=== PATIENT | male | born 1945 | race Caucasian/White ===

== ENCOUNTER 2019-09-01 09:26 | Observation (INO) | payer MEDICARE, OTHER, SELFPAY ==
[2019-08-29 09:18] VITALS: BMI 34.2
--- NOTE | 2019-08-29 09:23 | ECG_ITS ---
Measurements Intervals [place] Rate: 85 P: 24 UT: 151 QRS: -40 QRSD: 170 T: 2 QT: 425 QTc: 507 SINUS RHYTHM WITH OCCASIONAL VENTRICULAR PREMATURE COMPLEXES MARKED LEFT AXIS DEVIATION [QRS AXIS < -30] RIGHT BUNDLE BRANCH BLOCK [120+ ms QRS DURATION, UPRIGHT V1, 40+ ms S IN I/aVL/V4/V5/V6] Compared to ECG 08/03/2016 06:43:52 Ventricular premature complex(es) now present Sinus bradycardia no longer present Possible ischemia no longer present Electronically Signed On 08-29-2019 15:55:39 RUBY DEVELOPER by Josesito Blankenship M.D. [email or web address]
--- NOTE | 2019-08-29 10:07 | ANES.PREANES ---
Pre-Anesthetic Assessment Pre-Anesthetic Assessment: Height/Weight: Height 1.8 m Weight 111.13 kg Preop Diagnosis: Lumbar disc displacement with radiculopathy Proposed Procedure: Operation Date: 09/01/19 08:40 Proposed Procedures p Hemilaminotomy Foraminotomy Discectomy 2 L4-L5 L5-S1(Not Applicable) - Dano Mejias MD Familial anesthetic complications: None Social: Social History: No alcohol and No tobacco Exam: Pre-Anes Outpt Exam: alert, oriented x 3, clear to auscultation bilaterally and regular rate & rhythm Airway: Cervical ROM: WNL MP: 4 Dentition: Partials Additional comments: partial plate Pulmonary: Pulmonary: PND and Sleep apnea Comments: CPAP CV/HEM: CV/HEM: CAD Comments: EKG 08/29 - SR with VCs, Left axis deviation, and RBBB ischemic cardiomyopathy : : None reported GI: GI: None reported Comments: hx colon cancer Metabolic: Metabolic: DM and Hyperlipidemia Musc/skel: Musc/skel: None reported Neuropsych: Neuropsych: None reported Comments: arachnoid cyst - no symptoms Anesthetic Plan: ASA status: III Anesthesia: General Risk of > 500 ml blood loss (7ml/kg in children): Yes, adequate IV access and fluids planned PFSH Anesthesia PFSH: Medical History (Updated 08/15/19 @ 09:40 by Dano Mejias MD) Arachnoid cyst (Acute) ASHD (arteriosclerotic heart disease) (Acute) DDD (degenerative disc disease), lumbar (Acute) Diabetes mellitus (Acute) History of colon cancer (Acute) Hyperlipidemia (Acute) Hypertension (Acute) Intervertebral disc disorder with radiculopathy of lumbosacral region (Acute) Ischemic cardiomyopathy (Acute) Lumbar disc disease with radiculopathy (Acute) Lumbar spondylosis (Acute) Lumbosacral disc disease (Acute) Obesity (Acute) Tobacco abuse (Acute) Surgical History (Updated 08/15/19 @ 09:34 by Dano Mejias MD) H/O coronary angioplasty (Acute) History of cholecystectomy (Acute) History of hernia repair (Acute) History of resection of small bowel (Acute) Social History (Updated 08/14/19 @ 18:03 by Angela Wyatt LPN) Smoking and tobacco status: former smoker Alcohol intake: never Lives independently: Yes Household members: spouse Marital status: Current occupational status: retired Current occupation: retired Data Anesthesia Cardiac Studies: No Data to Display
[2019-08-29 10:29] LABS: Basophils % 0.2 %; Eosinophils # 0.1 10^3/uL (0.0-0.8); Eosinophils % 1.5 %; Hematocrit 38.2 % (42.0-52.0); Hemoglobin 12.4 g/dL (11.7-16.6); Lymphocytes # 0.8 10^3/uL (0.8-4.8); Lymphocytes % 18.9 %; Mean Corpuscular HGB Conc 32.5 g/dL (30.0-36.0); Mean Corpuscular Hemoglobin 28.4 pg (28.0-34.0); Mean Corpuscular Volume 87.6 fL (80-94); Mean Platelet Volume 11.6 fL (7.4-10.4); Monocytes # 0.3 10^3/uL (0.2-0.9); Monocytes % 8.4 %; Neutrophils # 2.9 10^3/uL (1.8-7.7); Neutrophils % 70.5 %; Nucleated Red Blood Cells % 0 %; Platelet Count 107 10^3/cmm (130-400); Red Blood Count 4.36 10^6/uL (4.1-5.3); Red Cell Distribution Width 12.7 % (12.1-15.1); White Blood Count 4.1 10^3/uL (4.0-10.0)
[2019-08-29 10:45] LABS: Anion Gap 14.6 (5-19); Blood Urea Nitrogen 16 mg/dL (8-23); Calcium 9.3 mg/dL (8.5-10.5); Carbon Dioxide 24 mmol/L (22-29); Chloride 104 mmol/L (98-107); Glucose 165 mg/dL (74-106); Osmolality Calculated 288 mOsm/kg (285-295); Potassium 3.6 mmol/L (3.5-5.1); Sodium 139 mmol/L (136-145)
[2019-09-01] VITALS (14 sets, daily range): BP systolic 117–143; BP diastolic 64–89; PULSE 66–86; RESP 15–21; TEMP 36.4–36.8; O2SAT 18–99
[2019-09-01 06:42] LABS: Glucose Point of Care 95 mg/dL (70-110)
[2019-09-01] MEDS: gabapentin 300 mg Capsule PO (06:45)
--- NOTE | 2019-09-01 06:57 | PM.HPUD ---
H&P update H&P Update: DATE OF SURGERY/PROCEDURE: 09/01/19 DATE H&P PERFORMED: 08/29/19 H&P UPDATE INFORMATION: H&P completed within last 30 days and H&P to be scanned into chart CHANGES TO PREVIOUS DOCUMENTATION: Off aspirin x 1 week PREOP DIAGNOSIS: Lumbar disc displacement with radiculopathy PRIMARY INDICATION FOR PROCEDURE: Low back and left lower extremity symptoms PLANNED PROCEDURE: Operation Date: 09/01/19 07:00 Proposed Procedures Hemilaminotomy/Foraminotomy/Discectomy, Left L4-L5 and L5-S1 - Dano Mejias MD Full H&P Medications/Allergies: Current Medications: Current Medications Generic Name Dose Route Start Last Admin Trade Name Freq PRN Reason Stop Dose Admin Gabapentin 300 mg 09/01/19 06:15 09/01/19 06:45 Neurontin PO 300 mg ONCE MARY Administration Perinent History: Medical/Surgical History: Medical History (Updated 08/15/19 @ 09:40 by Dano Mejias MD) Arachnoid cyst (Acute) ASHD (arteriosclerotic heart disease) (Acute) DDD (degenerative disc disease), lumbar (Acute) Diabetes mellitus (Acute) History of colon cancer (Acute) Hyperlipidemia (Acute) Hypertension (Acute) Intervertebral disc disorder with radiculopathy of lumbosacral region (Acute) Ischemic cardiomyopathy (Acute) Lumbar disc disease with radiculopathy (Acute) Lumbar spondylosis (Acute) Lumbosacral disc disease (Acute) Obesity (Acute) Tobacco abuse (Acute) Family History: Family History (Updated 08/14/19 @ 18:02 by Angela Wyatt LPN) Mother Cancer Father CAD (coronary artery disease) Sister Hypertension Social History: Social History Smoking and tobacco status: former smoker Alcohol intake: never Lives independently: Yes Household members: spouse Marital status: Current occupational status: retired Current occupation: retired
[2019-09-01] MEDS: sodium chloride 0.9% 1,000 ML 30 ML IV (07:08)
--- NOTE | 2019-09-01 07:08 | PM.OP2 ---
 Brief Operative Note: Date of procedure: 09/01/19 Pre-op diagnosis: Lumbar disc displacement with radiculopathy Post-op diagnosis: same Procedure Done: Left L4-L5, L5-S1 Hemilaminotomy/discectomy/foraminotomy Surgeon: Dano Mejias Estimated blood loss (mL): 50 Complications: None. 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
--- NOTE | 2019-09-01 07:14 | XR_ITS ---
WS: [id number] LUMBAR SPINE TECHNIQUE: 1 view of the lumbar spine CLINICAL INFORMATION: intra-op COMPARISON: None. FINDINGS: Localization marker dorsally at the L4-5 level XR/XR lumbar spine 1V port [id number] IMPRESSION: Images obtained for intraoperative purposes.
--- NOTE | 2019-09-01 07:49 | SUR.OPER ---
family updated of patients status
--- NOTE | 2019-09-01 07:58 | XR_ITS ---
WS: [id number] LUMBAR SPINE TECHNIQUE: 1 view of the lumbar spine CLINICAL INFORMATION: intra-op COMPARISON: None. FINDINGS: Localization marker dorsally at L5 XR/XR lumbar spine 1V port [id number] IMPRESSION: Images obtained for intraoperative purposes
--- NOTE | 2019-09-01 08:18 | SUR.OPER ---
surgifoam placed in back per Dr. Mejias lot: [id number] exp: 05/01/23
--- NOTE | 2019-09-01 09:34 | SUR.PHASEI ---
0933- RECEIVED PATIENT IN PACU FROM OR [facility]IA [facility]. RESP ARE EVEN AND NONLABORED. SIMPLE MASK APPLIED AT 6LPM, SAT 99%. HE IS AWAKE AND ALERT, DROWSY. DRESSING TO LOWER BACK IS DRY AND INTACT. NO S/S PAIN OR NAUSEA
--- NOTE | 2019-09-01 09:48 | SUR.PHASEI ---
0945- UPDATED FAMILY OF STABLE PT STATUS
--- NOTE | 2019-09-01 10:21 | SUR.PHASEI ---
0953- TRANSFERRED PATIENT FROM PACU TO . RESP ARE EVEN AND NONLABORED. SAT 95% WITH ROOM AIR. HE IS AWAKE AND ALERT. DRESSING IS DRY AND INTACT WITH SCANT DRY BLOOD TO TELFA. HE REPORTS PAIN 3-4/10 DESCRIBES NOT BAD DENIES NAUSEA. UPON ARRIVAL HE IS ASSISTED X2 STAFF WITH AMBULATION FROM GURNEY TO BED. HE TOLERATES THIS WELL REPORTING PAIN AT 4-5/10 FOLLOWING ACTIVITY. ALISSON ROBLES AT THE BEDSIDE FOR TRANSITION OF CARE. FAMILY IN SECOND FLOOR WAITING ROOM
[2019-09-01] MEDS: lactated ringers 1,000 ML 90 ML IV (10:33)
[2019-09-01] MEDS: ketorolac 30 mg/mL INJ 15 MG IVP ×2 (10:33→17:43)
[2019-09-01 11:04] LABS: Glucose Point of Care 130 mg/dL (70-110)
--- NOTE | 2019-09-01 15:00 | P.OP_ITS ---
Operative Report Date of procedure: September 01, 2019 Pre-op Diagnosis: Lumbar disc displacement with radiculopathy Pre-op Diagnosis: Lumbar spondylosis Post-op diagnosis: same Procedure Done: Left L4-5, L5-S1 hemilaminotomy/discectomy/foraminotomy. Specimens removed/disposition: L4-5 and L5-S1 disc fragments Surgeon: Dano Mejias Anesthesia: General Estimated blood loss (mL): 50 IV fluids (mL): 1,200 IV fluids: Crystalloid Urine output (mL): 125 Complications: None Condition: stable Disposition: PACU Brief History: The patient is a 73-year-old white male with symptomatic, radiographically confirmed lumbar disc/joint disease and associated neural impingement. Symptoms primarily involved the left lower extremity. Imaging studies demonstrated dominant left-sided encroachment by disc displacement and facet arthropathy at L4-L5 and L5-S1. Conservative management, including physical therapy and pain clinic interventions, did not provide adequate lasting symptom relief. After review of the diagnostic and treatment options with the risks/potential benefits/rationale for each, the patient requested to proceed with surgical intervention. Procedure: After routine preoperative evaluation and informed consent were obtained, the patient was taken to the Operating Room and placed under general endotracheal anesthesia. He was rotated onto the Operating Room table in the mo dified knee-chest position with the aid of the Sainz spine frame. The lumbosacral area was prepared with hair clippers. A proposed midline skin incision was marked with a sterile skin marker. Intraoperative radiography was utilized for localization purposes. The lumbosacral area was scrubbed with Betadine and prepped with DuraPrep. Sterile towels and drapes were applied, and an Ioban surgical barrier was placed. The proposed incision site was infiltrated with 1% Xylocaine with Epinephrine. A skin incision was made and carried down into the subcutaneous tissues. The lumbodorsal fascia was identified and divided in the midline. A left-sided subperiosteal dissection was carried out along the lamina of L4, L5 and the upper sacrum. Deep self-retaining retractors were placed. Intraoperative radiography verified the desired surgical levels. An L4- L5 laminotomy was fashioned utilizing Leksell and Kerrison rongeurs. Ligamentum flavum was resected at the base of the laminotomy site with Kerrison rongeurs. The ligament was undercut across the midline and into the lateral recess. A limited resection of the medial aspect of the facet joint was performed to further the lateral recess decompression. The neuroforamen was enlarged in its medial extent utilizing Kerrison rongeurs. The thecal sac and exiting nerve root were retracted from lateral to medial with the nerve root retractor. Upon r etraction of the thecal sac, an underlying disc/osteophyte complex was well- visualized. Displaced disc and associated osteophytes were removed with various curettes and the pituitary rongeurs. Once the decompression appeared adequate at L4-L5, the dura was covered with thrombin-soaked Gelfoam and a cottonoid. A laminotomy was then fashioned at L5-S1. Ligamentum flavum was resected, with undercutting across the midline and into the lateral recess. Utilizing Kerrison rongeurs, a limited resection of the medial aspect of the facet joint was performed, and the medial aspect of the neuroforamen was enlarged. Retraction of the thecal sac with the nerve root retractor demonstrated residual neural impingement related to displaced disc and bone spurs. Various curettes and Kerrison rongeurs were utilized to address the disc/osteophyte complex. Once the decompression appeared adequate at L5-S1, the Gelfoam and cottonoids were removed at L4-L5. The central canal, lateral recesses, and neuroforamina were probed with the Grampian dental instrument. No residual neural impingement was identified at the completion of the decompression. The sites were copiously irrigated with sterile saline and antibiotic irrigation. Immaculate hemostasis was ensured with the bipolar electrocautery and thrombin-soaked Gelfoam. A thin layer of Surgi-Luis hemostatic matrix was placed over the exposed dura at both laminotomy sites. Wound closure was performed in multiple layers with 2-0 Vicryl Plus, simple interrupted closure of the lumbodorsal fascia, superficial fascia and deep dermis as separate layers. Final skin closure was performed with 3-0 Vicryl Plus in a running subcuticular pattern. Steri-Strips were applied, and a sterile dressing was placed. The patient was then rotated onto the Recovery Room cart in the supine position. He was extubated without incident. The patient tolerated the procedure well. All sponge, needle, and instrument counts were correct at the completion of the procedure.
--- NOTE | 2019-09-01 15:23 | P.DS_ITS ---
Discharge Providers Date of Admission: 09/01/19 09:26 Date of Discharge: Date of Discharge: September 01, 2019 Attending Provider at Admission: Dano Mejias MD Attending Provider at Discharge: Dano Mejias MD Primary Care Provider: Nehemiah Kaur MD Reason for Visit Reason for Visit: Reason For Visit: Lumbar Disc Diease Brief History: The patient is a 73-year-old white male with symptomatic, radiographically confirmed lumbar disc/joint disease and associated neural impingement. Symptoms primarily involved the left lower extremity. Imaging studies demonstrated dominant left- sided encroachment by disc displacement and facet arthropathy at L4-L5 and L5- S1. Conservative management, including physical therapy and pain clinic interventions, did not provide adequate lasting symptom relief. After review of the diagnostic and treatment options with the risks/potential benefits/rationale for each, the patient requested to proceed with surgical intervention. Hospital Course Hospital Course: Patient underwent left L4-L5 and left L5-S1 hemilaminotomy/discectomy/foraminotomy on 09/01/2019. He tolerated the procedure well, and noted improvement in preoperative symptoms following surgery. He completed preoperative and postoperative intravenous antibiotic doses, and the physical therapy postoperative spine protocol. He was ambulatory, voiding, and tolerating diabetic diet prior to requested discharge home on the evening of the date of surgery Physical Exam Const: COMMON NORMALS: no apparent distress GENERAL APPEARANCE: cooperative NUTRITIONAL APPEARANCE: obese Resp: COMMON NORMALS: normal respiratory effort EFFORT & INSPECTION: Yes able to speak in complete sentences and No stridor Back/Pelvis: LUMBAR SPINE/LOWER BACK: Yes straight leg raise negative bilaterally Neuro: SPEECH: speech normal MOTOR EXAM: strength 5/5 throughout (No focal lower extremity motor weakness) Psych: COMMON NORMALS: thought process normal and speech normal ATTITUDE: Yes calm and Yes engaged ACTIVITY/MOTOR BEHAVIOR: Yes appropriate eye contact SPEECH: Yes normal speech MOOD & AFFECT: Yes euthymic mood THOUGHT PROCESS: normal thought process INSIGHT: insight good JUDGEMENT: judgment good Skin: WOUNDS: Yes surgical site (Surgical site dressing clean/dry/intact. Incision without erythema or active drainage.) Urinary Catheter Management^: Garcia: Cath Placed During This Visit: no Discharge Data Data Completed and Pending: Completed Studies During Hospitalization Category Date Time Status XR lumbar spine 1 view portable [XR lumbar spine 1V Exams 09/01/19 07:14 Completed port [id number]] Routi ne XR lumbar spine 1 view portable [XR lumbar spine 1V Exams 09/01/19 07:58 Completed port [id number]] Cayetano gale Pending at discharge Category Date Time Status Pathology: Surgic al [PTH] Routine Pth 09/01/19 09:36 Received Labs from last 24 hours 09/01/19 09/01/19 10:56 06:34 POC Glucose 130 95 Vitals: Last Vital Signs Temp 97.6 F 09/01/19 15:00 Pulse 78 09/01/19 15:00 Resp 18 09/01/19 15:00 BP 128/76 09/01/19 15:00 Pulse Ox 94 09/01/19 15:00 Discharge Plan Discharge Patient Disposition: Home, Self-Care Condition: Stable Prescriptions: New [place] 7.5-325 mg tablet 1 tab PO Q4H PRN (Reason: pain) Qty: 25 RF: 0 Continued clonazepam 0.5 mg tablet 0.25 mg PO BID RF: 0 amitriptyline 25 mg tablet 25 mg PO .hs RF: 0 fluticasone propionate [Children's Flonase Allergy Rlf] 50 mcg/actuation spray,suspension 1 spray INTRANASAL QDAY PRN (Reason: allergy symptoms) RF: 0 metformin 500 mg tablet 1,000 mg PO QDAY RF: 0 lisinopril 20 mg tablet 20 mg PO QDAY RF: 0 glipizide 5 mg tablet 2.5 mg PO QDAY RF: 0 rosuvastatin 20 mg tablet 20 mg PO DAILY RF: 0 Held tramadol 50 mg tablet 50 mg PO BID PRN (Reason: Pain) RF: 0 Hold Instructions: Hold while taking [place] (Hydrocodone). aspirin [Aspirin Low Dose] 81 mg tablet,delayed release (DR/EC) 81 mg PO QDAY RF: 0 Hold Instructions: Resume on 09/03/19. Discharge Orders: Discharge Order (Routine); Ordered 09/01/19 Ordered By: Dano Mejias Referrals: Dano Mejias MD [Physician] - 2 weeks (please call tomrrow morning to set up your follow up appointment) Discharge Diet: Diabetic Discharge Activity: Limit activity as instructed Patient Instructions: Hydrocodone/Acetaminophen (By mouth), Laminectomy for Herniated Disc (DC) Activity Restrictions/Additional Instructions: Activity - No driving until office followup visit - No lifting/pushing/pulling over 10 pounds - Avoid twisting or bending - Walking is encouraged - Home exercise per physical therapist - You may engage in sexual intercourse at any time as long as it is comfortable for you - Check with your doctor before returning to work. Notify your doctor if you develop: - temperature of 101.5 degrees F. or higher - redness or swelling of the incision - Foul drainage - increasing pain - increasing numbness or tingling in the arms or legs - New or increasing problems with vision, balance, memory, speaking, nausea or vomiting Hygiene: - Showering is okay - No tub baths or soaking Other: Remove outer bandage 3 days after surgery. If you have paper strips, leave in place until they fall off on their own. If you have stitches, keep your incision dry until the stitches are removed. Your doctor's office is available to answer any questions from 7 AM to 5:00 PM, Sunday through at [phone]. After hours, go to the emergency room at [facility] or call 911 for assistance. Discharge Date/Time: 09/01/19 19:21 Discharge Attestations Time Spent in Discharge Care*: other (Postoperative global) Quality Metrics Clinical Quality Measures During this hospital stay, did patient experience: None Coding Level of Care Code Acute Pathology Laboratory Aide for Aiyana Fwd Exam Problem Focused Comment Postoperative global
[2019-09-01 16:30] LABS: Glucose Point of Care 195 mg/dL (70-110)
[2019-09-01] MEDS: CLONazepam 0.5 mg Tablet 0.25 MG PO (17:42)
[2019-09-01] MEDS: docusate sodium 100 mg Capsule PO (17:42)
[2019-09-01] MEDS: HYDROcodone-acetaminophen 5-325 mg Tablet PO (19:18)
== END 2019-09-01 19:21 | disposition home or self-care (01) ==
LOC: MEDSURG 09:26
PROVIDERS: Anesthesiology; Admitting Provider Specialist; Family Provider Family Medicine; PCP Family Medicine; Visit Provider Specialist
PROC: (CPT 22899; principal; 2019-09-01 07:00)
DX: M51.16 Intervertebral disc disorders with radiculopathy, lumbar region (principal); E11.40 Type 2 diabetes mellitus with diabetic neuropathy, unspecified; I10 Essential (primary) hypertension; Z95.5 Presence of coronary angioplasty implant and graft; Z82.49 Family history of ischemic heart disease and other diseases of the circulatory system; G47.33 Obstructive sleep apnea (adult) (pediatric); Z87.891 Personal history of nicotine dependence; Z79.82 Long term (current) use of aspirin; Z79.84 Long term (current) use of oral hypoglycemic drugs; I25.10 Atherosclerotic heart disease of native coronary artery without angina pectoris; E78.5 Hyperlipidemia, unspecified; E66.9 Obesity, unspecified; Z68.34 Body mass index [BMI] 34.0-34.9, adult; Z85.038 Personal history of other malignant neoplasm of large intestine
CPT/HCPCS: 63030; 63035; 12345; 36415; 36416; 51702; 72020; 80048; 82962; 85025; 88304; 93005; 94664; 96361; 96372; 96375; 97110; 97161; G0378; J0690; J1100; J1815; J1885; J2001; J2270; J2405; J2704; J2710; J3010; J3490; J7030

== ENCOUNTER → 2019-10-27 14:37 | Outpatient (BNVA) | payer MEDICARE, OTHER, SELFPAY | PROVIDERS: Family Provider Family Medicine; PCP Family Medicine; Visit Provider Specialist | DX: G62.9 Polyneuropathy, unspecified (principal); G11.9 Hereditary ataxia, unspecified; Z87.891 Personal history of nicotine dependence | CPT/HCPCS: 99214 ==

== ENCOUNTER 2019-11-26 06:00 | Outpatient (RCR) | payer MEDICARE, OTHER, SELFPAY | END 2019-11-27 23:59 | disposition home or self-care (01) | LOC: SPT 06:00 | PROVIDERS: Family Provider Family Medicine; PCP Family Medicine; Referring Provider Specialist; Visit Provider Specialist | DX: R26.81 Unsteadiness on feet (principal) | CPT/HCPCS: 97162 ==

== ENCOUNTER 2019-11-28 06:00 | Outpatient (RCR) | payer MEDICARE, OTHER, SELFPAY | END 2019-12-28 23:59 | disposition home or self-care (01) | LOC: SPT 06:00 | PROVIDERS: PCP Family Medicine; Referring Provider Specialist; Visit Provider Specialist | DX: R26.0 Ataxic gait (principal) | CPT/HCPCS: 97110; 97112 ==

== ENCOUNTER 2019-12-29 06:00 | Outpatient (RCR) | payer MEDICARE, OTHER, SELFPAY | END 2020-01-22 13:31 | disposition home or self-care (01) | LOC: SPT 06:00 | PROVIDERS: PCP Family Medicine; Visit Provider Specialist | DX: M76.821 Posterior tibial tendinitis, right leg (principal) | CPT/HCPCS: 73600; 73630; 97110; 97112 ==

== ENCOUNTER 2019-12-29 11:05 | Outpatient (CLI) | payer MEDICARE, OTHER, SELFPAY | END 2019-12-29 11:06 | disposition home or self-care (01) | LOC: SPT 11:06 | PROVIDERS: PCP Family Medicine; Visit Provider Podiatrist Foot & Ankle Surgery | DX: Z46.89 Encounter for fitting and adjustment of other specified devices (principal); M76.821 Posterior tibial tendinitis, right leg | CPT/HCPCS: 97760; L1902 ==

== ENCOUNTER 2020-02-13 10:33 | Outpatient (CLI) | payer MEDICARE, OTHER, SELFPAY ==
--- NOTE | 2020-02-13 11:10 | MR_ITS ---
WS: [id number] MRI HEAD WITH CONTRAST TECHNIQUE: Sagittal T1, T2 axial, T2 axial FLAIR, axial susceptibility weighted imaging, axial diffus ion weighted images, and coronal T2 images were obtained. Pre and post-T1 axial and post T1 coronal i mages. ADC and FSPGR images. CLINICAL INFORMATION: ARACHNOID CYST COMPARISON: MRI . Additional MRI 2016 2017 FINDINGS: No evidence of restricted diffusion to suggest acute ischemia. Ventricular system and basal cisterns are patent. Mild small vessel changes with moderate parenchymal volume loss. Normal vascular flow voi ds at the skull base. No hemosiderin on the susceptibility weighted images. No abnormal gadolinium enhancement. Normal optic chiasm and pituitary infundibulum. Normal visualized dural venous sinuses. Mild symmetric atrophy involving the temporal lobes and hippocampal formations . Stable retrocerebellar arachnoid cyst or megacisterna magna unchanged since 2014. No hydrocephalus. Normal fourth ventricle. MR/MR head wo/w con [id number] IMPRESSION: 1. Unchanged retrocerebellar arachnoid cyst or megacisterna magna unchanged si nce 2014. 2. No hydrocephalus. Ventricular size is unchanged. 3. Mild small vessel changes with moderate parenchymal volume loss. 4. No abnormal intracranial enhancement.
== END 2020-02-13 10:34 | disposition home or self-care (01) ==
LOC: RADWPI 10:36
PROVIDERS: Family Provider Family Medicine; PCP Family Medicine; Visit Provider Specialist
DX: G93.0 Cerebral cysts (principal)
CPT/HCPCS: 70553; A9579

== ENCOUNTER 2020-04-26 12:41 | Outpatient (CLI) | payer MEDICARE, OTHER, SELFPAY ==
--- NOTE | 2020-04-26 13:00 | CT_ITS ---
WS: [id number] CT HEAD TECHNIQUE: Noncontrast CT of the head obtained from the skullbase to the vertex. CLINICAL INFORMATION: unsteady gait COMPARISON: MRI February 13, [address] December 13, 2016 DLP: 1058.[address] scans at [facility] use at least one of these dose optimization techniques: automat ed exposure control; mA and/or kV adjustment per patient size (includes targeted exams where dose is matched to clinical indication); or iterative reconstruction. FINDINGS: No evidence of intracranial hemorrhage or mass effect. Ventricular system and basal cisterns are bond nt. Mild small vessel changes with moderate parenchymal volume loss. Stable retrocerebellar arachnoid cyst or jr cisterna magna unchanged since 2014. No hydrocephalus or transependymal edema. Normal fourth ventricl e. Paranasal sinuses and mastoid air cells are well aerated. .Normal visualized soft tissues. IMPRESSION 1. No evidence of intracranial hemorrhage or mass effect. 2. Stable retrocerebellar arachnoid cyst or magna cisterna magna unchanged since 2014. 3. No hydrocephalus. Normal fourth ventricle. 4. Mild small vessel changes. Moderate parenchymal volume loss. 5. No acute intracranial findings.
== END 2020-04-26 12:42 | disposition home or self-care (01) ==
LOC: RADWPI 12:45
PROVIDERS: Family Provider Family Medicine; PCP Family Medicine; Visit Provider Specialist
DX: R26.81 Unsteadiness on feet (principal)
CPT/HCPCS: 70450

== ENCOUNTER → 2020-05-12 10:15 | Outpatient (BNVA) | payer MEDICARE, OTHER, SELFPAY | PROVIDERS: Family Provider Family Medicine; PCP Family Medicine; Referring Provider Physician Assistant; Visit Provider Specialist | DX: M17.12 Unilateral primary osteoarthritis, left knee (principal); M17.0 Bilateral primary osteoarthritis of knee | CPT/HCPCS: 73560; 73565 ==

== ENCOUNTER 2020-07-12 07:48 | Outpatient (CLI) | payer MEDICARE, OTHER, SELFPAY ==
--- NOTE | 2020-07-12 08:01 | MR_ITS ---
WS: [id number] MRI LUMBAR SPINE NONCONTRAST TECHNIQUE: Sagittal T1, T2 and STIR imaging. Axial T1 and T2 imaging. CLINICAL INFORMATION: BACK PAIN WITH RADICULOPATHY COMPARISON: None. FINDINGS: Since the prior examination , Left hemilaminectomy's left L4-5 and L5-S1 are new from previ ous. Expected postoperative change. No drainable fluid collections. L1-L2: Mild disc bulging with mild facet arthropathy. Spinal canal and foramen are patent. L2-L3: Stable small right subarticular disc protrusion. Impingement on the traversing right L3 nerve root. Recommend correlation for right L3 nerve root symptoms. Moderate right foraminal narrowing with contact of the exiting right L2 nerve root unchanged. Mild central canal stenosis. L3-L4: Bilobed shallow disc bulging impinges the right greater than left subarticular recess. Impinge ment traversing right L4 nerve root. Moderate central canal stenosis unchanged. Mild right and no sig nificant left foraminal narrowing. Mild facet arthropathy. L4-L5: Left hemilaminectomy is new from previous. Disc bulging with narrowing of the subarticular rec ess bilaterally has improved. Improved central canal stenosis. Mild bilateral foraminal narrowing. Mo derate facet arthropathy. L5-S1: Left hemilaminectomy is new from previous. Mild disc bulging with impingement on the left S1 n erve root has improved. Moderate left foraminal narrowing impinges the exiting left L5 nerve root. Ri ght foramen is patent. Moderate facet arthropathy MR/MR lumbar spine wo con* [id number] IMPRESSION: 1. Hemilaminectomies at L4-5 and L5-S1 are new from previous. 2. No acute compression fractures. No high-grade central canal stenosis. 3. Improved impingement left subarticular recess L5-S1 with laminectomy. Moder ate left foraminal narrowing. 4. Small right subarticular protrusion L3-4 impinges the traversing right L4 n erve root. 5. Moderate central canal stenosis L3-4. 6. Small right L2-3 subarticular disc protrusion impinges the traversing right L3 nerve root unchanged. 7. Improved central canal stenosis L4-5. Interval left hemilaminectomy. 8. Moderate right foraminal narrowing L2-3.
--- NOTE | 2020-07-12 08:24 | XR_ITS ---
WS: [id number] Left hip, 3 views standing, 07/12/2020 Clinical Data: LEFT HIP PAIN Comparison: Left hip, 01/03/2019. Findings: No fractures or dislocations are seen. The left hip joint is intact. The soft tissues are not remarka ble. The adjacent pelvis is normal. There is minimal narrowing of the hip joint unchanged. The patient is had abdominal wall repair. XR/XR hip LT 2-3V wo/w pel* [id number] Impression: Mild degenerative arthritic change of the left hip.
== END 2020-07-12 07:49 | disposition home or self-care (01) ==
LOC: RADWPI 07:55
PROVIDERS: PCP Family Medicine; Visit Provider Surgery
DX: M48.061 Spinal stenosis, lumbar region without neurogenic claudication (principal); M51.26 Other intervertebral disc displacement, lumbar region; M25.552 Pain in left hip; M54.16 Radiculopathy, lumbar region; M16.12 Unilateral primary osteoarthritis, left hip
CPT/HCPCS: 72148; 73502

== ENCOUNTER → 2020-10-04 14:37 | Outpatient (BNVA) | payer MEDICARE, SELFPAY | PROVIDERS: PCP Family Medicine; Visit Provider Specialist | DX: G11.9 Hereditary ataxia, unspecified (principal); G60.8 Other hereditary and idiopathic neuropathies; H55.09 Other forms of nystagmus; Z87.891 Personal history of nicotine dependence | CPT/HCPCS: 99214 ==

== ENCOUNTER 2021-01-08 08:24 | Emergency (ER) | payer MEDICARE, SELFPAY ==
[2021-01-08 08:37] VITALS: BP 175/98; PULSE 81; RESP 18; TEMP 36.7; O2SAT 96; BMI 32.3
--- NOTE | 2021-01-08 08:40 | XRR_ITS ---
PROCEDURE INFORMATION: Exam: XR Left Foot Exam date and time: 01/08/2021 8:40 AM Age: 75 years old Clinical indication: Injury or trauma; Fall; Blunt trauma; Foot; Left TECHNIQUE: Imaging protocol: XR Left foot. Views: 3 or more views. COMPARISON: No relevant prior studies available. FINDINGS: Bones/joints: There is osteopenia. There are ajve-qn-fbecivnd degenerative changes in the midfoot. More prominent degenerative changes at the calcaneal cuboid joint. No periosteal reaction or inflammatory erosions. No acute fracture. No dislocation. The Lisfranc joint alignment is intact. No bony destruction or osteomyelitis. Soft tissues: There is no foreign body. XR/XR foot LT min 3V* [id number] IMPRESSION: No acute bony abnormality is identified.
--- NOTE | 2021-01-08 08:41 | W.ED.LOWEXIN ---
HPI - Extremity Injury (Lower) General: Chief Complaint: Fall Stated Complaint: L Leg Pain s/p fall yesterday Time Seen by Provider: 01/08/21 08:30 Source: patient and family Mode of arrival: wheelchair Limitations: no limitations History of Present Illness: HPI Narrative: Patient is a nice 75-year-old male here along with his for evaluation following a fall. Patient tells me yesterday evening while at his house the phone rang. He states he got up and began walking towards the phone to answer it when his knees buckled causing him to fall. He states his knees will sometimes buckle secondary to arthritis. Patient also has a history of cerebellar ataxia so sometimes has gait disturbances secondary to that as well. Patient tells me he did not get dizzy or lightheaded. No syncopal episode. No chest pain or shortness of breath. He states he injured his left knee and left foot. Denies striking his head or LOC. No neck or back pain. MD complaint: knee injury and foot injury Onset (ago): day(s) (yesterday) Place: home Severity: moderate Relieving factors: immobilization Exacerbating factors: weight bearing, movement and palpation Context: fall Other symptoms: none Review of Systems Const: Denies: fever(s), chills, fatigue or malaise Eyes: Denies: change in vision or blurry vision Card: Denies: chest pain, palpitations, irregular heart rhythm, edema, lightheadedness, syncope or pre-syncope Resp: Denies: dyspnea GI: Denies: abdominal pain, nausea or vomiting Musc: Reports: extremity pain (L foot) and joint pain (L knee); Denies: neck pain, back pain, extremity swelling, joint swelling, joint redness, joint warmth or limited range of motion Neuro: Denies: headache(s), numbness in extremities, weakness in extremities, sensory changes or dizziness PFS ED PFSH: Medical History (Updated 01/08/21 @ 09:16 by SARAH Uribe) Arachnoid cyst ASHD (arteriosclerotic heart disease) DDD (degenerative disc disease), lumbar Diabetes mellitus Diabetic neuropathy Gait instability History of colon cancer Hyperlipidemia Hypertension Intervertebral disc disorder with radiculopathy of lumbosacral region Ischemic cardiomyopathy Lumbar disc disease with radiculopathy Lumbar spondylosis Lumbosacral disc disease Migraine Obesity Tobacco abuse Surgical History H/O coronary angioplasty History of back surgery Left L4-L5, L5-S1 hemilaminotomy/discectomy/foraminotomy, 09/01/2019, [facility] History of cholecystectomy History of hernia repair History of resection of small bowel History of sinus surgery Family History Mother Cancer Father CAD (coronary artery disease) Sister Hypertension Social History Smoking and tobacco status: former smoker Alcohol intake: never Lives independently: Yes Household members: spouse Marital status: Current occupational status: retired Current occupation: retired History of recent travel: No Physical Exam Const: COMMON NORMALS: no acute distress, patient oriented x3, no limitations and alert GENERAL APPEARANCE: cooperative NUTRITIONAL APPEARANCE: overweight ORIENTATION/CONSCIOUSNESS: Yes awake, Yes oriented to person, Yes oriented to place and Yes oriented to time HENMT: COMMON NORMALS: normocephalic and atraumatic HEAD & SCALP: normocephalic and atraumatic Neck/C-Spine: COMMON NORMALS: full ROM CERVICAL SPINE: Yes cervical ROM normal, No pain with cervical ROM and No Cervical spine tenderness Resp: COMMON NORMALS: normal respiratory effort and clear to auscultation bilaterally AUSCULTATION: clear to auscultation bilaterally Cardio: COMMON NORMALS: regular rate and regular rhythm RATE: regular rate RHYTHM: regular rhythm Back/Pelvis: COMMON NORMALS: thoracic and lumbar spine normal to inspection, no thoracic nor lumbar tenderness, thoraco-lumbar ROM normal and straight leg raise negative bilaterally Extremity: GENERAL: Yes normal exam except as noted OTHER: TTP inferiolateral L knee w/o obvious swelling; can fully flex and extend knee but with discomfort; he has a small area of ecchymosis to distal dorsal foot; he has tenderness to medial-mid distal foot; extremity NV intact with normal DP/PT pulses and cap refill Neuro: COMMON NORMALS: patient oriented x3, moves all extremities, no focal motor deficits and no sensory deficits noted SENSORIUM/ORIENTATION: Yes alert, Yes oriented to person, Yes oriented to place and Yes oriented to time Skin: NARRATIVE SKIN EXAM: see extremity assessment for pertinent skin findings Course Vital Signs: Vital signs: Vital Signs Temperature 98.0 F 01/08/21 08:37 Pulse Rate 78 01/08/21 08:45 Respiratory Rate 16 01/08/21 08:45 Blood Pressure 175/98 01/08/21 08:45 Pulse Oximetry 97 01/08/21 08:45 MDM - Extremity Injury (Lower) MDM Narrative: Medical decision making narrative: I do not visualize any fractures on patient's XRs. Will place WALESKA wrap to L knee. Recommend using walker at home at all times to help prevent falls. He states he normally takes Tramadol for pain however last prescription written was for the 100mg tabs instead of the 50mg and insurance wouldn't cover those so he didn't get them filled. Will write for a small amount of the 50mg tabs he can take for discomfort. Imaging Data^: XR L knee: My impression: NAD; patellofemoral arthritis Radiologist's impression: [address] [address] XRay Report Signed Patient: Arnold Ceron Unit #: [id number] : 1945 Age/Sex: 75 / M ADM Date: 01/08/21 Loc: ER Room/Bed: Attending Dr: Ordering Provider/Ordering MD: Clementine Villalba Date of Service: 01/08/21 Procedure(s): XR knee LT 3V* [id number] Accession Number(s): [id number] Report Number: [id number] PROCEDURE INFORMATION: Exam: XR Left Knee Exam date and time: 01/08/2021 8:40 AM Age: 75 years old Clinical indication: Injury or trauma; Fall; Blunt trauma; Knee; Left TECHNIQUE: Imaging protocol: XR Left knee. Views: 3 views. COMPARISON: No relevant prior studies available. FINDINGS: Bones/joints: There is no knee joint effusion. Mild degenerative changes with marginal osteophytes but no significant joint space narrowing. There is no intra-articular body. No acute fracture or dislocation. There is chondrocalcinosis. There is edema in the subcutaneous fat superficial to the patella and patellar tendon. Mild edema along the medial joint line. Soft tissues: There is no foreign body. XR/XR knee LT 3V* [id number] IMPRESSION: No acute bony abnormality. There is mild soft tissue edema. Dictated By: Luanne Carvajal Signed By: Luanne Carvajal Signed Date/Time: 01/08/21 1034 DD/ 1032 XR L foot: My impression: NAD Radiologist's impression: [facility] [address] [facility] [place] [address] XRay Report Signed Patient: Arnold Ceron Unit #: [id number] : 1945 Age/Sex: 75 / M ADM Date: 01/08/21 Loc: ER Room/Bed: Attending Dr: Ordering Provider/Ordering MD: Celmentine Villalba Date of Service: 01/08/21 Procedure(s): XR foot LT min 3V* [id number] Accession Number(s): [id number] Report Number: [id number] PROCEDURE INFORMATION: Exam: XR Left Foot Exam date and time: 01/08/2021 8:40 AM Age: 75 years old Clinical indication: Injury or trauma; Fall; Blunt trauma; Foot; Left TECHNIQUE: Imaging protocol: XR Left foot. Views: 3 or more views. COMPARISON: No relevant prior studies available. FINDINGS: Bones/joints: There is osteopenia. There are gocu-is-wafkbnym degenerative changes in the midfoot. More prominent degenerative changes at the calcaneal cuboid joint. No periosteal reaction or inflammatory erosions. No acute fracture. No dislocation. The Lisfranc joint alignment is intact. No bony destruction or osteomyelitis. Soft tissues: There is no foreign body. XR/XR foot LT min 3V* [id number] IMPRESSION: No acute bony abnormality is identified. Dictated By: Luanne Carvajal Signed By: Luanne Carvajal Signed Date/Time: 01/08/21 1033 DD/ 1031 Discharge Plan Discharge Patient Disposition: Home Clinical Impression: Fall Qualifiers: Encounter type: initial encounter Qualified Code(s): W19.XXXA - Unspecified fall, initial encounter Left knee injury Qualifiers: Encounter type: initial encounter Qualified Code(s): S89.92XA - Unspecified injury of left lower leg, initial encounter Injury of left foot Qualifiers: Encounter type: initial encounter Qualified Code(s): S99.922A - Unspecified injury of left foot, initial encounter Condition: Stable Prescriptions: New tramadol 50 mg tablet 50 mg PO Q6H PRN (Reason: pain) Qty: 14 RF: 0 No Action tramadol 50 mg tablet 50 mg PO BID PRN (Reason: Pain) RF: 0 Hold Instructions: Hold while taking Mesilla (Hydrocodone). metformin 500 mg tablet 1,000 mg PO QDAY RF: 0 lisinopril 20 mg tablet 20 mg PO QDAY RF: 0 aspirin [Aspirin Low Dose] 81 mg tablet,delayed release (DR/EC) 81 mg PO QDAY RF: 0 Hold Instructions: Resume on 09/03/19. glipizide 5 mg tablet 5 mg PO BID RF: 0 vitamin K96-czzcq acid 500-400 mcg tablet 1 tab PO DAILY RF: 0 (DME) supinator See Rx Instructions .ROUTE .MEDSUPPLY Qty: 1 RF: 0 clonazepam 0.5 mg tablet 0.5 mg PO TID Qty: 90 RF: 5 amitriptyline 25 mg tablet 25 mg PO .hs Qty: 90 RF: 1 rosuvastatin 20 mg tablet 20 mg PO DAILY RF: 0 Discharge Orders: Discharge ED (Routine); Ordered 01/08/21 Ordered By: Clementine Villalba Referrals: Nehemiah Kaur MD [Primary Care Provider] - Activity Restrictions/Additional Instructions: As we discussed please follow-up with your primary care provider next week if pain persists. You need to be using your walker at all times to prevent further falls. Please ice and elevate extremity to help with discomfort. Coding Level of Care Code ED Toilet Attendant for Aiyana Fwd Exam Comprehensive
[2021-01-08 08:45] VITALS: BP 175/98; PULSE 78; RESP 16; O2SAT 97
== END 2021-01-08 09:23 | disposition home or self-care (01) ==
PROVIDERS: Emergency Provider Physician Assistant; PCP Family Medicine
DX: S89.92XA Unspecified injury of left lower leg, initial encounter (principal); S99.922A Unspecified injury of left foot, initial encounter; W19.XXXA Unspecified fall, initial encounter
CPT/HCPCS: 73562; 73630; 99283

== ENCOUNTER 2021-01-20 11:24 | Outpatient (CLI) | payer MEDICARE, SELFPAY ==
--- NOTE | 2021-01-20 11:32 | MR_ITS ---
WS: [id number] MRI LEFT KNEE HISTORY: MAHI TEST POSITIVE, LEFT COMPARISON: Radiographs 01/08/2021 Anterior cruciate ligament: Mild soft tissue edema along the ACL. Fibers become very thin proximally suggesting a partial tear. Posterior cruciate ligament: Mild buckling posteriorly. No tear. Medial collateral ligament: Intact. Posterior lateral corner structures: Small amount of edema surrounding the popliteus tendon. There is also a moderate amount of edema along the lateral knee. Medial menisci: Horizontal tear in the posterior horn extends to the inferior articular surface. Ante rior horn is normal. Lateral meniscus: Intact. Normal signal, size and shape. Extensor mechanism: Distal quadriceps tendon and patellar tendons are intact. Fluid and soft tissue: Large suprapatellar joint effusion. There is a moderate amount of soft tissue edema surrounding the knee. Small lobulated Saab's cyst extends over length of 5 cm. Osseous and articular structures: Patellofemoral compartment: Moderate chondromalacia of the patella. Loss of cartilage over the patell ar eminence with subchondral edema and cystic changes. Very slight lateral subluxation of the patella . Medial compartment: Mild narrowing of the medial compartment. Cartilage is thinned but intact. There is marrow edema involving large portion of the tibial plateau. Marrow edema extends medial to lateral and no fracture is identified. Lateral compartment: Mild narrowing of the lateral compartment. Very mild fissuring and thinning of t he cartilage. Again noted is marrow edema extending along the lateral tibial plateau. Small amount of edema also within the fibular head. MR/MR knee LT wo con* [id number] IMPRESSION: 1. Large amount of soft tissue edema surrounding the knee and a large suprapat ellar joint effusion. 2. Tibial plateau marrow edema and proximal fibular head edema. No definite fr acture is identified. 3. Partial tear proximal ACL. 4. Horizontal tear posterior horn medial meniscus. 5. Mild sprain popliteus tendon. 6. Moderate chondromalacia of the patella with subchondral cystic changes at t he patellar eminence. 7. Saab's cyst.
== END 2021-01-20 11:25 | disposition home or self-care (01) ==
LOC: RADSHAW 11:29
PROVIDERS: PCP Family Medicine; Visit Provider Family Medicine
DX: S83.207A Unspecified tear of unspecified meniscus, current injury, left knee, initial encounter (principal); X58.XXXA Exposure to other specified factors, initial encounter; M71.22 Synovial cyst of popliteal space [Baker], left knee; M22.42 Chondromalacia patellae, left knee; R60.0 Localized edema; M25.462 Effusion, left knee
CPT/HCPCS: 73721

== ENCOUNTER → 2021-10-04 09:07 | Outpatient (BNVA) | payer MEDICARE, SELFPAY | PROVIDERS: PCP Family Medicine; Visit Provider Specialist | DX: E11.40 Type 2 diabetes mellitus with diabetic neuropathy, unspecified (principal); Z79.84 Long term (current) use of oral hypoglycemic drugs; G11.8 Other hereditary ataxias; G93.0 Cerebral cysts; Z91.81 History of falling; Z87.891 Personal history of nicotine dependence | CPT/HCPCS: 99213; 99214 ==

== ENCOUNTER → 2021-10-05 15:48 | Outpatient (BNVA) | payer MEDICARE, SELFPAY | PROVIDERS: PCP Family Medicine; Visit Provider Internal Medicine | DX: I25.10 Atherosclerotic heart disease of native coronary artery without angina pectoris (principal); I10 Essential (primary) hypertension; E78.5 Hyperlipidemia, unspecified | CPT/HCPCS: 99213; 99214 ==

== ENCOUNTER → 2021-11-24 09:02 | Outpatient (BNVA) | payer MEDICARE, SELFPAY | PROVIDERS: PCP Family Medicine; Visit Provider Specialist | DX: M17.12 Unilateral primary osteoarthritis, left knee (principal); Z71.89 Other specified counseling; Z87.891 Personal history of nicotine dependence | CPT/HCPCS: 20610; J1100; J2795; J3301 ==

== ENCOUNTER → 2022-03-13 13:36 | Outpatient (BNVA) | payer MEDICARE, SELFPAY | PROVIDERS: PCP Family Medicine; Visit Provider Specialist | DX: M17.12 Unilateral primary osteoarthritis, left knee (principal) | CPT/HCPCS: 20610; 73560; 73565; 99213; J7318 ==

== ENCOUNTER → 2022-04-06 13:57 | Outpatient (BNVA) | payer MEDICARE, OTHER, SELFPAY | PROVIDERS: PCP Family Medicine; Visit Provider Internal Medicine | DX: I49.9 Cardiac arrhythmia, unspecified (principal); I47.2 Ventricular tachycardia; I49.3 Ventricular premature depolarization; I49.1 Atrial premature depolarization | CPT/HCPCS: 93225 ==

== ENCOUNTER 2022-05-03 15:34 | Observation (INO) | payer MEDICARE, SELFPAY ==
[2022-05-03] VITALS (8 sets, daily range): BP systolic 134–147; BP diastolic 71–87; PULSE 67–94; RESP 18–22; TEMP 36.4–36.8; O2SAT 93–97; BMI 33.0
--- NOTE | 2022-05-03 15:52 | ECG_ITS ---
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 Measurements Intervals [place] Rate: 77 P: 36 LA: 183 QRS: -41 QRSD: 178 T: 5 QT: 442 QTc: 500 Interpretive Statements SINUS RHYTHM WITH OCCASIONAL VENTRICULAR PREMATURE COMPLEXES LEFT AXIS DEVIATION [QRS AXIS < -30] RIGHT BUNDLE BRANCH BLOCK [120+ ms QRS DURATION, UPRIGHT V1, 40+ ms S IN I/aVL/V4/V5/V6] Compared to ECG 08/29/2019 09:57:21 No significant changes Electronically Signed On 05-03-2022 20:56:08 CDT by Jimi Cohen M.D. [id number]
--- NOTE | 2022-05-03 15:52 | XRR_ITS ---
PROCEDURE INFORMATION: Exam: XR Chest Exam date and time: 05/03/2022 4:05 PM Age: 76 years old Clinical indication: Pain; Angina pectoris; Prior surgery; Surgery type: Cardiac stents; Additional info: Chest pain TECHNIQUE: Imaging protocol: Radiologic exam of the chest. Views: 1 view. COMPARISON: CR XR ribs LT mn 3V w CXR1V 12100 03/23/2022 1:26 PM FINDINGS: Lungs: Unremarkable. No consolidation. Pleural spaces: Unremarkable. No pleural effusion. No pneumothorax. Heart/Mediastinum: Cardiomegaly Bones/joints: Unremarkable. XR/XR chest 1V portable [id number] IMPRESSION: 1. Lungs are clear. 2. Cardiomegaly
--- NOTE | 2022-05-03 16:13 | CTR_ITS ---
PROCEDURE INFORMATION: Exam: CTA Chest With Contrast Exam date and time: 05/03/2022 5:48 PM Age: 76 years old Clinical indication: Angina; Prior surgery; Surgery date: 6+ months; Surgery type: Breast CA; Additional info: Chest pain TECHNIQUE: Imaging protocol: Computed tomographic angiography of the chest with contrast. 3D rendering (Not supervised by radiologist): MIP and/or 3D reconstructed images were created by the technologist. Radiation optimization: All CT scans at this facility use at least one of these dose optimization techniques: automated exposure control; mA and/or kV adjustment per patient size (includes targeted exams where dose is matched to clinical indication); or iterative reconstruction. Contrast material: OMNIPAQUE 350; Contrast volume: 80 ml; Contrast route: INTRAVENOUS (IV); COMPARISON: CT chest abd pel w con* 06/28/2016 1:04 PM RADIATION DOSE METRICS: Total DLP (mGy-cm): 372.3 FINDINGS: Pulmonary arteries: Normal. No pulmonary emboli. Aorta: Unremarkable. No aortic aneurysm. No aortic dissection. Lungs: Bibasilar atelectasis versus infiltrate. Pleural spaces: Unremarkable. No pneumothorax. No pleural effusion. Heart: Cardiomegaly. Coronary artery atherosclerotic calcifications. Lymph nodes: Several prominent mediastinal lymph nodes measuring up to 17 mm, nonspecific. Gallbladder and bile ducts: Cholecystectomy. Bones/joints: Unremarkable. No acute fracture. Soft tissues: Diverticulosis without diverticulitis. CT/CT angio chest PE protcl [id number] IMPRESSION: 1. Negative for pulmonary embolus. 2. Cardiomegaly 3. Coronary artery atherosclerotic calcifications. 4. Several prominent mediastinal lymph nodes measuring up to 17 mm, nonspecific. 5. Cholecystectomy. 6. Bibasilar atelectasis versus infiltrate. 7. Diverticulosis without diverticulitis.
--- NOTE | 2022-05-03 16:14 | ED_ITS ---
HPI - General Adult General: Chief complaint: Chest Pain Stated complaint: heart pain Time Seen by Provider: 05/03/22 15:50 History of Present Illness: This is a [76] yo patient hx of CAD w/ stents x 2, HTN, DM presenting to the ED complaining of acute remittent achy chest pain with exertional dyspnea. Patient tells me that the chest pain started yesterday afternoon when he was sitting down at home. Patient states that the pain radiates to date to his abdomen. Patient reports intermittent aching dull pressure-like sensation throughout the day. Patient reports diaphoresis yes terday night. Pain is not tearing in nature and does not radiate to the back. Pain not associated with vomiting or PO intake. Denies any recent sympathomimetic drug use. Patient denies any cough. Denies palpitations, dysphagia, radiation of pain to bilateral arms, jaw. Denies F/N/V/D. Patient denies any recent immobility, surgery, unilateral leg swelling, or prior PE. Patient denies any orthopnea. Onset: 1 days ago Duration: ongoing for the last day Location: home Severity: moderate Associated symptoms: Reports chest pain, dyspnea and malaise; Deny nausea, rash, palpitations or vomiting Review of Systems Const: Reports: malaise and other (+diaphoresis); Denies: fever(s) Eyes: Denies: change in vision ENMT: Denies: mouth pain Card: Reports: chest pain and dyspnea on exertion; Denies: palpitations Resp: Reports: dyspnea; Denies: non-productive cough GI: Reports: abdominal pain (+chest pain radiating to the abdomen); Denies: nausea, vomiting or diarrhea : Denies: dysuria Musc: Denies: extremity pain Skin/Breast: Denies: rash or new lesions Neuro: Denies: weakness in extremities Psych: Reports: other (Normal mood) Bal/Lymph: Denies: easy bruising PFS ED PFSH: Medical History (Updated 05/03/22 @ 16:49 by Jessa Herrera MD) Arachnoid cyst ASHD (arteriosclerotic heart disease) DDD (degenerative disc disease), lumbar Diabetes mellitus Diabetic neuropathy Gait instability History of colon cancer Hyperlipidemia Hypertension Intervertebral disc disorder with radiculopathy of lumbosacral region Ischemic cardiomyopathy Lumbar disc disease with radiculopathy Lumbar spondylosis Lumbosacral disc disease Migraine Obesity Tobacco abuse Surgical History H/O coronary angioplasty History of back surgery Left L4-L5, L5-S1 hemilaminotomy/discectomy/foraminotomy, 09/01/2019, [facility] History of cholecystectomy History of hernia repair History of resection of small bowel History of sinus surgery Family History Mother Cancer Father CAD (coronary artery disease) Sister Hypertension Social History Smoking and tobacco status: former smoker Alcohol intake: never Lives independently: Yes Household members: spouse Marital status: Current occupational status: retired Current occupation: retired History of recent travel: No Physical Exam Const: COMMON NORMALS: alert HENMT: COMMON NORMALS: atraumatic HEAD & SCALP: atraumatic MOUTH: moist mucous membranes not abnormal Eye: COMMON NORMALS: EOMs intact bilaterally and conjunctivae normal CONJUNCTIVA: Yes conjunctivae normal Neck/C-Spine: COMMON NORMALS: full ROM and supple Resp: COMMON NORMALS: normal respiratory effort and clear to auscultation bilaterally AUSCULTATION: clear to auscultation bilaterally Cardio: COMMON NORMALS: regular rate RATE: regular rate OTHER: 2+ radial pulses b/l GI: COMMON NORMALS: Soft to palpation and non-tender PALPATION: Yes Soft to palpation OTHER: No focal TTP. NO guarding rebound, guarding, rigidity. No CVA tenderness to percussion. Neg Kasper/Neg McBurney's point tenderness, no suprabupic tenderness to palpation. Extremity: COMMON NORMALS: full ROM OTHER: No royce sign Neuro: SENSORIUM/ORIENTATION: Yes alert MOTOR EXAM: No Abnormal motor strength present and Other motor observations present (no focal motor deficits) Psych: COMMON NORMALS: speech normal SPEECH: Yes normal speech MOOD & AFFECT: Yes euthymic mood Course Vital Signs: Vital signs: Vital Signs Temperature 98.2 F 05/03/22 15:43 Pulse Rate 78 05/03/22 15:43 Respiratory Rate 20 H 05/03/22 15:43 Blood Pressure 147/87 05/03/22 15:43 Pulse Oximetry 97 05/03/22 15:43 MDM - General Adult Medical Decision Making [76]yo patient w/ hx of DM, HTN, CAD w/ stents x 2 presenting to the ED with evaluation of new onset of chest pain with radiation to the abdomen and associated diaphoresis. HDS, pulse 2+ radially bilaterally, no signs of fluid o verload, AAOx3, neuro exam intact. Workup: ECG, CXR, CBC, BMP, Troponin x 2, XR chest Interventions: ASA Findings: ECG: No overt evidence of STEMI, hyperacute T waves, localizable STD or T wave inversions. No evidence of Brugada?s sign, delta wave, epsilon wave, significantly prolonged QTc, or malignant arrhythmia. No Q waves. Other Labs unremarkable for emergent problems. CXR: Without PTX, PNA [5:20pm] On reassessment, the patient is HDS. Troponin of 17. She has a score greater than 4. Will be admitted to hospital for further work-up of chest pain. Disposition: admission Lab Data : 05/03/22 16:15 05/03/22 16:15 Radiology Impressions Chest X-Ray 05/03/22 15:52 IMPRESSION: 1. Lungs are clear. 2. Cardiomegaly Laboratory Results WBC 5.2 10^3/uL (4.0-10.0) 05/03/22 16:15 RBC 4.73 10^6/uL (4.1-5.3) 05/03/22 16:15 Hgb 14.0 g/dL (11.7-16.6) 05/03/22 16:15 Hct 43.0 % (42.0-52.0) 05/03/22 16:15 MCV 90.9 fl (80-94) 05/03/22 16:15 MCH 29.6 pg (28.0-34.0) 05/03/22 16:15 MCHC 32.6 g/dL (30.0-36.0) 05/03/22 16:15 RDW 12.8 % (12.1-15.1) 05/03/22 16:15 Plt Count 116 10^3/cmm (130-400) L 05/03/22 16:15 MPV 11.3 fL (7.4-10.4) H 05/03/22 16:15 Neut % (Auto) 71.3 % 05/03/22 16:15 Lymph % (Auto) 18.1 % 05/03/22 16:15 [place] % (Auto) 9.0 % 05/03/22 16:15 Eos % (Auto) 0.8 % 05/03/22 16:15 Baso % (Auto) 0.4 % 05/03/22 16:15 Neut # (Auto) 3.71 10^3/uL (1.8-7.7) 05/03/22 16:15 Lymph # (Auto) 0.9 10^3/uL (0.8-4.8) 05/03/22 16:15 [place] # (Auto) 0.5 10^3/uL (0.2-0.9) 05/03/22 16:15 Eos # (Auto) 0.0 10^3/uL (0.0-0.8) 05/03/22 16:15 Baso # (Auto) 0.0 10^3/uL (0.0-0.1) 05/03/22 16:15 Nucleated RBC % (auto) 0 % 05/03/22 16:15 Nucleated RBCs # 0.0 /100WBC 05/03/22 16:15 Sodium 139 mmol/L (136-145) 05/03/22 16:15 Potassium 4.5 mmol/L (3.5-5.1) 05/03/22 16:15 Chloride 102 mmol/L (98-107) 05/03/22 16:15 Carbon Dioxide 27 mmol/L (22-29) 05/03/22 16:15 Anion Gap 14.5 (5-19) 05/03/22 16:15 BUN 13 mg/dL (8-23) 05/03/22 16:15 Creatinine 0.8 mg/dL (0.7-1.2) 05/03/22 16:15 GFR Calculation Not Reportable 05/03/22 16:15 Glucose 111 mg/dL (65-115) 05/03/22 16:15 Calculated Osmolality 289 mOsm/kg (285-295) 05/03/22 16:15 Calcium 9.2 mg/dL (8.5-10.5) 05/03/22 16:15 Troponin T Baseline 17 ng/L (0-15) H 05/03/22 16:15 Discharge Plan Discharge Patient Disposition: Admitted As Inpatient Clinical Impression: Chest pain Condition: Stable Coding Level of Care Code ED Operations Section Manager for Chg Fwd Exam Comprehensive
[2022-05-03 16:38] LABS: Basophils % 0.4 %; Eosinophils % 0.8 %; Lymphocytes # 0.9 10^3/uL (0.8-4.8); Lymphocytes % 18.1 %; Mean Corpuscular HGB Conc 32.6 g/dL (30.0-36.0); Mean Corpuscular Hemoglobin 29.6 pg (28.0-34.0); Mean Corpuscular Volume 90.9 fl (80-94); Mean Platelet Volume 11.3 fL (7.4-10.4); Monocytes # 0.5 10^3/uL (0.2-0.9); Neutrophils # 3.71 10^3/uL (1.8-7.7); Neutrophils % 71.3 %; Nucleated Red Blood Cells % 0 %; Platelet Count 116 10^3/cmm (130-400); Red Blood Count 4.73 10^6/uL (4.1-5.3); Red Cell Distribution Width 12.8 % (12.1-15.1); White Blood Count 5.2 10^3/uL (4.0-10.0)
[2022-05-03] MEDS: aspirin 325 mg Tablet PO (16:47)
[2022-05-03 17:08] LABS: Troponin(5th) Baseline 17 ng/L (0-15)
[2022-05-03 17:09] LABS: Blood Urea Nitrogen 13 mg/dL (8-23); Calcium 9.2 mg/dL (8.5-10.5); Carbon Dioxide 27 mmol/L (22-29); Chloride 102 mmol/L (98-107); Glucose 111 mg/dL (65-115); Osmolality Calculated 289 mOsm/kg (285-295); Sodium 139 mmol/L (136-145)
[2022-05-03] MEDS: iohexol 350 mg/mL 100 mL Btl IV (17:16)
[2022-05-03 17:24] LABS: Anion Gap 14.5 (5-19); Potassium 4.5 mmol/L (3.5-5.1)
--- NOTE | 2022-05-03 17:38 | USCV_ITS ---
Arnold Ceron Age: 76 Gender: M : 1945 Exam Date: 05/03/2022 18:30 Ordering Phys: Gume Castañeda MD Technologist: CHRIS Exam Location: [facility] [place] Indication: Chest pain. History of cardiac stenting. Prior echo 2018 BP: 147 / 87 HR: 75 Rhythm: Sinus with some strings of atrial fibrillation Technical Quality: Adequate MEASUREMENTS (Male / Female) Normal Values 2D ECHO LV Diastolic Diameter PLAX 7.1 cm 4.2 - 5.9 / 3.9 - 5.3 cm LV Systolic Diameter PLAX 6.1 cm IVS Diastolic Thickness 0.9 cm 0.6 - 1.0 / 0.6 - 0.9 cm IVS Systolic Thickness 0.9 cm LVPW Diastolic Thickness 1.4 cm 0.6 - 1.0 / 0.6 - 0.9 cm LVPW Systolic Thickness 1.5 cm LVOT Diameter 2.1 cm LV Ejection Fraction 2D Teich 29.4 % LV Ejection Fraction MOD 2C 29.8 % LV Ejection Fraction 2C AL 30.4 % LA Diameter 4.5 cm LA Width 4.3 cm LA Height 6.0 cm RA Width 3.0 cm RA Height 5.5 cm Aorta at Sinotubular Diameter 3.8 cm IVC Diameter 2.0 cm M-MODE Aortic Annulus Diameter 4.0 cm LA Ao Ratio MM 1.1 DOPPLER AV Peak Velocity 189.0 cm/s LVOT Peak Velocity 56.0 cm/s AV Area Cont Eq vti 1.1 cm squared AV Area Cont Eq pk 1.0 cm squared MV Area PHT 2.0 cm squared Mitral E to A Ratio 0.5 MV E' Velocity 29.0 cm/s Mitral E to MV E' Ratio 7.5 Mitral E to LV E' Lateral Ratio 6.4 Mitral E to LV E' Septal Ratio 9.1 TR Peak Velocity 258.7 cm/s TR Peak Gradient 26.8 mmHg TV Peak E Velocity 34.0 cm/s Right Atrial Pressure 10.0 mmHg Pulmonary Artery Systolic Pressu 36.8 mmHg PV Peak Velocity 119.0 cm/s RV Acceleration Time 0.1 s RV Ejection Time 0.3 s RV AcT/ET 0.4 FINDINGS Left Ventricle Dilated left ventricular cavity size. Moderately decreased left ventricular systolic function. Left ventricular ejection fraction is estimated at 35-40 %. Moderate global hypokinesis. Grade I diastolic dysfunction (abnormal relaxation filling pattern), normal to mildly elevated filling pressures. Abnormal septal motion consistent with conduction abnormality. Right Ventricle Normal right ventricular size and systolic function. Right ventricular systolic pressure 31 mmHg. Right Atrium Normal right atrial size. Left Atrium Mildly increased left atrial size. Mitral Valve Structurally normal mitral valve. No mitral valve stenosis. Mild mitral valve regurgitation. Aortic Valve Mildly thickened probably trileaflet aortic valve. No aortic valve stenosis. Mild aortic valve regurgitation. Tricuspid Valve Structurally normal tricuspid valve. Trace tricuspid valve regurgitation. Pulmonic Valve Structurally normal pulmonic valve. No pulmonary valve stenosis. Trace pulmonary valve regurgitation. Pericardium No pericardial effusion. Aorta Normal size aortic root and proximal ascending aorta. IVC Normal IVC dimension with >50% respiratory change of the inferior vena cava. CONCLUSIONS 1. Dilated left ventricular cavity size. Moderately decreased left ventricular systolic function. Left ventricular ejection fraction is estimated at 35-40%. Moderate global hypokinesis. Grade I diastolic dysfunction (abnormal relaxation filling pattern), normal to mildly elevated filling pressures. 2. Normal right ventricular size and systolic function. 3. Mild mitral valve regurgitation. 4. Mild aortic valve regurgitation. 5. When compared to study dated 02/20/2019, left ventricular systolic function seems to have decreased from 55% then. Pita Cruz MD (Electronically Signed) Final Date: 04 May 2022 12:42 S
--- NOTE | 2022-05-03 17:52 | ECG_ITS ---
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 Measurements Intervals [place] Rate: 70 P: 45 MD: 173 QRS: -22 QRSD: 176 T: 34 QT: 451 QTc: 490 Interpretive Statements SINUS RHYTHM WITH OCCASIONAL VENTRICULAR PREMATURE COMPLEXES BORDERLINE LEFT AXIS DEVIATION [QRS AXIS < -20] RIGHT BUNDLE BRANCH BLOCK [120+ ms QRS DURATION, UPRIGHT V1, 40+ ms S IN I/aVL/V4/V5/V6] Compared to ECG 05/03/2022 17:54:50 No significant changes Electronically Signed On 05-03-2022 20:59:48 CDT by Jimi Cohen M.D. [id number]
--- NOTE | 2022-05-03 18:23 | P.HP_ITS ---
Providers/Chief Complaint Primary Care Provider: Nehemiah Kaur MD Chief Complaint: heart pain History of Present Illness Arnold Ceron is a 76 year old male with a past medical history of CAD status post stenting, hypertension, hyperlipidemia, noninsulin-dependent type 2 diabetes mellitus, who presents to [facility] for chest pain. Patient tells me that for the last day or so, he has been developing substernal aching-like chest pain, radiating down his left arm, no lightheadedness, no diaphoresis, no nausea, no vomiting, it is an aching-like pain. In the emergency room he continues to have low-grade chest pain,, like an aching-like pain, but it is quite minimal he tells me. No lightheadedness, dizziness, no d iaphoresis Review of Systems Const: Denies: fever(s) Card: Reports: chest pain Resp: Denies: dyspnea Neuro: Denies: headache(s) Medications/Allergies Home Medications Medication Instructions Recorded Confirmed Last Taken Type lisinopril 20 mg tablet 20 mg PO QDAY 08/14/19 05/03/22 09/01/19 01:00 History metformin 500 mg tablet 1,000 mg PO DAILY 08/14/19 05/03/22 05/03/22 History rosuvastatin 20 mg tablet 20 mg PO BEDTIME 08/29/19 05/03/22 05/02/22 History glipizide 5 mg tablet 5 mg PO BID 08/17/20 05/03/22 05/03/22 History tramadol 50 mg tablet 50 mg PO Q6H PRN pain #14 tabs 01/08/21 05/03/22 05/03/22 Rx clonazepam 0.5 mg tablet 0.5 mg PO TID #300 tabs 10/04/21 05/03/22 Unknown Rx magnesium oxide 500 mg capsule 500 mg PO DAILY 10/05/21 05/03/22 05/03/22 History multivitamin 1 tab PO DAILY 10/05/21 05/03/22 05/03/22 History vitamin B complex 1 tab PO DAILY 10/05/21 05/03/22 05/03/22 History amitriptyline 25 mg tablet 25 mg PO BEDTIME 05/03/22 05/03/22 05/02/22 History calcium carbonate 500 mg calcium 500 mg PO DAILY 05/03/22 05/03/22 05/02/22 History (1,250 mg) tablet lisinopril 5 mg tablet 5 mg PO DAILY 05/03/22 05/03/22 05/03/22 History metoprolol tartrate 25 mg tablet 12.5 mg PO BID 05/03/22 05/03/22 05/03/22 History sulfamethoxazole 800 1 tab PO BID 05/03/22 05/03/22 05/03/22 History mg-trimethoprim 160 mg tablet Allergies Allergy/AdvReac Type Severity Reaction Status Date / Time No Known Allergies Allergy Verified 05/03/22 16:49 PFSH Acute PFSH: Medical History Arachnoid cyst ASHD (arteriosclerotic heart disease) DDD (degenerative disc disease), lumbar Diabetes mellitus Diabetic neuropathy Gait instability History of colon cancer Hyperlipidemia Hypertension Intervertebral disc disorder with radiculopathy of lumbosacral region Ischemic cardiomyopathy Lumbar disc disease with radiculopathy Lumbar spondylosis Lumbosacral disc disease Migraine Obesity Tobacco abuse Surgical History H/O coronary angioplasty History of back surgery Left L4-L5, L5-S1 hemilaminotomy/discectomy/foraminotomy, 09/01/2019, [facility] History of cholecystectomy History of hernia repair History of resection of small bowel History of sinus surgery Family History Mother Cancer Father CAD (coronary artery disease) Sister Hypertension Social History Smoking and tobacco status: former smoker Alcohol intake: never Lives independently: Yes Household members: spouse Marital status: Current occupational status: retired Current occupation: retired History of recent travel: No Vitals/I&O/Wt Last Vital Signs Temp 98.2 F 05/03/22 15:43 Pulse 78 05/03/22 15:43 Resp 20 H 05/03/22 15:43 BP 147/87 05/03/22 15:43 Pulse Ox 97 05/03/22 15:43 Weight last 48 hrs Weight 104.326 kg Physical Exam Const: COMMON NORMALS: no acute distress and patient oriented x3 HENMT: COMMON NORMALS: normocephalic HEAD & SCALP: normocephalic Eye: COMMON NORMALS: Equal, round and reactive pupils present and EOMs intact bilaterally Neck/C-Spine: COMMON NORMALS: no JVD Resp: COMMON NORMALS: normal respiratory effort, No retractions, No use of accessory muscles and clear to auscultation bilaterally AUSCULTATION: clear to auscultation bilaterally Cardio: COMMON NORMALS: no JVD, regular rate, regular rhythm, S1 normal heart sound present and S2 normal heart sound present RATE: regular rate RHYTHM: regular rhythm HEART SOUNDS: S1 normal heart sound present and S2 normal heart sound present GI: COMMON NORMALS: Normal to inspection, nondistended, normoactive bowel sounds present, Soft to palpation and non-tender PALPATION: Yes Soft to palpation and Yes No hepatosplenomegaly present Extremity: COMMON NORMALS: no calf tenderness and no pedal edema Neuro: COMMON NORMALS: patient oriented x3, CN's II-XII intact bilaterally, moves all extremities and no focal motor deficits Psych: COMMON NORMALS: mental status grossly normal Data : 05/03/22 16:15 05/03/22 16:15 A&P Assessment and plan (1) Chest pain: (2) Diabetes mellitus: (3) Hyperlipidemia: Plan Chest pain -Serial EKGs, troponins, telemetry monitoring -Does have anterior T wave inversions in anterior leads, troponin 17 Plan -Aspirin, statin, nitro as needed for chest pain, beta-jonathan -Cardiac echo -Monitor for chest pain -Cardiac stress test tomorrow morning -Low-dose sliding scale A1c TSH, lipid panel -Full code -Lovenox for DVT prophylaxis -History of UTI, will place on Rocephin repeat UA Attestations Medical Necessity Statement*: Patient requires hospitalization, palpation with observation, upper chest pain Coding Level of Care Code Acute Tread Cutter for [facility] Fwd Diagnoses Chest pain R07.9 Diabetes mellitus E11.9 Hyperlipidemia E78.5
[2022-05-03 18:29] LABS: NT Pro B Type Natriuretic Pept 2312 pg/mL (0-450)
[2022-05-03 19:06] LABS: Troponin 5 2HR 16.88 ng/L (0-15)
[2022-05-03 19:09] LABS: Troponin 5 2HR Delta -0.12 ABS# (0-10)
[2022-05-03] MEDS: enoxaparin 40 mg/0.4 mL Syringe SUBCUT (20:19)
[2022-05-03] MEDS: amitriptyline 25 mg Tablet PO (20:19)
[2022-05-03] MEDS: pantoprazole 40 mg SDV IVP (20:19)
[2022-05-03] MEDS: tamsulosin 0.4 mg Capsule PO (20:19)
[2022-05-03] MEDS: atorvastatin 40 mg Tablet 80 MG PO (20:19)
[2022-05-03] MEDS: lisinopril 20 mg Tablet PO (20:19)
[2022-05-03 20:20] LABS: Glucose Point of Care 95 mg/dL (70-110)
[2022-05-03] MEDS: cefTRIAXone 1,000 MG in sodium chloride 0.9% (plus) 50 ML 100 MG IV (20:21)
[2022-05-03] MEDS: metoprolol tartrate 25 mg Tablet 12.5 MG PO (20:21)
[2022-05-03 20:49] LABS: Chol HDL Ratio 2.75 mg/dL (1.0-5.00); Cholesterol 121 mg/dL (0-200); HDL Cholesterol 44 mg/dL (60-100); LDL Cholesterol Calculated 59 mg/dL (50-129); LDL HDL Ratio 1.34 RATIO (0.00-3.22); Thyroid Stimulating Hormone 1.31 uIU/mL (0.27-4.20); Triglycerides 89 mg/dL (0-150)
[2022-05-03 21:53] LABS: Estmated Average Glucose 126
[2022-05-04] VITALS (27 sets, daily range): BP systolic 91–140; BP diastolic 51–98; PULSE 71–96; RESP 2–34; TEMP 36.3–36.8; O2SAT 92–98
[2022-05-04 04:41] LABS: Basophils % 0.4 %; Eosinophils # 0.1 10^3/uL (0.0-0.8); Eosinophils % 1.3 %; Hemoglobin 12.2 g/dL (11.7-16.6); Lymphocytes # 0.8 10^3/uL (0.8-4.8); Lymphocytes % 17.5 %; Mean Corpuscular HGB Conc 32.1 g/dL (30.0-36.0); Mean Corpuscular Hemoglobin 29.3 pg (28.0-34.0); Mean Corpuscular Volume 91.3 fl (80-94); Mean Platelet Volume 11.4 fL (7.4-10.4); Monocytes # 0.4 10^3/uL (0.2-0.9); Monocytes % 8.3 %; Neutrophils # 3.47 10^3/uL (1.8-7.7); Neutrophils % 72.3 %; Nucleated Red Blood Cells % 0 %; Platelet Count 94 10^3/cmm (130-400); Red Blood Count 4.16 10^6/uL (4.1-5.3); Red Cell Distribution Width 12.7 % (12.1-15.1); White Blood Count 4.8 10^3/uL (4.0-10.0)
[2022-05-04 05:03] LABS: Blood Urea Nitrogen 12 mg/dL (8-23); Calcium 9.2 mg/dL (8.5-10.5); Carbon Dioxide 25 mmol/L (22-29); Chloride 103 mmol/L (98-107); Glucose 128 mg/dL (65-115); Magnesium 1.9 mg/dL (1.7-2.3); Osmolality Calculated 289 mOsm/kg (285-295); Sodium 139 mmol/L (136-145)
[2022-05-04 05:05] LABS: Anion Gap 15.3 (5-19); Potassium 4.3 mmol/L (3.5-5.1)
[2022-05-04 06:10] LABS: Glucose Point of Care 120 mg/dL (70-110)
--- NOTE | 2022-05-04 07:06 | ECG_ITS ---
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 Interpretive Statements NAME OF STUDY: LEXISCAN SESTAMIBI STRESS TEST INDICATION: [Chest Pain, ] Procedure: At the baseline, the blood pressure was 119/83 mmHg with a heart rate of 82 bpm. The electrocardiogram showed normal sinus rhythm, with frequent PVCs. The Lexiscan was infused over a period of 20 seconds. A total of 0.4 mg of Lexiscan was infused. The stress phase was continued for a total of 5 minutes. Heart rate was at the end of stress phase was 101 bpm and a blood pressure of 131/69 mmHg. The EKG at the peak infusion revealed normal sinus rhythm with no significant ST-T wave changes. Frequent PVCs persisted Sestamibi was injected 20 seconds after the Lexiscan infusion. Blood pressure at the end of recovery phase was 118/62 mmHg with a heart rate of 97 bpm. Conclusion: 1. Normal EKG response to Lexiscan infusion 2. No Lexiscan induced chest pain or cardiac arrhythmia. 3. Normal blood pressure and heart rate response. 4. Sestamibi/sestamibi perfusion scan pending; see separate report. Electronically Signed On 05-06-2022 21:21:10 CDT by Tristian Clarke M.D. [id number]
[2022-05-04] MEDS: regadenoson 0.4 Mg/5 ml Syringe IVP (07:30)
[2022-05-04] MEDS: aspirin 81 mg EC Tablet PO (09:51)
[2022-05-04] MEDS: lisinopril 20 mg Tablet PO (09:51)
[2022-05-04] MEDS: multivitamin therapeutic Tablet 1 TAB PO (09:51)
[2022-05-04] MEDS: metoprolol tartrate 25 mg Tablet 12.5 MG PO ×2 (09:56→19:44)
[2022-05-04 10:16] LABS: Erythrocyte Sedimentation Rate 8 mm/hr (0-10)
[2022-05-04 10:48] LABS: Glucose Point of Care 232 mg/dL (70-110)
[2022-05-04 10:50] LABS: LAB Peripheral Smear Sent for Review
--- NOTE | 2022-05-04 11:15 | PC.CHAP ---
Pastoral Care Encounter/Spiritual Assessment Type of Contact [] Declined sr. payroll manager visit [] Patient/Family/Request visit [] Outpatient visit [] Follow-up visit [] Physician referral [] Code/Alert [x] Routine visit [] Staff referral [] Actively dying [] Patient sleeping [] Family support [] [] Out of room [] Palliative care [] [x] Receiving care in room [] Pre-surgical visit [] Trauma [x] Long length of stay [] ICU visit [] Other: Relational/Emotional Strength [x] Patient feels connected with others/family/visitors/staff [] Distress [] Loneliness/isolation [] Abandonment Spirituality of Patient [x] Person of Josefina [x] Attends Gnosticist of their Josefina [x] Believes in Prayer [] Reads Bible or Taoism materials [] There are Spiritual issues to be addressed Barrel Turner Interventions [x] Prayer [x] Active listening [x] Non-anxious presence [x] Spiritual/emotional support [] Crisis/trauma care [x] Spiritual counseling [] Bereavement support [] Provided bereavement packet [] Provided Bible/devotional materials [] Provided toy/stuffed animal, coloring book to patient or family member [] Provided Communion [] Anointing/Bouse [] Salvation [x] Completed spiritual assessment [] Other: Impact on Illness or Injury [] Angry [] Fearful [] Anxious [] Often cries [] Exhaustion [] Unable to work [] Unable to attend sabianist [] Unable to walk/stand [] Unable to read [] Unable to drive [] Unable to eat/drink [] Unable to sleep [] Unable to be with family [] Patient intubated [] Other: Summary + 2 with family care will go to rehab at some point Time spent with patient 10 mins
--- NOTE | 2022-05-04 11:39 | PM.PN ---
Subjective Subjective: Patient was seen this morning, he sitting up to side of bed, enjoying breakfast after his stress test, no episodes of chest pain overnight Vitals/I&O/Wt Last Vital Signs Temp 97.5 F L 05/04/22 08:00 Pulse 93 05/04/22 08:00 Resp 15 05/04/22 08:00 BP 123/98 05/04/22 08:00 Pulse Ox 97 05/04/22 08:00 O2 Del Method 05/04/22 08:00 05/03/22 05/04/22 05/04/22 22:59 06:59 14:59 Intake Total 50 / 50 480 / 530 360 / 360 Output Total 200 / 200 1825 / 5 Balance -150 / -150 -1345 / -1495 360 / 360 Weight last 48 hrs Weight 105.506 kg Weight 104.326 kg Physical Exam Const: COMMON NORMALS: no acute distress and patient oriented x3 Resp: COMMON NORMALS: normal respiratory effort, No retractions, No use of accessory muscles and clear to auscultation bilaterally AUSCULTATION: clear to auscultation bilaterally Cardio: COMMON NORMALS: regular rate, regular rhythm, S1 normal heart sound present and S2 normal heart sound present RATE: regular rate RHYTHM: regular rhythm HEART SOUNDS: S1 normal heart sound present and S2 normal heart sound present GI: COMMON NORMALS: Normal to inspection, nondistended, normoactive bowel sounds present and non-tender Extremity: COMMON NORMALS: no pedal edema Neuro: COMMON NORMALS: patient oriented x3 Psych: COMMON NORMALS: mental status grossly normal Data : 05/04/22 04:22 05/04/22 04:22 A&P Assessment and plan (1) Chest pain: (2) Diabetes mellitus: (3) Hyperlipidemia: Plan Chest pain -Serial EKGs, troponins, telemetry monitoring -Does have anterior T wave inversions in anterior leads, troponin 17, delta is -0.12 Plan -Aspirin, statin, nitro as needed for chest pain, beta-jonathan -Cardiac echo pending -Monitor for chest pain -Cardiac stress test pending -Low-dose sliding scal 6.0 -Full code -Lovenox for DVT prophylaxis -History of UTI, will place on Rocephin repeat UA -CT of the chest does show some minimal mediastinal lymphadenopathy, will order a lymphoma leukemia panel, have patient follow-up with Dr. 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
--- NOTE | 2022-05-04 12:45 | ECG_ITS ---
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 Measurements Intervals [place] Rate: 73 P: 38 ID: [id number] QRS: -39 QRSD: 176 T: 24 QT: 436 QTc: 483 Interpretive Statements SINUS RHYTHM WITH OCCASIONAL VENTRICULAR PREMATURE COMPLEXES LEFT AXIS DEVIATION [QRS AXIS < -30] RIGHT BUNDLE BRANCH BLOCK [120+ ms QRS DURATION, UPRIGHT V1, 40+ ms S IN I/aVL/V4/V5/V6] Compared to ECG 05/03/2022 20:26:48 No significant changes Electronically Signed On 05-04-2022 12:49:53 CDT by Pita Cruz M.D. [id number]
[2022-05-04 12:46] LABS: Glucose Point of Care 171 mg/dL (70-110)
[2022-05-04] MEDS: nitroglycerin 0.4 mg sublingual Tablet SUBLINGUAL (12:48)
[2022-05-04] MEDS: nitroglycerin drip 50 MG/250 ML PREMIX IV (13:01)
[2022-05-04] MEDS: enoxaparin 100 mg/mL Syringe SUBCUT ×2 (13:11→23:59)
[2022-05-04 13:49] LABS: Troponin(5th) Baseline 14 ng/L (0-15)
--- NOTE | 2022-05-04 14:57 | P.CONIM_ITS ---
Providers/Reason For Consult Consulting Physician/Specialty*: Tristian Clarke MD/Cardiology Reason for Consult*: Chest pain Requesting Physician: Dr Castañeda Attending Physician: Gume Castañeda MD Primary Care Provider: Nehemiah Kaur MD History of Present Illness History of Present Illness Arnold Ceron is a 76 year old male with past medical history of coronary artery disease with prior stenting, diabetes, hyperlipidemia and hypertension who presented to the hospital with 1 to 2 days of significant chest pain symptoms. He says that on and off he has been having substernal chest pain radiating to the left arm. Troponins did not trend up significantly. EKG does not show ischemic changes. He underwent stress test that showed partially reversible perfusion defect in the apical, inferior and inferolateral molina. Diagram was performed that shows significant decrease in cardiac function compared to before and EF is 35 to 40% now Review of Systems Const: Denies: fever(s) Card: Reports: chest pain Resp: Denies: dyspnea Neuro: Denies: headache(s) Medications/Allergies Home Medications Medication Instructions Recorded Confirmed Last Taken Type lisinopril 20 mg tablet 20 mg PO QDAY 08/14/19 05/03/22 09/01/19 01:00 History metformin 500 mg tablet 1,000 mg PO DAILY 08/14/19 05/03/22 05/03/22 History rosuvastatin 20 mg tablet 20 mg PO BEDTIME 08/29/19 05/03/22 05/02/22 History glipizide 5 mg tablet 5 mg PO BID 08/17/20 05/03/22 05/03/22 History tramadol 50 mg tablet 50 mg PO Q6H PRN pain #14 tabs 01/08/21 05/03/22 05/03/22 Rx magnesium oxide 500 mg capsule 500 mg PO DAILY 10/05/21 05/03/22 05/03/22 History multivitamin 1 tab PO DAILY 10/05/21 05/03/22 05/03/22 History vitamin B complex 1 tab PO DAILY 10/05/21 05/03/22 05/03/22 History amitriptyline 25 mg tablet 25 mg PO BEDTIME 05/03/22 05/03/22 05/02/22 History calcium carbonate 500 mg calcium 500 mg PO DAILY 10/05/22 10/05/22 10/04/22 History (1,250 mg) tablet lisinopril 5 mg tablet 5 mg PO DAILY 05/03/22 05/03/22 05/03/22 History metoprolol tartrate 25 mg tablet 12.5 mg PO BID 05/03/22 05/03/22 05/03/22 History sulfamethoxazole 800 1 tab PO BID 05/03/22 05/03/22 05/03/22 History mg-trimethoprim 160 mg tablet Allergies Allergy/AdvReac Type Severity Reaction Status Date / Time No Known Allergies Allergy Verified 05/03/22 16:49 Current Medications Generic Name Dose Route Start Last Admin Trade Name Freq PRN Reason Stop Dose Admin Amitriptyline HCl 25 mg 05/03/22 21:00 05/03/22 20:19 Amitriptyline 25 Mg Tablet PO 25 mg BEDTIME [facility] Administration Aspirin 81 mg 05/04/22 09:00 05/04/22 09:51 Aspirin 81 Mg Ec Tablet PO 81 mg DAILY MARY Administration Atorvastatin Calcium 80 mg 05/03/22 21:00 05/03/22 20:19 Atorvastatin 40 Mg Tablet PO 80 mg BEDTIME MARY Administration Enoxaparin Sodium 100 mg 05/04/22 13:00 05/04/22 13:11 Enoxaparin 100 Mg/Ml Syringe SUBCUT 100 mg Q12H [facility] Administration Ceftriaxone Sodium 1,000 mg/ 50 mls @ 100 mls/hr 05/03/22 21:00 05/03/22 21:22 Sodium Chloride IV Infused Q24H [facility] Infusion Protocol Nitroglycerin/Dextrose 50 mg in 250 mls @ 0 mls/hr 05/04/22 13:00 05/04/22 13:01 Nitroglycerin Drip IV 10 mcg/min .Q0M [facility] 3 mls/hr Administration Protocol Per Protocol Insulin Human Lispro 0 unit 05/03/22 19:35 05/04/22 13:10 Insulin Lispro 100 Unit/1 Ml SUBCUT Not Given TIDWM [facility] Protocol Lisinopril 20 mg 05/03/22 19:35 05/04/22 09:51 Lisinopril 20 Mg Tablet PO 20 mg DAILY MARY Administration Metoprolol Tartrate 12.5 mg 05/03/22 21:00 05/04/22 09:56 Metoprolol Tartrate 25 Mg Tablet PO 12.5 mg BID@0900,2100 MARY Administration Multivitamins Therapeutic 1 tab 05/04/22 09:00 05/04/22 09:51 Multivitamin Therapeutic Tablet PO 1 tab DAILY MARY Administration Nitroglycerin 0.4 mg 05/03/22 19:35 05/04/22 12:48 Nitroglycerin 0.4 Mg Sublingual Tablet SUBLINGUAL 1 tab Q5M PRN Administration CHEST PAIN Non-Formulary Medication 500 mg 05/04/22 09:00 05/04/22 09:50 Calcium Carbonate PO Not Given DAILY MARY Non-Formulary Medication 500 mg 05/04/22 09:00 05/04/22 09:50 Magnesium Oxide PO Not Given DAILY MARY Non-Formulary Medication 1 tab 05/04/22 09:00 05/04/22 09:50 Vitamin B Complex PO Not Given DAILY MARY Pantoprazole Sodium 40 mg 05/03/22 19:35 05/03/22 20:19 Pantoprazole 40 Mg Sdv IVP 40 mg Q24H MARY Administration Tamsulosin HCl 0.4 mg 05/03/22 21:00 05/03/22 20:19 Tamsulosin 0.4 Mg Capsule PO 0.4 mg BEDTIME MARY Administration PFSH Acute PFSH: Medical History (Updated 05/05/22 @ 15:00 by Tristian Clarke M.D) Arachnoid cyst ASHD (arteriosclerotic heart disease) DDD (degenerative disc disease), lumbar Diabetes mellitus Diabetic neuropathy Gait instability History of colon cancer Hyperlipidemia Hypertension Intervertebral disc disorder with radiculopathy of lumbosacral region Ischemic cardiomyopathy Lumbar disc disease with radiculopathy Lumbar spondylosis Lumbosacral disc disease Migraine Obesity Tobacco abuse Surgical History H/O coronary angioplasty History of back surgery Left L4-L5, L5-S1 hemilaminotomy/discectomy/foraminotomy, 09/01/2019, [facility] History of cholecystectomy History of hernia repair History of resection of small bowel History of sinus surgery Family History Mother Cancer Father CAD (coronary artery disease) Sister Hypertension Social History Smoking and tobacco status: former smoker Alcohol intake: never Lives independently: Yes Household members: spouse Marital status: Current occupational status: retired Current occupation: retired History of recent travel: No Vitals/I&O/Wt Last Vital Signs Temp 97.5 F L 05/04/22 08:00 Pulse 84 05/04/22 11:47 Resp 18 05/04/22 11:47 BP 116/71 05/04/22 11:47 Pulse Ox 97 05/04/22 11:47 O2 Del Method 05/04/22 11:47 05/03/22 05/04/22 05/04/22 22:59 06:59 14:59 Intake Total 50 / 50 480 / 530 360 / 360 Output Total 200 / 200 1825 / 5 500 / 500 Balance -150 / -150 -1345 / -1495 -140 / -140 Weight last 48 hrs Weight 232 lb 9.6 oz Weight 230 lb Physical Exam Narrative: GENERAL: Patient is alert, awake and oriented x3. [] NECK: No jugular vein distension. [] HEENT: No cyanosis. No icterus. No pallor. [] HEART: Regular S1 and S2. No murmur, rub or gallop. [] LUNGS: Clear to auscultate bilaterally. [] ABDOMEN: Soft, nontender and nondistended. Positive bowel sounds. No guarding, rebound or tenderness. [] CENTRAL NERVOUS SYSTEM: Grossly nonfocal. [] EXTREMITIES: Lower extremities with no edema bilaterally. Pulses palpable in the lower extremities, both dorsalis pedis and posterior tibial. [] Data : 05/05/22 03:17 05/05/22 03:17 A&P Assessment and plan (1) Chest pain: (2) Hyperlipidemia: (3) Hypertension: (4) Abnormal stress test: Plan Patient has presented with typical chest pain symptoms. Stress test shows partially reversible perfusion defect in apical, inferior and inferior lateral molina. We will proceed with coronary angiogram with possible percutaneous coronary intervention. Risks and benefits of the procedure have been discussed with the patient. He understands the risks and benefits and wants to proceed with the procedure. N.p.o. past midnight. Continue aspirin. LV systolic function has significantly decreased compared to before and EF is now 35-40%. Thank you for involving us with care of this patient. We will continue to follow. Please call with questions. 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
[2022-05-04 15:06] LABS: Troponin 5 2HR 13.94 ng/L (0-15)
[2022-05-04 15:11] LABS: Troponin 5 2HR Delta -0.06 ABS# (0-10)
[2022-05-04 16:49] LABS: Glucose Point of Care 131 mg/dL (70-110)
--- NOTE | 2022-05-04 18:49 | ECG_ITS ---
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 Measurements Intervals Wayne Rate: 72 P: 31 IA: 173 QRS: -39 QRSD: 169 T: 6 QT: 459 QTc: 504 Interpretive Statements SINUS RHYTHM WITH OCCASIONAL SUPRAVENTRICULAR PREMATURE COMPLEXES LEFT AXIS DEVIATION [QRS AXIS < -30] RIGHT BUNDLE BRANCH BLOCK [120+ ms QRS DURATION, UPRIGHT V1, 40+ ms S IN I/aVL/V4/V5/V6] Compared to ECG 05/04/2022 12:45:18 Ventricular premature complex(es) no longer present Electronically Signed On 05-04-2022 17:10:25 CDT by Pita Cruz M.D. [id number]
--- NOTE | 2022-05-04 19:09 | PC.NURSE ---
[id number] this nurse called to bedside reporting patient doesn't feel well and is sweating upon arrival to bedside patient laying supine in bed with hand on chest patient unable to rate pain on scale of 1-10 face chart used patient reporting 8/10 pain EKG obtained no changes Notified provider provider at bedside with instructions to give nitro 1 sublingual nitro given and pain resolved at 5 min instructions received at bedside to start nitor Gtt per protocol for chest pain 1 Mg IVP morphine q4h prn for pain troponin series
[2022-05-04] MEDS: morphine 4 mg/mL SDV 1 mL 1 MG IVP ×2 (19:26→23:59)
[2022-05-04 19:33] LABS: Troponin 5 6HR 15.04 ng/L (0-15); Troponin 5 6HR Delta 1.04 ng/L (0-12)
--- NOTE | 2022-05-04 19:35 | NMCV_ITS ---
NM chas perf SPECT r/s* [id number] Arnold Ceron Age: 76 Gender: M : 1945 Exam Date: 05/04/2022 06:53 Ordering Phys: Gume Castañeda MD Technologist: TOÑO Duval Exam Location: [facility] Indications: CHEST PAIN STRESS TEST [facility] IMAGE PROTOCOL Rest/Stress 1 Lexiscan Day Radiopharmaceutical Dose (mCi) Administration Site Administered by Rest: Tc-99m 10.9 IV TOÑO Webster Sestamibi Stress:Tc-99m 32.9 IV TOÑO Webster Sestamibi Rest: 04-May-2022 60 Discovery 630 Stress: 04-May-2022 30 Discovery 630 0.4mg Lexiscan. Supine position only as patient was unable to lay prone. SPECT RESULTS Technical Quality: Excellent Raw Data Analysis: Normal Image Corrections: No attenuation or motion correction applied Summed Stress Score: 19 Summed Rest Score: 19 Summed Difference Score: 1 PERFUSION FINDINGS There is a large in size, partially reversible perfusion defect noted in apical, inferior and inferolateral molina. This is consistent with prior infarct with miles-infarct ischemia noted in RCA and left circumflex artery territory. FUNCTIONAL RESULTS (calculated via Gated SPECT) Stress Image LV EF (%): 36 Stress EDV (mL):213 TID: 0.88 Stress ESV (mL):137 FUNCTIONAL FINDINGS: LV systolic function is moderately reduced. Moderate global hypokinesis is seen IMPRESSIONS 1. Abnormal myocardial perfusion imaging with large sized prior infarct noted in the RCA and left circumflex artery territroy with periinfarct ischemia mostly in RCA territory. 2. LV systolic function is moderately reduced Tristian Clarke MD (Electronically Signed) Final Date: 04 May 2022 10:15 S
[2022-05-04] MEDS: atorvastatin 40 mg Tablet 80 MG PO (19:44)
[2022-05-04] MEDS: tamsulosin 0.4 mg Capsule PO (19:44)
[2022-05-04] MEDS: amitriptyline 25 mg Tablet PO (19:44)
[2022-05-04] MEDS: cefTRIAXone 1,000 MG in sodium chloride 0.9% (plus) 50 ML 100 MG IV (19:45)
[2022-05-04] MEDS: pantoprazole 40 mg SDV IVP (19:45)
[2022-05-04 20:24] LABS: Glucose Point of Care 213 mg/dL (70-110)
[2022-05-05] VITALS (28 sets, daily range): BP systolic 92–147; BP diastolic 44–92; PULSE 72–98; RESP 12–118; TEMP 36.6–36.9; O2SAT 91–98
[2022-05-05 03:34] LABS: Basophils % 0.4 %; Eosinophils # 0.1 10^3/uL (0.0-0.8); Hematocrit 37.2 % (42.0-52.0); Hemoglobin 12.1 g/dL (11.7-16.6); Lymphocytes # 1.1 10^3/uL (0.8-4.8); Lymphocytes % 21.3 %; Mean Corpuscular HGB Conc 32.5 g/dL (30.0-36.0); Mean Corpuscular Hemoglobin 29.4 pg (28.0-34.0); Mean Corpuscular Volume 90.3 fl (80-94); Mean Platelet Volume 11.6 fL (7.4-10.4); Monocytes # 0.5 10^3/uL (0.2-0.9); Monocytes % 9.1 %; Neutrophils # 3.41 10^3/uL (1.8-7.7); Nucleated Red Blood Cells % 0 %; Platelet Count 105 10^3/cmm (130-400); Red Blood Count 4.12 10^6/uL (4.1-5.3); Red Cell Distribution Width 12.8 % (12.1-15.1); White Blood Count 5.1 10^3/uL (4.0-10.0)
[2022-05-05 04:03] LABS: Anion Gap 13.9 (5-19); Blood Urea Nitrogen 12 mg/dL (8-23); Calcium 8.9 mg/dL (8.5-10.5); Carbon Dioxide 26 mmol/L (22-29); Chloride 105 mmol/L (98-107); Glucose 120 mg/dL (65-115); Osmolality Calculated 293 mOsm/kg (285-295); Potassium 3.9 mmol/L (3.5-5.1); Sodium 141 mmol/L (136-145)
[2022-05-05] MEDS: acetaminophen 325 mg Tablet 650 MG PO (04:39)
[2022-05-05 06:20] LABS: Glucose Point of Care 121 mg/dL (70-110)
--- NOTE | 2022-05-05 06:33 | XACV_ITS ---
Exam Room: [facility] Ht: 178 cm Wt: 102 kg BSA: 2.27 m2 Gender: Male : 1945 Any Known Allergies: No known allergies Exam Priority: Routine Indication(s): - Abnormal adenosine stress study - Angina Procedure(s): Procedure Description: Diagnostic procedure Procedure Description: PCI procedure Procedure Description: Left Heart Catheterization Procedure Description: Drug Eluting Coronary Stent Procedure Description: Miscellaneous Procedure Description: ACT Procedure Description: Coronary Angiography Procedure Description: Pressure Wire Diagnostic Cath Status: Urgent Diagnostic Findings * Left Main has minimal luminal irregularities. * Circumflex has mild to moderate luminal irregularities. * Right Coronary Artery has patent prior stents. Mild to moderate luminal irregularities. * INDICATION: Worsening angina/ abnormal stress test/LV dysfunction. * Proximal Left Anterior Descending: obstructive 70% stenosis, TARA: 3 flow. * Coronary angiography shows right dominance. PCI Status: Urgent PCI Indication: New Onset Angina <= 2 months Interventional Findings * Procedure details: We engaged left main artery with XB 3.5 guide catheter. IV heparin was administered to maintain ACT above 250 s. After normalization, IFR wire was advanced into distal LAD. IFR value of 0.84 was obtained. We performed IFR pullback and again same value of 0.84 was obtained with step up noted in the proximal LAD stenotic area. As these values were ischemic, we decided to proceed with PCI of proximal LAD. 0.014 run-through guidewire was used to cross into distal LAD. We predilated stenosis with 2.5 x 12 mm semicompliant balloon. This was followed by placement of 3.0 x 15 mm resolute [place] drug-eluting stent. We then postdilated the proximal portion of the stent with 3.25 x 6 mm NC balloon. At this time final angiogram was performed that showed excellent stent expansion, no residual stenosis and TARA-3 flow. Guidewire and guide catheters were removed. Patient left the Forensic Chemist in a stable condition. * Proximal Left Anterior Descendin% stenosis treated with a AB TREK 2.50X12 RX BALLOON, MDT R GIOVANY 3.0X15 HANNAH, and MDT NC EUPHORA RX [id number] BALLOON. 0% residual stenosis, TARA: 3 flow. Conclusions 1. Severe proximal LAD stenosis 2. confirmed with IFR value of 0.84. 3. Status post successful revascularization with HANNAH x1.. 4. Proximal Left Anterior Descending was treated with a Balloon, Drug Eluting Stent, and Balloon. Recommendations * Dual antiplatelet therapy with aspirin and Plavix for atleast 1 year. * High intensity statin therapy. * Outpatient cardiology follow up in 4 weeks. Interventional RX Recommendation: PCI w/o planned CABG Diagnostic RX Recommendation: PCI w/o planned CABG Anticoagulation: Heparin Pressures Phase:Rest AO : 115 / 76 ( 84 ) @ 8:45:00 AM 138 / 58 ( 82 ) @ 8:50:00 AM 136 / 58 ( 83 ) @ 8:50:00 AM LV : 146 / -8 / 16 @ 8:50:00 AM Valves Phase:DefaultPhase AV : 6.0 @ 8:34:07 AM AV Mean Gradient: 39.0 @ 8:34:07 AM Clinical Evaluation EBL: 5mL-10mL Procedural Details Procedure Consent Obtained. Admit Source: In Patient. Pre-Procedure Time Out. Identified patient by full name and date of as verbalized by the patient/guarantor. Does the consent match the physician's order: Yes. Accurate & Complete Informed Consent: Yes. Inpatient/Outpatient History & Physical on Chart: Yes. If H&P is completed, is and addenduem needed: No; If yes, is the addendum complete: N/A. Visualize and Verify Site with Patient/Guarantor: N/A. Relevant Radiology Images available: N/A. The risks, benefits, and alternatives of sedation and/or procedure were discussed by physician. The patient agrees to continue. Procedure started. [facility] Clinical Fraility Score: 3: Managing Well. Forensic Chemist Indications: New Onset Angina. Chest Pain Symptom Assessment: Typical Angina Symptoms. Cardiovascular Instability: No, stable. Correct patient, site and procedure confirmed by cath team. Current diagnosis: Abnormal stress test, New onset angina. PERRLA. Strong, equal hand manager clinical applications bilaterally. Lungs clear x 5 lobes. IV Site on Arrival: 18 gauge in the right anticubital. IV Fluids: 0.9% NaCl at KVO. 0 mL infused prior to medical laboratory technicians. Pre Procedural Pulses: bilateral radial was 3+. Pre Procedural Pulses: bilateral posterior tibial was Doppled. Pre Procedural Pulses: bilateral dorsalis pedis was Doppled. Oxygen started at 3liters/min via nasal canula. right groin was prepped with chloroprep then draped in the usual sterile fashion. right radial was prepped with chloroprep then draped in the usual sterile fashion. Physician notified. Baseline sample Acquired. HR: 82 BPM. Family updated prior to the start of the procedure. Family updated prior to the start of the procedure. Equipment: 5F - Femoral. Equipment: 6F - Femoral. Equipment: 5F - Radial. Equipment: 6F - Radial. Physician arrived. Physician scrubbed in. Immediate Pre-Procedure Time Out. Correct Patient: Yes; Correct Procedure: Yes; Correct Site: Yes; Correct Patient Position: Yes; Correct Supplies: Yes; Dried Flammable Prep: Yes; Blood Products Available: N/A;. Lidocaine 1% infiltrated to the right radial. Current Diagnosis : Chest Pain. Arterial access obtained. A 5 [place] Jamarcus catheter in over exchange wire. Multiple views taken of left coronary artery. Catheter redirected to the RCA. Multiple views taken of right coronary artery. Catheter dropped into LV over the wire. Physician review of films. Inventory: ENDOFLATOR, RUNTHROUGH WIRE, XB3.5 GUIDE, OMNIWIRE PRESSURE WIRE. EDP Sample taken: LV 146/-9,16; HR: 51 BPM; SpO2: 98%. Pullback taken: LV Off; AO 138/58(82); Mean: 39mmHg, Peak to Peak: 6mmHg, SEP: 29sec/min; HR: 35 BPM; SpO2: 98%. Catheter removed over the wire. Patient's family updated. 6 [place] XB 3.5 guide catheter was inserted over the wire. IFR guidewire was advanced through the guide catheter to lesion in the prox LAD. IFR normalized proximal to lesion. Guidewire advanced across lesion. IFR SPOT 0.84 IFR Pullback 0.84. Runthrough guidewire was advanced through the guide catheter to lesion in the prox LAD. IFR wire used as a oneil wire. Runthrough advanced across the lesion in the proximal LAD. IFR wire out. Inflation number : 1 A TREK 2.50X12 RX BALLOON was prepped and advanced across the Prox LAD , then inflated to 12 MIKAL for 0:22 seconds. Balloon out over the wire. Inflation Number : 2 A JAYME Pitts GIOVANY 3.0X15 HANNAH -Lot Number# [id number] was prepped and advanced across the Prox LAD. The stent was deployed at 14 MIKAL for 0:23 seconds. EXP 11/30/24. Checking results. Stent balloon out over the wire. Inflation number : 3 A JAYME CRAFT EUPHORA RX [id number] BALLOON was prepped and advanced across the Prox LAD , then inflated to 12 MIKAL for 0:16 seconds. Checking results. Balloon out over the wire. Wire out. Checking results. ACT drawn. Results 307 seconds. Therapeutic limits - pre-heparin administration 90-150 seconds and monitoring heparin during a vascular procedure >250 seconds. Physician review of films. Guide removed over the wire. Physician scrubbed out. A TR Band was successful obtaining hemostatsis at the Right Radial artery insertion site. TR band placed. Hemostasis obtained. Post Procedure: Pulses reassessed and unchanged. PERRLA. Strong, equal hand manager clinical applications bilaterally. No VTE prophylaxis required. Medication waste Nitro- 49.8 mg, Heparin 1000 units, Fentanyl 50 mcg. Total IV fluids: 66 mL. Fluoro: 10:07. Contrast type used: Omnipaque 300 mgI/mL, 500 mL bottle. [id number]. Post-op diagnosis: Severe proximal LAD stenosis. Complications: None. Estimated blood loss: 5mL-10mL. Responsiveness - Normal response to verbal stimuli; alert and oriented, PERRLA. Airway - Unaffected, no intervention required; spontaneous ventilation. Circulation: W/N/L, pulses unchanged. Nausea/Vomiting: No. Procedure completed. Vital chart was stopped. Patient transferred by wheelchair to [facility]. Access Site Site: Right Radial artery Sheath Size: 6 Fr Hemostasis Method: TR Band Hemostasis Success: Successful Procedure Medications Start: 7:34 AM Stop: 7:34 AM Medication: Versed 1 mg and Fentanyl 25 mcg Amount: 1 Route: I.V. Start: 7:42 AM Stop: 7:42 AM Medication: Nitrogylcerin Amount: 200 mcg Route: I.A. Start: 7:44 AM Stop: 7:44 AM Medication: Heparin Amount: 5000 units Route: I.V. Start: 7:46 AM Stop: 7:46 AM Medication: Versed Amount: 1 mg Route: I.V. Start: 7:52 AM Stop: 7:52 AM Medication: Versed 1 mg and Fentanyl 25 mcg Amount: 1 Route: I.V. Start: 7:55 AM Stop: 7:55 AM Medication: Heparin Amount: 2000 units Route: I.V. Start: 8:04 AM Stop: 8:04 AM Medication: Heparin Amount: 3000 units Route: I.V. Start: 8:05 AM Stop: 8:05 AM Medication: Versed Amount: 1 mg Route: I.V. Start: 8:26 AM Stop: 8:26 AM Medication: Plavix Amount: 600 mg Route: P.O. Start: 7:35 AM Stop: 7:35 AM Medication: Benadryl Amount: 25 mg Route: I.V. I, the attending physician, have reviewed and verified all procedure medications. Yes, all medications given per verbal order History/Risk Factors Hypertension: Yes Dyslipidemia: Yes Peripheral Arterial Disease (PAD): No Myocardial Infarction (NE): No Obesity: No Renal Disease: No Prior Interventions PCI: Yes CABG: No Valve Surgery: No Date of PCI: 09/22/2013 Report Signatures Finalized by Tristian Clarke MD on 05/06/2022 11:18 PM
--- NOTE | 2022-05-05 07:17 | PC.NURSE ---
Pt off floor to salvage laborer at 0720.
--- NOTE | 2022-05-05 07:33 | W.PM.OPSUD ---
Surgery/Procedure H&P Update DATE OF PROCEDURE: May 05, 2022 DATE H&P PERFORMED: 05/04/22 H&P UPDATE INFORMATION: I have reviewed H&P completed within last 30 days, I have examined patient prior to procedure and No changes to prior documentation PREOP DIAGNOSIS: LV dysfunction/worsening chest pain/abnormal stress test PRIMARY INDICATION FOR PROCEDURE: LV dysfunction/worsening chest pain/abnormal stress test PLANNED PROCEDURE: Left heart cath with possible percutaneous coronary intervention PATIENT REASSESSED PRIOR TO SEDATION, WITH NO CHANGE NOTED: Yes PHYSICAL EXAM: alert, oriented x 3, clear to auscultation bilaterally and regular rate & rhythm AIRWAY EVAL/ANESTHESIA PLAN: ASA III, Local Anesthesia, Risks, benefits & alternatives of sedation and/or procedure discussed and Patient agrees to continue as planned ADDITIONAL INFORMATION: Moderate sedation
[2022-05-05] MEDS: sodium chloride 0.9% 1,000 ML 100 ML IV (08:48)
[2022-05-05] MEDS: metoprolol tartrate 25 mg Tablet 12.5 MG PO ×2 (09:23→20:55)
[2022-05-05] MEDS: aspirin 81 mg EC Tablet PO (09:24)
[2022-05-05] MEDS: multivitamin therapeutic Tablet 1 TAB PO (09:24)
[2022-05-05] MEDS: clopidogrel 75 mg Tablet PO (09:25)
[2022-05-05] MEDS: lisinopril 20 mg Tablet PO (09:25)
[2022-05-05 10:59] LABS: Glucose Point of Care 201 mg/dL (70-110)
--- NOTE | 2022-05-05 11:15 | P.PN_ITS ---
Subjective Subjective: patient was seen this morning,s/p LAd stent placement, denies chest pain, denies shortness of breath Vitals/I&O/Wt Last Vital Signs Temp 98.0 F 05/05/22 04:58 Pulse 95 05/05/22 10:50 Resp 22 H 05/05/22 10:50 BP 118/52 05/05/22 10:50 Pulse Ox 98 05/05/22 10:50 O2 Del Method 05/05/22 10:50 05/04/22 05/05/22 05/05/22 22:59 06:59 14:59 Intake Total 309.55 / 669.55 27.8 / 697.35 172.1 / 172.1 Output Total 1075 / 1575 600 / 2175 Balance -765.45 / -905.45 -572.2 / -1477.65 172.1 / 172.1 Weight last 48 hrs Weight 101.831 kg Weight 105.506 kg Weight 104.326 kg Physical Exam Const: COMMON NORMALS: no acute distress and patient oriented x3 Resp: COMMON NORMALS: normal respiratory effort, No retractions, No use of accessory muscles and clear to auscultation bilaterally AUSCULTATION: clear to auscultation bilaterally Cardio: COMMON NORMALS: regular rate, regular rhythm, S1 normal heart sound present and S2 normal heart sound present RATE: regular rate RHYTHM: regular rhythm HEART SOUNDS: S1 normal heart sound present and S2 normal heart sound present GI: COMMON NORMALS: Normal to inspection, nondistended, normoactive bowel s ounds present and non-tender Extremity: COMMON NORMALS: no pedal edema NARRATIVE EXTREMITY EXAM: tr band in place Neuro: COMMON NORMALS: patient oriented x3 Psych: COMMON NORMALS: mental status grossly normal Data : 05/05/22 03:17 05/05/22 03:17 A&P Assessment and plan (1) Chest pain: (2) Diabetes mellitus: (3) Hyperlipidemia: Plan Chest pain -s/p LAD stent -Aspirin, statin, plavix, nitro as needed for chest pain, beta-jonathan -Monitor for chest pain -Low-dose sliding scal 6.0 -Full code -Lovenox for DVT prophylaxis -History of UTI, will place on Rocephin repeat UA -CT of the chest does show some minimal mediastinal lymphadenopathy, will order a lymphoma leukemia panel, have patient follow-up with Dr. 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
[2022-05-05] MEDS: insulin lispro 100 unit/1 mL SUBCUT (11:35)
[2022-05-05 13:18] LABS: Leukemia Profile (BBPL) See Report; Lymphoma Profile (BBPL) See Report
--- NOTE | 2022-05-05 14:20 | PC.NURSE ---
TR band removed at 1406. No hematoma noted. Dressing applied
--- NOTE | 2022-05-05 15:05 | PM.PN ---
Subjective Subjective: Patient underwent coronary angiogram that showed moderate to severe proximal LAD stenosis. iFR was found to be ischemic and he underwent successful revascularization with HANNAH x1. Vitals/I&O/Wt Last Vital Signs Temp 97.9 F 05/05/22 12:00 Pulse 83 05/05/22 14:19 Resp 20 H 05/05/22 14:19 BP 124/75 05/05/22 14:19 Pulse Ox 98 05/05/22 14:19 O2 Del Method 05/05/22 14:19 05/05/22 05/05/22 05/05/22 06:59 14:59 22:59 Intake Total 27.8 / 697.35 652.1 / 652.1 0 / 652.1 Output Total 600 / 2175 Balance -572.2 / -1477.65 652.1 / 652.1 0 / 652.1 Weight last 48 hrs Weight 224 lb 8 oz Weight 232 lb 9.6 oz Weight 230 lb Physical Exam Narrative: GENERAL: Patient is alert, awake and oriented x3. [] NECK: No jugular vein distension. [] HEENT: No cyanosis. No icterus. No pallor. [] HEART: Regular S1 and S2. No murmur, rub or gallop. [] LUNGS: Clear to auscultate bilaterally. [] ABDOMEN: Soft, nontender and nondistended. Positive bowel sounds. No guarding, rebound or tenderness. [] CENTRAL NERVOUS SYSTEM: Grossly nonfocal. [] EXTREMITIES: Lower extremities with no edema bilaterally. Pulses palpable in the lower extremities, both dorsalis pedis and posterior tibial. [] Data : 05/05/22 03:17 05/05/22 03:17 A&P Assessment and plan (1) Chest pain: (2) Hyperlipidemia: (3) Hypertension: (4) Abnormal stress test: Plan Patient's coronary angiogram demonstrated severe proximal LAD stenosis confirmed with IFR value of 0.84. Patient is s/p successful revascularization with HANNAH x1. Continue aspirin. Plavix has been loaded. Continue Plavix 75 mg daily. High intensity statin therapy Thank you for involving us with care of this patient. We will continue to follow. Please call with questions. 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
[2022-05-05] MEDS: magnesium hydroxide 30 mL UDC PO (16:15)
[2022-05-05 17:23] LABS: Glucose Point of Care 135 mg/dL (70-110)
[2022-05-05] MEDS: atorvastatin 40 mg Tablet 80 MG PO (20:57)
[2022-05-05] MEDS: amitriptyline 25 mg Tablet PO (20:57)
[2022-05-05] MEDS: tamsulosin 0.4 mg Capsule PO (20:57)
[2022-05-05] MEDS: temazepam 15 mg Capsule PO (20:58)
[2022-05-05] MEDS: cefTRIAXone 1,000 MG in sodium chloride 0.9% (plus) 50 ML 100 MG IV (21:00)
--- NOTE | 2022-05-05 21:41 | PC.NURSE ---
This RN agrees with all documentation and medication administration as demonstrated by student RN at this time. Will continue to monitor student activities.
[2022-05-05 22:16] LABS: Glucose Point of Care 135 mg/dL (70-110)
[2022-05-06 00:37] VITALS: BP 127/77; PULSE 77; RESP 20; TEMP 36.6; O2SAT 94
[2022-05-06 04:22] LABS: Basophils % 0.4 %; Eosinophils # 0.1 10^3/uL (0.0-0.8); Eosinophils % 1.7 %; Hematocrit 39.8 % (42.0-52.0); Hemoglobin 12.7 g/dL (11.7-16.6); Mean Corpuscular HGB Conc 31.9 g/dL (30.0-36.0); Mean Corpuscular Hemoglobin 29.4 pg (28.0-34.0); Mean Corpuscular Volume 92.1 fl (80-94); Mean Platelet Volume 11.4 fL (7.4-10.4); Monocytes # 0.5 10^3/uL (0.2-0.9); Monocytes % 9.3 %; Neutrophils # 3.57 10^3/uL (1.8-7.7); Neutrophils % 69.4 %; Nucleated Red Blood Cells % 0 %; Platelet Count 88 10^3/cmm (130-400); Red Blood Count 4.32 10^6/uL (4.1-5.3); Red Cell Distribution Width 12.8 % (12.1-15.1); White Blood Count 5.2 10^3/uL (4.0-10.0)
[2022-05-06 04:45] LABS: Anion Gap 12.9 (5-19); Blood Urea Nitrogen 13 mg/dL (8-23); Calcium 9.1 mg/dL (8.5-10.5); Carbon Dioxide 26 mmol/L (22-29); Chloride 107 mmol/L (98-107); Glucose 132 mg/dL (65-115); Osmolality Calculated 296 mOsm/kg (285-295); Potassium 3.9 mmol/L (3.5-5.1); Sodium 142 mmol/L (136-145)
[2022-05-06 05:07] VITALS: PULSE 74
[2022-05-06 05:57] VITALS: BP 122/71; PULSE 91; RESP 17; TEMP 36.6; O2SAT 95
[2022-05-06 06:35] LABS: Glucose Point of Care 130 mg/dL (70-110)
--- NOTE | 2022-05-06 07:00 | P.PN_ITS ---
Subjective Subjective: Patient is overall doing well. Has minimal chest discomfort. Has frequent PVCs Vitals/I&O/Wt Last Vital Signs Temp 97.8 F 05/06/22 05:57 Pulse 91 05/06/22 05:57 Resp 17 05/06/22 05:57 BP 122/71 05/06/22 05:57 Pulse Ox 95 05/06/22 05:57 O2 Del Method 05/05/22 15:47 05/05/22 05/06/22 05/06/22 22:59 06:59 14:59 Intake Total 306.667 / 958.767 Output Total 1570 / 1570 300 / 1870 Balance -1263.333 / -611.233 -300 / -911.233 Weight last 48 hrs Weight 224 lb 8 oz Physical Exam Narrative: GENERAL: Patient is alert, awake and oriented x3. [] NECK: No jugular vein distension. [] HEENT: No cyanosis. No icterus. No pallor. [] HEART: Regular S1 and S2. No murmur, rub or gallop. [] LUNGS: Clear to auscultate bilaterally. [] ABDOMEN: Soft, nontender and nondistended. Positive bowel sounds. No guarding, rebound or tenderness. [] CENTRAL NERVOUS SYSTEM: Grossly nonfocal. [] EXTREMITIES: Lower extremities with no edema bilaterally. Pulses palpable in the lower extremities, both dorsalis pedis and posterior tibial. [] Data : 05/06/22 03:16 05/06/22 03:16 A&P Assessment and plan (1) Chest pain: (2) Hyperlipidemia: (3) Hypertension: (4) Abnormal stress test: Plan Patient's coronary angiogram demonstrated severe proximal LAD stenosis confirmed with IFR value of 0.84. Patient is s/p successful revascularization with HANNAH x1. Continue aspirin and Plavix High intensity statin therapy Patient has frequent PVCs. We will uptitrate metoprolol to 25mg bid. Will also recommend outpatient event monitoring. Thank you for involving us with care of this patient. Patient is stable to be discharged from cardiology standpoint. Please call with questions. Attestations Medical Necessity Statement*: Care expected to cross 2 midnights. 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
[2022-05-06 07:56] VITALS: BP 145/69; PULSE 77; RESP 16; TEMP 36.6; O2SAT 95
[2022-05-06] MEDS: lisinopril 20 mg Tablet PO (08:21)
[2022-05-06] MEDS: clopidogrel 75 mg Tablet PO (08:21)
[2022-05-06] MEDS: aspirin 81 mg EC Tablet PO (08:23)
[2022-05-06] MEDS: metoprolol tartrate 25 mg Tablet 12.5 MG PO (08:24)
[2022-05-06] MEDS: TRAMadol 50 mg Tablet PO (09:22)
[2022-05-06 11:00] LABS: Glucose Point of Care 219 mg/dL (70-110)
[2022-05-06 11:34] VITALS: BP 135/67; PULSE 82; RESP 19; O2SAT 96
[2022-05-06] MEDS: insulin lispro 100 unit/1 mL SUBCUT (11:50)
--- NOTE | 2022-05-06 12:49 | P.DS_ITS ---
Discharge Providers Date of Admission: 05/03/22 19:35 Date of Discharge: May 06, 2022 Attending Provider at Admission: Gume Castañeda MD Attending Provider at Discharge: Gume Castañeda MD Primary Care Provider: Nehemiah Kaur MD Diagnoses at Discharge Discharge Diagnosis (1) Chest pain: Status: Acute (2) Hyperlipidemia: Status: Acute (3) Hypertension: Status: Acute (4) Abnormal stress test: Status: Acute Reason for Visit Reason for Visit: heart pain Hospital Course Hospital Course Arnold Ceron is a 76 year old male with a past medical history of CAD status post stenting, hypertension, hyperlipidemia, noninsulin-dependent type 2 diabetes mellitus, who presents to [facility] for chest pain.?? Patient was admitted for chest pain, underwent positive stress test, underwent coronary angiogram, with severe proximal LAD stenosis, status post drug-eluting stent x1, managed with aspirin, Plavix, statin. Patient will be discharged with close follow-up with cardiology as outpatient. Patient had frequent PVCs, nonsustained V. tach during hospitalization, will be discharged with Metroprolol 25 mg twice daily with event monitor follow-up with cardiology. Was UTI managed with Rocephin He was also found to have minimal mediastinal lymphadenopathy during his hospitalization, with thrombocytopenia, please follow-up with Dr. Barry as outpatient, lymphoma leukemia panel in addition was ordered and in addition to peripheral smear Physical Exam Const: COMMON NORMALS: no acute distress and patient oriented x3 Resp: COMMON NORMALS: normal respiratory effort, No retractions, No use of accessory muscles and clear to auscultation bilaterally AUSCULTATION: clear to auscultation bilaterally Cardio: COMMON NORMALS: regular rate, regular rhythm, S1 normal heart sound present and S2 normal heart sound present RATE: regular rate RHYTHM: regular rhythm HEART SOUNDS: S1 normal heart sound present and S2 normal heart sound present GI: COMMON NORMALS: Normal to inspection, nondistended, normoactive bowel sounds present, Soft to palpation, non-tender, no masses and no bruits PALPATION: Yes Soft to palpation Extremity: COMMON NORMALS: no pedal edema Neuro: COMMON NORMALS: patient oriented x3 Psych: COMMON NORMALS: mental status grossly normal Discharge Data Studies Completed and Pending Completed Studies During Hospitalization Category Date Time Status CTA chest [CT angio chest PE protcl [id number]] Stat Cat Scan 05/03/22 16:13 Completed Sestamibi Stress Test Request Routine Exams 05/04/22 07:06 Draft XR chest 1V portable [id number] Stat Exams 05/03/22 15:52 Completed NM chas perf SPECT r/s* [id number] Routine Nuc Med 05/04/22 19:35 Completed CV. echo complete* [id number] Stat Ultrasound 05/03/22 17:38 Completed Pending at discharge Category Date Time Status RN DOCUMENT IMPROVEMENT SPECIALIST request for service Routine Exams 05/05/22 06:33 Taken Sestamibi Stress Test Request Routine Exams 05/03/22 19:35 Stop Req Basic Metabolic Panel AM LABS Lab 05/07/22 04:00 Ordered Complete Blood Count w/Auto AM LABS Lab 05/07/22 04:00 Ordered Radiology Impressions Chest X-Ray 05/03/22 15:52 IMPRESSION: 1. Lungs are clear. 2. Cardiomegaly Chest CTA 05/03/22 16:13 IMPRESSION: 1. Negative for pulmonary embolus. 2. Cardiomegaly 3. Coronary artery atherosclerotic calcifications. 4. Several prominent mediastinal lymph nodes measuring up to 17 mm, nonspecific. 5. Cholecystectomy. 6. Bibasilar atelectasis versus infiltrate. 7. Diverticulosis without diverticulitis. Laboratory Results WBC 5.2 10^3/uL (4.0-10.0) 05/06/22 03:16 RBC 4.32 10^6/uL (4.1-5.3) 05/06/22 03:16 Hgb 12.7 g/dL (11.7-16.6) 05/06/22 03:16 Hct 39.8 % (42.0-52.0) L 05/06/22 03:16 MCV 92.1 fl (80-94) 05/06/22 03:16 MCH 29.4 pg (28.0-34.0) 05/06/22 03:16 MCHC 31.9 g/dL (30.0-36.0) 05/06/22 03:16 RDW 12.8 % (12.1-15.1) 05/06/22 03:16 Plt Count 88 10^3/cmm (130-400) L 05/06/22 03:16 MPV 11.4 fL (7.4-10.4) H 05/06/22 03:16 Neut % (Auto) 69.4 % 05/06/22 03:16 Lymph % (Auto) 19.0 % 05/06/22 03:16 [place] % (Auto) 9.3 % 05/06/22 03:16 Eos % (Auto) 1.7 % 05/06/22 03:16 Baso % (Auto) 0.4 % 05/06/22 03:16 Neut # (Auto) 3.57 10^3/uL (1.8-7.7) 05/06/22 03:16 Lymph # (Auto) 1.0 10^3/uL (0.8-4.8) 05/06/22 03:16 [place] # (Auto) 0.5 10^3/uL (0.2-0.9) 05/06/22 03:16 Eos # (Auto) 0.1 10^3/uL (0.0-0.8) 05/06/22 03:16 Baso # (Auto) 0.0 10^3/uL (0.0-0.1) 05/06/22 03:16 Nucleated RBC % (auto) 0 % 05/06/22 03:16 Nucleated RBCs # 0.0 /100WBC 05/06/22 03:16 ESR 8 mm/hr (0-10) 05/04/22 04:22 Sodium 142 mmol/L (136-145) 05/06/22 03:16 Potassium 3.9 mmol/L (3.5-5.1) 05/06/22 03:16 Chloride 107 mmol/L (98-107) 05/06/22 03:16 Carbon Dioxide 26 mmol/L (22-29) 05/06/22 03:16 Anion Gap 12.9 (5-19) 05/06/22 03:16 BUN 13 mg/dL (8-23) 05/06/22 03:16 Creatinine 0.9 mg/dL (0.7-1.2) 05/06/22 03:16 GFR Calculation Not Reportable 05/06/22 03:16 Glucose 132 mg/dL (65-115) H 05/06/22 03:16 POC Glucose 219 mg/dL (70-110) H 05/06/22 10:50 Estimat Average Glucose 126 05/03/22 16:15 Hemoglobin A1c 6.0 % (4.0-6.0) 05/03/22 16:15 Calculated Osmolality 296 mOsm/kg (285-295) H 05/06/22 03:16 Calcium 9.1 mg/dL (8.5-10.5) 05/06/22 03:16 Magnesium 1.9 mg/dL (1.7-2.3) 05/04/22 04:22 Troponin T Baseline 14 ng/L (0-15) 05/04/22 13:16 Troponin T 120 Minute 13.94 ng/L (0-15) 05/04/22 14:40 Delta Troponin T -0.06 ABS# (0-10) L 05/04/22 14:40 Troponin T Hi Sens 6Hr 15.04 ng/L (0-15) H 05/04/22 18:38 Troponin T Hi Sens 6Hr Delta 1.04 ng/L (0-12) 05/04/22 18:38 NT-Pro-B Natriuret Pep 2312 pg/mL (0-450) H 05/03/22 16:15 Triglycerides 89 mg/dL (0-150) 05/03/22 16:15 Cholesterol 121 mg/dL (0-200) 05/03/22 16:15 LDL Cholesterol, Calc 59 mg/dL (50-129) 05/03/22 16:15 HDL Cholesterol 44 mg/dL (60-100) L 05/03/22 16:15 LDL/HDL Ratio 1.34 RATIO (0.00-3.22) 05/03/22 16:15 Cholesterol/HDL Ratio 2.75 mg/dL (1.0-5.00) 05/03/22 16:15 TSH 1.31 uIU/mL (0.27-4.20) 05/03/22 16:15 Lymphoma Panel See report 05/03/22 16:15 Leuk/Lym Spec Type Cancelled 05/03/22 16:15 Leuk/Lym Clinical Info Cancelled 05/03/22 16:15 Leuk/Lymph Viability Cancelled 05/03/22 16:15 Leuk/Lym Sample Descrip Cancelled 05/03/22 16:15 Leuk/Lym # of Markers Cancelled 05/03/22 16:15 Leuk/Lym Markers Cancelled 05/03/22 16:15 Leuk/Lym Gating Strategy Cancelled 05/03/22 16:15 Leuk/Lym Interpretation Cancelled 05/03/22 16:15 Immunophenotype Interp See report 05/03/22 16:15 Vitals Last Vital Signs Temp 97.8 F 05/06/22 07:56 Pulse 82 05/06/22 11:34 Resp 19 H 05/06/22 11:34 BP 135/67 05/06/22 11:34 Pulse Ox 96 05/06/22 11:34 O2 Del Method 05/06/22 11:34 Discharge Plan Discharge Patient Disposition: Home Condition: Stable Prescriptions: New clopidogrel 75 mg Tablet 75 mg PO DAILY 30 Days Qty: 30 0RF nitroglycerin 0.4 mg Tablet, Sublingual 0.4 mg sublingual Q5M PRN (Reason: Chest Pain) 30 Days Qty: 30 0RF tamsulosin 0.4 mg Capsule 0.4 mg PO BEDTIME 30 Days Qty: 30 0RF aspirin 81 mg Tablet,Delayed Release (Dr/Ec) 81 mg PO DAILY 30 Days Qty: 30 0RF Continued metformin 500 mg tablet 1,000 mg PO DAILY lisinopril 20 mg tablet 20 mg PO QDAY glipizide 5 mg tablet 5 mg PO BID magnesium oxide 500 mg capsule 500 mg PO DAILY vitamin B complex Tablet 1 tab PO DAILY multivitamin Tablet 1 tab PO DAILY rosuvastatin 20 mg tablet 20 mg PO BEDTIME tramadol 50 mg tablet 50 mg PO Q6H PRN (Reason: pain) Qty: 14 0RF Calcium 500 500 mg calcium (1,250 mg) Tablet 500 mg PO DAILY metoprolol tartrate 25 mg tablet 12.5 mg PO BID amitriptyline 25 mg tablet 25 mg PO BEDTIME Discontinued sulfamethoxazole-trimethoprim 800-160 mg tablet 1 tab PO BID lisinopril 5 mg tablet 5 mg PO DAILY Discharge Orders: Discharge Order (Routine); Ordered 05/06/22 Ordered By: Gume Castañeda Other Ambulatory Orders: MCT/Event Monitor 30 Days (Routine) Timeframe: 1 Day Facility: [facility] - Location: Radiology Ordered By: Gume Castañeda Referrals: Nemo Pizano FNP [Nurse Practitioner] - 1 week Nehemiah Kaur MD [Primary Care Provider] - Jose Barry MD [Hospitalist] - 1 month Discharge Diet: Cardiac Discharge Activity: Resume usual activity Patient Instructions: Opioid Safety Activity Restrictions/Additional Instructions: - If he had recurrent chest pain or lightheadedness please go to the emergency room -Please follow-up with cardiology next week -Please follow with Dr. Barry a month -Please monitor blood sugars closely, follow-up with primary care physician with blood sugar logs Discharge Attestations Time Spent in Discharge Care*: less than 30 min Quality Metrics Clinical Quality Measures [ Acute Myocardial Infaction { Clinical Trial Participant: No; Contraindication to aspirin: None; Aspirin prescribed; Contraindication to statin: None; Statin prescribed; Contraindication to PCI: None; PCI performed;}] Coding Level of Care Code Acute g FW [place] note Diagnoses Chest pain R07.9 Hyperlipidemia E78.5 Hypertension I10 Abnormal stress test R94.39
--- NOTE | 2022-05-06 13:50 | PC.NURSE ---
IV removed and intact at 1335. Patient taken via wheelchair to main entrance with and daughter. Reported no chest pain. Educated on new medication and changed medication and they have been sent to [facility] pharmacy. Patient verbalized understanding and all belongings with patient at discharge.
== END 2022-05-06 13:50 | disposition home or self-care (01) ==
LOC: ER 18:44 → MEDSURG 19:37
PROVIDERS: Internal Medicine; Admitting Provider Family Medicine; Emergency Provider Emergency Medicine; PCP Family Medicine; Visit Provider Family Medicine
DX: E78.5 Hyperlipidemia, unspecified (principal); I10 Essential (primary) hypertension; R94.39 Abnormal result of other cardiovascular function study; I42.9 Cardiomyopathy, unspecified; I25.10 Atherosclerotic heart disease of native coronary artery without angina pectoris; R07.9 Chest pain, unspecified; E11.9 Type 2 diabetes mellitus without complications; N39.0 Urinary tract infection, site not specified; R59.1 Generalized enlarged lymph nodes; Z95.5 Presence of coronary angioplasty implant and graft; Z79.4 Long term (current) use of insulin; Z85.038 Personal history of other malignant neoplasm of large intestine; E66.9 Obesity, unspecified; Z68.32 Body mass index [BMI] 32.0-32.9, adult; Z87.891 Personal history of nicotine dependence
CPT/HCPCS: 36415; 36416; 71045; 71275; 78452; 80048; 80061; 80503; 82962; 83036; 83735; 83880; 84443; 84484; 85025; 85347; 85651; 88184; 88185; 93005; 93017; 93306; 93458; 93571; 94660; 94664; 94760; 96372; 96374; 96375; 99152; 99153; 99285; A9500; C1725; C1769; C1874; C1887; C1894; C9113; C9600; G0378; J0696; J1200; J1644; J1650; J1815; J2250; J2270; J2785; J3010; J3490; J7030; Q9967

== ENCOUNTER 2022-05-08 19:23 | Emergency (ER) | payer MEDICARE, SELFPAY ==
[2022-05-08] VITALS (12 sets, daily range): BP systolic 97–166; BP diastolic 59–76; PULSE 62–100; RESP 13–20; TEMP 36.6; O2SAT 95–97; BMI 32.6
--- NOTE | 2022-05-08 19:44 | ECG_ITS ---
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 Measurements Intervals [place] Rate: 91 P: 39 [place]: 175 QRS: -41 QRSD: 177 T: 16 QT: 417 QTc: 515 Interpretive Statements SINUS RHYTHM WITH FREQUENT VENTRICULAR PREMATURE COMPLEXES LEFT AXIS DEVIATION [QRS AXIS < -30] RIGHT BUNDLE BRANCH BLOCK [120+ ms QRS DURATION, UPRIGHT V1, 40+ ms S IN I/aVL/V4/V5/V6] Compared to ECG 05/04/2022 15:35:09 Ventricular premature complex(es) now present Electronically Signed On 05-10-2022 8:29:55 CDT by Tristian Clarke M.D. [email or web address].[employer]/store/NU/[id number] f
--- NOTE | 2022-05-08 19:44 | XRR_ITS ---
PROCEDURE INFORMATION: Exam: XR Chest Exam date and time: 05/08/2022 7:52 PM Age: 76 years old Clinical indication: Pain; Chest pressure; Prior surgery; Surgery date: 3-7 days post-operative; Surgery type: Stent; Additional info: Cp TECHNIQUE: Imaging protocol: Radiologic exam of the chest. Views: 1 view. COMPARISON: CR XR chest 1V portable [id number] 05/03/2022 4:05 PM FINDINGS: Lungs: Bibasilar left greater than right atelectasis versus minimal infiltrate. Pleural spaces: Unremarkable. No pleural effusion. No pneumothorax. Heart/Mediastinum: Cardiomegaly. Bones/joints: Unremarkable. XR/XR chest 1V portable [id number] IMPRESSION: 1. Cardiomegaly. 2. Bibasilar left greater than right atelectasis versus minimal infiltrate.
[2022-05-08 19:52] LABS: Basophils % 0.3 %; Eosinophils # 0.1 10^3/uL (0.0-0.8); Hematocrit 43.2 % (42.0-52.0); Lymphocytes # 0.8 10^3/uL (0.8-4.8); Lymphocytes % 12.6 %; Mean Corpuscular HGB Conc 32.4 g/dL (30.0-36.0); Mean Corpuscular Hemoglobin 29.5 pg (28.0-34.0); Mean Corpuscular Volume 90.9 fl (80-94); Monocytes # 0.4 10^3/uL (0.2-0.9); Monocytes % 5.8 %; Neutrophils # 4.96 10^3/uL (1.8-7.7); Nucleated Red Blood Cells % 0 %; Platelet Count 97 10^3/cmm (130-400); Red Blood Count 4.75 10^6/uL (4.1-5.3); Red Cell Distribution Width 12.8 % (12.1-15.1); White Blood Count 6.2 10^3/uL (4.0-10.0)
[2022-05-08 20:22] LABS: Troponin(5th) Baseline 31 ng/L (0-15)
[2022-05-08 20:30] LABS: Alanine Aminotransferase 46 U/L (0-41); Albumin Level 4.3 g/dL (3.5-5.2); Alkaline Phosphatase 75 U/L (40-130); Anion Gap 18.3 (5-19); Aspartate Amino Transferase 40 U/L (0-40); Blood Urea Nitrogen 20 mg/dL (8-23); Calcium 9.6 mg/dL (8.5-10.5); Carbon Dioxide 24 mmol/L (22-29); Chloride 99 mmol/L (98-107); Globulin 2.9 g/dL (1.3-4.6); Glucose 163 mg/dL (65-115); NT Pro B Type Natriuretic Pept 907 pg/mL (0-450); Osmolality Calculated 290 mOsm/kg (285-295); Potassium 4.3 mmol/L (3.5-5.1); Sodium 137 mmol/L (136-145); Total Bilirubin 0.6 mg/dL (0.15-1.2); Total Protein 7.2 g/dL (6.6-8.7)
--- NOTE | 2022-05-08 20:32 | ED_ITS ---
HPI - Chest Pain General: Chief Complaint: Chest Pain Stated Complaint: Chest Pains Time Seen by Provider: 05/08/22 19:26 History of Present Illness: 76-year-old male presents with chest pain. He reports that it started 2030 minutes before coming to the ER. Patient reports he was sitting in a car running around when it started. That started in left chest and radiates little bit down the left abdomen. Patient had a heart cath on 05/05/2022 with stent placement. Patient denies any shortness of breath, fever chills or pain with palpation. Associated symptoms: Reports abdominal pain; Deny dyspnea, fever(s), nausea, palpitations or vomiting Review of Systems Const: Denies: fever(s) or chills Eyes: Denies: change in vision or blurry vision ENMT: Denies: throat pain or ear or mastoid pain Card: Reports: chest pain; Denies: palpitations, irregular heart rhythm or edema Resp: Denies: dyspnea, productive cough or wheezing GI: Reports: abdominal pain; Denies: nausea or vomiting : Denies: flank pain or difficulty urinating Musc: Denies: neck pain or back pain Skin/Breast: Denies: rash Neuro: Denies: headache(s) or weakness in extremities Psych: Denies: anxiety PFSH ED PFSH: Medical History (Updated 05/08/22 @ 22:26 by Abad Munoz DO) Arachnoid cyst ASHD (arteriosclerotic heart disease) DDD (degenerative disc disease), lumbar Diabetes mellitus Diabetic neuropathy Gait instability History of colon cancer Hyperlipidemia Hypertension Intervertebral disc disorder with radiculopathy of lumbosacral region Ischemic cardiomyopathy Lumbar disc disease with radiculopathy Lumbar spondylosis Lumbosacral disc disease Migraine Obesity Tobacco abuse Surgical History H/O coronary angioplasty History of back surgery Left L4-L5, L5-S1 hemilaminotomy/discectomy/foraminotomy, 09/01/2019, [facility] History of cholecystectomy History of hernia repair History of resection of small bowel History of sinus surgery Family History Mother Cancer Father CAD (coronary artery disease) Sister Hypertension Social History (Reviewed 05/05/22 @ 14:59 by Ginger Morgan Smoking and tobacco status: former smoker Alcohol intake: never Lives independently: Yes Household members: spouse Marital status: Current occupational status: retired Current occupation: retired History of recent travel: No Physical Exam Const: COMMON NORMALS: no acute distress, patient oriented x3 and alert Chest: CHEST: Yes Symmetrical chest wall rise and No tenderness Resp: COMMON NORMALS: normal respiratory effort, No use of accessory muscles and clear to auscultation bilaterally AUSCULTATION: clear to auscultation bilaterally Cardio: COMMON NORMALS: regular rate and regular rhythm RATE: regular rate RHYTHM: regular rhythm GI: COMMON NORMALS: Soft to palpation and non-tender PALPATION: Yes Soft to palpation Extremity: COMMON NORMALS: normal to inspection, full ROM and capillary refill normal Neuro: COMMON NORMALS: patient oriented x3, CN's II-XII intact bilaterally, moves all extremities and no focal motor deficits SENSORIUM/ORIENTATION: Yes alert Psych: COMMON NORMALS: mental status grossly normal, cooperative and normal affect Skin: COMMON NORMALS: no rashes or lesions noted and turgor normal GENERAL SKIN EXAM: no rashes or lesions noted and turgor normal Course Vital Signs: Vital signs: Vital Signs Temperature 97.8 F 05/08/22 19:26 Pulse Rate 85 05/08/22 20:45 Respiratory Rate 16 05/08/22 20:45 Blood Pressure 97/59 05/08/22 20:45 Pulse Oximetry 95 05/08/22 20:45 Oxygen Delivery Me thod 05/08/22 19:51 MDM - Chest Pain Medical Decision Making Patient with 2 negative EKGs 2 negative troponins. Patient is chest pain resolved on its own. Patient feels like he is ready be discharged home. At this time it does not appear to be an acute coronary syndrome or restenosis. We will however have him call the greaser helper in the morning for recheck. He does have some possible atelectasis versus infiltrate but no white count shows likely atelectasis. Patient stable and discharged home Lab Data : 05/08/22 19:45 05/08/22 19:45 Radiology Impressions Chest X-Ray 05/08/22 19:44 IMPRESSION: 1. Cardiomegaly. 2. Bibasilar left greater than right atelectasis versus minimal infiltrate. Laboratory Results WBC 6.2 10^3/uL (4.0-10.0) 05/08/22 19:45 RBC 4.75 10^6/uL (4.1-5.3) 05/08/22 19:45 Hgb 14.0 g/dL (11.7-16.6) 05/08/22 19:45 Hct 43.2 % (42.0-52.0) 05/08/22 19:45 MCV 90.9 fl (80-94) 05/08/22 19:45 MCH 29.5 pg (28.0-34.0) 05/08/22 19:45 MCHC 32.4 g/dL (30.0-36.0) 05/08/22 19:45 RDW 12.8 % (12.1-15.1) 05/08/22 19:45 Plt Count 97 10^3/cmm (130-400) L 05/08/22 19:45 MPV 11.0 fL (7.4-10.4) H 05/08/22 19:45 Neut % (Auto) 80.0 % 05/08/22 19:45 Lymph % (Auto) 12.6 % 05/08/22 19:45 [place] % (Auto) 5.8 % 05/08/22 19:45 Eos % (Auto) 1.0 % 05/08/22 19:45 Baso % (Auto) 0.3 % 05/08/22 19:45 Neut # (Auto) 4.96 10^3/uL (1.8-7.7) 05/08/22 19:45 Lymph # (Auto) 0.8 10^3/uL (0.8-4.8) 05/08/22 19:45 [place] # (Auto) 0.4 10^3/uL (0.2-0.9) 05/08/22 19:45 Eos # (Auto) 0.1 10^3/uL (0.0-0.8) 05/08/22 19:45 Baso # (Auto) 0.0 10^3/uL (0.0-0.1) 05/08/22 19:45 Nucleated RBC % (auto) 0 % 05/08/22 19:45 Nucleated RBCs # 0.0 /100WBC 05/08/22 19:45 Sodium 137 mmol/L (136-145) 05/08/22 19:45 Potassium 4.3 mmol/L (3.5-5.1) 05/08/22 19:45 Chloride 99 mmol/L (98-107) 05/08/22 19:45 Carbon Dioxide 24 mmol/L (22-29) 05/08/22 19:45 Anion Gap 18.3 (5-19) 05/08/22 19:45 BUN 20 mg/dL (8-23) 05/08/22 19:45 Creatinine 0.9 mg/dL (0.7-1.2) 05/08/22 19:45 GFR Calculation Not Reportable 05/08/22 19:45 Glucose 163 mg/dL (65-115) H 05/08/22 19:45 Calculated Osmolality 290 mOsm/kg (285-295) 05/08/22 19:45 Calcium 9.6 mg/dL (8.5-10.5) 05/08/22 19:45 Total Bilirubin 0.6 mg/dL (0.15-1.2) 05/08/22 19:45 AST 40 U/L (0-40) 05/08/22 19:45 ALT 46 U/L (0-41) H 05/08/22 19:45 Alkaline Phosphatase 75 U/L (40-130) 05/08/22 19:45 Troponin T Baseline 31 ng/L (0-15) H 05/08/22 19:45 Troponin T 120 Minute 32.91 ng/L (0-15) H 05/08/22 21:50 Delta Troponin T 1.91 ABS# (0-10) 05/08/22 21:50 NT-Pro-B Natriuret Pep 907 pg/mL (0-450) H 05/08/22 19:45 Total Protein 7.2 g/dL (6.6-8.7) 05/08/22 19:45 Albumin 4.3 g/dL (3.5-5.2) 05/08/22 19:45 Globulin 2.9 g/dL (1.3-4.6) 05/08/22 19:45 EKG Data EKG 1: I personally reviewed and interpreted this EKG as follows: EKG interpretation date: 10/10/22 EKG interpretation time: 19:32 Interpretation: Heart rate 91, sinus rhythm, occasional PVC. Right bundle branch block. LA 175, no acute ST elevation or changes EKG 2: I personally reviewed and interpreted this EKG as follows: EKG interpretation date: 05/08/22 EKG interpretation time: 21:47 Interpretation: Heart rate 66, LA 175, sinus rhythm with occasional PVCs. Right bundle branch block. Unchanged from previous EKG Discharge Plan Discharge Patient Disposition: Home Clinical Impression: Chest pain Qualifiers: Chest pain type: other chest pain Qualified Code(s): R07.89 - Other chest pain Condition: Stable Prescriptions: No Action metformin 500 mg tablet 500 mg PO BID glipizide 5 mg tablet 5 mg PO BID magnesium oxide 500 mg capsule 500 mg PO DAILY multivitamin Tablet 1 tab PO DAILY rosuvastatin 20 mg tablet 20 mg PO BEDTIME tramadol 50 mg tablet 50 mg PO Q6H PRN (Reason: pain) Qty: 14 0RF calcium carbonate 500 mg calcium (1,250 mg) Tablet 500 mg PO DAILY clopidogrel 75 mg Tablet 75 mg PO DAILY 30 Days Qty: 30 0RF tamsulosin 0.4 mg Capsule 0.4 mg PO BEDTIME 30 Days Qty: 30 0RF nitroglycerin 0.4 mg Tablet, Sublingual 0.4 mg sublingual Q5M PRN (Reason: Chest Pain) 30 Days Qty: 30 0RF lisinopril 5 mg tablet 5 mg PO DAILY cefdinir 300 mg capsule 300 mg PO BID Cinnamon 500 mg Capsule 500 mg PO DAILY aspirin 81 mg tablet,delayed release (DR/EC) 81 mg PO QPM amitriptyline 10 mg tablet 10 mg PO BEDTIME metoprolol tartrate 25 mg tablet 12.5 mg PO BID Discharge Orders: Discharge ED (Routine); Ordered 05/08/22 Ordered By: Abad Munoz Referrals: Nehemiah Kaur MD [Primary Care Provider] - Discharge Diet: Usual diet Discharge Activity: Increase activity as tolerated Patient Instructions: Thoracic Pain (ED), Opioid Safety, Pain Management Activity Restrictions/Additional Instructions: Please call your greaser helper first thing in the morning and make them aware of your ER visit. Return to the ER with any concerns. Coding Level of Care Code ED Hot Wound [place] Production Supervisor for Chg Fwd Exam Comprehensive
--- NOTE | 2022-05-08 21:44 | ECG_ITS ---
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 Measurements Intervals [place] Rate: 66 P: 13 MT: 175 QRS: -40 QRSD: 173 T: 4 QT: 446 QTc: 470 Interpretive Statements SINUS RHYTHM WITH OCCASIONAL VENTRICULAR PREMATURE COMPLEXES LEFT AXIS DEVIATION [QRS AXIS < -30] RIGHT BUNDLE BRANCH BLOCK [120+ ms QRS DURATION, UPRIGHT V1, 40+ ms S IN I/aVL/V4/V5/V6] Compared to ECG 05/04/2022 15:35:09 Ventricular premature complex(es) now present Electronically Signed On 05-10-2022 8:18:07 CDT by Tristian Clarke M.D. [email or web address] [email or web address] general hospitalBoostUpuniversity [email or web address] health system.[employer]/store/OM/[id number]
[2022-05-08 22:18] LABS: Troponin 5 2HR 32.91 ng/L (0-15); Troponin 5 2HR Delta 1.91 ABS# (0-10)
== END 2022-05-08 22:43 | disposition home or self-care (01) ==
PROVIDERS: Emergency Provider Student in an Organized Health Care Education/Training Program; PCP Family Medicine
DX: R07.89 Other chest pain (principal); Z79.84 Long term (current) use of oral hypoglycemic drugs; Z79.02 Long term (current) use of antithrombotics/antiplatelets; Z79.82 Long term (current) use of aspirin; Z87.891 Personal history of nicotine dependence; E11.9 Type 2 diabetes mellitus without complications; Z85.038 Personal history of other malignant neoplasm of large intestine; E78.5 Hyperlipidemia, unspecified; I10 Essential (primary) hypertension; Z98.61 Coronary angioplasty status
CPT/HCPCS: 71045; 80053; 83880; 84484; 85025; 93005; 99285

== ENCOUNTER 2022-05-10 09:36 | Outpatient (CLI) | payer MEDICARE, SELFPAY ==
[2022-05-10 10:14] LABS: LAB Peripheral Smear Sent for Review
== END 2022-05-10 09:37 | disposition home or self-care (01) ==
LOC: LAB 09:37
PROVIDERS: PCP Family Medicine; Visit Provider Family Medicine
DX: D69.6 Thrombocytopenia, unspecified (principal); I25.10 Atherosclerotic heart disease of native coronary artery without angina pectoris; Z87.891 Personal history of nicotine dependence
CPT/HCPCS: 99213; 99214

== ENCOUNTER 2022-05-24 12:38 | Emergency (ER) | payer MEDICARE, SELFPAY ==
[2022-05-24] VITALS (23 sets, daily range): BP systolic 138–161; BP diastolic 68–83; PULSE 56–81; RESP 15–24; TEMP 36.6; O2SAT 97–100; BMI 34.4
--- NOTE | 2022-05-24 12:46 | ECG_ITS ---
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 Measurements Intervals [place] Rate: 75 P: 51 [place]: 171 QRS: -32 QRSD: 170 T: 26 QT: 446 QTc: 501 Interpretive Statements SINUS RHYTHM WITH FREQUENT VENTRICULAR PREMATURE COMPLEXES LEFT AXIS DEVIATION [QRS AXIS < -30] RIGHT BUNDLE BRANCH BLOCK [120+ ms QRS DURATION, UPRIGHT V1, 40+ ms S IN I/aVL/V4/V5/V6] Compared to ECG 05/08/2022 21:46:58 No significant changes Electronically Signed On 05-25-2022 7:06:38 CDT by Josesito Blankenship M.D. [email or web address].[employer]/store/NU/[id number]
--- NOTE | 2022-05-24 12:54 | ED_ITS ---
HPI - Chest Pain General: Chief Complaint: Chest Pain Stated Complaint: chest pain Time Seen by Provider: 05/24/22 12:54 History of Present Illness: Mr. Ceron is a 76-year-old gentleman with known CAD and recent stent, hypertension, hyperlipidemia, diabetes presenting to the emergency department due to chest pain. He reports essentially being chest pain-free since his cardiac cath with stent deployment on 05/05 until this morning. He reports onset of chest discomfort described as heaviness which has persisted since about 8 AM. Symptoms started at rest. 1 episode of diaphore sis, associated shortness of breath and lightheadedness. Intensity symptoms is moderate. Mildly improved with nitroglycerin at home. Patient reports compliance with medication regimen. No other specific changes in health, exacerbating, or alleviating factors identified. Onset (ago): hour(s) Timing of current episode: constant Prior episodes: Yes Onset: during rest Pain location: substernal Severity: moderate Quality: heaviness Relieving factors: nothing Exacerbating factors: nothing Context: other Treatment prior to arrival: nitroglycerin Review of Systems General: Reports: 10 or more systems reviewed and unremarkable except in HPI and below PFSH ED PFSH: Medical History (Updated 05/24/22 @ 16:42 by Jin Nguyen MD) Arachnoid cyst ASHD (arteriosclerotic heart disease) DDD (degenerative disc disease), lumbar Diabetes mellitus Diabetic neuropathy Gait instability History of colon cancer Hyperlipidemia Hypertension Intervertebral disc disorder with radiculopathy of lumbosacral region Ischemic cardiomyopathy Lumbar disc disease with radiculopathy Lumbar spondylosis Lumbosacral disc disease Migraine Obesity Tobacco abuse Surgical History H/O coronary angioplasty History of back surgery Left L4-L5, L5-S1 hemilaminotomy/discectomy/foraminotomy, 09/01/2019, [facility] History of cholecystectomy History of hernia repair History of resection of small bowel History of sinus surgery Family History Mother Cancer Father CAD (coronary artery disease) Sister Hypertension Social History Smoking and tobacco status: former smoker Alcohol intake: never Lives independently: Yes Household members: spouse Marital status: Current occupational status: retired Current occupation: retired History of recent travel: No Physical Exam Const: COMMON NORMALS: alert GENERAL APPEARANCE: cooperative and well developed HENMT: COMMON NORMALS: normocephalic and atraumatic HEAD & SCALP: normocephalic and atraumatic Eye: COMMON NORMALS: conjunctivae normal CONJUNCTIVA: Yes conjunctivae normal SCLERA: sclerae normal Neck/C-Spine: COMMON NORMALS: supple GENERAL: Yes trachea midline Resp: COMMON NORMALS: normal respiratory effort and clear to auscultation bilaterally EFFORT & INSPECTION: Yes able to speak in complete sentences AUSCULTATION: clear to auscultation bilaterally Cardio: COMMON NORMALS: regular rate and regular rhythm RATE: regular rate RHYTHM: regular rhythm GI: COMMON NORMALS: Soft to palpation PALPATION: Yes Soft to palpation and No Tenderness to palpation present (GI) Extremity: GENERAL: Yes normal exam except as noted and No edema Neuro: COMMON NORMALS: moves all extremities SENSORIUM/ORIENTATION: Yes alert and No Orientation impaired Psych: COMMON NORMALS: mental status grossly normal and Normal thought process present THOUGHT PROCESS: Normal thought process present Course Vital Signs: Vital signs: Vital Signs Temperature 97.8 F 05/24/22 12:49 Pulse Rate 74 05/24/22 17:10 Respiratory Rate 18 05/24/22 17:10 Blood Pressure 158/83 05/24/22 17:10 Pulse Oximetry 100 05/24/22 17:10 Oxygen Delivery Me thod 05/24/22 12:49 MDM - Chest Pain Medical Decision Making 76-year-old gentleman with extensive cardiac history including recent stent presenting due to chest pain. Patient is nontoxic on exam and vitally satisfactory. EKG notable for sinus rhythm with frequent PVC burden and occasional NSVT, no STEMI. Hematologic panel in metabolic panel essentially unremarkable. Delta troponin is negative. BNP is mildly elevated compared to prior however there is no clinical evidence of significant volume overload. Chest x-ray with no lobar consolidation or pneumothorax, abnormalities appear similar to prior. Discussed case with Dr. Cruz of cardiology. No indication for admission at this time. Plan to initiate patient on amiodarone. The results of ED evaluation were discussed with the patient including prescriptions and/or symptomatic cares (if applicable) including appropriate and responsible use, followup plan, and return precautions. The patient verbalized understanding and felt safe for discharge. Medical Records I reviewed the patient's medical records. Lab Data I reviewed the patient's lab results. : 05/24/22 13:25 05/24/22 13:25 Radiology Impressions Chest X-Ray 05/24/22 13:06 IMPRESSION: 1. Mild cardiac enlargement unchanged. 2. Chronic interstitial changes in the bilateral lower lung zones. No acute process is suspected. Laboratory Results WBC 6.0 10^3/uL (4.0-10.0) 05/24/22 13:25 RBC 4.59 10^6/uL (4.1-5.3) 05/24/22 13:25 Hgb 13.5 g/dL (11.7-16.6) 05/24/22 13:25 Hct 41.8 % (42.0-52.0) L 05/24/22 13:25 MCV 91.1 fl (80-94) 05/24/22 13:25 MCH 29.4 pg (28.0-34.0) 05/24/22 13:25 MCHC 32.3 g/dL (30.0-36.0) 05/24/22 13:25 RDW 13.2 % (12.1-15.1) 05/24/22 13:25 Plt Count 81 10^3/cmm (130-400) L 05/24/22 13:25 MPV 11.7 fL (7.4-10.4) H 05/24/22 13:25 Neut % (Auto) 77.8 % 05/24/22 13:25 Lymph % (Auto) 13.5 % 05/24/22 13:25 Dooly % (Auto) 7.3 % 05/24/22 13:25 Eos % (Auto) 0.8 % 05/24/22 13:25 Baso % (Auto) 0.3 % 05/24/22 13:25 Neut # (Auto) 4.66 10^3/uL (1.8-7.7) 05/24/22 13:25 Lymph # (Auto) 0.8 10^3/uL (0.8-4.8) 05/24/22 13:25 Dooly # (Auto) 0.4 10^3/uL (0.2-0.9) 05/24/22 13:25 Eos # (Auto) 0.1 10^3/uL (0.0-0.8) 05/24/22 13:25 Baso # (Auto) 0.0 10^3/uL (0.0-0.1) 05/24/22 13:25 Nucleated RBC % (auto) 0 % 05/24/22 13:25 Nucleated RBCs # 0.0 /100WBC 05/24/22 13:25 Sodium 144 mmol/L (136-145) 05/24/22 13:25 Potassium 4.1 mmol/L (3.5-5.1) 05/24/22 13:25 Chloride 107 mmol/L (98-107) 05/24/22 13:25 Carbon Dioxide 26 mmol/L (22-29) 05/24/22 13:25 Anion Gap 15.1 (5-19) 05/24/22 13:25 BUN 18 mg/dL (8-23) 05/24/22 13:25 Creatinine 0.7 mg/dL (0.7-1.2) 05/24/22 13:25 GFR Calculation Not Reportable 05/24/22 13:25 Glucose 129 mg/dL (65-115) H 05/24/22 13:25 Calculated Osmolality 302 mOsm/kg (285-295) H 05/24/22 13:25 Calcium 9.3 mg/dL (8.5-10.5) 05/24/22 13:25 Total Bilirubin 0.9 mg/dL (0.15-1.2) 05/24/22 13:25 AST 11 U/L (0-40) 05/24/22 13:25 ALT 10 U/L (0-41) 05/24/22 13:25 Alkaline Phosphatase 69 U/L (40-130) 05/24/22 13:25 Troponin T Baseline 14 ng/L (0-15) 05/24/22 13:25 Troponin T 120 Minute 13.83 ng/L (0-15) 05/24/22 15:25 Delta Troponin T -0.17 ABS# (0-10) L 05/24/22 15:25 NT-Pro-B Natriuret Pep 1698 pg/mL (0-450) H 05/24/22 13:25 Total Protein 6.6 g/dL (6.6-8.7) 05/24/22 13:25 Albumin 4.2 g/dL (3.5-5.2) 05/24/22 13:25 Globulin 2.4 g/dL (1.3-4.6) 05/24/22 13:25 Lipase 31 U/L (13-60) 05/24/22 13:25 Discharge Plan Discharge Patient Disposition: Home Clinical Impression: Chest pain, Arrhythmia Condition: Stable Prescriptions: New amiodarone 200 mg tablet See Rx Instructions .ROUTE .COMPLEX Qty: 90 0RF Rx Instructions: 200 mg orally twice daily for 7 days then 200 mg daily No Action metformin 500 mg tablet 500 mg PO BID glipizide 5 mg tablet 5 mg PO BID magnesium oxide 500 mg capsule 500 mg PO DAILY multivitamin Tablet 1 tab PO DAILY rosuvastatin 20 mg tablet 20 mg PO BEDTIME tramadol 50 mg tablet 50 mg PO Q6H PRN (Reason: pain) Qty: 14 0RF calcium carbonate 500 mg calcium (1,250 mg) Tablet 500 mg PO DAILY clopidogrel 75 mg Tablet 75 mg PO DAILY 30 Days Qty: 30 0RF tamsulosin 0.4 mg Capsule 0.4 mg PO BEDTIME 30 Days Qty: 30 0RF nitroglycerin 0.4 mg Tablet, Sublingual 0.4 mg sublingual Q5M PRN (Reason: Chest Pain) 30 Days Qty: 30 0RF metoprolol tartrate 25 mg tablet 25 mg PO BID lisinopril 5 mg tablet 5 mg PO DAILY cinnamon bark [Cinnamon] 500 mg Capsule 500 mg PO DAILY aspirin 81 mg tablet,delayed release (DR/EC) 81 mg PO QPM amitriptyline 10 mg tablet 10 mg PO BEDTIME Discharge Orders: Discharge ED (Routine); Ordered 05/24/22 Ordered By: Jin Nguyen Referrals: Nehemiah Kaur MD [Primary Care Provider] - Discharge Diet: Usual diet Discharge Activity: Increase activity as tolerated Patient Instructions: Amiodarone (By mouth) (Cordarone, Pacerone), Chest Pain (ED) Activity Restrictions/Additional Instructions: Thank you for visiting the emergency department. You were seen and evaluated for chest pain. The exact cause of your chest pain is unclear though based on ED evaluation and after discussion with cardiology there is no need for hospitalization at this time. I will start you on amiodarone at cardiology's request. This starts at 200 mg (1 tab) twice daily for 1 week followed by 200 mg (1 tab) once daily. Please watch for side effects as discussed. 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 Return to the emergency department for worsening symptoms, low blood pressure or heart rate, or anything else that you are concerned about a feel needs emergency department evaluation. Coding Level of Care Code ED Financial Reporting Director for Aiyana Rush Exam Comprehensive
--- NOTE | 2022-05-24 13:06 | XR_ITS ---
WS: [id number] Exam: XR chest 1V portable [id number] Date/Time of Exam: 05/24/2022 1:06 PM Reason For Exam: cp Comparison 05/08/2022. The heart is enlarged but unchanged in size. Chronic interstitial changes in the lung bases. No conso lidating infiltrates. No pleural effusion or pneumothorax. The mediastinum appears to be accentuated due to a portable AP technique. Bony structures are intact. There appears to be a battery pack superi mposing the mid thoracic spine. XR/XR chest 1V portable [id number] IMPRESSION: 1. Mild cardiac enlargement unchanged. 2. Chronic interstitial changes in the bilateral lower lung zones. No acute pro cess is suspected.
[2022-05-24] MEDS: aspirin 81 mg Chew Tablet 324 MG PO (13:23)
[2022-05-24 13:36] LABS: Basophils % 0.3 %; Eosinophils # 0.1 10^3/uL (0.0-0.8); Eosinophils % 0.8 %; Hematocrit 41.8 % (42.0-52.0); Hemoglobin 13.5 g/dL (11.7-16.6); Lymphocytes # 0.8 10^3/uL (0.8-4.8); Lymphocytes % 13.5 %; Mean Corpuscular HGB Conc 32.3 g/dL (30.0-36.0); Mean Corpuscular Hemoglobin 29.4 pg (28.0-34.0); Mean Corpuscular Volume 91.1 fl (80-94); Mean Platelet Volume 11.7 fL (7.4-10.4); Monocytes # 0.4 10^3/uL (0.2-0.9); Monocytes % 7.3 %; Neutrophils # 4.66 10^3/uL (1.8-7.7); Neutrophils % 77.8 %; Nucleated Red Blood Cells % 0 %; Platelet Count 81 10^3/cmm (130-400); Red Blood Count 4.59 10^6/uL (4.1-5.3); Red Cell Distribution Width 13.2 % (12.1-15.1)
[2022-05-24 14:00] LABS: Troponin(5th) Baseline 14 ng/L (0-15)
[2022-05-24 14:10] LABS: Alanine Aminotransferase 10 U/L (0-41); Albumin Level 4.2 g/dL (3.5-5.2); Alkaline Phosphatase 69 U/L (40-130); Anion Gap 15.1 (5-19); Aspartate Amino Transferase 11 U/L (0-40); Blood Urea Nitrogen 18 mg/dL (8-23); Calcium 9.3 mg/dL (8.5-10.5); Carbon Dioxide 26 mmol/L (22-29); Chloride 107 mmol/L (98-107); Globulin 2.4 g/dL (1.3-4.6); Glucose 129 mg/dL (65-115); Lipase 31 U/L (13-60); NT Pro B Type Natriuretic Pept 1698 pg/mL (0-450); Osmolality Calculated 302 mOsm/kg (285-295); Potassium 4.1 mmol/L (3.5-5.1); Sodium 144 mmol/L (136-145); Total Bilirubin 0.9 mg/dL (0.15-1.2); Total Protein 6.6 g/dL (6.6-8.7)
--- NOTE | 2022-05-24 15:25 | ECG_ITS ---
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 Measurements Intervals Tucker Rate: 50 P: 24 NM: 170 QRS: -35 QRSD: 170 T: 20 QT: 483 QTc: 444 Interpretive Statements SINUS BRADYCARDIA LEFT AXIS DEVIATION [QRS AXIS < -30] RIGHT BUNDLE BRANCH BLOCK [120+ ms QRS DURATION, UPRIGHT V1, 40+ ms S IN I/aVL/V4/V5/V6] Compared to ECG 05/24/2022 12:46:56 Sinus rhythm no longer present Ventricular premature complex(es) no longer present Electronically Signed On 05-25-2022 7:13:11 CDT by Josesito Blankenship M.D. [id number]
[2022-05-24 16:20] LABS: Troponin 5 2HR 13.83 ng/L (0-15)
[2022-05-24] MEDS: amiodarone 200 mg Tablet PO (17:08)
[2022-05-24 21:12] LABS: Troponin 5 2HR Delta -0.17 ABS# (0-10)
== END 2022-05-24 17:15 | disposition home or self-care (01) ==
PROVIDERS: Emergency Provider Emergency Medicine; PCP Family Medicine
DX: R07.9 Chest pain, unspecified (principal); I49.9 Cardiac arrhythmia, unspecified; Z79.84 Long term (current) use of oral hypoglycemic drugs; Z79.02 Long term (current) use of antithrombotics/antiplatelets; Z79.82 Long term (current) use of aspirin; Z87.891 Personal history of nicotine dependence; E11.40 Type 2 diabetes mellitus with diabetic neuropathy, unspecified; Z85.038 Personal history of other malignant neoplasm of large intestine; E78.5 Hyperlipidemia, unspecified; I10 Essential (primary) hypertension; Z98.61 Coronary angioplasty status
CPT/HCPCS: 71045; 80053; 83690; 83880; 84484; 85025; 93005; 99285

== ENCOUNTER → 2022-06-19 15:51 | Outpatient (BNVA) | payer MEDICARE, OTHER, SELFPAY | PROVIDERS: PCP Family Medicine; Visit Provider Internal Medicine | DX: I25.10 Atherosclerotic heart disease of native coronary artery without angina pectoris (principal); I47.29 Other ventricular tachycardia; I10 Essential (primary) hypertension; E78.5 Hyperlipidemia, unspecified; E11.9 Type 2 diabetes mellitus without complications; Z79.84 Long term (current) use of oral hypoglycemic drugs; Z87.891 Personal history of nicotine dependence | CPT/HCPCS: 99214 ==

== ENCOUNTER → 2022-06-26 10:59 | Outpatient (BNVA) | payer MEDICARE, SELFPAY | PROVIDERS: PCP Family Medicine; Visit Provider Specialist | DX: M17.12 Unilateral primary osteoarthritis, left knee (principal) | CPT/HCPCS: 20610; 99213; J1100; J2795; J3301 ==

== ENCOUNTER 2022-07-18 17:01 | Emergency (ER) | payer MEDICARE, OTHER, SELFPAY ==
[2022-07-18] VITALS (34 sets, daily range): BP systolic 101–127; BP diastolic 41–74; PULSE 76–96; RESP 15–17; TEMP 36.7; O2SAT 90–98
--- NOTE | 2022-07-18 17:27 | USR_ITS ---
PROCEDURE INFORMATION: Exam: US Duplex Left Lower Extremity Veins, Limited Exam date and time: 07/18/2022 6:16 PM Age: 76 years old Clinical indication: Edema, localized; Lower extremity, left; Additional info: Dvt left TECHNIQUE: Imaging protocol: Real-time Duplex ultrasound of the Left Lower Extremity with 2-D bird scale, color Doppler flow and spectral waveform analysis with image documentation. Limited exam focused on the left lower extremity veins. COMPARISON: MR knee LT wo con* [id number] 01/20/2021 11:51 AM FINDINGS: Left deep veins: Unremarkable. The common femoral, femoral, proximal profunda femoral and popliteal veins are patent without thrombus. Normal Doppler waveforms. Normal compressibility and/or augmentation response. Left superficial veins: Unremarkable. Saphenofemoral junction is patent without thrombus. Soft tissues: Unremarkable. US/CV venous duplex [facility] [id number] IMPRESSION: No evidence of deep vein thrombosis.
--- NOTE | 2022-07-18 17:29 | W.ED.EXTPRO ---
HPI - Extremity Problem General: Chief complaint: Extremity Injury, Lower Stated complaint: BC sent for possible blood clot left leg Time Seen by Provider: 07/18/22 17:20 Source: patient and family Mode of arrival: ambulatory Limitations: no limitations History of Present Illness: This gentleman made his way to our emergency department the recommendations of his clinic. He states that his saga began approximately a week ago when he was doing some leg stretching exercises as recommended and developed pain in his left hip and left upper posterior leg. He was evaluated in the clinic at that time and told he probably has a muscle strain and was given medication and that symptom resolved. Over the last 2 to 3 days however he has developed pain and swelling in his lower leg and calf and behind his knee. He denies any subsequent injury other than the one mentioned in the earlier portion of this history of present illness. He states that he is not any fevers or chills shortness of breath chest pain etc. He has never had a blood clotting issue previously. He has had a recent coronary artery stent and still on clopidogrel for post stent prophylaxis. MD Complaint: extremity pain and extremity swelling Pain Consistency: constant Associated symptoms: Reports no associated symptoms; Deny chest pain, fever(s) or rash Review of Systems Const: Denies: fever(s) or chills Eyes: Denies: change in vision ENMT: Denies: throat pain, odynophagia, nasal discharge, nasal congestion or nasal obstruction Card: Denies: chest pain, palpitations or irregular heart rhythm Resp: Denies: dyspnea, productive cough or non-productive cough GI: Denies: abdominal pain, nausea or vomiting : Denies: flank pain, difficulty urinating or dysuria Musc: Reports: extremity pain and extremity swelling; Denies: neck pain or back pain Skin/Breast: Denies: rash, pruritus or erythema Neuro: Denies: headache(s), numbness in extremities or weakness in extremities Bal/Lymph: Reports: easy bruising [facility] ED PFSH: Medical History (Updated 07/18/22 @ 19:41 by Bill Dickson DO) Arachnoid cyst ASHD (arteriosclerotic heart disease) DDD (degenerative disc disease), lumbar Diabetes mellitus Diabetic neuropathy Gait instability History of colon cancer Hyperlipidemia Hypertension Intervertebral disc disorder with radiculopathy of lumbosacral region Ischemic cardiomyopathy Lumbar disc disease with radiculopathy Lumbar spondylosis Lumbosacral disc disease Migraine Obesity Tobacco abuse Surgical History H/O coronary angioplasty History of back surgery Left L4-L5, L5-S1 hemilaminotomy/discectomy/foraminotomy, 09/01/2019, [facility] History of cholecystectomy History of hernia repair History of resection of small bowel History of sinus surgery Family History Mother Cancer Father CAD (coronary artery disease) Sister Hypertension Social History Smoking and tobacco status: former smoker Alcohol intake: never Lives independently: Yes Household members: spouse Marital status: Current occupational status: retired Current occupation: retired History of recent travel: No Physical Exam Narrative: EXAM NARRATIVE: Patient makes good eye contact. Appears to be in no acute distress and appropriately interactive. Const: COMMON NORMALS: no acute distress, patient oriented x3 and healthy appearing GENERAL APPEARANCE: comfortable HENMT: COMMON NORMALS: normocephalic, atraumatic, Normal nasal mucous membranes and turbinates present, moist oral mucous membranes and oropharynx normal HEAD & SCALP: normocephalic and atraumatic FACE & SINUS: normal facial exam NOSE: Normal nasal mucous membranes and turbinates present Eye: COMMON NORMALS: Equal, round and reactive pupils present, EOMs intact bilaterally and conjunctivae normal CONJUNCTIVA: Yes conjunctivae normal PUPIL: Yes Equal, round and reactive pupils present Neck/C-Spine: COMMON NORMALS: full ROM, no JVD and No carotid bruits Chest: COMMONS NORMALS: normal inspection of the chest Resp: COMMON NORMALS: normal respiratory effort, No use of accessory muscles and clear to auscultation bilaterally AUSCULTATION: clear to auscultation bilaterally Cardio: COMMON NORMALS: no JVD, regular rate, regular rhythm, No murmurs present (Cardio) and Peripheral pulses 2+ throughout RATE: regular rate RHYTHM: regular rhythm PERIPHERAL PULSES: Peripheral pulses 2+ throughout GI: COMMON NORMALS: Normal to inspection, nondistended, normoactive bowel sounds present : COMMON NORMALS: Yes no CVA tenderness BLADDER/KIDNEY EXAM: Yes no CVA tenderness Back/Pelvis: COMMON NORMALS: no CVA tenderness, thoracic and lumbar spine normal to inspection, no thoracic nor lumbar tenderness and thoraco-lumbar ROM normal Extremity: OTHER: Examination of his lower extremities reveal the left lower extremity to have some soft tissue swelling at the calf and distal to the calf. There is no erythema of this area or proximal. There is no proximal lymphangitis or lymphadenopathy. Examination of the hip, knee, ankle joints reveal normal range of motion. No laxity of injury to the major joints of that left lower extremity. There is no effusion. There is no erythema or warmth. There is no laxity to the knee joint. No joint line tenderness. Patient has good capillary refill, neurovascular intact otherwise. Remainder of his musculoskeletal examination is unremarkable. Neuro: COMMON NORMALS: patient oriented x3, moves all extremities, no focal motor deficits and no sensory deficits noted Psych: COMMON NORMALS: mental status grossly normal Skin: COMMON NORMALS: no rashes or lesions noted and turgor normal GENERAL SKIN EXAM: no rashes or lesions noted and turgor normal Course Vital Signs: Vital signs: Vital Signs Temperature 98.1 F 07/18/22 17:07 Pulse Rate 96 07/18/22 17:07 Respiratory Rate 15 07/18/22 17:07 Blood Pressure 113/62 07/18/22 17:07 Pulse Oximetry 95 07/18/22 17:25 Oxygen Delivery Me thod 07/18/22 17:07 MDM - Extremity (Nontraumatic) Medical Decision Making Patient presented to our emergency department because of there was some concern that he might have a deep venous thrombosis of his left lower extremity. His current condition began several days ago when he was doing some leg stretching and physical therapy type exercises at home and he developed pain in his posterior left thigh and hip region. There was no fall or other injury. He was evaluated in outpatient clinic and given analgesics and states the symptoms improved but he has had some swelling of his left lower extremity and there was some concern he might of had a DVT. The patient has had no history of venous thrombosis and actually does take clopidogrel because of her recent cardiovascular stent. His clinical examination did not reveal any findings that would suggest a joint disruption, cellulitis, infected joint or other concerning finding at this time. His venous Doppler was very reassuring. At this point it would seem that he has current findings are consistent with a soft tissue injury and probably some dependent edema of that involved leg and perhaps he has a mild muscle strain but certainly no evidence to suggest a ongoing emergency medical condition at this time. All findings were shared with both he and his family. We discussed expected course and reasons to return in detail. He voiced understanding of our plan and recommendations and was appreciative of care. Lab Data I reviewed the patient's lab results. Radiology Impressions Venous Duplex 07/18/22 17:27 IMPRESSION: No evidence of deep vein thrombosis. Discharge Plan Discharge Patient Disposition: Home Clinical Impression: Soft tissue injury of left lower leg Condition: Stable Prescriptions: No Action metformin 500 mg tablet 500 mg PO BID glipizide 5 mg tablet 5 mg PO BID magnesium oxide 500 mg capsule 500 mg PO DAILY multivitamin Tablet 1 tab PO DAILY clopidogrel 75 mg tablet 75 mg PO DAILY tramadol 50 mg tablet 50 mg PO DAILY metoprolol tartrate 25 mg tablet See Rx Instructions .ROUTE .COMPLEX Qty: 180 3RF Dose Instruction: TAKE 1 TABLET BY MOUTH TWICE DAILY Rx Instructions: TAKE 1 TABLET BY MOUTH TWICE DAILY rosuvastatin 20 mg tablet 20 mg PO BEDTIME tramadol 50 mg tablet 50 mg PO Q6H PRN (Reason: pain) Qty: 14 0RF calcium carbonate 500 mg calcium (1,250 mg) Tablet 500 mg PO DAILY amiodarone 200 mg tablet See Rx Instructions .ROUTE .COMPLEX Qty: 90 0RF Rx Instructions: 200 mg orally twice daily for 7 days then 200 mg daily lisinopril 5 mg tablet 5 mg PO DAILY cinnamon bark [Cinnamon] 500 mg Capsule 500 mg PO DAILY aspirin 81 mg tablet,delayed release (DR/EC) 81 mg PO QPM amitriptyline 10 mg tablet 10 mg PO BEDTIME Discharge Orders: Discharge ED (Routine); Ordered 07/18/22 Ordered By: Bill Dickson Referrals: Nehemiah Kaur MD [Primary Care Provider] - 7-10 days Discharge Diet: Usual diet Discharge Activity: Increase activity as tolerated Patient Instructions: Opioid Safety, Pain Management Activity Restrictions/Additional Instructions: As we discussed while you are in the emergency department there was no evidence of a blood clot in your left leg this evening. We think that some of the swelling is related to your recent muscle strain and injury. Expect this to improve over the next several days. We do recommend elevating your left leg when you are sedentary such as when you are watching TV, reading etc. At the symptoms not improving the next 3-5 days or worsen at any time or you develop fever, redness, shortness of breath etc. You should return to this or the nearest emergency department. Coding Level of Care Code ED Confidential Investigator for Chg Fwd Exam Comprehensive
== END 2022-07-18 20:16 | disposition home or self-care (01) ==
PROVIDERS: Emergency Provider Emergency Medicine; PCP Family Medicine
DX: M79.81 Nontraumatic hematoma of soft tissue (principal)
CPT/HCPCS: 93971; 99284

== ENCOUNTER 2022-07-20 09:42 | Emergency (ER) | payer MEDICARE, OTHER, SELFPAY ==
[2022-07-20 09:44] VITALS: BP 89/57; PULSE 90; RESP 18; TEMP 36.7; O2SAT 98; BMI 32.1
[2022-07-20 09:55] VITALS: BP 109/69; PULSE 89; O2SAT 96
--- NOTE | 2022-07-20 10:17 | ED_ITS ---
HPI - Extremity Problem General: Chief complaint: Extremity Problem,Nontraumatic Stated complaint: left leg pain Time Seen by Provider: 07/20/22 10:02 Source: patient Mode of arrival: ambulatory History of Present Illness: 76-year-old male patient was in the emergency room 2 days ago with similar complaint of swelling left lower leg venous duplex was - 2 weeks ago he had a steroid injection in his leg. He denies any trauma. He has been able to bear weight on the leg and he has range of motion in the leg he refers mostly discomfort is being from the swelling no particular pain that is new or unusual or worsening in the joints themselves. No fever sweats chills no nausea vomiting or diarrhea. MD Complaint: extremity pain and extremity swelling Onset (ago): week(s) Pain Consistency: constant Location: left and lower extremity Quality: aching Radiation: distal Relieving factors: other (Ambulation) Exacerbating factors: other (Has improved with some physical therapy) Associated symptoms: Deny chest pain, fever(s) or rash Review of Systems Const: Denies: fever(s), chills, body aches, change in appetite, fatigue or malaise ENMT: Denies: throat pain, ear or mastoid pain, nasal discharge or nasal congestion Card: Denies: chest pain, edema, dyspnea on exertion or orthopnea Resp: Denies: dyspnea, productive cough or non-productive cough GI: Denies: abdominal pain, nausea, vomiting, hematemesis, coffee ground emesis, diarrhea, constipation, bloating, hematochezia or melena : Denies: flank pain, dysuria, urinary frequency or urinary urgency Skin/Breast: Denies: rash or pruritus [facility] ED PFSH: Medical History (Updated 07/20/22 @ 12:34 by oJse Rafael Vilchis DO) Arachnoid cyst ASHD (arteriosclerotic heart disease) DDD (degenerative disc disease), lumbar Diabetes mellitus Diabetic neuropathy Gait instability History of colon cancer Hyperlipidemia Hypertension Intervertebral disc disorder with radiculopathy of lumbosacral region Ischemic cardiomyopathy Lumbar disc disease with radiculopathy Lumbar spondylosis Lumbosacral disc disease Migraine Obesity Tobacco abuse Surgical History H/O coronary angioplasty History of back surgery Left L4-L5, L5-S1 hemilaminotomy/discectomy/foraminotomy, 09/01/2019, [facility] History of cholecystectomy History of hernia repair History of resection of small bowel History of sinus surgery Family History Mother Cancer Father CAD (coronary artery disease) Sister Hypertension Social History Smoking and tobacco status: former smoker Alcohol intake: never Lives independently: Yes Household members: spouse Marital status: Current occupational status: retired Current occupation: retired History of recent travel: No Physical Exam Const: COMMON NORMALS: no acute distress GENERAL APPEARANCE: cooperative and comfortable ORIENTATION/CONSCIOUSNESS: Yes awake, Yes oriented to person, Yes oriented to place and Yes oriented to time HENMT: COMMON NORMALS: normocephalic, atraumatic and hearing grossly normal bilaterally HEAD & SCALP: normocephalic and atraumatic Resp: COMMON NORMALS: normal respiratory effort, No retractions, No use of accessory muscles and clear to auscultation bilaterally AUSCULTATION: clear to auscultation bilaterally Cardio: COMMON NORMALS: regular rate, regular rhythm and No murmurs present (Cardio) RATE: regular rate RHYTHM: regular rhythm GI: COMMON NORMALS: Soft to palpation and No hepatosplenomegaly present AUSCULTATION: Yes normoactive bowel sounds PALPATION: Yes Soft to palpation, No Tenderness to palpation present (GI), No Guarding due to palpation present (GI) and Yes No hepatosplenomegaly present Extremity: OTHER: 2+ edema left lower leg. No significant erythema or induration no open wounds no drainage no ulcerations. Neuro: SENSORIUM/ORIENTATION: Yes oriented to person, Yes oriented to place a nd Yes oriented to time Skin: COMMON NORMALS: no rashes or lesions noted GENERAL SKIN EXAM: no rashes or lesions noted Course Vital Signs: Vital signs: Vital Signs Temperature 98.1 F 07/20/22 09:44 Pulse Rate 89 07/20/22 09:55 Respiratory Rate 18 07/20/22 09:44 Blood Pressure 109/69 07/20/22 11:18 Pulse Oximetry 98 07/20/22 12:30 Oxygen Delivery Me thod 07/20/22 09:44 MDM - Extremity (Nontraumatic) Medical Decision Making No sign of DVT white count normal clinically at this point there is no evidence of cellulitis. We will start him on Lasix follow-up with his doctor within the week for any sepsis symptoms or appearance leg change recheck Medical Records I reviewed the patient's medical records. Lab Data I reviewed the patient's lab results. 07/20/22 10:45 07/20/22 10:45 Laboratory Results WBC 9.1 10^3/uL (4.0-10.0) 07/20/22 10:45 RBC 3.65 10^6/uL (4.1-5.3) L 07/20/22 10:45 Hgb 10.5 g/dL (11.7-16.6) L 07/20/22 10:45 Hct 33.7 % (42.0-52.0) L 07/20/22 10:45 MCV 92.3 fl (80-94) 07/20/22 10:45 MCH 28.8 pg (28.0-34.0) 07/20/22 10:45 MCHC 31.2 g/dL (30.0-36.0) 07/20/22 10:45 RDW 13.7 % (12.1-15.1) 07/20/22 10:45 Plt Count 135 10^3/cmm (130-400) 07/20/22 10:45 MPV 10.5 fL (7.4-10.4) H 07/20/22 10:45 Neut % (Auto) 86.6 % 07/20/22 10:45 Lymph % (Auto) 6.7 % 07/20/22 10:45 [place] % (Auto) 5.9 % 07/20/22 10:45 Eos % (Auto) 0.4 % 07/20/22 10:45 Baso % (Auto) 0.1 % 07/20/22 10:45 Neut # (Auto) 7.83 10^3/uL (1.8-7.7) H 07/20/22 10:45 Lymph # (Auto) 0.6 10^3/uL (0.8-4.8) L 07/20/22 10:45 [place] # (Auto) 0.5 10^3/uL (0.2-0.9) 07/20/22 10:45 Eos # (Auto) 0.0 10^3/uL (0.0-0.8) 07/20/22 10:45 Baso # (Auto) 0.0 10^3/uL (0.0-0.1) 07/20/22 10:45 Nucleated RBC % (auto) 0 % 07/20/22 10:45 Nucleated RBCs # 0.0 /100WBC 07/20/22 10:45 Sodium 137 mmol/L (136-145) 07/20/22 10:45 Potassium 3.8 mmol/L (3.5-5.1) 07/20/22 10:45 Chloride 104 mmol/L (98-107) 07/20/22 10:45 Carbon Dioxide 24 mmol/L (22-29) 07/20/22 10:45 Anion Gap 12.8 (5-19) 07/20/22 10:45 BUN 22 mg/dL (8-23) 07/20/22 10:45 Creatinine 0.7 mg/dL (0.7-1.2) 07/20/22 10:45 GFR Calculation Not Reportable 07/20/22 10:45 Glucose 153 mg/dL (65-115) H 07/20/22 10:45 Calculated Osmolality 290 mOsm/kg (285-295) 07/20/22 10:45 Calcium 8.5 mg/dL (8.5-10.5) 07/20/22 10:45 Total Bilirubin 0.7 mg/dL (0.15-1.2) 07/20/22 10:45 AST 12 U/L (0-40) 07/20/22 10:45 ALT 14 U/L (0-41) 07/20/22 10:45 Alkaline Phosphatase 59 U/L (40-130) 07/20/22 10:45 Total Protein 5.9 g/dL (6.6-8.7) L 07/20/22 10:45 Albumin 2.9 g/dL (3.5-5.2) L 07/20/22 10:45 Globulin 3.0 g/dL (1.3-4.6) 07/20/22 10:45 Discharge Plan Discharge Patient Disposition: Home Clinical Impression: Lower extremity edema Condition: Stable Prescriptions: New Lasix 40 mg tablet 40 mg PO QAM Qty: 7 0RF Rx Instructions: 1 tablet daily for 5 days and follow-up with your primary care doctor tramadol 50 mg tablet 50 mg PO Q12H PRN (Reason: pain) Qty: 10 0RF No Action metformin 500 mg tablet 500 mg PO BID glipizide 5 mg tablet 5 mg PO BID magnesium oxide 500 mg capsule 500 mg PO DAILY multivitamin Tablet 1 tab PO DAILY clopidogrel 75 mg tablet 75 mg PO DAILY tramadol 50 mg tablet 50 - 100 mg PO DAILY rosuvastatin 20 mg tablet 20 mg PO BEDTIME calcium carbonate 500 mg calcium (1,250 mg) Tablet 500 mg PO DAILY cinnamon bark [Cinnamon] 500 mg Capsule 500 mg PO DAILY aspirin 81 mg tablet,delayed release (DR/EC) 81 mg PO QPM lisinopril 20 mg tablet 20 mg PO DAILY amitriptyline 25 mg tablet 25 mg PO DAILY tamsulosin 0.4 mg capsule 0.4 mg PO BEDTIME amiodarone 200 mg tablet 200 mg PO DAILY metoprolol tartrate 25 mg tablet 25 mg PO BID Discharge Orders: Discharge ED (Routine); Ordered 07/20/22 Ordered By: Jose Rafael Vilchis Referrals: Nehemiah Kaur MD [Primary Care Provider] - Discharge Diet: Usual diet Discharge Activity: Increase activity as tolerated Patient Instructions: Opioid Safety, Pain Management Activity Restrictions/Additional Instructions: You were seen today for swelling in the leg there is no evidence of cellulitis repeat ultrasound did not show any deep vein thrombosis. We will start you on Lasix once daily for 5 days at the end of that time follow-up with your primary care doctor. Elevate your leg whenever you are able through the course of the day. Coding Level of Care Code ED Nurse'S Aides Teacher for [facility]iy[facility] Fwd Exam Detailed
--- NOTE | 2022-07-20 10:25 | USCV_ITS ---
Arnold Ceron Age: 76 Gender: M : 1945 Exam Date: 07/20/2022 10:50 Ordering Phys: Jose Rafael Vilchis DO Technologist: Juan Ramon Collier [place] [facility] [place] leg swelling PROCEDURES: Venous duplex imaging was performed in only the left lower extremity. The following venous structures were evaluated: common femoral vein, profunda vein, proximal portion of the greater saphenous vein, superficial femoral vein, and the popliteal vein. In addition, the posterior tibial and peroneal trunk were evaluated. FINDINGS: Normal 2-D Doppler and augmentation and compressibility throughout the lower extremity venous structures. Additional imaging through the proximal calf veins also reveals no thrombus. Limited evaluation of the greater saphenous vein is patent with no thrombus. There is subcutaneous left lower extremity edema noted. CONCLUSIONS No DVT left lower extremity. Dr. Rabia Crowell DO (Electronically Signed) Final Date: 20 July 2022 11:14 S
[2022-07-20 10:52] LABS: Basophils % 0.1 %; Eosinophils % 0.4 %; Hematocrit 33.7 % (42.0-52.0); Hemoglobin 10.5 g/dL (11.7-16.6); Lymphocytes # 0.6 10^3/uL (0.8-4.8); Lymphocytes % 6.7 %; Mean Corpuscular HGB Conc 31.2 g/dL (30.0-36.0); Mean Corpuscular Hemoglobin 28.8 pg (28.0-34.0); Mean Corpuscular Volume 92.3 fl (80-94); Mean Platelet Volume 10.5 fL (7.4-10.4); Monocytes # 0.5 10^3/uL (0.2-0.9); Monocytes % 5.9 %; Neutrophils # 7.83 10^3/uL (1.8-7.7); Neutrophils % 86.6 %; Nucleated Red Blood Cells % 0 %; Platelet Count 135 10^3/cmm (130-400); Red Blood Count 3.65 10^6/uL (4.1-5.3); Red Cell Distribution Width 13.7 % (12.1-15.1); White Blood Count 9.1 10^3/uL (4.0-10.0)
[2022-07-20 11:07] LABS: Alanine Aminotransferase 14 U/L (0-41); Albumin Level 2.9 g/dL (3.5-5.2); Alkaline Phosphatase 59 U/L (40-130); Anion Gap 12.8 (5-19); Aspartate Amino Transferase 12 U/L (0-40); Blood Urea Nitrogen 22 mg/dL (8-23); Calcium 8.5 mg/dL (8.5-10.5); Carbon Dioxide 24 mmol/L (22-29); Chloride 104 mmol/L (98-107); Glucose 153 mg/dL (65-115); Osmolality Calculated 290 mOsm/kg (285-295); Potassium 3.8 mmol/L (3.5-5.1); Sodium 137 mmol/L (136-145); Total Bilirubin 0.7 mg/dL (0.15-1.2); Total Protein 5.9 g/dL (6.6-8.7)
[2022-07-20 11:18] VITALS: BP 109/69; O2SAT 96
[2022-07-20 11:30] VITALS: O2SAT 96
[2022-07-20 12:00] VITALS: O2SAT 95
[2022-07-20 12:30] VITALS: O2SAT 98
== END 2022-07-20 12:49 | disposition home or self-care (01) ==
PROVIDERS: Emergency Provider Family Medicine; PCP Family Medicine
DX: R60.0 Localized edema (principal); Z79.84 Long term (current) use of oral hypoglycemic drugs; Z79.02 Long term (current) use of antithrombotics/antiplatelets; Z79.82 Long term (current) use of aspirin; Z87.891 Personal history of nicotine dependence; Z98.61 Coronary angioplasty status; E11.9 Type 2 diabetes mellitus without complications; Z85.038 Personal history of other malignant neoplasm of large intestine; E78.5 Hyperlipidemia, unspecified; I10 Essential (primary) hypertension
CPT/HCPCS: 80053; 85025; 93971; 99284

== ENCOUNTER 2022-08-31 10:41 | Outpatient (CLI) | payer MEDICARE, SELFPAY ==
--- NOTE | 2022-08-31 10:53 | CT_ITS ---
WS: [id number] CT HEAD TECHNIQUE: Noncontrast CT of the head obtained from the skullbase to the vertex. CLINICAL INFORMATION: CONCUSSION W/MENTAL CONFUSION COMPARISON: CT April 26, 2020 and MRI February 13, 2020 DLP: 1120.[address] scans at [facility] use at least one of these dose optimization techniques: automated e xposure control; mA and/or kV adjustment per patient size (includes targeted exams where dose is matc hed to clinical indication); or iterative reconstruction. FINDINGS: No evidence of intracranial hemorrhage or mass effect. Ventricular system and basal cisterns are bond nt. Mild small vessel changes with moderate parenchymal volume loss. No extra-axial fluid collections . No evidence of mass or mass effect. Vascular calcification. Paranasal sinuses and mastoid air cells are well aerated. .Normal visualized soft tissues. Stable be nign retrocerebellar arachnoid cyst or magna cisterna magna unchanged since 2014. Incidental benign s mall lipoma along the straight sinus unchanged compared to the prior studies measuring 11 x 5 mm. Thi s is stable since MRI 2014 CT/CT head wo con* [id number] IMPRESSION: 1. No evidence of intracranial hemorrhage or mass effect. 2. Mild small vessel changes with moderate parenchymal volume loss. 3. Stable retrocerebellar arachnoid cyst or magna cisterna magna unchanged sin ce 2014. 4. Incidental benign small lipoma along the straight sinus unchanged compared to the prior studies. 5. No acute intracranial findings.
== END 2022-08-31 10:42 | disposition home or self-care (01) ==
LOC: RAD 10:42
PROVIDERS: PCP Family Medicine; Visit Provider Family Medicine
DX: Z79.01 Long term (current) use of anticoagulants (principal); D17.79 Benign lipomatous neoplasm of other sites
CPT/HCPCS: 70450

== ENCOUNTER 2022-09-22 01:03 | Emergency (ER) | payer MEDICARE, OTHER, SELFPAY ==
[2022-09-22] VITALS (9 sets, daily range): BP systolic 115–148; BP diastolic 63–80; PULSE 58–68; RESP 13–18; TEMP 36.5; O2SAT 92–100; BMI 32.3
--- NOTE | 2022-09-22 01:05 | CTR_ITS ---
PROCEDURE INFORMATION: Exam: CT Head Without Contrast Exam date and time: 09/22/2022 1:27 AM Age: 76 years old Clinical indication: Injury or trauma; Blunt trauma (contusions or hematomas); Patient HX: Fall at home striking head on floor. Bruising to RT orbit. ; Additional info: Fall injury TECHNIQUE: Imaging protocol: Computed tomography of the head without contrast. Radiation optimization: All CT scans at this facility use at least one of these dose optimization techniques: automated exposure control; mA and/or kV adjustment per patient size (includes targeted exams where dose is matched to clinical indication); or iterative reconstruction. REPORTING DATA: Count of CT and Cardiac NM exams in prior 12 months: This patient has received 3 known CTs and 0 known cardiac nuclear medicine studies in the 12 months prior to the current study. COMPARISON: CT head wo con* [id number] 08/31/2022 11:06 AM RADIATION DOSE METRICS: Total DLP (mGy-cm): 1041.89 FINDINGS: Brain: There is moderate cerebral atrophy. Negative for intracranial hemorrhage. Negative for midline shift of the brain. Adan matter and white matter interfaces are preserved. Cerebral ventricles: No ventriculomegaly. Paranasal sinuses: Visualized sinuses are unremarkable. No fluid levels. Mastoid air cells: Visualized mastoid air cells are well aerated. Bones/joints: Unremarkable. No acute fracture. Soft tissues: Unremarkable. CT/CT head wo con* [id number] IMPRESSION: Negative for acute intracranial abnormality.
--- NOTE | 2022-09-22 01:05 | XRR_ITS ---
PROCEDURE INFORMATION: Exam: XR Right Elbow Exam date and time: 09/22/2022 1:11 AM Age: 76 years old Clinical indication: Injury or trauma; Fall; Blunt trauma (contusions or hematomas); Right; Patient HX: Patient fell at home. Landed onto RT side on floor. C/O pain to elbow with deformity and swelling. TECHNIQUE: Imaging protocol: Radiologic exam of the right elbow. Views: 3 or more views. COMPARISON: No relevant prior studies available. FINDINGS: Bones/joints: Elbow joint dislocation injury. Dorsal displacement of radius and ulna relative to humerus. Small bone fragments adjacent to lateral margin of proximal radius. Soft tissues: Periarticular soft tissue swelling. XR/XR elbow RT min 3V* [id number] IMPRESSION: Positive for right elbow dislocation injury. Possible tiny cortical avulsion fracture fragments adjacent to the radius head.
--- NOTE | 2022-09-22 01:06 | ED_ITS ---
Documented by User: DIANDRA Pichardo 09/22/22 02:30 HPI - Fall General: Chief Complaint: Trauma Stated Complaint: FALL Time Seen by Provider: 09/22/22 01:05 History of Present Illness: 76[facility]. Patient reports that his walker got ahead of them too far causing him to lose his balance and fall forward onto his right arm and right side of the head. Patient denied loss of consciousness. Patient appears nontoxic. Patient had fallen 2 days prior also and has a bruise to his right side. Patient takes aspirin and Plavix routinely. Patient has history of V. tach, arthritis, polyneuropathy, history of colon cancer, diabetes mellitus, ASHD, surgical repair of the small bowel, hernia repair, cholecystectomy, angioplasty, and lumbar disc disease. Patient is alert and responds appropriately to questions. Associated symptoms-after fall: Denies abdominal pain or chest pain Review of Systems Const: Denies: fever(s) Card: Denies: chest pain Resp: Denies: dyspnea GI: Denies: abdominal pain Musc: Reports: extremity pain (right elbow pain and swelling) and joint swelling (right elbow) [facility] ED PFSH: Medical History (Updated 09/22/22 @ 02:03 by Moses De La Fuente MD) Arachnoid cyst ASHD (arteriosclerotic heart disease) DDD (degenerative disc disease), lumbar Diabetes mellitus Diabetic neuropathy Gait instability History of colon cancer Hyperlipidemia Hypertension Intervertebral disc disorder with radiculopathy of lumbosacral region Ischemic cardiomyopathy Lumbar disc disease with radiculopathy Lumbar spondylosis Lumbosacral disc disease Migraine Obesity Tobacco abuse Surgical History H/O coronary angioplasty History of back surgery Left L4-L5, L5-S1 hemilaminotomy/discectomy/foraminotomy, 09/01/2019, [facility] History of cholecystectomy History of hernia repair History of resection of small bowel History of sinus surgery Family History Mother Cancer Father CAD (coronary artery disease) Sister Hypertension Social History Smoking and tobacco status: former smoker Alcohol intake: never Lives independently: Yes Household members: spouse Marital status: Current occupational status: retired Current occupation: retired Physical Exam Const: COMMON NORMALS: alert HENMT: COMMON NORMALS: normocephalic HEAD & SCALP: normocephalic MOUTH: Normal oral and palatal mucosa present Neck/C-Spine: COMMON NORMALS: full ROM CERVICAL SPINE: Yes cervical ROM normal and No Cervical spine tenderness Chest: COMMONS NORMALS: normal inspection of the chest and normal palpation of entire chest wall Resp: COMMON NORMALS: normal respiratory effort and clear to auscultation bilaterally AUSCULTATION: clear to auscultation bilaterally Cardio: COMMON NORMALS: regular rate, regular rhythm, S1 normal heart sound present and S2 normal heart sound present RATE: regular rate RHYTHM: regular rhythm HEART SOUNDS: S1 normal heart sound present and S2 normal heart sound present GI: COMMON NORMALS: Soft to palpation and non-tender PALPATION: Yes Soft to palpation : COMMON NORMALS: Yes no CVA tenderness BLADDER/KIDNEY EXAM: Yes no CVA tenderness Back/Pelvis: COMMON NORMALS: no CVA tenderness and thoracic and lumbar spine normal to inspection Extremity: RIGHT UPPER EXTREMITY: Yes elbow joint (Radial head area swelling and tenderness.) Neuro: SENSORIUM/ORIENTATION: Yes alert Skin: COMMON NORMALS: turgor normal GENERAL SKIN EXAM: turgor normal Course Vital Signs: Vital signs: Vital Signs Temperature 97.7 F 09/22/22 01:08 Pulse Rate 62 09/22/22 02:10 Respiratory Rate 18 09/22/22 02:10 Blood Pressure 140/79 09/22/22 02:10 Pulse Oximetry 99 09/22/22 02:10 Oxygen Delivery Me thod 09/22/22 02:10 Oxygen Flow Rate 2 09/22/22 02:10 MDM - Fall Medical Decision Making 76-year-old male patient comes in today after a fall when his walker got away f rom him. Patient denies any headache or shortness of breath or chest pain. Patient has some obvious swelling to the right elbow pulses are noted distally. Sensation is noted distally. Vital signs are normal. Differential diagnosis includes not limited to fracture, dislocation, contusion, intracranial bleeding. X-ray of the right elbow indicated a dislocation of the joint. Lab Data 09/22/22 01:18 09/22/22 01:[address] 09/22/22 01:05 IMPRESSION: Negative for acute intracranial abnormality. Elbow X-Ray 09/22/22 01:55 IMPRESSION: Relocation of the elbow joint. Laboratory Results WBC 6.3 10^3/uL (4.0-10.0) 09/22/22 01:18 RBC 3.97 10^6/uL (4.1-5.3) L 09/22/22 01:18 Hgb 11.4 g/dL (11.7-16.6) L 09/22/22 01:18 Hct 36.9 % (42.0-52.0) L 09/22/22 01:18 MCV 92.9 fl (80-94) 09/22/22 01:18 MCH 28.7 pg (28.0-34.0) 09/22/22 01:18 MCHC 30.9 g/dL (30.0-36.0) 09/22/22 01:18 RDW 14.2 % (12.1-15.1) 09/22/22 01:18 Plt Count 109 10^3/cmm (130-400) L 09/22/22 01:18 MPV 11.1 fL (7.4-10.4) H 09/22/22 01:18 Neut % (Auto) 74.7 % 09/22/22 01:18 Lymph % (Auto) 15.2 % 09/22/22 01:18 Dawes % (Auto) 7.7 % 09/22/22 01:18 Eos % (Auto) 1.6 % 09/22/22 01:18 Baso % (Auto) 0.3 % 09/22/22 01:18 Neut # (Auto) 4.67 10^3/uL (1.8-7.7) 09/22/22 01:18 Lymph # (Auto) 1.0 10^3/uL (0.8-4.8) 09/22/22 01:18 Dawes # (Auto) 0.5 10^3/uL (0.2-0.9) 09/22/22 01:18 Eos # (Auto) 0.1 10^3/uL (0.0-0.8) 09/22/22 01:18 Baso # (Auto) 0.0 10^3/uL (0.0-0.1) 09/22/22 01:18 Nucleated RBC % (auto) 0 % 09/22/22 01:18 Nucleated RBCs # 0.0 /100WBC 09/22/22 01:18 Sodium 140 mmol/L (136-145) 09/22/22 01:18 Potassium 3.8 mmol/L (3.5-5.1) 09/22/22 01:18 Chloride 104 mmol/L (98-107) 09/22/22 01:18 Carbon Dioxide 25 mmol/L (22-29) 09/22/22 01:18 Anion Gap 14.8 (5-19) 09/22/22 01:18 BUN 20 mg/dL (8-23) 09/22/22 01:18 Creatinine 0.8 mg/dL (0.7-1.2) 09/22/22 01:18 GFR Calculation Not Reportable 09/22/22 01:18 Glucose 117 mg/dL (65-115) H 09/22/22 01:18 Calculated Osmolality 294 mOsm/kg (285-295) 09/22/22 01:18 Calcium 8.8 mg/dL (8.5-10.5) 09/22/22 01:18 Total Bilirubin 0.6 mg/dL (0.15-1.2) 09/22/22 01:18 AST 18 U/L (0-40) 09/22/22 01:18 ALT 10 U/L (0-41) 09/22/22 01:18 Alkaline Phosphatase 65 U/L (40-130) 09/22/22 01:18 Total Protein 6.3 g/dL (6.6-8.7) L 09/22/22 01:18 Albumin 3.7 g/dL (3.5-5.2) 09/22/22 01:18 Globulin 2.6 g/dL (1.3-4.6) 09/22/22 01:18 Discharge Plan Discharge Patient Disposition: Home Clinical Impression: Closed dislocation of right elbow Qualifiers: Encounter type: initial encounter Qualified Code(s): S53.104A - Unspecified dislocation of right ulnohumeral joint, initial encounter Condition: Stable Prescriptions: New hydrocodone-acetaminophen 5-325 mg tablet 1 tab PO Q6H PRN (Reason: pain) Qty: 14 0RF No Action metformin 500 mg tablet 500 mg PO BID glipizide 5 mg tablet 5 mg PO BID magnesium oxide 500 mg capsule 500 mg PO DAILY multivitamin Tablet 1 tab PO DAILY clopidogrel 75 mg tablet 75 mg PO DAILY tramadol 50 mg tablet 50 - 100 mg PO DAILY amiodarone 200 mg tablet 200 mg PO DAILY Qty: 90 2RF rosuvastatin 20 mg tablet 20 mg PO BEDTIME calcium carbonate 500 mg calcium (1,250 mg) Tablet 500 mg PO DAILY cinnamon bark [Cinnamon] 500 mg Capsule 500 mg PO DAILY aspirin 81 mg tablet,delayed release (DR/EC) 81 mg PO QPM lisinopril 20 mg tablet 20 mg PO DAILY amitriptyline 25 mg tablet 25 mg PO DAILY tamsulosin 0.4 mg capsule 0.4 mg PO BEDTIME metoprolol tartrate 25 mg tablet 25 mg PO BID Lasix 40 mg tablet 40 mg PO QAM Qty: 7 0RF Rx Instructions: 1 tablet daily for 5 days and follow-up with your primary care doctor tramadol 50 mg tablet 50 mg PO Q12H PRN (Reason: pain) Qty: 10 0RF Discharge Orders: Discharge ED (Routine); Ordered 09/22/22 Ordered By: Moses De La Fuente Referrals: Nehemiah Kaur MD [Primary Care Provider] - Padilla Negro DO [Physician] - 1-3 days Discharge Diet: Advance as tolerated Discharge Activity: Resume usual activity Patient Instructions: Elbow Dislocation (ED), Closed Reduction (ED), Opioid Safety Coding Level of Care Code ED [employer] for Chg Fwd Documented by User: Moses De La Fuente MD 09/22/22 02:09 HPI - Fall General: Chief Complaint: Trauma Stated Complaint: FALL Time Seen by Provider: 09/22/22 01:05 [facility] ED PFSH: Medical History (Updated 09/22/22 @ 02:03 by Moses De La Fuente MD) Arachnoid cyst ASHD (arteriosclerotic heart disease) DDD (degenerative disc disease), lumbar Diabetes mellitus Diabetic neuropathy Gait instability History of colon cancer Hyperlipidemia Hypertension Intervertebral disc disorder with radiculopathy of lumbosacral region Ischemic cardiomyopathy Lumbar disc disease with radiculopathy Lumbar spondylosis Lumbosacral disc disease Migraine Obesity Tobacco abuse Surgical History H/O coronary angioplasty History of back surgery Left L4-L5, L5-S1 hemilaminotomy/discectomy/foraminotomy, 09/01/2019, [facility] History of cholecystectomy History of hernia repair History of resection of small bowel History of sinus surgery Family History Mother Cancer Father CAD (coronary artery disease) Sister Hypertension Social History Smoking and tobacco status: former smoker Alcohol intake: never Lives independently: Yes Household members: spouse Marital status: Current occupational status: retired Current occupation: retired Procedures Orthopedic Joint Reduction Joint #1: Time Out Performed: Yes Side: right Joint Reduction Location: elbow Analgesia: procedural sedation Technique used: traction/counter-traction Post-reduction neuro exam: intact Post-reduction vascular: intact Post Reduction X-Ray Obtained: Yes Post Reduction X-Ray Results: reduced Splint Applied: Yes Patient Tolerated Procedure: well Procedural Sedation Indication: fracture/dislocation reduction ASA Class: II Time of Last PO Intake: 19:00 Preparation: manager monitoring applied, pulse oximeter and supplemental O2 applied IV Propofol dose (mg): 60 Patient Tolerated Procedure: well Complications: none Course Vital Signs: Vital signs: Vital Signs Temperature 97.7 F 09/22/22 01:08 Pulse Rate 62 09/22/22 02:10 Respiratory Rate 18 09/22/22 02:10 Blood Pressure 140/79 09/22/22 02:10 Pulse Oximetry 99 09/22/22 02:10 Oxygen Delivery Me thod 09/22/22 02:10 Oxygen Flow Rate 2 09/22/22 02:10 MDM - Fall Medical Decision Making 76-year-old male patient comes in today after a fall when his walker got away from him. Patient denies any headache or shortness of breath or chest pain. Patient has some obvious swelling to the right elbow pulses are noted distally. Sensation is noted distally. Vital signs are normal. Differential diagnosis includes not limited to fracture, dislocation, contusion, intracranial bleeding. X-ray of the right elbow indicated a dislocation of the joint. Patient presents here with an elbow dislocation I sedated and reduced his elbow he feels much improved he is distal pulses intact he is in a splint and sling we will get him follow-up with orthopedics he is return if worsening his head CT was normal no other injury noted Lab Data 09/22/22 01:18 09/22/22 01:[address] 09/22/22 01:05 IMPRESSION: Negative for acute intracranial abnormality. Elbow X-Ray 09/22/22 01:55 IMPRESSION: Relocation of the elbow joint. Laboratory Results WBC 6.3 10^3/uL (4.0-10.0) 09/22/22 01:18 RBC 3.97 10^6/uL (4.1-5.3) L 09/22/22 01:18 Hgb 11.4 g/dL (11.7-16.6) L 09/22/22 01:18 Hct 36.9 % (42.0-52.0) L 09/22/22 01:18 MCV 92.9 fl (80-94) 09/22/22 01:18 MCH 28.7 pg (28.0-34.0) 09/22/22 01:18 MCHC 30.9 g/dL (30.0-36.0) 09/22/22 01:18 RDW 14.2 % (12.1-15.1) 09/22/22 01:18 Plt Count 109 10^3/cmm (130-400) L 09/22/22 01:18 MPV 11.1 fL (7.4-10.4) H 09/22/22 01:18 Neut % (Auto) 74.7 % 09/22/22 01:18 Lymph % (Auto) 15.2 % 09/22/22 01:18 Dawes % (Auto) 7.7 % 09/22/22 01:18 Eos % (Auto) 1.6 % 09/22/22 01:18 Baso % (Auto) 0.3 % 09/22/22 01:18 Neut # (Auto) 4.67 10^3/uL (1.8-7.7) 09/22/22 01:18 Lymph # (Auto) 1.0 10^3/uL (0.8-4.8) 09/22/22 01:18 Dawes # (Auto) 0.5 10^3/uL (0.2-0.9) 09/22/22 01:18 Eos # (Auto) 0.1 10^3/uL (0.0-0.8) 09/22/22 01:18 Baso # (Auto) 0.0 10^3/uL (0.0-0.1) 09/22/22 01:18 Nucleated RBC % (auto) 0 % 09/22/22 01:18 Nucleated RBCs # 0.0 /100WBC 09/22/22 01:18 Sodium 140 mmol/L (136-145) 09/22/22 01:18 Potassium 3.8 mmol/L (3.5-5.1) 09/22/22 01:18 Chloride 104 mmol/L (98-107) 09/22/22 01:18 Carbon Dioxide 25 mmol/L (22-29) 09/22/22 01:18 Anion Gap 14.8 (5-19) 09/22/22 01:18 BUN 20 mg/dL (8-23) 09/22/22 01:18 Creatinine 0.8 mg/dL (0.7-1.2) 09/22/22 01:18 GFR Calculation Not Reportable 09/22/22 01:18 Glucose 117 mg/dL (65-115) H 09/22/22 01:18 Calculated Osmolality 294 mOsm/kg (285-295) 09/22/22 01:18 Calcium 8.8 mg/dL (8.5-10.5) 09/22/22 01:18 Total Bilirubin 0.6 mg/dL (0.15-1.2) 09/22/22 01:18 AST 18 U/L (0-40) 09/22/22 01:18 ALT 10 U/L (0-41) 09/22/22 01:18 Alkaline Phosphatase 65 U/L (40-130) 09/22/22 01:18 Total Protein 6.3 g/dL (6.6-8.7) L 09/22/22 01:18 Albumin 3.7 g/dL (3.5-5.2) 09/22/22 01:18 Globulin 2.6 g/dL (1.3-4.6) 09/22/22 01:18 Discharge Plan Discharge Patient Disposition: Home Clinical Impression: Closed dislocation of right elbow Qualifiers: Encounter type: initial encounter Qualified Code(s): S53.104A - Unspecified dislocation of right ulnohumeral joint, initial encounter Condition: Stable Prescriptions: New hydrocodone-acetaminophen 5-325 mg tablet 1 tab PO Q6H PRN (Reason: pain) Qty: 14 0RF No Action metformin 500 mg tablet 500 mg PO BID glipizide 5 mg tablet 5 mg PO BID magnesium oxide 500 mg capsule 500 mg PO DAILY multivitamin Tablet 1 tab PO DAILY clopidogrel 75 mg tablet 75 mg PO DAILY tramadol 50 mg tablet 50 - 100 mg PO DAILY amiodarone 200 mg tablet 200 mg PO DAILY Qty: 90 2RF rosuvastatin 20 mg tablet 20 mg PO BEDTIME calcium carbonate 500 mg calcium (1,250 mg) Tablet 500 mg PO DAILY cinnamon bark [Cinnamon] 500 mg Capsule 500 mg PO DAILY aspirin 81 mg tablet,delayed release (DR/EC) 81 mg PO QPM lisinopril 20 mg tablet 20 mg PO DAILY amitriptyline 25 mg tablet 25 mg PO DAILY tamsulosin 0.4 mg capsule 0.4 mg PO BEDTIME metoprolol tartrate 25 mg tablet 25 mg PO BID Lasix 40 mg tablet 40 mg PO QAM Qty: 7 0RF Rx Instructions: 1 tablet daily for 5 days and follow-up with your primary care doctor tramadol 50 mg tablet 50 mg PO Q12H PRN (Reason: pain) Qty: 10 0RF Discharge Orders: Discharge ED (Routine); Ordered 09/22/22 Ordered By: Moses De La Fuente Referrals: Nehemiah Kaur MD [Primary Care Provider] - Padilla Negro DO [Physician] - 1-3 days Discharge Diet: Advance as tolerated Discharge Activity: Resume usual activity Patient Instructions: Elbow Dislocation (ED), Closed Reduction (ED), Opioid Safety Coding Level of Care Code ED [employer] for Aiyana Rush
--- NOTE | 2022-09-22 01:20 | ECG_ITS ---
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 Measurements Intervals [place] Rate: 63 P: 8 GA: 125 QRS: -33 QRSD: 181 T: 27 QT: 448 QTc: 461 Interpretive Statements SINUS RHYTHM WITH OCCASIONAL VENTRICULAR AND SUPRAVENTRICULAR PREMATURE COMPLEXES LEFT AXIS DEVIATION [QRS AXIS < -30] RIGHT BUNDLE BRANCH BLOCK [120+ ms QRS DURATION, UPRIGHT V1, 40+ ms S IN I/aVL/V4/V5/V6] Compared to ECG 05/24/2022 15:25:39 Ventricular premature complex(es) now present Sinus bradycardia no longer present Electronically Signed On 09-22-2022 16:45:49 SURVEY RESEARCH MANAGER by Jimi Cohen M.D. [email or web address]
[2022-09-22 01:29] LABS: Basophils % 0.3 %; Eosinophils # 0.1 10^3/uL (0.0-0.8); Eosinophils % 1.6 %; Hematocrit 36.9 % (42.0-52.0); Hemoglobin 11.4 g/dL (11.7-16.6); Lymphocytes % 15.2 %; Mean Corpuscular HGB Conc 30.9 g/dL (30.0-36.0); Mean Corpuscular Hemoglobin 28.7 pg (28.0-34.0); Mean Corpuscular Volume 92.9 fl (80-94); Mean Platelet Volume 11.1 fL (7.4-10.4); Monocytes # 0.5 10^3/uL (0.2-0.9); Monocytes % 7.7 %; Neutrophils # 4.67 10^3/uL (1.8-7.7); Neutrophils % 74.7 %; Nucleated Red Blood Cells % 0 %; Platelet Count 109 10^3/cmm (130-400); Red Blood Count 3.97 10^6/uL (4.1-5.3); Red Cell Distribution Width 14.2 % (12.1-15.1); White Blood Count 6.3 10^3/uL (4.0-10.0)
[2022-09-22] MEDS: propofol 10 mg/mL SDV 20 mL 100 MG IVP (01:40)
[2022-09-22 01:49] LABS: Alanine Aminotransferase 10 U/L (0-41); Albumin Level 3.7 g/dL (3.5-5.2); Alkaline Phosphatase 65 U/L (40-130); Blood Urea Nitrogen 20 mg/dL (8-23); Calcium 8.8 mg/dL (8.5-10.5); Carbon Dioxide 25 mmol/L (22-29); Chloride 104 mmol/L (98-107); Globulin 2.6 g/dL (1.3-4.6); Glucose 117 mg/dL (65-115); Osmolality Calculated 294 mOsm/kg (285-295); Sodium 140 mmol/L (136-145); Total Bilirubin 0.6 mg/dL (0.15-1.2); Total Protein 6.3 g/dL (6.6-8.7)
--- NOTE | 2022-09-22 01:55 | XRR_ITS ---
PROCEDURE INFORMATION: Exam: XR Right Elbow Exam date and time: 09/22/2022 1:41 AM Age: 76 years old Clinical indication: Injury or trauma; Fall; Dislocation; Elbow; Right; Patient HX: Check S/P reduction TECHNIQUE: Imaging protocol: Radiologic exam of the right elbow. Views: 1 or 2 views. COMPARISON: CR (UP EXM, ) 09/22/2022 1:11 AM FINDINGS: Tubes, catheters and devices: Posterior splint. Bones/joints: Reduction of the elbow joint. Anatomic alignment is seen. Possible tiny cortical avulsion fracture fragment adjacent to the radial head on the ventral side. Positive for elbow joint effusion. Soft tissues: Periarticular soft tissue swelling. XR/XR elbow RT 2V [id number] IMPRESSION: Relocation of the elbow joint.
[2022-09-22 02:09] LABS: Anion Gap 14.8 (5-19); Aspartate Amino Transferase 18 U/L (0-40); Potassium 3.8 mmol/L (3.5-5.1)
[2022-09-22] MEDS: morphine 4 mg/mL SDV 1 mL IVP (02:09)
--- NOTE | 2022-09-22 09:53 | DCPLANNER ---
Addendum entered by Kayla Grant 09/26/22 15:19: Patient had a follow up appointment scheduled with ortho - patient did attend appointment. Original Note: regional business manager had message to schedule a follow up appointment for patient with ortho. regional business manager sent patients information to the front office staff at ortho. Patients information will be printed and reviewed. Clinic will call patient with appointment information.
== END 2022-09-22 02:36 | disposition home or self-care (01) ==
PROVIDERS: Nurse Practitioner Family; Emergency Provider Emergency Medicine; PCP Family Medicine
DX: S53.104A Unspecified dislocation of right ulnohumeral joint, initial encounter (principal); Z79.84 Long term (current) use of oral hypoglycemic drugs; Z79.02 Long term (current) use of antithrombotics/antiplatelets; Z79.82 Long term (current) use of aspirin; Z87.891 Personal history of nicotine dependence; E11.9 Type 2 diabetes mellitus without complications; Z85.038 Personal history of other malignant neoplasm of large intestine; E78.5 Hyperlipidemia, unspecified; I10 Essential (primary) hypertension; Z98.61 Coronary angioplasty status; W18.39XA Other fall on same level, initial encounter
CPT/HCPCS: 24600; 70450; 73070; 73080; 80053; 85025; 93005; 94799; 96374; 99152; 99285; J2270; J2704

== ENCOUNTER → 2022-09-25 10:49 | Outpatient (BNVA) | payer MEDICARE, OTHER, SELFPAY | PROVIDERS: PCP Family Medicine; Referring Provider Nurse Practitioner Family; Visit Provider Student in an Organized Health Care Education/Training Program | DX: S53.104A Unspecified dislocation of right ulnohumeral joint, initial encounter (principal); X58.XXXA Exposure to other specified factors, initial encounter | CPT/HCPCS: 99204 ==

== ENCOUNTER → 2022-10-23 10:37 | Outpatient (BNVA) | payer MEDICARE, OTHER, SELFPAY | PROVIDERS: PCP Family Medicine; Visit Provider Student in an Organized Health Care Education/Training Program | DX: S53.104D Unspecified dislocation of right ulnohumeral joint, subsequent encounter (principal); X58.XXXD Exposure to other specified factors, subsequent encounter | CPT/HCPCS: 73080 ==

== ENCOUNTER 2022-10-23 14:59 | Outpatient (CLI) | payer MEDICARE, OTHER, SELFPAY | END 2022-10-23 15:00 | disposition home or self-care (01) | LOC: SPT 14:59 | PROVIDERS: PCP Family Medicine; Visit Provider Student in an Organized Health Care Education/Training Program | DX: Z46.89 Encounter for fitting and adjustment of other specified devices (principal); S53.104D Unspecified dislocation of right ulnohumeral joint, subsequent encounter; X58.XXXD Exposure to other specified factors, subsequent encounter | CPT/HCPCS: 97760; 99213; L3761 ==

== ENCOUNTER → 2022-11-20 10:21 | Outpatient (BNVA) | payer MEDICARE, OTHER, SELFPAY | PROVIDERS: PCP Family Medicine; Visit Provider Student in an Organized Health Care Education/Training Program | DX: S53.104D Unspecified dislocation of right ulnohumeral joint, subsequent encounter (principal); X58.XXXD Exposure to other specified factors, subsequent encounter | CPT/HCPCS: 73080; 99213 ==

== ENCOUNTER → 2022-12-20 14:06 | Outpatient (BNVA) | payer MEDICARE, OTHER, SELFPAY | PROVIDERS: PCP Family Medicine; Visit Provider Nurse Practitioner Family | DX: I47.29 Other ventricular tachycardia (principal); I10 Essential (primary) hypertension; I25.10 Atherosclerotic heart disease of native coronary artery without angina pectoris; Z87.891 Personal history of nicotine dependence | CPT/HCPCS: 99214 ==

== ENCOUNTER → 2023-01-17 08:34 | Outpatient (BNVA) | payer MEDICARE, OTHER, SELFPAY | PROVIDERS: PCP Family Medicine; Visit Provider Specialist | DX: G11.9 Hereditary ataxia, unspecified (principal); G60.8 Other hereditary and idiopathic neuropathies; I25.10 Atherosclerotic heart disease of native coronary artery without angina pectoris; M17.11 Unilateral primary osteoarthritis, right knee; E11.42 Type 2 diabetes mellitus with diabetic polyneuropathy; Z79.84 Long term (current) use of oral hypoglycemic drugs | CPT/HCPCS: 99214 ==

== ENCOUNTER 2023-01-18 13:36 | Inpatient (IN) | payer MEDICARE, OTHER, SELFPAY ==
[2023-01-18] VITALS (13 sets, daily range): BP systolic 119–166; BP diastolic 60–80; PULSE 57–66; RESP 12–21; TEMP 36.8–36.9; O2SAT 90–95; BMI 32.3
--- NOTE | 2023-01-18 13:44 | XR_ITS ---
WS: [id number] EXAMINATION: XR chest 1V portable [id number] REASON FOR EXAM: fall COMPARISON: 05/30/2022 ORDER DATE: 01/18/2023 1:59 PM TECHNIQUE: A single, portable frontal chest x-ray was obtained. X-RAY FINDINGS: The lungs are clear. Pleural spaces are clear. No pleural effusions or pneumothorax. Cardiomediastinal silhouette suggests aortic ectasia. No evidence for pulmonary edema. Soft tissue and osseous structures are unremarkable. No tubes or lines are present. XR/XR chest 1V portable [id number] IMPRESSION: No acute pulmonary change with ectasia of the aorta..
--- NOTE | 2023-01-18 13:44 | XR_ITS ---
WS: [id number] EXAMINATION: XR hip RT 2-3V wo/w pel* [id number] REASON FOR EXAM: fall, deformity; one view pelvis too please COMPARISON: None available. ORDER DATE: 01/18/2023 1:59 PM TECHNIQUE: 3 views of the right hip were obtained. X-RAY FINDINGS: There is a comminuted intratrochanteric fracture which extends into the greater trochanter with near 90 degree femoral angle due to the cephalic displacement of the proximal femur. No sign of acetabular fracture. XR/XR hip RT 2-3V wo/w pel* [id number] IMPRESSION: 1. Comminuted acute intertrochanteric/trochanteric fracture of the right hip
--- NOTE | 2023-01-18 13:45 | ED_ITS ---
HPI - Fall General: Chief Complaint: Fall Stated Complaint: fall hip pain with rotation Time Seen by Provider: 01/18/23 13:38 Source: patient and EMS Mode of arrival: EMS Limitations: no limitations History of Present Illness: Patient is a very nice 77-year-old gentleman with a history of diabetes, HTN, CAD here via EMS for evaluation following a fall. Patient states at baseline he does not have very good balance or coordination. He states he is in the middle of remodeling his home and believes he tripped and fell over an uneven floor surface. Patient states he fell onto his right hip and this is the only area that is bothering him. On exam hip is shortened and rotated consistent with hip fracture. He denies striking his head or LOC. He has no neck or back pain. Patient is on Plavix. MD complaint: fall Onset (ago): hour(s) Fall from: standing Fall witnessed: no Place fall occurred: home Loss of consciousness: None Prolonged down time: no Symptoms prior to fall: none Context: tripped/slipped Associated symptoms-after fall: Reports no associated symptoms; Denies abdominal pain, chest pain, headache(s), hematuria, lightheadedness or neck pain Review of Systems Const: Denies: fever(s), chills, body aches, fatigue or malaise Eyes: Denies: change in vision, blurry vision, photophobia, eye discharge, floaters or seeing flashes ENMT: Denies: throat pain, odynophagia, ear or mastoid pain, ear discharge, nasal discharge, epistaxis or sinus pain Card: Denies: chest pain, palpitations, lightheadedness, syncope or pre- syncope Resp: Denies: dyspnea or pain on inspiration GI: Denies: abdominal pain : Denies: flank pain or hematuria Musc: Reports: joint pain (R hip) and limited range of motion (R hip); Denies: neck pain, back pain, extremity pain, extremity swelling, joint swelling, joint redness or joint warmth Neuro: Denies: headache(s), numbness in extremities, weakness in extremities, sensory changes or dizziness [facility] ED PFSH: Medical History (Updated 01/18/23 @ 14:53 by SARAH Uribe) Arachnoid cyst ASHD (arteriosclerotic heart disease) DDD (degenerative disc disease), lumbar Diabetes mellitus Diabetic neuropathy Gait instability History of colon cancer Hyperlipidemia Hypertension Intervertebral disc disorder with radiculopathy of lumbosacral region Ischemic cardiomyopathy Lumbar disc disease with radiculopathy Lumbar spondylosis Lumbosacral disc disease Migraine Obesity Tobacco abuse Surgical History H/O coronary angioplasty History of back surgery Left L4-L5, L5-S1 hemilaminotomy/discectomy/foraminotomy, 09/01/2019, [facility] History of cholecystectomy History of hernia repair History of resection of small bowel History of sinus surgery Family History Mother Cancer Father CAD (coronary artery disease) Sister Hypertension Social History Smoking and tobacco status: former smoker Alcohol intake: never Substance/Drug Use: never Lives independently: Yes Household members: spouse Marital status: Current occupational status: retired Current occupation: retired Physical Exam Const: COMMON NORMALS: no acute distress, patient oriented x3, no limitations, alert and well nourished GENERAL APPEARANCE: cooperative NUTRITIONAL APPEARANCE: overweight ORIENTATION/CONSCIOUSNESS: Yes awake, Yes oriented to person, Yes oriented to place and Yes oriented to time HENMT: COMMON NORMALS: normocephalic, atraumatic and TM's normal bilaterally HEAD & SCALP: normal to inspection, normocephalic and atraumatic; no Mcginnis's sign, no hematoma and no raccoon eyes FACE & SINUS: normal facial exam TYMPANIC MEMBRANE: TM's normal bilaterally MOUTH: other (no intraoral injuries noted) Eye: COMMON NORMALS: Equal, round and reactive pupils present and EOMs intact bilaterally GENERAL EYE: appearance normal, both eyes and all related structures and normal light reflex PUPIL: Yes Equal, round and reactive pupils present DIRECT OPHTHALMOSCOPY: Yes normal light reflex Neck/C-Spine: COMMON NORMALS: full ROM GENERAL: Yes normal visual inspection CERVICAL SPINE: Yes cervical ROM normal, No pain with cervical ROM, No Cervical spine tenderness, No step off deformity and No Paracervical muscle tenderness Chest: COMMONS NORMALS: normal inspection of the chest and normal palpation of entire chest wall Resp: COMMON NORMALS: normal respiratory effort and clear to auscultation bilaterally AUSCULTATION: clear to auscultation bilaterally Cardio: COMMON NORMALS: regular rate and regular rhythm RATE: regular rate RHYTHM: regular rhythm GI: COMMON NORMALS: Normal to inspection, nondistended, normoactive bowel sounds present, Soft to palpation, non-tender, No hepatosplenomegaly present and no masses INSPECTION: Yes normal to inspection, No abdominal wall ecchymosis and Yes other (ventral hernia) AUSCULTATION: Yes normoactive bowel sounds PALPATION: Yes Soft to palpation and Yes No hepatosplenomegaly present Back/Pelvis: COMMON NORMALS: thoracic and lumbar spine normal to inspection, no thoracic nor lumbar tenderness and thoraco-lumbar ROM normal Extremity: COMMON NORMALS: capillary refill normal, no joint enlargement, no clubbing, cyanosis or edema, no calf tenderness and no pedal edema GENERAL: Yes normal exam except as noted RIGHT LOWER EXTREMITY: Yes hip joint (leg is shortened/rotated consistent with fracture) Right hip: Yes ROM (limited secondary to pain) and Yes neurovascular exam (normal) Neuro: LARS COMA SCALE: document GCS findings [place] coma scale eye opening: Spontaneous Lars coma scale verbal response: Orientated [place] coma scale motor response: Obey commands [place] coma scale total score: 15 COMMON NORMALS: patient oriented x3, moves all extremities, no focal motor deficits and no sensory deficits noted SENSORIUM/ORIENTATION: Yes alert, Yes oriented to person, Yes oriented to place and Yes oriented to time SPEECH: speech normal GAIT: Yes Unable to assess gait Skin: COMMON NORMALS: no rashes or lesions noted GENERAL SKIN EXAM: no rashes or lesions noted TRAUMA: no lacerations or abrasions Course Consultations: Consultation #1: Dr. Arroyo-recommends admit to hospitalist, she will consult Consultation #2: Dr. Beck-accepts admission Vital Signs: Vital signs: Vital Signs Temperature 98.2 F 01/18/23 13:56 Pulse Rate 66 01/18/23 14:45 Respiratory Rate 21 H 01/18/23 14:45 Blood Pressure 126/65 01/18/23 14:45 Pulse Oximetry 90 01/18/23 14:45 Oxygen Delivery Me thod Room Air 01/18/23 14:16 MDM - Fall Medical Decision Making Patient is a nice 77-year-old male who presents to ED today following a trip and fall resulting in a right intertrochanteric hip fracture. Patient will be an admit to Dr. Beck with Dr. Arroyo to consult. Lab Data 01/18/23 14:02 01/18/23 14:02 Radiology Impressions Hip/Pelvis X-Ray 01/18/23 13:44 IMPRESSION: 1. Comminuted acute intertrochanteric/trochanteric fracture of the right hip Laboratory Results WBC 6.4 10^3/uL (4.0-10.0) 01/18/23 14:02 RBC 4.35 10^6/uL (4.1-5.3) 01/18/23 14:02 Hgb 12.5 g/dL (11.7-16.6) 01/18/23 14:02 Hct 40.1 % (42.0-52.0) L 01/18/23 14:02 MCV 92.2 fl (80-94) 01/18/23 14:02 MCH 28.7 pg (28.0-34.0) 01/18/23 14:02 MCHC 31.2 g/dL (30.0-36.0) 01/18/23 14:02 RDW 14.6 % (12.1-15.1) 01/18/23 14:02 Plt Count 100 10^3/cmm (130-400) L 01/18/23 14:02 MPV 10.9 fL (7.4-10.4) H 01/18/23 14:02 Neut % (Auto) 76.6 % 01/18/23 14:02 Lymph % (Auto) 15.6 % 01/18/23 14:02 [place] % (Auto) 6.3 % 01/18/23 14:02 Eos % (Auto) 0.6 % 01/18/23 14:02 Baso % (Auto) 0.3 % 01/18/23 14:02 Neut # (Auto) 4.87 10^3/uL (1.8-7.7) 01/18/23 14:02 Lymph # (Auto) 1.0 10^3/uL (0.8-4.8) 01/18/23 14:02 [place] # (Auto) 0.4 10^3/uL (0.2-0.9) 01/18/23 14:02 Eos # (Auto) 0.0 10^3/uL (0.0-0.8) 01/18/23 14:02 Baso # (Auto) 0.0 10^3/uL (0.0-0.1) 01/18/23 14:02 Nucleated RBC % (auto) 0 % 01/18/23 14:02 Nucleated RBCs # 0.0 /100WBC 01/18/23 14:02 Sodium 141 mmol/L (136-145) 01/18/23 14:02 Potassium 4.1 mmol/L (3.5-5.1) 01/18/23 14:02 Chloride 105 mmol/L (98-107) 01/18/23 14:02 Carbon Dioxide 27 mmol/L (22-29) 01/18/23 14:02 Anion Gap 13.1 (5-19) 01/18/23 14:02 BUN 23 mg/dL (8-23) 01/18/23 14:02 Creatinine 0.8 mg/dL (0.7-1.2) 01/18/23 14:02 GFR Calculation Not Reportable 01/18/23 14:02 Glucose 125 mg/dL (65-115) H 01/18/23 14:02 Calculated Osmolality 297 mOsm/kg (285-295) H 01/18/23 14:02 Calcium 9.4 mg/dL (8.5-10.5) 01/18/23 14:02 Total Bilirubin 0.9 mg/dL (0.15-1.2) 01/18/23 14:02 AST 16 U/L (0-40) 01/18/23 14:02 ALT 14 U/L (0-41) 01/18/23 14:02 Alkaline Phosphatase 61 U/L (40-130) 01/18/23 14:02 Total Protein 6.7 g/dL (6.6-8.7) 01/18/23 14:02 Albumin 4.1 g/dL (3.5-5.2) 01/18/23 14:02 Globulin 2.6 g/dL (1.3-4.6) 01/18/23 14:02 Discharge Plan Discharge Patient Disposition: Admitted As Inpatient Clinical Impression: Fall on same level from tripping Closed intertrochanteric fracture of right hip Qualifiers: Encounter type: initial encounter Fracture alignment: displaced Qualified Code(s): S72.141A - Displaced intertrochanteric fracture of right femur, initial encounter for closed fracture Condition: Stable Prescriptions: No Action glipizide 5 mg tablet 5 mg PO BID multivitamin Tablet 1 tab PO DAILY (DME) hinged elbow brace See Rx Instructions .Route .MEDSUPPLY Qty: 1 0RF Rx Instructions: As directed clopidogrel 75 mg tablet 75 mg PO BEDTIME tramadol 50 mg tablet 50 mg PO QAM rosuvastatin 20 mg tablet 20 mg PO BEDTIME cinnamon bark [Cinnamon] 500 mg Capsule 500 mg PO BEDTIME lisinopril 20 mg tablet 20 mg PO BEDTIME tamsulosin 0.4 mg capsule 0.4 mg PO BEDTIME Mejia-Mag 200 mg calcium- 100 mg Tablet,Chewable 1 tab PO BEDTIME amiodarone 200 mg tablet 200 mg PO BEDTIME amitriptyline 25 mg tablet 25 mg PO BEDTIME metformin 500 mg tablet extended release 24 hr 500 mg PO BID metoprolol tartrate 25 mg tablet 25 mg PO BID Referrals: Nehemiah Kaur MD [Primary Care Provider] - Coding Level of Care Code ED [employer]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
--- NOTE | 2023-01-18 13:58 | ECG_ITS ---
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 Measurements Intervals [place] Rate: 58 P: -16 [place]: 166 QRS: -25 QRSD: 186 T: -1 QT: 482 QTc: 477 Interpretive Statements SINUS BRADYCARDIA WITH OCCASIONAL VENTRICULAR PREMATURE COMPLEXES BORDERLINE LEFT AXIS DEVIATION [QRS AXIS < -20] RIGHT BUNDLE BRANCH BLOCK [120+ ms QRS DURATION, UPRIGHT V1, 40+ ms S IN I/aVL/V4/V5/V6] Compared to ECG 09/22/2022 01:20:54 Ventricular premature complex(es) now present Sinus rhythm no longer present Electronically Signed On 01-18-2023 16:01:31 CDT by Pita Cruz M.D. [email or web address]
[2023-01-18 14:26] LABS: Basophils % 0.3 %; Eosinophils % 0.6 %; Hematocrit 40.1 % (42.0-52.0); Hemoglobin 12.5 g/dL (11.7-16.6); Lymphocytes % 15.6 %; Mean Corpuscular HGB Conc 31.2 g/dL (30.0-36.0); Mean Corpuscular Hemoglobin 28.7 pg (28.0-34.0); Mean Corpuscular Volume 92.2 fl (80-94); Mean Platelet Volume 10.9 fL (7.4-10.4); Monocytes # 0.4 10^3/uL (0.2-0.9); Monocytes % 6.3 %; Neutrophils # 4.87 10^3/uL (1.8-7.7); Neutrophils % 76.6 %; Nucleated Red Blood Cells % 0 %; Platelet Count 100 10^3/cmm (130-400); Red Blood Count 4.35 10^6/uL (4.1-5.3); Red Cell Distribution Width 14.6 % (12.1-15.1); White Blood Count 6.4 10^3/uL (4.0-10.0)
[2023-01-18 14:41] LABS: Alanine Aminotransferase 14 U/L (0-41); Albumin Level 4.1 g/dL (3.5-5.2); Alkaline Phosphatase 61 U/L (40-130); Anion Gap 13.1 (5-19); Aspartate Amino Transferase 16 U/L (0-40); Blood Urea Nitrogen 23 mg/dL (8-23); Calcium 9.4 mg/dL (8.5-10.5); Carbon Dioxide 27 mmol/L (22-29); Chloride 105 mmol/L (98-107); Globulin 2.6 g/dL (1.3-4.6); Glucose 125 mg/dL (65-115); Osmolality Calculated 297 mOsm/kg (285-295); Potassium 4.1 mmol/L (3.5-5.1); Sodium 141 mmol/L (136-145); Total Bilirubin 0.9 mg/dL (0.15-1.2); Total Protein 6.7 g/dL (6.6-8.7)
--- NOTE | 2023-01-18 14:42 | PC.PHAR ---
Addendum entered by Donna Espinoza 01/18/23 14:46: pts states the pt stop taking 81mg of aspirin daily about a month ago- Original Note: pt and pts verified medications-pt states he takes lisinopril 20mg daily ext shows last filled 08/14/22 90d/s pt states has a build up-ext also shows lisinopril 5mg daily filled 12/01/22 90d/s pt states it was decreased but then increased again to the 20mg daily-
--- NOTE | 2023-01-18 16:06 | PM.MISC ---
Miscellaneous Note Purpose of Documentation: Operative scheduling Note: X-rays have been reviewed and demonstrate a comminuted intertrochanteric right hip fracture with displacement. At the time of this note, the patient remains in the emergency department. He will be admitted to the medical service and optimized for surgical intervention. Plans are for open reduction internal fixation right intertrochanteric hip fracture.
[2023-01-18 16:09] LABS: Add Urine Microscopic? NO; Charge for UA Resulting for Rev
[2023-01-18 16:15] LABS: Bilirubin Urine Neg (Negative); Blood Urine Neg (Negative); Glucose Urine UA Norm (Normal); Ketones Urine Negative (Negative); Leukocyte Esterase Urine Negative (Negative); Nitrate Urine Negative (Negative); Protein Urine Neg (Negative); Urine Appearance Clear (CLEAR); Urine Color Yellow (Yellow); Urobilinogen Urine 1 mg/dL (Negative); pH Urine 6 (5-7)
[2023-01-18] MEDS: fentaNYL 50 mcg/mL INJ 2mL 75 MCG IVP (16:24)
--- NOTE | 2023-01-18 17:14 | USCV_ITS ---
Arnold Ceron Age: 77 Gender: M : 1945 Exam Date: 01/18/2023 18:09 Ordering Phys: Saúl Beck MD Technologist: CHRIS Exam Location: [facility] Indication: RIGHT hip fracture today. Pre-op clearance. No history of DVT per patient. HISTORY: RIGHT hip fracture today. Pre-op clearance. No history of DVT per patient. PROCEDURES: Venous duplex imaging was performed in bilateral lower extremities. The following venous structures were evaluated: common femoral vein, profunda vein, proximal portion of the greater saphenous vein, superficial femoral vein, and the popliteal vein. In addition, the posterior tibial veins were evaluated. Serial compression, augmentation maneuvers, and spectral Doppler flow evaluation were performed, which were normal. Bilaterally, the common femoral, superficial femoral, profunda femoral, popliteal, posterior tibial, and greater saphenous veins were identified and interrogated in the standard fashion. These veins were found to be easily compressible with spontaneous blood flow. No evidence of thrombus noted. CONCLUSIONS No evidence of right lower extremity DVT. No evidence of left lower extremity DVT. Josias Durbin MD (Electronically Signed) Final Date: 19 January 2023 11:15 S
--- NOTE | 2023-01-18 17:23 | P.HP_ITS ---
Providers/Chief Complaint Admitting Physician: Saúl Beck Primary Care Provider: Nehemiah Kaur MD Chief Complaint: fall hip pain with rotation History of Present Illness Pleasant 77-year-old gentleman with history of spinocerebellar degeneration, cerebellar ataxia, normally walks with a walker, additionally with history of CAD, prior stents, and additionally more recent stent placed in April 2022, on Plavix, history of ischemic cardiomyopathy prior cardiogram in April EF 35- 40%, moderate global hypokinesis, grade 1 diastolic dysfunction, history of NSVT on amiodarone, HTN, HLD, DM 2, VERONICA on nightly CPAP, denies any other pulmonary conditions, remote history of smoking, he states normally is fairly active, walks with a walker although not very far distances, at times may get short of breath with exertion, but denies getting short of breath with walking around the house although does not usually get very far due to his cerebellar ataxia. Denies any exertional chest pain or pressure. States otherwise has not been bothered with any cardiac complaints since his last stent in April. He had left his walker outside and was pushing a roller chair which tripped over a cable on the floor leading to him falling subsequently with right hip pain, aortic shortening extremity noted in ER. Comminuted acute intertrochanteric fracture of the right hip on x-ray. Chest x-ray unremarkable. He has no pain or injury elsewhere. He is noted to have some bradycardia, heart rates in high 50s-mid 60s which is not new. EKG with sinus bradycardia, RBBB. He is otherwise afebrile, without leukocytosis, UA unremarkable. Hemoglobin is 12.5, platelets noted at 100,000 with prior history of mild to moderate thrombocytopenia. Electrolytes unremarkable, glucose 125. Review of Systems Const: Denies: fever(s), chills, body aches or malaise Eyes: Denies: change in vision, eye discomfort or eye redness ENMT: Denies: throat pain Card: Denies: chest pain, edema or pre-syncope Resp: Denies: dyspnea, productive cough, change in phlegm color or hemoptysis GI: Denies: abdominal pain, nausea, vomiting, diarrhea, constipation, hematochezia or melena : Denies: flank pain, difficulty urinating, urinary frequency or hematuria Musc: Reports: joint pain (R hip); Denies: back pain, joint swelling or joint redness Skin/Breast: Denies: rash or new lesions Neuro: Reports: lack of coordination and difficulty walking; Denies: headache(s), numbness in extremities, weakness in extremities, dizziness, confusion or seizure-like activity Medications/Allergies Home Medications Medication Instructions Recorded Confirmed Last Taken Type rosuvastatin 20 mg tablet 20 mg PO BEDTIME 08/29/19 01/18/23 01/17/23 History glipizide 5 mg tablet 5 mg PO BID 08/17/20 01/18/23 01/18/23 History multivitamin 1 tab PO DAILY 10/05/21 01/18/23 07/20/22 History cinnamon bark 500 mg capsule 500 mg PO BEDTIME 05/08/22 01/18/23 01/17/23 History (Cinnamon) clopidogrel 75 mg tablet 75 mg PO BEDTIME 06/26/22 01/18/23 01/17/23 History lisinopril 20 mg tablet 20 mg PO BEDTIME 07/20/22 01/18/23 01/17/23 History see pharmacy comment tamsulosin 0.4 mg capsule 0.4 mg PO BEDTIME 07/20/22 01/18/23 01/17/23 History hinged elbow brace #1 ea 10/23/22 01/18/23 Unknown Rx tramadol 50 mg tablet 50 mg PO QAM 12/20/22 01/18/23 01/18/23 History see pharmacy comment amiodarone 200 mg tablet 200 mg PO BEDTIME 01/18/23 01/18/23 01/17/23 History amitriptyline 25 mg tablet 25 mg PO BEDTIME 01/18/23 01/18/23 01/17/23 History calcium carbonate 200 mg-magnesium 1 tab PO BEDTIME 01/18/23 01/18/23 01/17/23 History oxide,carbonate 100 mg chew tablet (Mejia-Mag) metformin 500 mg tablet,extended 500 mg PO BID 01/18/23 01/18/23 01/18/23 History release 24 hr metoprolol tartrate 25 mg tablet 25 mg PO BID 01/18/23 01/18/23 01/18/23 History Allergies Allergy/AdvReac Type Severity Reaction Status Date / Time No Known Allergies Allergy Verified 01/18/23 14:23 PFSH Acute PFSH: Medical History Arachnoid cyst ASHD (arteriosclerotic heart disease) Cerebellar ataxia DDD (degenerative disc disease), lumbar Diabetes mellitus Diabetic neuropathy Gait instability History of colon cancer Hyperlipidemia Hypertension Intervertebral disc disorder with radiculopathy of lumbosacral region Ischemic cardiomyopathy Lumbar disc disease with radiculopathy Lumbar spondylosis Lumbosacral disc disease Migraine NSVT (nonsustained ventricular tachycardia) Obesity VERONICA on CPAP Spinocerebellar degeneration Tobacco abuse Surgical History H/O coronary angioplasty History of back surgery Left L4-L5, L5-S1 hemilaminotomy/discectomy/foraminotomy, 09/01/2019, [facility] History of cholecystectomy History of hernia repair History of resection of small bowel History of sinus surgery Family History Mother Cancer Father CAD (coronary artery disease) Sister Hypertension Social History Smoking and tobacco status: former smoker Alcohol intake: never Substance/Drug Use: never Lives independently: Yes Household members: spouse Marital status: Current occupational status: retired Current occupation: retired Vitals/I&O/Wt Last Vital Signs Temp 98.2 F 01/18/23 13:56 Pulse 59 L 01/18/23 16:34 Resp 17 01/18/23 16:34 BP 140/74 01/18/23 16:34 Pulse Ox 93 01/18/23 16:34 O2 Del Method Room Air 01/18/23 14:16 Weight last 48 hrs Weight 102.058 kg Physical Exam Narrative: Accompanied by family Const: COMMON NORMALS: patient oriented x3 and alert GENERAL APPEARANCE: cooperative ORIENTATION/CONSCIOUSNESS: Yes awake HENMT: COMMON NORMALS: oropharynx normal Neck/C-Spine: COMMON NORMALS: no JVD Resp: COMMON NORMALS: normal respiratory effort and clear to auscultation bilaterally AUSCULTATION: clear to auscultation bilaterally Cardio: COMMON NORMALS: no JVD, regular rhythm, S1 normal heart sound present, S2 normal heart sound present and No murmurs present (Cardio) RHYTHM: regular rhythm HEART SOUNDS: S1 normal heart sound present and S2 normal heart sound present GI: COMMON NORMALS: Normal to inspection, nondistended, normoactive bowel soun ds present, Soft to palpation and non-tender PALPATION: Yes Soft to palpation Extremity: COMMON NORMALS: no joint enlargement and no pedal edema OTHER: Shortened, everted RLE, appears perfused Minimal amount of edema left lower extremity. Neuro: COMMON NORMALS: patient oriented x3 and moves all extremities SENSORIUM/ORIENTATION: Yes alert Skin: COMMON NORMALS: no rashes or lesions noted GENERAL SKIN EXAM: no rashes or lesions noted Urinary Catheter Management: Garcia: Cath Placed During This Visit: yes Urinary Catheter Date of Insertion: 01/18/23 Urinary Catheter Time of Insertion: 16:03 Data 01/18/23 14:02 01/18/23 14:02 A&P Assessment and plan (1) Closed intertrochanteric fracture of right hip: Comminuted fracture of the right hip after a mechanical fall. Came to ER for evaluation. He would like to seek surgical repair. States that he does not want to delay surgery, wants best chances of recovery his functional ability which is impaired at baseline with coordination difficulties due to spinocerebellar degeneration. He does have a number of underlying comorbidities which contribute to increasing risk of going through surgical procedure, he and family understand this. He otherwise appears compensated in terms of his cardiac conditions. He denies any chest pain or pressure, no exertional chest discomfort. He states sometimes may get short of breath but overall when he walks around the apartment does not get short of breath. There are no signs of decompensation of congestive heart failure. He has sleep apnea, denies other pulmonary disease. Chest x-ray is unremarkable. Noted some mild bradycardia, heart rate 59, into the mid 60s. EKG interpretation appears unchanged from prior without any ischemic signs. He is on metoprolol. He is on Plavix, and he understands that his bleeding risk will be elevated if proceeding with surgery tomorrow. Certainly it is difficult to say that stopping Plavix and waiting for effect wore off may be more beneficial given he would still be at risk of bleeding at the fracture site while awaiting Plavix to wear off if deciding to delay hip repair. His risk is higher to go for surgery, however, does not appear that additional delay would be beneficial. Cardiac evaluation includes recent angiogram last April. Discussed with orthopedics. We will request for baseline troponin. With risk of bleeding will type and screen. Additionally will check iron studies to assess for iron deficiency in which case may benefit from iron infusion. As per discussion with orthopedics request is to hold morning Plavix. Monitor on telemetry with risk of cardiac decompensation, arrhythmia. Monitor volume status, avoid fluid overload. Will obain valera TTE. He has a history of NSVT has been well controlled on amiodarone as also noted on cardiology assessment at office follow-up a month ago. Hold morning lisinopril. Initial consideration of VT prophylaxis with 1 dose of heparin, her, will withhold given increased risk of bleeding given he is on Plavix as well as mild thrombocytopenia platelets 100,000. SCD prophylaxis. IV morphine pain control. Case management consultation. Hemoglobin noted 12.5. Platelets 100. Follow-up blood counts. Qualifiers: Encounter type: initial encounter Fracture alignment: displaced Qualified Code(s): S72.141A - Displaced intertrochanteric fracture of right femur, initial encounter for closed fracture (2) Fall on same level from tripping: Plan Min edema LLE: assess venous duplex. Spinocerebellar degeneration, Cerebellar ataxia, normally walks with a walker, follows with neurology, note appreciated CAD, prior stents, and additionally more recent stent placed in April 2022, on Plavix, last visit with cardiology a month ago, note reviewed, has been doing well. Resume Plavix as soon as able, continue beta-jonathan, statin. D/W his grader green meat as well regarding his current medical problem. History of ischemic cardiomyopathy prior cardiogram in April EF 35-40%, moderate global hypokinesis, grade 1 diastolic dysfunction, not in decompens ation. Hold lisinopril. Avoid fluid overload. History of NSVT on amiodarone, continue amiodarone HTN, continue metoprolol, hold lisinopril HLD, continue statin DM 2, hold oral hypoglycemics, dose SSI. Accu-Cheks requested. VERONICA on nightly CPAP DW orthopedics, anesthesia. Attestations Medical Necessity Statement*: Admission of over 2 dissipated for assessment and management of right hip for trend gentleman with multiple underlying comorbidities including history of CAD, ischemic cardiomyopathy, and additional comorbidities as above. Diagnoses Closed intertrochanteric fracture of right hip S72.141A Encounter type: initial encounter Fracture alignment: displaced Fall on same level from tripping W01.0XXA
[2023-01-18 17:40] LABS: Ferritin 388 ng/mL (30-400); Iron 81 ug/dL (59-158); Percent Saturation 38.9 % (20-50); Total Iron Binding Capacity 208 mcg/dl; Unsaturated Iron Binding 127 ug/dL (112-347)
[2023-01-18] MEDS: metoprolol tartrate 25 mg Tablet PO (17:48)
[2023-01-18 18:16] LABS: Troponin T (5th) Once 14 ng/L (0-15)
--- NOTE | 2023-01-18 18:39 | USCV_ITS ---
Arnold Ceron Age: 77 Gender: M : 1945 Exam Date: 01/18/2023 18:52 Ordering Phys: Saúl Beck MD Technologist: CHRIS Exam Location: [facility] [place] Indication: RIGHT hip fracture, patient cannot be moved. Pre- op clearance. All views obtained supine. History of cardiac stenting, last 2021, hx DM, HTN, CAD BP: 140 / 74 HR: 61 Rhythm: Sinus Technical Quality: Fair with [employer] MEASUREMENTS (Male / Female) Normal Values 2D ECHO LV Diastolic Diameter PLAX 6.7 cm 4.2 - 5.9 / 3.9 - 5.3 cm LV Systolic Diameter PLAX 4.7 cm IVS Diastolic Thickness 1.0 cm 0.6 - 1.0 / 0.6 - 0.9 cm IVS Systolic Thickness 1.8 cm LVPW Diastolic Thickness 1.3 cm 0.6 - 1.0 / 0.6 - 0.9 cm LVPW Systolic Thickness 1.3 cm LVOT Diameter 2.4 cm LV Ejection Fraction 2D Teich 58.4 % LV Ejection Fraction MOD 2C 32.4 % LV Ejection Fraction 2C AL 34.5 % LA Diameter 3.5 cm LA Width 2.8 cm LA Height 4.5 cm RA Width 3.3 cm RA Height 4.6 cm Aorta at Sinotubular Diameter 3.2 cm IVC Diameter 1.9 cm M-MODE Aortic Annulus Diameter 3.7 cm LA Ao Ratio MM 1.0 MV E Point Septal Separation 0.6 cm DOPPLER AV Peak Velocity 171.0 cm/s LVOT Peak Velocity 63.0 cm/s AV Area Cont Eq vti 2.0 cm squared AV Area Cont Eq pk 1.7 cm squared MV Area PHT 3.4 cm squared Mitral E to A Ratio 0.8 MV E' Velocity 34.0 cm/s Mitral E to MV E' Ratio 8.1 Mitral E to LV E' Lateral Ratio 7.7 Mitral E to LV E' Septal Ratio 8.7 TV Peak E Velocity 43.0 cm/s PV Peak Velocity 101.0 cm/s RV Acceleration Time 0.1 s RV Ejection Time 0.4 s RV AcT/ET 0.2 FINDINGS Left Ventricle Technically limited limited quality echocardiogram because of poor ultrasonic windows. LV systolic function is mildly reduced with EF of 40 to 45%. Mild global hypokinesis seen. Grade 1 diastolic dysfunction Right Ventricle Grossly normal Right Atrium Normal in size Left Atrium Normal in size Mitral Valve Grossly normal. Aortic Valve Grossly normal. No significant stenosis or regurgitation seen. Tricuspid Valve Insufficient TR jet to calculate RVSP Pulmonic Valve Not well visualized. Mild pulmonic regurgitation. Pericardium Normal Aorta Mildly dilated ascending aorta IVC Appears to be normal CONCLUSIONS Technically limited quality echocardiogram because of poor ultrasonic windows. LV systolic function is mildly reduced with EF of 40 to 45%. Grade 1 diastolic dysfunction. Valvular structures are not well-visualized. Mild pulmonic regurgitation Mildly dilated ascending aorta. Compared to prior echocardiogram from 05/03/2022, LV systolic function has improved. Tristian Clarke MD (Electronically Signed) Final Date: 19 January 2023 09:29 S
--- NOTE | 2023-01-18 18:58 | P.CONIM_ITS ---
Providers/Reason For Consult Consulting Physician/Specialty*: Berna Arroyo MD - Orthopedics Reason for Consult*: Right intertrochanteric hip fracture Requesting Physician: Clementine Villalba NP Attending Physician: Saúl Beck Primary Care Provider: Nehemiah Kaur MD History of Present Illness History of Present Illness Arnold Ceron is a 77 year old male who presented to the emergency department today after a fall at home. Significant past medical history includes spinal cerebral degeneration with cerebellar ataxia. The patient normally uses a walker for ambulation, but he left his walker outside and was pushing a roller chair when he tripped on a cable on the floor subsequently falling directly onto his right hip. Patient presented to the emergency department for evaluation, and he was found to have a comminuted displaced intertrochanteric right hip fracture. He denied other injuries, and he denied shortness of breath. Of importance, the patient has a spinocerebellar degeneration with cerebellar ataxia as noted above. He also has a history of coronary artery disease with prior stent placement as well as a more recent stent placed in April 2022. Additionally, there is a history of ischemic cardiomyopathy as well as multiple other medical issues as described in admission history and physical. Review of Systems Const: Denies: fever(s), chills, body aches, fatigue or malaise Eyes: Denies: change in vision, blurry vision, photophobia, eye discomfort, eye discharge, eye redness, floaters or seeing flashes ENMT: Denies: throat pain, odynophagia, ear or mastoid pain, ear discharge, nasal discharge, epistaxis or sinus pain Card: Denies: chest pain, palpitations, edema, lightheadedness, syncope, pre- syncope or dyspnea on exertion Resp: Denies: dyspnea, productive cough, pain on inspiration, change in phlegm color or hemoptysis GI: Denies: abdominal pain, nausea, vomiting, diarrhea, constipation, hematochezia or melena : Denies: flank pain, difficulty urinating, urinary frequency or hematuria Musc: Reports: joint pain (R hip) and limited range of motion (R hip); Denies: neck pain, back pain, extremity pain, extremity swelling, joint swelling, joint redness or joint warmth Skin/Breast: Denies: rash or new lesions Neuro: Reports: lack of coordination and difficulty walking; Denies: headache(s), numbness in extremities, weakness in extremities, sensory changes, dizziness, confusion or seizure-like activity Medications/Allergies Home Medications Medication Instructions Recorded Confirmed Last Taken Type rosuvastatin 20 mg tablet 20 mg PO BEDTIME 08/29/19 01/18/23 01/17/23 History glipizide 5 mg tablet 5 mg PO BID 08/17/20 01/18/23 01/18/23 History multivitamin 1 tab PO DAILY 10/05/21 01/18/23 07/20/22 History cinnamon bark 500 mg capsule 500 mg PO BEDTIME 05/08/22 01/18/23 01/17/23 History (Cinnamon) clopidogrel 75 mg tablet 75 mg PO BEDTIME 06/26/22 01/18/23 01/17/23 History lisinopril 20 mg tablet 20 mg PO BEDTIME 07/20/22 01/18/23 01/17/23 History see pharmacy comment tamsulosin 0.4 mg capsule 0.4 mg PO BEDTIME 07/20/22 01/18/23 01/17/23 History hinged elbow brace #1 ea 10/23/22 01/18/23 Unknown Rx tramadol 50 mg tablet 50 mg PO QAM 12/20/22 01/18/23 01/18/23 History see pharmacy comment amiodarone 200 mg tablet 200 mg PO BEDTIME 01/18/23 01/18/23 01/17/23 History amitriptyline 25 mg tablet 25 mg PO BEDTIME 01/18/23 01/18/23 01/17/23 History calcium carbonate 200 mg-magnesium 1 tab PO BEDTIME 01/18/23 01/18/23 01/17/23 History oxide,carbonate 100 mg chew tablet (Mejia-Mag) metformin 500 mg tablet,extended 500 mg PO BID 01/18/23 01/18/23 01/18/23 History release 24 hr metoprolol tartrate 25 mg tablet 25 mg PO BID 01/18/23 01/18/23 01/18/23 History Allergies Allergy/AdvReac Type Severity Reaction Status Date / Time No Known Allergies Allergy Verified 01/18/23 14:23 Current Medications Generic Name Dose Route Start Last Admin Trade Name Freq PRN Reason Stop Dose Admin Metoprolol Tartrate 25 mg 01/18/23 18:00 01/18/23 17:48 Metoprolol Tartrate 25 Mg Tablet PO 25 mg BID MARY Administration PFSH Acute PFSH: Medical History Arachnoid cyst ASHD (arteriosclerotic heart disease) Cerebellar ataxia DDD (degenerative disc disease), lumbar Diabetes mellitus Diabetic neuropathy Gait instability History of colon cancer Hyperlipidemia Hypertension Intervertebral disc disorder with radiculopathy of lumbosacral region Ischemic cardiomyopathy Lumbar disc disease with radiculopathy Lumbar spondylosis Lumbosacral disc disease Migraine NSVT (nonsustained ventricular tachycardia) Obesity VERONICA on CPAP Spinocerebellar degeneration Tobacco abuse Surgical History H/O coronary angioplasty History of back surgery Left L4-L5, L5-S1 hemilaminotomy/discectomy/foraminotomy, 09/01/2019, [facility] History of cholecystectomy History of hernia repair History of resection of small bowel History of sinus surgery Family History Mother Cancer Father CAD (coronary artery disease) Sister Hypertension Social History Smoking and tobacco status: former smoker Alcohol intake: never Substance/Drug Use: never Lives independently: Yes Household members: spouse Marital status: Current occupational status: retired Current occupation: retired Dietary Habits: Current diet type/program: regular Caffeine: Yes Exercise: What type of physical activity do you participate in?: none Vitals/I&O/Wt Last Vital Signs Temp 98.2 F 01/18/23 13:56 Pulse 59 L 01/18/23 16:34 Resp 17 01/18/23 16:34 BP 140/74 01/18/23 16:34 Pulse Ox 93 01/18/23 16:34 O2 Del Method Room Air 01/18/23 16:57 01/18/23 01/18/23 01/18/23 06:59 14:59 22:59 Intake Total 120 / 120 Balance 120 / 120 Weight last 48 hrs Weight 225 lb Physical Exam Const: COMMON NORMALS: no acute distress, average body habitus, patient o riented x3 and alert GENERAL APPEARANCE: cooperative and comfortable ORIENTATION/CONSCIOUSNESS: Yes awake HENMT: COMMON NORMALS: normocephalic and atraumatic HEAD & SCALP: normocephalic and atraumatic Eye: GENERAL EYE: appearance normal, both eyes and all related structures Chest: COMMONS NORMALS: normal inspection of the chest Resp: COMMON NORMALS: normal respiratory effort EFFORT & INSPECTION: Yes able to speak in complete sentences and Yes symmetric chest movement Extremity: RIGHT LOWER EXTREMITY: Yes hip joint Right hip: Yes inspection (No ecchymosis), Yes ROM (Not evaluated due to fracture, intact distally) and Yes neurovascular exam (Intact distally with no evidence of DVT) Neuro: COMMON NORMALS: patient oriented x3 SENSORIUM/ORIENTATION: Yes alert Psych: COMMON NORMALS: mental status grossly normal APPEARANCE: Yes grossly normal ATTITUDE: Yes calm and Yes engaged ATTENTION/CONCENTRATION: Yes attention grossly intact Skin: COMMON NORMALS: no rashes or lesions noted GENERAL SKIN EXAM: no rashes or lesions noted Urinary Catheter Management: Garcia: Cath Placed During This Visit: yes Reason for Continuing Indwelling Catheter: Required Immobilization for Trauma or Surgery or Anesthesia Urinary Catheter Date of Insertion: 01/18/23 Urinary Catheter Time of Insertion: 16:03 Data 01/19/23 04:48 01/19/23 04:48 Xray Ortho: My impression: 3 views of the right hip are personally interpreted by me. The images include an AP pelvis as well as isolated AP and lateral of the patient's right hip. There is a comminuted displaced angulated intertrochanteric hip fracture. A&P Assessment and plan (1) Closed intertrochanteric fracture of right hip: Patient is admitted through the emergency department after a fall at home. He normally uses a walker, but his walker was outside, and he tripped over a cable on the floor resulting in the above injury. He was admitted through the medical service for definitive treatment. He has multiple medical comorbidities which are outlined in the hospitalist admission history and physical. After review of the x-rays and diagnosis of displaced angulated comminuted right intertrochanteric hip fracture, plans are made for open reduction internal fixation tomorrow morning. Risks and complications are discussed with the patient and his family. Consents were signed and questions were answered. Qualifiers: Encounter type: initial encounter Fracture alignment: displaced Qualified Code(s): S72.141A - Displaced intertrochanteric fracture of right femur, initial encounter for closed fracture Coding Level of Care Code 13020 Diagnoses Closed intertrochanteric fracture of right hip S72.141A Encounter type: initial encounter Fracture alignment: displaced
[2023-01-18] MEDS: amitriptyline 25 mg Tablet PO (20:33)
[2023-01-18] MEDS: tamsulosin 0.4 mg Capsule PO (20:33)
[2023-01-18] MEDS: amiodarone 200 mg Tablet PO (20:33)
[2023-01-18] MEDS: atorvastatin 40 mg Tablet 80 MG PO (20:33)
[2023-01-18] MEDS: morphine 4 mg/mL SDV 1 mL IVP (20:34)
[2023-01-18 21:20] LABS: Glucose Point of Care 140 mg/dL (70-110)
[2023-01-19] VITALS (21 sets, daily range): BP systolic 102–126; BP diastolic 56–80; PULSE 60–72; RESP 14–20; TEMP 36.4–37; O2SAT 62–99
--- NOTE | 2023-01-19 | XR_ITS ---
WS: [id number] Exam: XR hip RT 2-3V wo/w pel* [id number] Date/Time of Exam: 01/19/2023 12:00 AM Reason For Exam: OPERATIVE PROCEDURE Intraoperative AP and lateral C-arm images of the right hip are submitted for evaluation. The images depict the internal orthopedic fixation of an intertrochanteric fracture with an intramedu llary derrell and femoral neck screw. The fracture is stabilized in satisfactory alignment for healing.
[2023-01-19] MEDS: morphine 4 mg/mL SDV 1 mL IVP ×2 (01:43→06:00)
[2023-01-19 04:57] LABS: Basophils % 0.3 %; Eosinophils # 0.1 10^3/uL (0.0-0.8); Eosinophils % 1.4 %; Hematocrit 34.3 % (42.0-52.0); Hemoglobin 10.9 g/dL (11.7-16.6); Lymphocytes # 0.8 10^3/uL (0.8-4.8); Lymphocytes % 10.9 %; Mean Corpuscular HGB Conc 31.8 g/dL (30.0-36.0); Mean Corpuscular Volume 91.2 fl (80-94); Mean Platelet Volume 10.8 fL (7.4-10.4); Monocytes # 0.5 10^3/uL (0.2-0.9); Monocytes % 7.4 %; Neutrophils # 5.72 10^3/uL (1.8-7.7); Neutrophils % 79.9 %; Nucleated Red Blood Cells % 0 %; Platelet Count 90 10^3/cmm (130-400); Red Blood Count 3.76 10^6/uL (4.1-5.3); Red Cell Distribution Width 14.8 % (12.1-15.1); White Blood Count 7.2 10^3/uL (4.0-10.0)
[2023-01-19 05:13] LABS: Anion Gap 13.1 (5-19); Blood Urea Nitrogen 23 mg/dL (8-23); Calcium 8.7 mg/dL (8.5-10.5); Carbon Dioxide 26 mmol/L (22-29); Chloride 105 mmol/L (98-107); Glucose 171 mg/dL (65-115); Osmolality Calculated 298 mOsm/kg (285-295); Potassium 4.1 mmol/L (3.5-5.1); Sodium 140 mmol/L (136-145)
[2023-01-19 06:24] LABS: Glucose Point of Care 176 mg/dL (70-110)
[2023-01-19] MEDS: CELEcoxib 200 mg Capsule 400 MG PO (07:31)
[2023-01-19] MEDS: gabapentin 300 mg Capsule PO (07:31)
[2023-01-19] MEDS: acetaminophen 1,000 MG/100 ML PIGGYBACK 400 MG IV ×2 (07:31→14:52)
[2023-01-19] MEDS: HYDROmorphone 1 mg/mL INJ 1 mL 0.5 MG IVP (07:52)
--- NOTE | 2023-01-19 07:59 | W.PM.OPSUD ---
Surgery/Procedure H&P Update DATE OF PROCEDURE: January 19, 2023 DATE H&P PERFORMED: 01/18/23 H&P UPDATE INFORMATION: I have reviewed H&P completed within last 30 days, I have examined patient prior to procedure, No changes to prior documentation and H&[place] is in [facility] [place] indicated CHANGES TO PREVIOUS DOCUMENTATION: The patient is seen with his family in the preop holding area. The surgery was discussed completely with them. Questions were answered. PLANNED PROCEDURE: Operation Date: 01/19/23 08:10 Proposed Procedures p Trochanteric Femoral Nail(Right) - Berna Arroyo MD Related Problem List Diagnoses (1) Closed intertrochanteric fracture of right hip: Qualifiers: Encounter type: initial encounter Fracture alignment: displaced Qualified Code(s): S72.141A - Displaced intertrochanteric fracture of right femur, initial encounter for closed fracture (2) Spinocerebellar degeneration: (3) Cerebellar ataxia:
[2023-01-19] MEDS: ceFAZolin 2,000 MG in sodium chloride 0.9% (plus) 50 ML 100 MG IV ×2 (08:23→15:20)
--- NOTE | 2023-01-19 08:59 | ANES.PREANE2 ---
Pre-Anesthetic Assessment Height/Weight: Height 1.78 m Weight 102.058 kg Temp Pulse Resp BP Pulse Ox O2 Del Method 97.6 F 67 16 103/66 90 Room Air 01/19/23 05:03 01/19/23 05:03 01/19/23 07:52 01/19/23 05:03 01/19/23 05:03 01/18/23 16:57 Operation Date: 01/19/23 08:10 Proposed Procedures p Trochanteric Femoral Nail(Right) - Berna Arroyo MD Familial anesthetic complications: none Was Beta Marie taken within 24 hours: Yes Was Clonidine taken within 24 hours: N/A Last intake: Intake Last Liquid Date 01/19/23 Last Liquid Time 00:00 Last Solid Date 01/18/23 Last Solid Time 20:00 Social No alcohol and No tobacco Exam alert, oriented x 3, clear to auscultation bilaterally and regular rate & rhythm Airway Submandibular: within normal limits Cervical ROM: within normal limits Mallampati: Class II Dentition: chipped and partials CV/HEM Arrythmia, Coronary Artery Disease, Congestive Heart Failure (EF 35-40%) and Hypertension Plavix Metabolic Diabetes Mellitus, Hyperlipidemia and Morbid Obesity Musc/skel Lower Back Pain and Osteoarthritis/DJD Neuropsych Neuropathy Cerebellar ataxia Anesthetic Plan ASA status: 3 Anesthesia: General Medications/Allergies Home Medications Medication Instructions Recorded Confirmed Last Taken Type rosuvastatin 20 mg tablet 20 mg PO BEDTIME 08/29/19 01/18/23 01/17/23 History glipizide 5 mg tablet 5 mg PO BID 08/17/20 01/18/23 01/18/23 History multivitamin 1 tab PO DAILY 10/05/21 01/18/23 07/20/22 History cinnamon bark 500 mg capsule 500 mg PO BEDTIME 05/08/22 01/18/23 01/17/23 History (Cinnamon) clopidogrel 75 mg tablet 75 mg PO BEDTIME 06/26/22 01/18/23 01/17/23 History lisinopril 20 mg tablet 20 mg PO BEDTIME 07/20/22 01/18/23 01/17/23 History see pharmacy comment tamsulosin 0.4 mg capsule 0.4 mg PO BEDTIME 07/20/22 01/18/23 01/17/23 History hinged elbow brace #1 ea 10/23/22 01/18/23 Unknown Rx tramadol 50 mg tablet 50 mg PO QAM 12/20/22 01/18/23 01/18/23 History see pharmacy comment amiodarone 200 mg tablet 200 mg PO BEDTIME 01/18/23 01/18/23 01/17/23 History amitriptyline 25 mg tablet 25 mg PO BEDTIME 01/18/23 01/18/23 01/17/23 History calcium carbonate 200 mg-magnesium 1 tab PO BEDTIME 01/18/23 01/18/23 01/17/23 History oxide,carbonate 100 mg chew tablet (Mejia-Mag) metformin 500 mg tablet,extended 500 mg PO BID 01/18/23 01/18/23 01/18/23 History release 24 hr metoprolol tartrate 25 mg tablet 25 mg PO BID 01/18/23 01/18/23 01/18/23 History Allergies Allergy/AdvReac Type Severity Reaction Status Date / Time No Known Allergies Allergy Verified 01/18/23 14:23 Current Medications Generic Name Dose Route Start Last Admin Trade Name Eligio PRN Reason Stop Dose Admin Amiodarone HCl 200 mg 01/18/23 21:00 01/18/23 20:33 Amiodarone 200 Mg Tablet PO 200 mg BEDTIME MARY Administration Amitriptyline HCl 25 mg 01/18/23 21:00 01/18/23 20:33 Amitriptyline 25 Mg Tablet PO 25 mg BEDTIME MARY Administration Atorvastatin Calcium 80 mg 01/18/23 21:00 01/18/23 20:33 Atorvastatin 40 Mg Tablet PO 80 mg BEDTIME MARY Administration Clopidogrel Bisulfate 75 mg 01/18/23 21:00 01/18/23 20:31 Clopidogrel 75 Mg Tablet PO Not Given BEDTIME MARY Hydromorphone HCl 0.5 mg 01/19/23 07:36 01/19/23 07:52 Hydromorphone 1 Mg/Ml Inj 1 Ml IVP 0.5 mg ONCE PRN Administration For preop pain/anxiety Insulin Human Lispro 0 unit 01/18/23 21:00 01/18/23 20:44 Insulin Lispro 100 Unit/1 Ml SUBCUT Not Given WM&BEDTIME MARY Protocol Metoprolol Tartrate 25 mg 01/18/23 18:00 01/18/23 17:48 Metoprolol Tartrate 25 Mg Tablet PO 25 mg BID MARY Administration Morphine Sulfate 4 mg 01/18/23 17:06 01/19/23 06:00 Morphine 4 Mg/Ml Sdv 1 Ml IVP 4 mg Q4H PRN Administration SEVERE PAIN Tamsulosin HCl 0.4 mg 01/18/23 21:00 01/18/23 20:33 Tamsulosin 0.4 Mg Capsule PO 0.4 mg BEDTIME MARY Administration PFSH Anesthesia Medical History Arachnoid cyst ASHD (arteriosclerotic heart disease) Cerebellar ataxia DDD (degenerative disc disease), lumbar Diabetes mellitus Diabetic neuropathy Gait instability History of colon cancer Hyperlipidemia Hypertension Intervertebral disc disorder with radiculopathy of lumbosacral region Ischemic cardiomyopathy Lumbar disc disease with radiculopathy Lumbar spondylosis Lumbosacral disc disease Migraine NSVT (nonsustained ventricular tachycardia) Obesity VERONICA on CPAP Spinocerebellar degeneration Tobacco abuse Surgical History H/O coronary angioplasty History of back surgery Left L4-L5, L5-S1 hemilaminotomy/discectomy/foraminotomy, 09/01/2019, [facility] History of cholecystectomy History of hernia repair History of resection of small bowel History of sinus surgery Family History Mother Cancer Father CAD (coronary artery disease) Sister Hypertension Social History Smoking and tobacco status: former smoker Alcohol intake: never Substance/Drug Use: never Lives independently: Yes Household members: spouse Marital status: Current occupational status: retired Current occupation: retired Data Anesthesia 01/19/23 04:48 01/19/23 04:48 Short CBC 01/18/23 01/19/23 Range/Units 14:02 04:48 WBC 6.4 7.2 (4.0-10.0) 10^3/uL Hgb 12.5 10.9 L (11.7-16.6) g/dL Hct 40.1 L 34.3 L (42.0-52.0) % MCV 92.2 91.2 (80-94) fl Plt Count 100 L 90 L (130-400) 10^3/cmm Neut % (Auto) 76.6 79.9 % Neut # (Auto) 4.87 5.72 (1.8-7.7) 10^3/uL BMP 01/18/23 01/19/23 14:02 04:48 Sodium 141 140 Potassium 4.1 4.1 Chloride 105 105 Carbon Dioxide 27 26 BUN 23 23 Creatinine 0.8 0.7 Glucose 125 H 171 H Calcium 9.4 8.7 Cardiac Enzymes 01/18/23 Range/Units 17:40 Troponin T Gen 5 ng/L 14 (0-15) ng/L Liver Function 01/18/23 Range/Units 14:02 Total Bilirubin 0.9 (0.15-1.2) mg/dL AST 16 (0-40) U/L ALT 14 (0-41) U/L Alkaline Phosphatase 61 (40-130) U/L Albumin 4.1 (3.5-5.2) g/dL Urine 01/18/23 Range/Units 16:01 Urine Color Yellow (Yellow) Urine Appearance Clear (CLEAR) Urine pH 6 (5-7) Ur Specific [place] 1.020 (1.005-1.030) Urine Protein Neg (Negative) Urine Glucose (UA) Norm (Normal) Urine Ketones Negative (Negative) Urine Nitrate Negative (Negative) Urine Bilirubin Neg (Negative) Ur Leukocyte Esterase Negative (Negative) Blood Bank 01/18/23 17:40 Blood Type B Positive Rho(D) Type Positive Antibody Screen Negative Cardiac Studies: Echocardiogram 05/03/22 Sestamibi Stress Test (Cardiology) 05/04/22 Cardiac Event Monitor 05/10/22 Holter Monitor 04/06/22
[2023-01-19] MEDS: ceFAZolin 1,000 mg SDV 1000 MG IRRIGATION (09:00)
--- NOTE | 2023-01-19 10:16 | PC.NURSE ---
Pt arrived to PACU, resting comfortably, O2 at 6L/min via simple mask. Dressing to right hip C/D/I, right foot p/w/d, cap refill < 3 seconds, good pedal pulse noted. Ice pack applied. SCD's bilaterally in place and running. Garcia catheter patent and draining.
--- NOTE | 2023-01-19 10:19 | PC.CHAP ---
Pastoral Care Encounter/Spiritual Assessment Type of Contact [] Declined fuel quality tech visit [] Patient/Family/Request visit [] Outpatient visit [] Follow-up visit [] Physician referral [] Code/Alert [x] Routine visit [] Staff referral [] Actively dying [] Patient sleeping [] Family support [] [x] Out of room [] Palliative care [] [] Receiving care in room [] Pre-surgical visit [] Trauma [] Long length of stay [] ICU visit [] Other: Relational/Emotional Strength [] Patient feels connected with others/family/visitors/staff [] Distress [] Loneliness/isolation [] Abandonment Spirituality of Patient [] Person of Josefina [] Attends Jain of their Josefina [] Believes in Prayer [] Reads Bible or Oriental Orthodox materials [] There are Spiritual issues to be addressed Fine Craft Artist Interventions [] Prayer [] Active listening [] Non-anxious presence [] Spiritual/emotional support [] Crisis/trauma care [] Spiritual counseling [] Bereavement support [] Provided bereavement packet [] Provided Bible/devotional materials [] Provided toy/stuffed animal, coloring book to patient or family member [] Provided Communion [] Anointing/[place] [] Salvation [] Completed spiritual assessment [] Other: Impact on Illness or Injury [] Angry [] Fearful [] Anxious [] Often cries [] Exhaustion [] Unable to work [] Unable to attend scientologist [] Unable to walk/stand [] Unable to read [] Unable to drive [] Unable to eat/drink [] Unable to sleep [] Unable to be with family [] Patient intubated [] Other: Summary Time spent with patient
--- NOTE | 2023-01-19 10:34 | PM.OP ---
Operative Report Date of procedure: January 19, 2023 Pre-op diagnosis: Displaced comminuted right intertrochanteric hip fracture Post-op diagnosis: Displaced comminuted right intertrochanteric hip fracture Procedure done: Open reduction internal fixation right intertrochanteric hip fracture Implants: Fleischmanns gamma 3 nail system with a size 11 mm x 180 mm x 125 degree trochanteric nail, a 10.5 mm x 110 mm proximal lag screw and a 5 mm x 42.5 mm distal locking screw Pathology: none sent Chief Engineering Division: None Anesthesia: General (Per LMA, ASA 3) Estimated blood loss (mL): 100 IV fluids (mL): 700 Urine output (mL): 50 Complications: None Condition: stable Disposition: PACU (Then return to floor for postoperative rehabilitation) Brief History: Arnold Ceron is a 77 year old male who presented to the emergency department today after a fall at home.? Significant past medical history includes spinal cerebral degeneration with cerebellar ataxia.? The patient normally uses a walker for ambulation, but he left his walker outside and was pushing a roller chair when he tripped on a cable on the floor subsequently falling directly onto his right hip.? Patient presented to the emergency department for evaluation, and he was found to have a comminuted displaced intertrochanteric right hip fracture.? He denied other injuries, and he denied shortness of breath. Of importance, the patient has a spinocerebellar degeneration with cerebellar ataxia as noted above.? He also has a history of coronary artery disease with prior stent placement as well as a more recent stent placed in April 2022.? Additionally, there is a history of ischemic cardiomyopathy as well as multiple other medical issues as described in admission history and physical. The patient was seen in the preoperative holding area with his family. This included his , son, and daughter. Risk and complications were discussed. Consents were signed and questions were answered. They wish to proceed. Procedure: Patient is brought to the operating theater. After undergoing adequate general anesthesia with LMA, ASA 3, the patient was transferred to the fracture table, positioned on the table and fluoroscopic guidance obtained throughout the surgical procedure. Prior to the commencement of the surgical procedure, a surgical pause was performed. At the time of the surgical pause, we confirmed the site and side of surgery as well as preoperative surgical markings and appropriate and timely administration of IV antibiotics, Ancef 2 g. Availability of equipment was also confirmed. Fluoroscopy was used to confirm the fracture was appropriately reduced in both AP and lateral planes. An incision was then made slightly above the greater trochanter to allow access to the greater trochanter. An awl was used to enter the greater trochanter and a guidewire was subsequently placed. Once the guidewire was confirmed to be in appropriate position in AP and lateral planes, reaming was accomplished over this to allow for the proximal diameter of the nail. Guidewire was then removed. An 11 mm x 180 mm x 125 degree gamma 3 trochanteric nail was placed into appropriate position with positioning being confirmed in AP and lateral planes on the x-ray. It passed without difficulty. Guidewire was then passed through the jigging system into the femoral head. We wanted to be center or slightly inferior and posterior to center. Guidewire was placed into appropriate position. Once the guidewire was in appropriate position and this position was confirmed by x-ray. This was then measured and we chose a 110 mm lag screw. We reamed to allow for the lag screw to be placed. The 110 mm lag screw was then passed into the femoral head through the trochanteric nail. This was passed uneventfully and again position was confirmed in AP and lateral planes. Compression was obtained under fluoroscopic guidance. The set screw was then placed in position, tightened completely, and subsequently backed off one-eighth turn. The construct was left in position and attention was directed distally. Cannulas were again used to determine appropriate placement for the distal screw. This was placed in position without difficulty. It was measured off of the drill. The appropriate length screw was then obtained and placed in position without difficulty. Once the screw was in position, we confirmed appropriate placement of the components, and we removed the jigging system. Attention was then directed to closure. The hip was copiously irrigated with normal saline with antibiotics. Following this it was dried and closed. Tensor fascia uche was closed proximally with 0 Vicryl in an interrupted fashion. Subcutaneous tissues were closed with 2-0 Monocryl, and the skin was closed with a continuous 3-0 Monocryl subcuticular suture. This was then covered with Dermabond, Steri-Strips, and OpSite. The patient was removed from the fracture table and returned to recovery in satisfactory condition. The patient will be discharged to the floor for postoperative rehabilitation and pain management. There were no specimens obtained. Related Problem List Diagnoses (1) Closed intertrochanteric fracture of right hip:
[2023-01-19 11:06] LABS: Glucose Point of Care 159 mg/dL (70-110)
[2023-01-19] MEDS: insulin lispro 100 unit/1 mL SUBCUT ×3 (12:05→21:55)
--- NOTE | 2023-01-19 14:11 | ANE.PACU2 ---
Inpatient post-anesthesia follow up: Airway intact: Yes Vital signs: Temperature 98.0 F Pulse Rate 61 Respiratory Rate 18 Blood Pressure 102/60 Pulse Oximetry 91 Oxygen Delivery Me thod Nasal Cannula Oxygen Flow Rate 6 Fraction of Inspir ed Oxygen Hydration adequate: Yes Nausea and vomiting: No Pain level: 3 Mental status: Baseline
[2023-01-19 14:48] LABS: Glucose Point of Care 156 mg/dL (70-110)
--- NOTE | 2023-01-19 15:50 | P.PN_ITS ---
Subjective Subjective: He reports he is doing well. Some pain in the right hip, but otherwise not having trouble. Denies trouble breathing at rest. No chest pain. Vitals/I&O/Wt Last Vital Signs Temp 97.8 F 01/19/23 15:42 Pulse 61 01/19/23 15:42 Resp 18 01/19/23 15:42 BP 118/61 01/19/23 15:42 Pulse Ox 90 01/19/23 15:42 O2 Del Method Room Air 01/19/23 15:42 O2 Flow Rate 6 01/19/23 10:21 01/19/23 01/19/23 01/19/23 06:59 14:59 22:59 Intake Total 120 / 290 1235 / 1235 100 / 1335 Output Total 650 / 650 200 / 200 Balance -530 / -360 1035 / 1035 100 / 1135 Weight last 48 hrs Weight 102.058 kg Physical Exam Narrative: Accompanied by his daughter Const: COMMON NORMALS: patient oriented x3 and alert GENERAL APPEARANCE: cooperative ORIENTATION/CONSCIOUSNESS: Yes awake HENMT: COMMON NORMALS: oropharynx normal Neck/C-Spine: COMMON NORMALS: no JVD Resp: COMMON NORMALS: normal respiratory effort and clear to auscultation bilaterally AUSCULTATION: clear to auscultation bilaterally Cardio: COMMON NORMALS: no JVD, regular rhythm, S1 normal heart sound present, S2 normal heart sound present and No murmurs present (Cardio) RHYTHM: regular rhythm HEART SOUNDS: S1 normal heart sound present and S2 normal heart sound present GI: COMMON NORMALS: Normal to inspection, nondistended, normoactive bowel sounds present, Soft to palpation and non-tender PALPATION: Yes Soft to palpation Extremity: COMMON NORMALS: no joint enlargement and no pedal edema OTHER: Perfused appearing right lower extremity. Neuro: COMMON NORMALS: patient oriented x3 and moves all extremities SENSORIUM/ORIENTATION: Yes alert Skin: COMMON NORMALS: no rashes or lesions noted GENERAL SKIN EXAM: no rashes or lesions noted Urinary Catheter Management: Garcia: Cath Placed During This Visit: yes Reason for Continuing Indwelling Catheter: Required Immobilization for Trauma or Surgery or Anesthesia Urinary Catheter Date of Insertion: 01/18/23 Urinary Catheter Time of Insertion: 16:03 Data 01/19/23 04:48 01/19/23 04:48 A&P Assessment and plan (1) Closed intertrochanteric fracture of right hip: Status post ORIF nail repair of right hip fracture. Uneventful. Surgery doc umentation reviewed, 100 mL estimated blood loss. Discussed with him hemoglobin this morning was 10.5. Platelets are 90. We will recheck hemoglobin again tonight as discussed with him and follow-up again in the morning. Noted iron studies TIBC and ferritin, is not iron deficient. Baseline troponin noted normal at 14. Follow any symptoms. PT assessment. Discussed with case management as well as per discussion with him and family given already at baseline difficulty with mobility with cere bellar ataxia may benefit from rehabilitation at SNF. Pending PT evaluation, they will be considering further options. Monitor oxygenation, avoid fluid overload. Has been resumed on Plavix. Limited TTE noted with improvement in ejection fraction from prior to 40-45%. He has a history of NSVT has been well controlled on amiodarone as also noted on cardiology assessment at office follow-up a month ago. Monitor on telemetry. Hold lisinopril for now. Lower extremity duplex assessed, without sign of DVT. DVT prophylaxis with lower dose Lovenox as still at somewhat higher risk of bleeding since continues on Plavix. Mild-mod thrombocytopenia. At risk of bleeding, at risk of DVT. Monitor for signs of either. Follow-up CBC requested. Still requiring IV morphine pain control. Discussed with orthopedics. Qualifiers: Encounter type: initial encounter Fracture alignment: displaced Qualified Code(s): S72.141A - Displaced intertrochanteric fracture of right femur, initial encounter for closed fracture (2) Fall on same level from tripping: Plan Min edema LLE: Negative venous duplex for DVT. Spinocerebellar degeneration, Cerebellar ataxia, normally walks with a walker, follows with neurology, note appreciated CAD, prior stents, and additionally more recent stent placed in April 2022, on Plavix, last visit with cardiology a month ago, note reviewed, has been doing well. Resumed on Plavix, continue beta-jonathan, statin. History of ischemic cardiomyopathy prior cardiogram in April EF 35-40%, moderate global hypokinesis, grade 1 diastolic dysfunction, not in decompensation. Hold lisinopril. Avoid fluid overload. History of NSVT on amiodarone, continue amiodarone HTN, continue metoprolol, hold lisinopril for now HLD, continue statin DM 2, hold oral hypoglycemics, dose SSI. Accu-Cheks requested. VERONICA: Continued on nightly CPAP [facility] orthopedics, anesthesia. Attestations Medical Necessity Statement*: Continue admission for assessment management following right hip fracture and repair and gentleman with multiple comorbidities including CAD, ischemic cardiomyopathy, on Plavix, at risk of bleeding, at risk of DVT, additional comorbidities as above. Diagnoses Closed intertrochanteric fracture of right hip S72.141A Encounter type: initial encounter Fracture alignment: displaced Fall on same level from tripping W01.0XXA
[2023-01-19 16:01] LABS: Hemoglobin 10.5 g/dL (11.7-16.6)
[2023-01-19] MEDS: enoxaparin 30 mg/0.3 mL Syringe SUBCUT (17:15)
[2023-01-19] MEDS: metoprolol tartrate 25 mg Tablet PO (17:15)
[2023-01-19 17:16] LABS: Glucose Point of Care 242 mg/dL (70-110)
[2023-01-19] MEDS: tamsulosin 0.4 mg Capsule PO (21:04)
[2023-01-19] MEDS: amiodarone 200 mg Tablet PO (21:04)
[2023-01-19] MEDS: clopidogrel 75 mg Tablet PO (21:04)
[2023-01-19] MEDS: amitriptyline 25 mg Tablet PO (21:04)
[2023-01-19] MEDS: atorvastatin 40 mg Tablet 80 MG PO (21:04)
[2023-01-19 21:36] LABS: Glucose Point of Care 271 mg/dL (70-110)
[2023-01-20] VITALS (9 sets, daily range): BP systolic 110–146; BP diastolic 63–76; PULSE 59–73; RESP 17–19; TEMP 36.3–36.8; O2SAT 93–97
[2023-01-20] MEDS: acetaminophen 1,000 MG/100 ML PIGGYBACK 400 MG IV ×2 (00:27→06:30)
[2023-01-20] MEDS: ceFAZolin 2,000 MG in sodium chloride 0.9% (plus) 50 ML 100 MG IV ×2 (00:41→08:44)
[2023-01-20 04:47] LABS: Basophils % 0.1 %; Eosinophils % 0.4 %; Hematocrit 31.7 % (42.0-52.0); Hemoglobin 10.1 g/dL (11.7-16.6); Lymphocytes # 0.6 10^3/uL (0.8-4.8); Lymphocytes % 7.9 %; Mean Corpuscular HGB Conc 31.9 g/dL (30.0-36.0); Mean Corpuscular Hemoglobin 29.3 pg (28.0-34.0); Mean Corpuscular Volume 91.9 fl (80-94); Mean Platelet Volume 10.7 fL (7.4-10.4); Monocytes # 0.6 10^3/uL (0.2-0.9); Monocytes % 7.4 %; Neutrophils # 6.25 10^3/uL (1.8-7.7); Neutrophils % 83.7 %; Nucleated Red Blood Cells % 0 %; Platelet Count 82 10^3/cmm (130-400); Red Blood Count 3.45 10^6/uL (4.1-5.3); Red Cell Distribution Width 14.6 % (12.1-15.1); White Blood Count 7.5 10^3/uL (4.0-10.0)
[2023-01-20 05:06] LABS: Anion Gap 10.8 (5-19); Blood Urea Nitrogen 19 mg/dL (8-23); Calcium 8.8 mg/dL (8.5-10.5); Carbon Dioxide 27 mmol/L (22-29); Chloride 103 mmol/L (98-107); Glucose 186 mg/dL (65-115); Osmolality Calculated 289 mOsm/kg (285-295); Potassium 4.8 mmol/L (3.5-5.1); Sodium 136 mmol/L (136-145)
[2023-01-20 07:29] LABS: Glucose Point of Care 210 mg/dL (70-110)
[2023-01-20] MEDS: insulin lispro 100 unit/1 mL SUBCUT ×4 (08:43→21:34)
[2023-01-20] MEDS: metoprolol tartrate 25 mg Tablet PO ×2 (08:44→17:36)
[2023-01-20 11:09] LABS: Glucose Point of Care 217 mg/dL (70-110)
[2023-01-20] MEDS: enoxaparin 30 mg/0.3 mL Syringe SUBCUT (16:23)
[2023-01-20] MEDS: acetaminophen 500 mg Tablet 1000 MG PO (16:23)
--- NOTE | 2023-01-20 17:06 | P.PN_ITS ---
Subjective Subjective: He states he is doing all right. He is having pain in his right hip but only when he stands on it. Vitals/I&O/Wt Last Vital Signs Temp 98.2 F 01/20/23 13:59 Pulse 63 01/20/23 14:00 Resp 17 01/20/23 13:59 BP 112/66 01/20/23 13:59 Pulse Ox 97 01/20/23 13:59 O2 Del Method Room Air 01/20/23 13:59 O2 Flow Rate 2 01/19/23 18:00 01/20/23 01/20/23 01/20/23 06:59 14:59 22:59 Intake Total 200 / 1945 1110 / 1110 Output Total 1400 / 1600 Balance -1200 / 345 1110 / 1110 Physical Exam Narrative: Accompanied by his daughter Const: COMMON NORMALS: patient oriented x3 and alert GENERAL APPEARANCE: cooperative ORIENTATION/CONSCIOUSNESS: Yes awake HENMT: COMMON NORMALS: oropharynx normal Neck/C-Spine: COMMON NORMALS: no JVD Resp: COMMON NORMALS: normal respiratory effort and clear to auscultation bilaterally AUSCULTATION: clear to auscultation bilaterally Cardio: COMMON NORMALS: no JVD, regular rhythm, S1 normal heart sound present, S2 normal heart sound present and No murmurs present (Cardio) RHYTHM: regular rhythm HEART SOUNDS: S1 normal heart sound present and S2 normal heart sound present GI: COMMON NORMALS: Normal to inspection, nondistended, normoactive bowel soun ds present, Soft to palpation and non-tender PALPATION: Yes Soft to palpation Extremity: COMMON NORMALS: no joint enlargement and no pedal edema OTHER: Perfused appearing right lower extremity. Mild bruising around the wound right hip. Clean dressing. Neuro: COMMON NORMALS: patient oriented x3 and moves all extremities SENSORIUM/ORIENTATION: Yes alert Skin: COMMON NORMALS: no rashes or lesions noted GENERAL SKIN EXAM: no rashes or lesions noted Urinary Catheter Management: Garcia: Cath Placed During This Visit: yes, but has since been removed by the nurse Reason for Continuing Indwelling Catheter: Required Immobilization for Trauma or Surgery or Anesthesia Urinary Catheter Date of Insertion: 01/18/23 Urinary Catheter Time of Insertion: 16:03 Date Urinary Catheter Removed: 01/20/23 Time Urinary Catheter Discontinued: 06:37 Data 01/20/23 04:30 01/20/23 04:30 A&P Assessment and plan (1) Closed intertrochanteric fracture of right hip: Status post ORIF nail repair of right hip fracture. Improving. Hemoglobin noted with additional decline down to 10.1, discussed with him, however, anticipate it might be even lower with normocytic anemia, MCV 91.9. Platelets noted 82,000. We will still follow-up CBC tomorrow. Has been resumed on Plavix. Also low-dose Lovenox for DVT prophylaxis. Noted iron studies TIBC and ferritin, is not iron deficient. Remains chest pain-free. No trouble breathing. Sats noted 97% on room air. Avoid fluid overload. Garcia has been discontinued. Discussed with case management, arrangements are underway for rehabilitation at SNF after discharge. Continue PT Discussed with case management as well as per discussion with him and family given already at baseline difficulty with mobility with cerebellar ataxia may benefit from rehabilitation at SNF. Pending PT evaluation, they will be considering further options. Limited TTE noted with improvement in ejection fraction from prior to 40-45%. He has a history of NSVT has been well controlled on amiodarone as also noted on cardiology assessment at office follow-up a month ago. Monitor on telemetry. Continue to hold lisinopril for now. Lower extremity duplex assessed, without sign of DVT. DVT prophylaxis with lower dose Lovenox as still at somewhat higher risk of b leeding since continues on Plavix. Mild-mod thrombocytopenia. At risk of bleeding, at risk of DVT. Monitor for signs of either. Follow-up CBC requested. So far no further IV morphine pain control. Qualifiers: Encounter type: initial encounter Fracture alignment: displaced Qualified Code(s): S72.141A - Displaced intertrochanteric fracture of right femur, initial encounter for closed fracture (2) Fall on same level from tripping: Plan Min edema LLE: Negative venous duplex for DVT. Spinocerebellar degeneration, Cerebellar ataxia, normally walks with a walker, follows with neurology, note appreciated CAD, prior stents, and additionally more recent stent placed in April 2022, on Plavix, last visit with cardiology a month ago, note reviewed, has been doing well. Resumed on Plavix, continue beta-jonathan, statin. History of ischemic cardiomyopathy prior cardiogram in April EF 35-40%, moderate global hypokinesis, grade 1 diastolic dysfunction, not in decompensation. Hold lisinopril. Avoid fluid overload. History of NSVT on amiodarone, continue amiodarone HTN, continue metoprolol, hold lisinopril for now HLD, continue statin DM 2, including noted up to 217. Will advance to moderate SSI. CC diet. Hold oral hypoglycemics. Accu-Cheks VERONICA: Continued on nightly CPAP [facility] orthopedics, anesthesia. Attestations Medical Necessity Statement*: Continue admission for assessment and following right hip fracture and repair, at risk of bleeding requiring Plavix which cannot be discontinued, DVT p rophylaxis, with thrombocytopenia. With underlying CHF, CAD, additional comorbidities as above. Continue post discharge planning and arrangements. Diagnoses Closed intertrochanteric fracture of right hip S72.141A Encounter type: initial encounter Fracture alignment: displaced Fall on same level from tripping W01.0XXA
[2023-01-20 17:38] LABS: Glucose Point of Care 143 mg/dL (70-110)
[2023-01-20] MEDS: amiodarone 200 mg Tablet PO (20:03)
[2023-01-20] MEDS: clopidogrel 75 mg Tablet PO (20:03)
[2023-01-20] MEDS: atorvastatin 40 mg Tablet 80 MG PO (20:03)
[2023-01-20] MEDS: tamsulosin 0.4 mg Capsule PO (20:03)
[2023-01-20] MEDS: amitriptyline 25 mg Tablet PO (20:03)
[2023-01-20 20:19] LABS: Glucose Point of Care 172 mg/dL (70-110)
--- NOTE | 2023-01-20 21:55 | PM.PN ---
Subjective Subjective: Patient is doing well. He was up with physical therapy today. He has minimal complaints of pain. Medications: Reviewed: Yes Vitals/I&O/Wt Last Vital Signs Temp 97.5 F L 01/20/23 19:49 Pulse 60 01/20/23 19:49 Resp 17 01/20/23 19:49 BP 146/73 01/20/23 19:49 Pulse Ox 95 01/20/23 19:49 O2 Del Method Room Air 01/20/23 16:00 O2 Flow Rate 2 01/19/23 18:00 01/20/23 01/20/23 01/20/23 06:59 14:59 22:59 Intake Total 200 / 1945 1110 / 1110 360 / 1470 Output Total 1400 / 1600 Balance -1200 / 345 1110 / 1110 360 / 1470 Physical Exam Const: COMMON NORMALS: no acute distress, average body habitus, patient oriented x3 and alert GENERAL APPEARANCE: cooperative and comfortable ORIENTATION/CONSCIOUSNESS: Yes awake HENMT: COMMON NORMALS: normocephalic and atraumatic HEAD & SCALP: normocephalic and atraumatic Eye: GENERAL EYE: appearance normal, both eyes and all related structures Chest: COMMONS NORMALS: normal inspection of the chest Resp: COMMON NORMALS: normal respiratory effort EFFORT & INSPECTION: Yes able to speak in complete sentences and Yes symmetric chest movement Extremity: RIGHT LOWER EXTREMITY: Yes hip joint (Incisions are without drainage, dressings are intact.) Right hip: Yes inspection (Minimal to no swelling about the hip.), Yes palpation (No tenderness to palpation.), Yes ROM (Not evaluated.) and Yes neurovascular exam (Intact distally with no evidence of DVT) Neuro: COMMON NORMALS: patient oriented x3 SENSORIUM/ORIENTATION: Yes alert Psych: COMMON NORMALS: mental status grossly normal APPEARANCE: Yes grossly normal ATTITUDE: Yes calm and Yes engaged ATTENTION/CONCENTRATION: Yes attention grossly intact Skin: COMMON NORMALS: no rashes or lesions noted GENERAL SKIN EXAM: no rashes or lesions noted Urinary Catheter Management: Garcia: Cath Placed During This Visit: yes, but has since been removed by the nurse Reason for Continuing Indwelling Catheter: Required Immobilization for Trauma or Surgery or Anesthesia Urinary Catheter Date of Insertion: 01/18/23 Urinary Catheter Time of Insertion: 16:03 Date Urinary Catheter Removed: 01/20/23 Time Urinary Catheter Discontinued: 06:37 Data 01/20/23 04:30 01/20/23 04:30 A&P Assessment and plan (1) Closed intertrochanteric fracture of right hip: Patient was admitted through the emergency department after a fall at home. He normally uses a walker, but his walker was outside, and he tripped over a cable on the floor resulting in the above injury. He was admitted through the medical service for definitive treatment. He has multiple medical comorbidities which are outlined in the hospitalist admission history and physical. Patient underwent an uneventful open reduction internal fixation of his intertrochanteric hip fracture. He is now participating in rehab and doing well. He is agreeable to [facility] if it that is felt to be appropriate for him. Qualifiers: Encounter type: initial encounter Fracture alignment: displaced Qualified Code(s): S72.141A - Displaced intertrochanteric fracture of right femur, initial encounter for closed fracture Attestations Medical Necessity Statement*: Ongoing care following intertrochanteric hip fracture with subsequent open reduction internal fixation. Coding Level of Care Code Acute Code for [facility] [place] Diagnoses Closed intertrochanteric fracture of right hip S72.141A Encounter type: initial encounter Fracture alignment: displaced
[2023-01-21] VITALS (9 sets, daily range): BP systolic 120–132; BP diastolic 60–81; PULSE 53–78; RESP 15–20; TEMP 36.4–36.8; O2SAT 93–97
[2023-01-21] MEDS: acetaminophen 500 mg Tablet 1000 MG PO ×3 (02:46→16:31)
[2023-01-21 04:01] LABS: Basophils % 0.3 %; Eosinophils # 0.1 10^3/uL (0.0-0.8); Eosinophils % 2.3 %; Hematocrit 30.8 % (42.0-52.0); Hemoglobin 9.6 g/dL (11.7-16.6); Lymphocytes # 1.1 10^3/uL (0.8-4.8); Lymphocytes % 17.2 %; Mean Corpuscular HGB Conc 31.2 g/dL (30.0-36.0); Mean Corpuscular Hemoglobin 28.7 pg (28.0-34.0); Mean Corpuscular Volume 91.9 fl (80-94); Mean Platelet Volume 11.6 fL (7.4-10.4); Monocytes # 0.5 10^3/uL (0.2-0.9); Monocytes % 7.7 %; Neutrophils # 4.48 10^3/uL (1.8-7.7); Nucleated Red Blood Cells % 0 %; Platelet Count 73 10^3/cmm (130-400); Red Blood Count 3.35 10^6/uL (4.1-5.3); White Blood Count 6.2 10^3/uL (4.0-10.0)
[2023-01-21 04:11] LABS: Anion Gap 13.6 (5-19); Blood Urea Nitrogen 16 mg/dL (8-23); Calcium 8.5 mg/dL (8.5-10.5); Carbon Dioxide 26 mmol/L (22-29); Chloride 104 mmol/L (98-107); Glucose 125 mg/dL (65-115); Osmolality Calculated 293 mOsm/kg (285-295); Potassium 3.6 mmol/L (3.5-5.1); Sodium 140 mmol/L (136-145)
[2023-01-21 06:55] LABS: Glucose Point of Care 143 mg/dL (70-110)
[2023-01-21] MEDS: metoprolol tartrate 25 mg Tablet PO ×2 (08:00→18:17)
[2023-01-21] MEDS: insulin lispro 100 unit/1 mL SUBCUT ×3 (08:02→21:55)
--- NOTE | 2023-01-21 09:01 | PC.SOCIAL ---
Imm update Imm updated with patient at bedside. Copy of page 2 provided. Patient verbalized understanding. Copy in chart initialed, dated and timed.
[2023-01-21 11:04] LABS: Glucose Point of Care 173 mg/dL (70-110)
[2023-01-21] MEDS: enoxaparin 30 mg/0.3 mL Syringe SUBCUT (16:31)
[2023-01-21 17:04] LABS: Glucose Point of Care 127 mg/dL (70-110)
--- NOTE | 2023-01-21 17:06 | P.PN_ITS ---
Subjective Subjective: He states he is doing all right. Not bothered by pain currently. Medications: Reviewed: Yes Vitals/I&O/Wt Last Vital Signs Temp 97.6 F 01/21/23 15:23 Pulse 63 01/21/23 15:23 Resp 16 01/21/23 15:23 BP 129/75 01/21/23 15:23 Pulse Ox 96 01/21/23 15:23 O2 Del Method Room Air 01/21/23 15:23 O2 Flow Rate 2 01/19/23 18:00 01/21/23 01/21/23 01/21/23 06:59 14:59 22:59 Intake Total 120 / 1710 1200 / 1200 Output Total 700 / 700 Balance 120 / 1460 500 / 500 Physical Exam Narrative: Accompanied by his Const: COMMON NORMALS: patient oriented x3 and alert GENERAL APPEARANCE: cooperative ORIENTATION/CONSCIOUSNESS: Yes awake HENMT: COMMON NORMALS: oropharynx normal Neck/C-Spine: COMMON NORMALS: no JVD Resp: COMMON NORMALS: normal respiratory effort and clear to auscultation bilaterally AUSCULTATION: clear to auscultation bilaterally Cardio: COMMON NORMALS: no JVD, regular rhythm, S1 normal heart sound present, S2 normal heart sound present and No murmurs present (Cardio) RHYTHM: regular rhythm HEART SOUNDS: S1 normal heart sound present and S2 normal heart sound present GI: COMMON NORMALS: Normal to inspection, nondistended, normoactive bowel sounds present, Soft to palpation and non-tender PALPATION: Yes Soft to palpation Extremity: COMMON NORMALS: no joint enlargement and no pedal edema OTHER: Perfused appearing right lower extremity. Mild bruising around the proximal wound right hip. Clean dressing. Neuro: COMMON NORMALS: patient oriented x3 and moves all extremities SENSORIUM/ORIENTATION: Yes alert Skin: COMMON NORMALS: no rashes or lesions noted GENERAL SKIN EXAM: no rashes or lesions noted Urinary Catheter Management: Garcia: Cath Placed During This Visit: yes, but has since been removed by the nurse Reason for Continuing Indwelling Catheter: Required Immobilization for Trauma or Surgery or Anesthesia Urinary Catheter Date of Insertion: 01/18/23 Urinary Catheter Time of Insertion: 16:03 Date Urinary Catheter Removed: 01/20/23 Time Urinary Catheter Discontinued: 06:37 Data 01/21/23 03:18 01/21/23 03:18 A&P Assessment and plan (1) Closed intertrochanteric fracture of right hip: Status post ORIF nail repair of right hip fracture. Hemoglobin with further mild decrease. Down to 9.6. Normal MCV. Discussed with him and his . Recheck CBC. Continue Lovenox cautiously for now at reduced dose. Monitor blood counts. At risk of DVT as well as risk of further anemia/bleeding. Has been resumed on Plavix. Also low-dose Lovenox for DVT prophylaxis. Noted iron studies TIBC and ferritin, is not iron deficient. Remains chest pain-free. No trouble breathing. Sats noted 97% on room air. Avoid fluid overload. Garcia has been discontinued. Orthopedic note reviewed. As per discussion with case management today pending arrangements for SNF after discharge. Continue PT Limited TTE noted with improvement in ejection fraction from prior to 40-45%. He has a history of NSVT has been well controlled on amiodarone as also noted on cardiology assessment at office follow-up a month ago. Monitor on telemetry. Continue to hold lisinopril for now. BP close to target. Lower extremity duplex assessed, without sign of DVT. DVT prophylaxis with lower dose Lovenox as still at somewhat higher risk of bleeding since continues on Plavix. Mild-mod thrombocytopenia. At risk of bleeding, at risk of DVT. Monitor for signs of either. Follow-up CBC re quested. So far no further IV morphine pain control. Qualifiers: Encounter type: initial encounter Fracture alignment: displaced Qualified Code(s): S72.141A - Displaced intertrochanteric fracture of right femur, initial encounter for closed fracture (2) Fall on same level from tripping: Plan Min edema LLE: Negative venous duplex for DVT. Spinocerebellar degeneration, Cerebellar ataxia, normally walks with a walker, follows with neurology, note appreciated CAD, prior stents, and additionally more recent stent placed in April 2022, on Plavix, last visit with cardiology a month ago, note reviewed, has been doing well. Resumed on Plavix, continue beta-jonathan, statin. History of ischemic cardiomyopathy prior cardiogram in April EF 35-40%, moderate global hypokinesis, grade 1 diastolic dysfunction, not in decompensation. Hold lisinopril. Avoid fluid overload. History of NSVT on amiodarone, continue amiodarone HTN, continue metoprolol, hold lisinopril for now HLD, continue statin DM 2, glucose doing better, down to 125. Continue moderate SSI. CC diet. Hold oral hypoglycemics. Accu-Cheks VERONICA: Continued on nightly CPAP Attestations Medical Necessity Statement*: Continue admission for assessment and following right hip fracture and repair, at risk of bleeding requiring Plavix which cannot be discontinued, DVT prophylaxis, with thrombocytopenia.? With underlying CHF, CAD, additional co morbidities as above.? Continue post discharge planning and arrangements. Diagnoses Closed intertrochanteric fracture of right hip S72.141A Encounter type: initial encounter Fracture alignment: displaced Fall on same level from tripping W01.0XXA
[2023-01-21] MEDS: amiodarone 200 mg Tablet PO (20:35)
[2023-01-21] MEDS: amitriptyline 25 mg Tablet PO (20:35)
[2023-01-21] MEDS: clopidogrel 75 mg Tablet PO (20:35)
[2023-01-21] MEDS: tamsulosin 0.4 mg Capsule PO (20:35)
[2023-01-21] MEDS: atorvastatin 40 mg Tablet 80 MG PO (20:35)
[2023-01-21 21:08] LABS: Glucose Point of Care 199 mg/dL (70-110)
[2023-01-22] VITALS (9 sets, daily range): BP systolic 114–142; BP diastolic 68–82; PULSE 65–73; RESP 16–19; TEMP 36.3–36.9; O2SAT 94–97
[2023-01-22] MEDS: acetaminophen 500 mg Tablet 1000 MG PO ×3 (01:37→17:27)
[2023-01-22 06:41] LABS: Glucose Point of Care 129 mg/dL (70-110)
[2023-01-22 06:59] LABS: Basophils % 0.6 %; Eosinophils # 0.2 10^3/uL (0.0-0.8); Hematocrit 31.4 % (42.0-52.0); Lymphocytes # 0.9 10^3/uL (0.8-4.8); Lymphocytes % 18.1 %; Mean Corpuscular HGB Conc 31.8 g/dL (30.0-36.0); Mean Corpuscular Hemoglobin 29.2 pg (28.0-34.0); Mean Corpuscular Volume 91.8 fl (80-94); Mean Platelet Volume 11.1 fL (7.4-10.4); Monocytes # 0.4 10^3/uL (0.2-0.9); Neutrophils % 69.7 %; Nucleated Red Blood Cells % 0 %; Platelet Count 85 10^3/cmm (130-400); Red Blood Count 3.42 10^6/uL (4.1-5.3); Red Cell Distribution Width 15.2 % (12.1-15.1)
[2023-01-22] MEDS: metoprolol tartrate 25 mg Tablet PO ×2 (08:43→17:27)
[2023-01-22 11:47] LABS: Glucose Point of Care 172 mg/dL (70-110)
[2023-01-22] MEDS: insulin lispro 100 unit/1 mL SUBCUT ×3 (12:07→21:31)
[2023-01-22] MEDS: TRAMadol 50 mg Tablet PO ×2 (12:54→22:49)
[2023-01-22] MEDS: enoxaparin 30 mg/0.3 mL Syringe SUBCUT (15:38)
--- NOTE | 2023-01-22 16:38 | PM.PN ---
Subjective Subjective: Feels well today. Pain-free. Ambulated with physical therapy. Mild discomfort at surgical site during ambulation but otherwise feels better. Hemoglobin is stable at 10. Medications: Reviewed: Yes Vitals/I&O/Wt Last Vital Signs Temp 97.6 F 01/22/23 15:30 Pulse 70 01/22/23 15:30 Resp 18 01/22/23 15:30 BP 142/78 01/22/23 15:30 Pulse Ox 96 01/22/23 15:30 O2 Del Method Room Air 01/22/23 15:30 O2 Flow Rate 2 01/22/23 08:00 01/22/23 01/22/23 01/22/23 06:59 14:59 22:59 Intake Total 150 / 1790 360 / 360 Output Total 500 / 2200 300 / 300 Balance -350 / -410 360 / 360 -300 / 60 Physical Exam Narrative: General: No acute distress, AO x3 HEENT: PERRLA, pupils bilaterally equal and reactive, pallors not present Chest: Normal vesicular breath sounds, no added sounds, equal good air entry bilaterally CVS: S1-S2 regular, no murmurs, no tachycardia, no gallops, no rubs Abdomen: Soft, nontender, no organomegaly, bowel sounds present Neuro: No focal deficits, no facial deformity, AO x3, power 5/5 in all limbs Urinary Catheter Management: Garcia: Cath Placed During This Visit: yes, but has since been removed by the nurse Reason for Continuing Indwelling Catheter: Required Immobilization for Trauma or Surgery or Anesthesia Urinary Catheter Date of Insertion: 01/18/23 Urinary Catheter Time of Insertion: 16:03 Date Urinary Catheter Removed: 01/20/23 Time Urinary Catheter Discontinued: 06:37 Data 01/22/23 06:20 01/21/23 03:18 A&P Assessment and plan (1) Closed intertrochanteric fracture of right hip: Status post ORIF nail repair of right hip fracture. Hemoglobin currently stable at 10 Pain is currently well controlled postoperatively Has been resumed on Plavix. Also low-dose Lovenox for DVT prophylaxis. Noted iron studies TIBC and ferritin, is not iron deficient. Remains chest pain-free. No trouble breathing. Sats noted 97% on room air. Avoid fluid overload. Garcia has been discontinued. Orthopedic note reviewed. As per discussion with case management today pending arrangements for SNF after discharge. Continue PT Limited TTE noted with improvement in ejection fraction from prior to 40-45%. He has a history of NSVT has been well controlled on amiodarone as also noted on cardiology assessment at office follow-up a month ago. Monitor on telemetry. Continue to hold lisinopril for now. BP close to target. Lower extremity duplex assessed, without sign of DVT. DVT prophylaxis with lower dose Lovenox as still at somewhat higher risk of bleeding since continues on Plavix. Mild-mod thrombocytopenia. At risk of bleeding, at risk of DVT. Monitor for signs of either. Follow-up CBC requested. So far no further IV morphine pain control. Qualifiers: Encounter type: initial encounter Fracture alignment: displaced Qualified Code(s): S72.141A - Displaced intertrochanteric fracture of right femur, initial encounter for closed fracture (2) Fall on same level from tripping: Plan Min edema LLE: Negative venous duplex for DVT. Spinocerebellar degeneration, Cerebellar ataxia, follow-up as outpatient History of NSVT on amiodarone, continue amiodarone HTN, continue metoprolol, hold lisinopril for now HLD, continue statin DM 2, glucose doing better, down to 125. Continue moderate SSI. CC diet. Hold oral hypoglycemics. Accu-Cheks VERONICA: Continued on nightly CPAP Attestations Medical Necessity Statement*: Awaiting appropriate disposition planning Coding Level of Care Code Acute Code for Chg Fwd Diagnoses Closed intertrochanteric fracture of right hip S72.141A Encounter type: initial encounter Fracture alignment: displaced Fall on same level from tripping W01.0XXA
[2023-01-22 17:01] LABS: Glucose Point of Care 142 mg/dL (70-110)
--- NOTE | 2023-01-22 19:58 | P.PN_ITS ---
Subjective Subjective: Patient is doing well and complains of little to no pain. He is wanting to go to [facility]. Medications: Reviewed: Yes Vitals/I&O/Wt Last Vital Signs Temp 97.6 F 01/22/23 15:30 Pulse 70 01/22/23 15:30 Resp 18 01/22/23 15:30 BP 142/78 01/22/23 15:30 Pulse Ox 96 01/22/23 15:30 O2 Del Method Room Air 01/22/23 15:30 O2 Flow Rate 2 01/22/23 08:00 01/22/23 01/22/23 01/22/23 06:59 14:59 22:59 Intake Total 150 / 1790 360 / 360 360 / 720 Output Total 500 / 2200 300 / 300 Balance -350 / -410 360 / 360 60 / 420 Physical Exam Const: COMMON NORMALS: no acute distress, average body habitus, patient oriented x3 and alert GENERAL APPEARANCE: cooperative and comfortable ORIENTATION/CONSCIOUSNESS: Yes awake HENMT: COMMON NORMALS: normocephalic and atraumatic HEAD & SCALP: normocephalic and atraumatic Eye: GENERAL EYE: appearance normal, both eyes and all related structures Chest: COMMONS NORMALS: normal inspection of the chest Resp: COMMON NORMALS: normal respiratory effort EFFORT & INSPECTION: Yes able to speak in complete sentences and Yes symmetric chest movement Extremity: RIGHT LOWER EXTREMITY: Yes hip joint (Dressing is dry and intact.) Right hip: Yes inspection (Some ecchymosis likely secondary to Plavix), Yes palpation (Minimal tenderness.) and Yes neurovascular exam (Intact distally.) Neuro: COMMON NORMALS: patient oriented x3 SENSORIUM/ORIENTATION: Yes alert Psych: COMMON NORMALS: mental status grossly normal APPEARANCE: Yes grossly normal ATTITUDE: Yes calm and Yes engaged ATTENTION/CONCENTRATION: Yes attention grossly intact Skin: COMMON NORMALS: no rashes or lesions noted GENERAL SKIN EXAM: no rashes or lesions noted Urinary Catheter Management: Garcia: Cath Placed During This Visit: yes, but has since been removed by the nurse Reason for Continuing Indwelling Catheter: Required Immobilization for Trauma or Surgery or Anesthesia Urinary Catheter Date of Insertion: 01/18/23 Urinary Catheter Time of Insertion: 16:03 Date Urinary Catheter Removed: 01/20/23 Time Urinary Catheter Discontinued: 06:37 Data 01/22/23 06:20 01/21/23 03:18 A&P Assessment and plan (1) Closed intertrochanteric fracture of right hip: Patient was admitted through the emergency department after a fall at home. He normally uses a walker, but his walker was outside, and he tripped over a cable on the floor resulting in the above injury. He was admitted through the medical service for definitive treatment. He has multiple medical comorbidities which are outlined in the hospitalist admission history and physical. Patient underwent an uneventful open reduction internal fixation of his intertrochanteric hip fracture. He is now participating in rehab and doing well . Plan is he will be discharged to [facility] tomorrow. He has been accepted. Qualifiers: Encounter type: initial encounter Fracture alignment: displaced Qualified Code(s): S72.141A - Displaced intertrochanteric fracture of right femur, initial encounter for closed fracture Attestations Medical Necessity Statement*: Ongoing care following ORIF right hip fracture. Coding Level of Care Code Acute Code for [facility] Fwd Diagnoses Closed intertrochanteric fracture of right hip S72.141A Encounter type: initial encounter Fracture alignment: displaced
[2023-01-22] MEDS: amitriptyline 25 mg Tablet PO (20:21)
[2023-01-22] MEDS: amiodarone 200 mg Tablet PO (20:21)
[2023-01-22] MEDS: tamsulosin 0.4 mg Capsule PO (20:21)
[2023-01-22] MEDS: clopidogrel 75 mg Tablet PO (20:21)
[2023-01-22] MEDS: atorvastatin 40 mg Tablet 80 MG PO (20:21)
[2023-01-22 20:41] LABS: Glucose Point of Care 178 mg/dL (70-110)
[2023-01-23] MEDS: acetaminophen 500 mg Tablet 1000 MG PO ×2 (01:53→08:35)
[2023-01-23 04:00] VITALS: BP 97/56; PULSE 55; RESP 17; TEMP 36.1; O2SAT 95
[2023-01-23 05:20] LABS: Basophils % 0.6 %; Eosinophils # 0.2 10^3/uL (0.0-0.8); Eosinophils % 3.5 %; Hematocrit 30.5 % (42.0-52.0); Hemoglobin 9.7 g/dL (11.7-16.6); Lymphocytes # 1.1 10^3/uL (0.8-4.8); Lymphocytes % 21.7 %; Mean Corpuscular HGB Conc 31.8 g/dL (30.0-36.0); Mean Corpuscular Hemoglobin 29.2 pg (28.0-34.0); Mean Corpuscular Volume 91.9 fl (80-94); Mean Platelet Volume 10.7 fL (7.4-10.4); Monocytes # 0.5 10^3/uL (0.2-0.9); Monocytes % 9.4 %; Neutrophils # 3.27 10^3/uL (1.8-7.7); Nucleated Red Blood Cells % 0 %; Platelet Count 83 10^3/cmm (130-400); Red Blood Count 3.32 10^6/uL (4.1-5.3); Red Cell Distribution Width 15.1 % (12.1-15.1); White Blood Count 5.1 10^3/uL (4.0-10.0)
[2023-01-23 05:40] VITALS: PULSE 68
[2023-01-23 06:40] LABS: Glucose Point of Care 141 mg/dL (70-110)
[2023-01-23 08:00] VITALS: BP 124/71; PULSE 63; RESP 17; TEMP 36.6; O2SAT 95
[2023-01-23] MEDS: metoprolol tartrate 25 mg Tablet PO (08:36)
--- NOTE | 2023-01-23 10:06 | PC.SOCIAL ---
IMM Update pg 2 of IMM updated and reviewed w/ patient. Copy provided and Copy in chart dated, and initialed.
[2023-01-23 11:22] LABS: Glucose Point of Care 214 mg/dL (70-110)
[2023-01-23 12:00] VITALS: BP 118/77; PULSE 66; TEMP 36.7; O2SAT 96
--- NOTE | 2023-01-23 12:00 | P.DS_ITS ---
Discharge Providers Date of Admission: 01/18/23 14:45 Date of Discharge: January 23, 2023 Attending Provider at Admission: Saúl Beck Attending Provider at Discharge: Lynn Mota MD Primary Care Provider: Nehemiah Kaur MD Diagnoses at Discharge Discharge Diagnosis (1) Closed intertrochanteric fracture of right hip: Status: Acute Qualifiers: Encounter type: initial encounter Fracture alignment: displaced Qualified Code(s): S72.141A - Displaced intertrochanteric fracture of right femur, initial encounter for closed fracture Reason for Visit Reason for Visit: fall hip pain with rotation Hospital Course Hospital Course 77-year-old gentleman with history of spinocerebellar degeneration, cerebellar ataxia, normally walks with a walker, additionally with history of CAD, prior stents, and additionally more recent stent placed in April 2022, on Plavix, history of ischemic cardiomyopathy prior cardiogram in April EF 35-40%, moderate global hypokinesis, grade 1 diastolic dysfunction, history of NSVT on amiodarone, HTN, HLD, DM 2, VERONICA on nightly CPAP, presented to the hospital with a mechanical fall when he tripped on a cable while pushing his walker. He was found to have a community acute intertrochanteric fracture of the right hip. He underwent open reduction internal fixation of right intertrochanteric hip fracture. He tolerated the procedure well. No immediate perioperative complications. Hemoglobin remained stable between 9-10. Plavix was resumed. He participated well with physical therapy. His pain is under good control right now. He is being discharged to SNF to continue his rehab. Physical Exam Narrative: General: No acute distress, AO x3 HEENT: PERRLA, pupils bilaterally equal and reactive, pallors not present Chest: Normal vesicular breath sounds, no added sounds, equal good air entry bilaterally CVS: S1-S2 regular, no murmurs, no tachycardia, no gallops, no rubs Abdomen: Soft, nontender, no organomegaly, bowel sounds present Neuro: No focal deficits, no facial deformity, AO x3, power 5/5 in all limbs Urinary Catheter Management: Garcia: Cath Placed During This Visit: yes, but has since been removed by the nurse Reason for Continuing Indwelling Catheter: Required Immobilization for Trauma or Surgery or Anesthesia Urinary Catheter Date of Insertion: 01/18/23 Urinary Catheter Time of Insertion: 16:03 Date Urinary Catheter Removed: 01/20/23 Time Urinary Catheter Discontinued: 06:37 Discharge Data Studies Completed and Pending Completed Studies During Hospitalization Category Date Time Status XR chest 1V portable [id number] Urgent Exams 01/18/23 13:44 Completed XR hip RT 2-3V wo/w pel* [id number] Routine Exams 01/19/23 Completed XR hip RT 2-3V wo/w pel* [id number] Stat Exams 01/18/23 13:44 Completed CV. echo wo/w contrast [id number] Routine Ultrasound 01/18/23 18:39 Completed US venous duplex lower extremity bilat [CV venous Ultrasound 01/18/23 17:14 [place] [id number]] Routine Pending at discharge Category Date Time Status Complete Blood Count w/Auto AM LABS Lab 01/24/23 04:00 Ordered SARS Covid-2 Antigen Routine Lab 01/23/23 11:32 Uncollected Radiology Impressions Chest X-Ray 01/18/23 13:44 IMPRESSION: No acute pulmonary change with ectasia of the aorta.. Laboratory Results WBC 5.1 10^3/uL (4.0-10.0) 01/23/23 04:56 RBC 3.32 10^6/uL (4.1-5.3) L 01/23/23 04:56 Hgb 9.7 g/dL (11.7-16.6) L 01/23/23 04:56 Hct 30.5 % (42.0-52.0) L 01/23/23 04:56 MCV 91.9 fl (80-94) 01/23/23 04:56 MCH 29.2 pg (28.0-34.0) 01/23/23 04:56 MCHC 31.8 g/dL (30.0-36.0) 01/23/23 04:56 RDW 15.1 % (12.1-15.1) 01/23/23 04:56 Plt Count 83 10^3/cmm (130-400) L 01/23/23 04:56 MPV 10.7 fL (7.4-10.4) H 01/23/23 04:56 Neut % (Auto) 64.0 % 01/23/23 04:56 Lymph % (Auto) 21.7 % 01/23/23 04:56 [place] % (Auto) 9.4 % 01/23/23 04:56 Eos % (Auto) 3.5 % 01/23/23 04:56 Baso % (Auto) 0.6 % 01/23/23 04:56 Neut # (Auto) 3.27 10^3/uL (1.8-7.7) 01/23/23 04:56 Lymph # (Auto) 1.1 10^3/uL (0.8-4.8) 01/23/23 04:56 [place] # (Auto) 0.5 10^3/uL (0.2-0.9) 01/23/23 04:56 Eos # (Auto) 0.2 10^3/uL (0.0-0.8) 01/23/23 04:56 Baso # (Auto) 0.0 10^3/uL (0.0-0.1) 01/23/23 04:56 Nucleated RBC % (auto) 0 % 01/23/23 04:56 Nucleated RBCs # 0.0 /100WBC 01/23/23 04:56 Sodium 140 mmol/L (136-145) 01/21/23 03:18 Potassium 3.6 mmol/L (3.5-5.1) 01/21/23 03:18 Chloride 104 mmol/L (98-107) 01/21/23 03:18 Carbon Dioxide 26 mmol/L (22-29) 01/21/23 03:18 Anion Gap 13.6 (5-19) 01/21/23 03:18 BUN 16 mg/dL (8-23) 01/21/23 03:18 Creatinine 0.7 mg/dL (0.7-1.2) 01/21/23 03:18 GFR Calculation Not Reportable 01/21/23 03:18 Glucose 125 mg/dL (65-115) H 01/21/23 03:18 POC Glucose 214 mg/dL (70-110) H 01/23/23 11:03 Calculated Osmolality 293 mOsm/kg (285-295) 01/21/23 03:18 Calcium 8.5 mg/dL (8.5-10.5) 01/21/23 03:18 Iron 81 ug/dL (59-158) 01/18/23 14:02 TIBC 208 mcg/dl 01/18/23 14:02 % Saturation 38.9 % (20-50) 01/18/23 14:02 Unsat Iron Binding 127 ug/dL (112-347) 01/18/23 14:02 Ferritin 388 ng/mL (30-400) 01/18/23 14:02 Total Bilirubin 0.9 mg/dL (0.15-1.2) 01/18/23 14:02 AST 16 U/L (0-40) 01/18/23 14:02 ALT 14 U/L (0-41) 01/18/23 14:02 Alkaline Phosphatase 61 U/L (40-130) 01/18/23 14:02 Troponin T Gen 5 ng/L 14 ng/L (0-15) 01/18/23 17:40 Total Protein 6.7 g/dL (6.6-8.7) 01/18/23 14:02 Albumin 4.1 g/dL (3.5-5.2) 01/18/23 14:02 Globulin 2.6 g/dL (1.3-4.6) 01/18/23 14:02 Urine Color Yellow (Yellow) 01/18/23 16:01 Urine Appearance Clear (CLEAR) 01/18/23 16:01 Urine pH 6 (5-7) 01/18/23 16:01 Ur Specific [place] 1.020 (1.005-1.030) 01/18/23 16:01 Urine Protein Neg (Negative) 01/18/23 16:01 Urine Glucose (UA) Norm (Normal) 01/18/23 16:01 Urine Ketones Negative (Negative) 01/18/23 16:01 Urine Blood Neg (Negative) 01/18/23 16:01 Urine Nitrate Negative (Negative) 01/18/23 16:01 Urine Bilirubin Neg (Negative) 01/18/23 16:01 Urine Urobilinogen 1 mg/dL (Negative) H 01/18/23 16:01 Ur Leukocyte Esterase Negative (Negative) 01/18/23 16:01 Blood Type B Positive 01/18/23 17:40 Rho(D) Type Positive 01/18/23 17:40 Antibody Screen Negative 01/18/23 17:40 Vitals Last Vital Signs Temp 97.8 F 01/23/23 08:00 Pulse 63 01/23/23 08:00 Resp 17 01/23/23 08:00 BP 124/71 01/23/23 08:00 Pulse Ox 95 01/23/23 08:00 O2 Del Method Room Air 01/22/23 15:30 O2 Flow Rate 2 01/22/23 08:00 Discharge Plan Discharge Patient Disposition: Xfer SNF Condition: Stable Prescriptions: Continued glipizide 5 mg tablet 5 mg PO BID multivitamin Tablet 1 tab PO DAILY (DME) hinged elbow brace See Rx Instructions .Route .MEDSUPPLY Qty: 1 0RF Rx Instructions: As directed clopidogrel 75 mg tablet 75 mg PO BEDTIME tramadol 50 mg tablet 50 mg PO QAM rosuvastatin 20 mg tablet 20 mg PO BEDTIME cinnamon bark [Cinnamon] 500 mg Capsule 500 mg PO BEDTIME lisinopril 20 mg tablet 20 mg PO BEDTIME tamsulosin 0.4 mg capsule 0.4 mg PO BEDTIME Mejia-Mag 200 mg calcium- 100 mg Tablet,Chewable 1 tab PO BEDTIME amiodarone 200 mg tablet 200 mg PO BEDTIME amitriptyline 25 mg tablet 25 mg PO BEDTIME metformin 500 mg tablet extended release 24 hr 500 mg PO BID metoprolol tartrate 25 mg tablet 25 mg PO BID Discharge Orders: Discharge Order (Routine); Ordered 01/23/23 Ordered By: Lynn Mota Referrals: [facility] [Outside] Nehemiah Kaur MD [Primary Care Provider] - Discharge Diet: Usual diet Patient Instructions: Opioid Safety Discharge Attestations Time Spent in Discharge Care*: greater than 30 min Quality Metrics Clinical Quality Measures [ No reported AMI, CVA or VTE this stay] Coding Level of Care Code Acute Code for Chg Fwd Diagnoses Closed intertrochanteric fracture of right hip S72.141A Encounter type: initial encounter Fracture alignment: displaced
[2023-01-23] MEDS: insulin lispro 100 unit/1 mL SUBCUT (12:02)
[2023-01-23 12:56] LABS: SARS Covid-2 Antigen negative (Negative)
[2023-01-23 14:09] VITALS: BP 118/77; PULSE 66; TEMP 36.7; O2SAT 96
== END 2023-01-23 14:10 | disposition skilled nursing facility (03) | DRG 481 ==
LOC: ER 15:48 → MEDSURG 16:09
PROVIDERS: Specialist; Admitting Provider Internal Medicine; Emergency Provider Physician Assistant; PCP Family Medicine; Visit Provider Student in an Organized Health Care Education/Training Program
PROC: 0QS604Z Reposition Right Upper Femur with Internal Fixation Device, Open Approach (ICD-10-PCS; CPT 27245; principal; 2023-01-19 08:00)
DX: S72.141A Displaced intertrochanteric fracture of right femur, initial encounter for closed fracture (principal); G11.9 Hereditary ataxia, unspecified; E11.40 Type 2 diabetes mellitus with diabetic neuropathy, unspecified; Z79.84 Long term (current) use of oral hypoglycemic drugs; I11.0 Hypertensive heart disease with heart failure; I50.9 Heart failure, unspecified; I25.10 Atherosclerotic heart disease of native coronary artery without angina pectoris; Z95.5 Presence of coronary angioplasty implant and graft; E78.5 Hyperlipidemia, unspecified; I25.5 Ischemic cardiomyopathy; E66.9 Obesity, unspecified; Z68.32 Body mass index [BMI] 32.0-32.9, adult; Z79.02 Long term (current) use of antithrombotics/antiplatelets; G47.33 Obstructive sleep apnea (adult) (pediatric); Z99.89 Dependence on other enabling machines and devices; D69.6 Thrombocytopenia, unspecified; W01.0XXA Fall on same level from slipping, tripping and stumbling without subsequent striking against object, initial encounter; Y92.009 Unspecified place in unspecified non-institutional (private) residence as the place of occurrence of the external cause
CPT/HCPCS: 36415; 36416; 51702; 71045; 73502; 76000; 80048; 80053; 81003; 82728; 82962; 83540; 83550; 84484; 85018; 85025; 86850; 86900; 87426; 93005; 93970; 96372; 96374; 97110; 97116; 97161; 97165; 97530; 97535; 99214; 99285; C1713; C8929; J0131; J0690; J1100; J1170; J1650; J1815; J2270; J2370; J2405; J2704; J3010; J3490

== ENCOUNTER → 2023-02-05 09:40 | Outpatient (BNVA) | payer MEDICARE, SELFPAY | PROVIDERS: PCP Family Medicine; Visit Provider Specialist | DX: S72.141D Displaced intertrochanteric fracture of right femur, subsequent encounter for closed fracture with routine healing (principal); X58.XXXD Exposure to other specified factors, subsequent encounter | CPT/HCPCS: 73502; 99024 ==

== ENCOUNTER → 2023-03-05 10:12 | Outpatient (BNVA) | payer MEDICARE, OTHER, SELFPAY | PROVIDERS: PCP Family Medicine; Visit Provider Specialist | DX: S72.141D Displaced intertrochanteric fracture of right femur, subsequent encounter for closed fracture with routine healing; X58.XXXD Exposure to other specified factors, subsequent encounter | CPT/HCPCS: 73502; 99024 ==

== ENCOUNTER → 2023-03-28 14:20 | Outpatient (BNVA) | payer MEDICARE, OTHER, SELFPAY | PROVIDERS: PCP Family Medicine; Visit Provider Specialist | DX: M17.0 Bilateral primary osteoarthritis of knee | CPT/HCPCS: 20610; 73560; 73565; 99213; J1100; J2795; J3301 ==

== ENCOUNTER → 2023-06-11 13:26 | Outpatient (BNVA) | payer MEDICARE, OTHER, SELFPAY | PROVIDERS: PCP Family Medicine; Visit Provider Specialist | DX: S72.141D Displaced intertrochanteric fracture of right femur, subsequent encounter for closed fracture with routine healing (principal); X58.XXXD Exposure to other specified factors, subsequent encounter | CPT/HCPCS: 73502; 99213 ==

== ENCOUNTER 2023-07-03 22:25 | Observation (INO) | payer MEDICARE, SELFPAY ==
[2023-07-03 22:27] VITALS: BP 169/103; PULSE 59; RESP 18; TEMP 36.7; O2SAT 97; BMI 31.4
--- NOTE | 2023-07-03 22:31 | ECG_ITS ---
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 Measurements Intervals [place] Rate: 71 P: -11 VT: 123 QRS: -32 QRSD: 177 T: 9 QT: 455 QTc: 495 Interpretive Statements SINUS RHYTHM WITH FREQUENT VENTRICULAR PREMATURE COMPLEXES LEFT AXIS DEVIATION [QRS AXIS < -30] RIGHT BUNDLE BRANCH BLOCK [120+ ms QRS DURATION, UPRIGHT V1, 40+ ms S IN I/aVL/V4/V5/V6] Compared to ECG 01/18/2023 13:58:24 Sinus bradycardia no longer present Electronically Signed On 07-04-2023 9:01:26 COMMERCIAL JOURNEYMAN ELECTRICIAN by Tristian Clarke M.D. [id number] f
--- NOTE | 2023-07-03 22:39 | XRR_ITS ---
PROCEDURE INFORMATION: Exam: XR Chest Exam date and time: 07/03/2023 10:43 PM Age: 77 years old Clinical indication: Chest wall pain; Additional info: Cxp TECHNIQUE: Imaging protocol: Radiologic exam of the chest. Views: 1 view. COMPARISON: CR XR chest 1V portable [id number] 01/18/2023 2:11 PM FINDINGS: Lungs: Unremarkable. No consolidation. Pleural spaces: Unremarkable. No pleural effusion. No pneumothorax. Heart/Mediastinum: Cardiomegaly. Bones/joints: Unremarkable. XR/XR chest 1V portable [id number] IMPRESSION: Cardiomegaly, negative for infiltrate.
--- NOTE | 2023-07-03 22:42 | ECG_ITS ---
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 Measurements Intervals [place] Rate: 71 P: 37 IA: 126 QRS: -27 QRSD: 177 T: 8 QT: 385 QTc: 420 Interpretive Statements SINUS RHYTHM WITH OCCASIONAL VENTRICULAR PREMATURE COMPLEXES BORDERLINE LEFT AXIS DEVIATION [QRS AXIS < -20] RIGHT BUNDLE BRANCH BLOCK [120+ ms QRS DURATION, UPRIGHT V1, 40+ ms S IN I/aVL/V4/V5/V6] Compared to ECG 01/18/2023 13:58:24 Sinus bradycardia no longer present Electronically Signed On 07-04-2023 9:01:04 HAND FRAME SURGICAL ELASTIC KNITTER by Tristian Clarke M.D. [id number] f
[2023-07-03 23:00] LABS: Basophils % 0.5 %; Eosinophils # 0.1 10^3/uL (0.0-0.8); Eosinophils % 1.2 %; Hematocrit 42.1 % (37-53); Lymphocytes % 17.4 %; Mean Corpuscular HGB Conc 32.5 g/dL (30-55); Mean Corpuscular Volume 92.3 fl (82-101); Monocytes # 0.4 10^3/uL (0.2-0.9); Monocytes % 7.3 %; Neutrophils # 4.39 10^3/uL (1.8-7.7); Neutrophils % 73.3 %; Nucleated Red Blood Cells % 0 %; Platelet Count 128 10^3/cmm (157-399); Red Blood Count 4.56 10^6/uL (3.85-5.65); Red Cell Distribution Width 13.9 % (12.1-15.1); White Blood Count 5.99 10^3/uL (3.29-11.43)
[2023-07-03] MEDS: aspirin 81 mg Chew Tablet 324 MG PO (23:03)
[2023-07-03] MEDS: nitroglycerin 1 gm/inch oint Pkt 1 INCH TOPICAL (23:03)
[2023-07-03 23:19] LABS: INR 1.07 (0.8-1.2)
[2023-07-03 23:20] LABS: Partial Thromboplastin Time 25.7 SECONDS (23.9-36.7)
[2023-07-03 23:21] LABS: Troponin(5th) Baseline 13 ng/L (0-15)
[2023-07-03 23:43] LABS: Alanine Aminotransferase 9 U/L (0-41); Albumin Level 4.4 g/dL (3.5-5.2); Alkaline Phosphatase 72 U/L (40-130); Anion Gap 15.8 (5-19); Aspartate Amino Transferase 12 U/L (0-40); Blood Urea Nitrogen 22 mg/dL (8-23); Calcium 9.7 mg/dL (8.5-10.5); Carbon Dioxide 26 mmol/L (22-29); Chloride 106 mmol/L (98-107); Glucose 89 mg/dL (65-115); NT Pro B Type Natriuretic Pept 636 pg/mL (0-450); Osmolality Calculated 301 mOsm/kg (285-295); Potassium 3.8 mmol/L (3.5-5.1); Sodium 144 mmol/L (136-145); Total Bilirubin 0.8 mg/dL (0.15-1.2); Total Protein 6.4 g/dL (6.6-8.7)
[2023-07-04] VITALS (13 sets, daily range): BP systolic 123–163; BP diastolic 68–85; PULSE 57–99; RESP 13–22; TEMP 36.3–37.2; O2SAT 95–98; BMI 32.1; BMI 32.5
[2023-07-04] MEDS: ondansetron 2 mg/ML SDV 2 mL 4 MG IVP (00:06)
[2023-07-04] MEDS: heparin 5,000 unit/mL INJ 1 mL 4000 UNIT IVP (00:09)
[2023-07-04] MEDS: heparin drip 25,000 UNIT/500 ML PREMIX 29 UNIT IV (00:20)
--- NOTE | 2023-07-04 00:39 | ECG_ITS ---
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 Measurements Intervals [place] Rate: 61 P: 0 NE: 160 QRS: -35 QRSD: 180 T: 27 QT: 488 QTc: 494 Interpretive Statements SINUS RHYTHM WITH OCCASIONAL SUPRAVENTRICULAR PREMATURE COMPLEXES LEFT AXIS DEVIATION [QRS AXIS < -30] RIGHT BUNDLE BRANCH BLOCK [120+ ms QRS DURATION, UPRIGHT V1, 40+ ms S IN I/aVL/V4/V5/V6] Compared to ECG 01/18/2023 13:58:24 Sinus bradycardia no longer present Ventricular premature complex(es) no longer present Electronically Signed On 07-04-2023 9:01:58 CHILD CARE EDUCATION COORDINATOR by Tristian Clarke M.D. [id number]
[2023-07-04 01:34] LABS: Troponin 5 2HR 13.82 ng/L (0-15); Troponin 5 2HR Delta 0.82 ABS# (0-10)
--- NOTE | 2023-07-04 01:43 | P.HP_ITS ---
Providers/Chief Complaint 2 Primary Care Provider: Nehemiah Kaur MD Chief Complaint: chest pain headache History of Present Illness Arnold Ceron is a 77 year old male with history of spinocerebellar degeneration, cerebellar ataxia, normally walks with a walker, additionally with history of CAD, prior stents, and additionally more recent stent placed in April 2022, on Plavix, history of ischemic cardiomyopathy prior cardiogram in April EF 35-40%, moderate global hypokinesis, grade 1 diastolic dysfunction, history of NSVT on amiodarone, HTN, HLD, DM 2, VERONICA on nightly CPAP, recently had hip fracture intervention done by Dr. Vyas presented from home with chief complaint of chest pain. Patient is stating that he started having symptoms 2 to 3 days ago with chest pain on exertion, today he was working in his garage in the morning when he start experiencing chest pain, at rest his symptoms improved however started again after lunch, he describes the discomfort as pressure-like sensation midsternal, it was radiating towards his left arm, he felt nauseous he is denying diaphoresis, fever, diarrhea. Patient is stating that he uses a walker for ambulation. In the ER EKG showing right bundle branch block related T wave changes otherwise I do not see any ischemic or infarctive changes, his troponins are flat, he is chest pain-free he has Nitropaste, I requested nurse to remove the Nitropaste, will give him a loading dose of Plavix he has received aspirin in the ER, I have discontinued heparin and switch to Lovenox I have asked patient to stay n.p.o. until evaluated by billing administrator in the morning he is chest pain-free at the time of evaluation, Patient has history of stent in LAD which was placed in 2021., His billing administrator is Dr. Clarke he was put on metoprolol for multiple PVCs Holter monitoring was done in the past, he was put on amiodarone maintenance dose Review of Systems 2 Const: Denies: fever(s) Eyes: Denies: change in vision ENMT: Denies: throat pain Card: Reports: chest pain Resp: Denies: dyspnea GI: Denies: abdominal pain : Denies: flank pain Medications/Allergies Home Medications Medication Instructions Recorded Confirmed Last Taken Type rosuvastatin 20 mg tablet 20 mg PO BEDTIME 08/29/19 06/11/23 01/17/23 History glipizide 5 mg tablet 5 mg PO BID 08/17/20 06/11/23 01/18/23 History multivitamin 1 tab PO DAILY 10/05/21 06/11/23 07/20/22 History cinnamon bark 500 mg capsule 500 mg PO BEDTIME 05/08/22 06/11/23 01/17/23 History (Cinnamon) lisinopril 20 mg tablet 20 mg PO BEDTIME 07/20/22 06/11/23 01/17/23 History see pharmacy comment tamsulosin 0.4 mg capsule 0.4 mg PO BEDTIME 07/20/22 06/11/23 01/17/23 History hinged elbow brace #1 ea 10/23/22 06/11/23 Unknown Rx tramadol 50 mg tablet 50 mg PO QAM 12/20/22 06/11/23 01/18/23 History see pharmacy comment amitriptyline 25 mg tablet 25 mg PO BEDTIME 01/18/23 06/11/23 01/17/23 History calcium carbonate 200 mg-magnesium 1 tab PO BEDTIME 01/18/23 06/11/23 01/17/23 History oxide,carbonate 100 mg chew tablet (Mejia-Mag) metformin 500 mg tablet,extended 500 mg PO BID 01/18/23 06/11/23 01/18/23 History release 24 hr amiodarone 200 mg tablet 200 mg PO BEDTIME #90 tabs 06/07/23 06/11/23 Unknown Rx Allergies Allergy/AdvReac Type Severity Reaction Status Date / Time No Known Allergies Allergy Verified 06/11/23 13:31 PFSH Acute 2 PFSH: Medical History VERONICA on CPAP Spinocerebellar degeneration NSVT (nonsustained ventricular tachycardia) Gait instability Migraine Diabetic neuropathy Cerebellar ataxia Lumbar spondylosis Lumbosacral disc disease Lumbar disc disease with radiculopathy Intervertebral disc disorder with radiculopathy of lumbosacral region Arachnoid cyst Ischemic cardiomyopathy DDD (degenerative disc disease), lumbar Diabetes mellitus Hyperlipidemia Hypertension Obesity ASHD (arteriosclerotic heart disease) Tobacco abuse History of colon cancer Surgical History History of sinus surgery History of back surgery Left L4-L5, L5-S1 hemilaminotomy/discectomy/foraminotomy, [place] [facility] [place] coronary angioplasty History of hernia repair History of resection of small bowel History of cholecystectomy Family History Mother Cancer Father CAD (coronary artery disease) Sister Hypertension Social History Smoking and tobacco/nicotine status: former use of tobacco/nicotine Alcohol intake: never Substance/Drug Use: never Lives independently: Yes Household members: spouse Marital status: Current occupational status: retired Current occupation: retired Vitals/I&O/Wt Last Vital Signs Temp 98.0 F 07/03/23 22:27 Pulse 57 L 07/04/23 00:43 Resp 16 07/04/23 00:43 BP 134/77 07/04/23 00:43 Pulse Ox 96 07/04/23 00:43 O2 Del Method Room Air 07/03/23 22:27 Weight last 48 hrs Weight 102.058 kg Physical Exam 2 Narrative: Chest pain-free Awake and alert Euvolemic S1, S2 Pleasant and cooperative Right bundle branch block Heart rate in 60s Blood pressure stable Pleasant and cooperative Nonfocal neuro exam GCS 15 Data 07/03/23 22:54 07/03/23 22:54 A&P Assessment and plan (1) Unstable angina: Plan Unstable angina with underlying established coronary disease, ischemic cardiomyopathy Troponins are flat EKG showing right bundle branch block related T wave changes No acute infarctive or ischemic changes Patient will get aspirin and Plavix loading dose along with therapeutic Lovenox I have removed Nitropaste at this point Patient is chest pain-free Has history of stent in LAD, ischemic cardiomyopathy history History of nonsustained V. tach: Continue amiodarone Type II diabetic we will keep him on sliding scale Keep him n.p.o. until he is evaluated by billing administrator today Patient is full code Came from home Uses a walker for ambulation No active signs of CHF exacerbation Check B12, echo, phosphorus level Attestations 2 Medical Necessity Statement*: Anticipating more than 2 midnights Diagnoses Unstable angina I20.0
--- NOTE | 2023-07-04 02:41 | USCV_ITS ---
Arnold Ceron Age: 77 Gender: M : 1945 Exam Date: 07/04/2023 03:10 Ordering Phys: Long Pinon MD Technologist: CHRIS [place] [facility] [place]: NSTEMI, history of cardiac stenting. BP: 155 / 78 HR: 54 Rhythm: Sinus Technical Quality: Adequate MEASUREMENTS (Male / Female) Normal Values 2D ECHO LV Diastolic Diameter PLAX 5.6 cm 4.2 - 5.9 / 3.9 - 5.3 cm LV Systolic Diameter PLAX 4.2 cm IVS Diastolic Thickness 1.3 cm 0.6 - 1.0 / 0.6 - 0.9 cm IVS Systolic Thickness 1.6 cm LVPW Diastolic Thickness 1.3 cm 0.6 - 1.0 / 0.6 - 0.9 cm LVPW Systolic Thickness 1.5 cm LVOT Diameter 2.0 cm LV Ejection Fraction 2D Teich 50.0 % LV Ejection Fraction MOD 2C 30.0 % LV Ejection Fraction 2C AL 30.2 % LA Diameter 5.1 cm LA Width 4.5 cm LA Height 5.7 cm RA Width 4.4 cm RA Height 4.7 cm Aorta at Sinotubular Diameter 4.0 cm IVC Diameter 2.0 cm M-MODE Aortic Annulus Diameter 5.7 cm LA Ao Ratio MM 0.8 DOPPLER AV Peak Velocity 140.0 cm/s LVOT Peak Velocity 51.0 cm/s AV Area Cont Eq vti 1.0 cm squared AV Area Cont Eq pk 1.2 cm squared MV Peak Velocity 87.0 cm/s MV Area PHT 2.9 cm squared Mitral E to A Ratio 0.7 MV E' Velocity 31.0 cm/s Mitral E to MV E' Ratio 10.6 Mitral E to LV E' Lateral Ratio 8.7 Mitral E to LV E' Septal Ratio 13.7 TR Peak Velocity 202.0 cm/s TR Peak Gradient 16.3 mmHg TV Peak E Velocity 36.0 cm/s Right Atrial Pressure 10.0 mmHg Pulmonary Artery Systolic Pressu 26.3 mmHg PV Peak Velocity 83.0 cm/s RV Acceleration Time 0.1 s RV Ejection Time 0.4 s RV AcT/ET 0.2 FINDINGS Left Ventricle Left ventricle is normal in size. LV systolic function is mildly reduced with EF of 40-45 %. Mild global hypokinesis seen. Grade 1 diastolic dysfunction Right Ventricle Normal in size and function Right Atrium Normal in size Left Atrium Normal in size Mitral Valve Structurally normal mitral valve. Aortic Valve Grossly normal. No significant stenosis. Mild to moderate aortic regurgitation. Tricuspid Valve Mild tricuspid regurgitation. Insufficient TR jet to evaluate RVSP. Pulmonic Valve Not well visualized Pericardium Normal Aorta Normal in size IVC Appears to normal CONCLUSIONS LV systolic function is mildly reduced with EF of 40 to 45%. Grade 1 diastolic dysfunction Mild to moderate aortic regurgitation Mild tricuspid regurgitation Compared to prior echocardiogram from 12/2022, patient now has mild to moderate aortic regurgitation. Tristian Clarke MD (Electronically Signed) Final Date: 04 July 2023 09:42 S
[2023-07-04] MEDS: clopidogrel 300 mg Tablet PO (03:53)
--- NOTE | 2023-07-04 04:39 | ECG_ITS ---
[facility] Test Date: 2023-07-04 Pat Name: Arnold Ceron Department: Room: 102 Gender: Male Newborn Photographer: : 1945 Requested By: Vini Ayala Order Number: [id number] Dale MD: Tristian Clarke M.D. 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 [id number]
[2023-07-04 05:37] LABS: Basophils % 0.6 %; Eosinophils # 0.1 10^3/uL (0.0-0.8); Eosinophils % 1.2 %; Hematocrit 38.5 % (37-53); Lymphocytes # 1.1 10^3/uL (0.8-4.8); Lymphocytes % 21.5 %; Mean Corpuscular HGB Conc 31.9 g/dL (30-55); Mean Corpuscular Hemoglobin 30.1 pg (27-33); Mean Corpuscular Volume 94.1 fl (82-101); Mean Platelet Volume 10.4 fL (7.4-10.4); Monocytes # 0.4 10^3/uL (0.2-0.9); Monocytes % 7.4 %; Neutrophils # 3.57 10^3/uL (1.8-7.7); Neutrophils % 68.9 %; Nucleated Red Blood Cells % 0 %; Platelet Count 110 10^3/cmm (157-399); Red Blood Count 4.09 10^6/uL (3.85-5.65); White Blood Count 5.17 10^3/uL (3.29-11.43)
[2023-07-04 05:52] LABS: Estmated Average Glucose 111; Hemoglobin A1C 5.5 % (4.0-6.0)
[2023-07-04 05:57] LABS: Anion Gap 12.8 (5-19); Blood Urea Nitrogen 23 mg/dL (8-23); Calcium 9.5 mg/dL (8.5-10.5); Carbon Dioxide 26 mmol/L (22-29); Chloride 106 mmol/L (98-107); Glucose 135 mg/dL (65-115); Magnesium 1.8 mg/dL (1.7-2.3); Osmolality Calculated 298 mOsm/kg (285-295); Phosphorus 3.5 mg/dL (2.5-4.5); Potassium 3.8 mmol/L (3.5-5.1); Sodium 141 mmol/L (136-145)
[2023-07-04 06:01] LABS: Troponin 5 6HR 13.83 ng/L (0-15); Troponin 5 6HR Delta 0.83 ng/L (0-12)
[2023-07-04 06:19] LABS: Vitamin B12 284 pg/mL (232-1245)
[2023-07-04] MEDS: enoxaparin 100 mg/mL Syringe SUBCUT (06:22)
[2023-07-04 07:02] LABS: Glucose Point of Care 120 mg/dL (70-110)
--- NOTE | 2023-07-04 07:15 | NMCV_ITS ---
NM chas perf SPECT r/s* [id number] Arnold Ceron Age: 77 Gender: M : 1945 Exam Date: 07/04/2023 07:15 Ordering Phys: Long Pinon MD Technologist: TOÑO Duval Exam Location: [facility] Indications: CHEST PAIN STRESS TEST Please see separate stress test report [facility] for full findings IMAGE PROTOCOL Rest/Stress 1 Lexiscan Day Radiopharmaceutical Dose (mCi) Administration Site Administered by Rest: Tc-99m 10.9 IV TOÑO Webster Sestamibi Stress:Tc-99m 32.8 IV TOÑO Duval Sestamimckenzie Rest: 04-Jul-2023 60 Discovery 630 Stress: 04-Jul-2023 30 Discovery 630 0.4mg Lexiscan. Supine position only as patient was unable to lay prone. SPECT RESULTS Technical Quality: Excellent Raw Data Analysis: Normal Image Corrections: No attenuation or motion correction applied Summed Stress Score: 18 Summed Rest Score: 20 Summed Difference Score: 0 PERFUSION FINDINGS There is large in size, partially reversible perfusion defect noted in inferior wall. This is consistent with large sized area of prior infarct with medium sized area of miles-infarct ischemia in RCA territory. Also noted is large sized, fixed perfusion defect in the inferolateral wall. This is consistent with large sized prior infarct in left circumflex artery territory. FUNCTIONAL RESULTS (calculated via Gated SPECT) Stress Image LV EF (%): 38 Stress EDV (mL):195 TID: 0.97 Stress ESV (mL):120 FUNCTIONAL FINDINGS: LV systolic function is moderately reduced with EF of 38%. Moderate global hypokinesis. IMPRESSIONS 1. Large sized area of prior infarct with medium sized area of miles-infarct ischemia seen in RCA territory. 2. Large sized area of prior infarct is seen in left circumflex artery territory. 3. LV systolic function is moderately reduced with EF of 38%. Tristian Clarke MD (Electronically Signed) Final Date: 04 July 2023 09:56 S
--- NOTE | 2023-07-04 07:18 | P.PN_ITS ---
Subjective 2 Subjective: Patient is chest pain-free Remove Nitropaste I will request stress test because his troponins have remained flat, hemodynamically stable Touch base with nuclear med to see if they have isotope available today Patient is on ACS protocol Vitals/I&O/Wt Last Vital Signs Temp 98.0 F 07/04/23 07:15 Pulse 71 07/04/23 07:15 Resp 19 H 07/04/23 07:15 BP 137/76 07/04/23 07:15 Pulse Ox 98 07/04/23 07:15 O2 Del Method Room Air 07/04/23 07:15 07/03/23 07/04/23 07/04/23 22:59 06:59 14:59 Intake Total 240 / 240 Output Total 150 / 150 Balance 90 / 90 Weight last 48 hrs Weight 105.829 kg Weight 104.496 kg Weight 102.058 kg Physical Exam 2 Narrative: Awake and alert Chest pain-free Euvolemic Pleasant and cooperative GCS 15 Currently doing well on room air No active chest pain Data 07/04/23 05:26 07/04/23 05:26 A&P Assessment and plan (1) Unstable angina: Plan Unstable angina Will require stress test Troponins flat EKG without ischemic or infarctive changes Continue ACS protocol History of stent in LAD I will keep patient n.p.o. until I find out if we can do stress test today If stress test is positive then will call cardiology Considering the fact patient is chest pain-free troponins are flat I do not think patient needs angiogram right away Continue n.p.o. status DVT prophylaxis covered with Lovenox Patient is from home, uses walker at baseline Lives with his Full code Attestations 2 Medical Necessity Statement*: Continue medical management Diagnoses Unstable angina I20.0
[2023-07-04] MEDS: regadenoson 0.4 Mg/5 ml Syringe IVP (08:47)
--- NOTE | 2023-07-04 09:18 | PC.PHAR ---
pt not in room-called pts no answer
[2023-07-04] MEDS: clopidogrel 75 mg Tablet PO (11:03)
[2023-07-04] MEDS: atorvastatin 40 mg Tablet PO (11:03)
[2023-07-04] MEDS: aspirin 81 mg EC Tablet PO (11:04)
[2023-07-04] MEDS: sennosides-docusate Tablet 1 TAB PO (11:04)
[2023-07-04] MEDS: acetaminophen 500 mg Tablet PO (11:09)
--- NOTE | 2023-07-04 11:55 | PC.PHAR ---
Addendum entered by Donna Espinoza 07/04/23 12:00: pt states he takes metformin er 500mg qam rx filled 05/06/23 90d/s 500mg bid Original Note: pt states he takes care of his own medications-pt states his metoprolol tartrate 25mg bid and plavix 75mg daily filled 05/25/23 90d/s was dced -when you audit med rec history it shows betsy melgoza dced in computer on 06/11/23 from [facility] @mob-pt state she no longer takes amitriptyline 25mg hs ext shows last filled 02/07/23 90d/s
[2023-07-04 12:04] LABS: Glucose Point of Care 142 mg/dL (70-110)
--- NOTE | 2023-07-04 12:11 | PM.PN ---
Vitals/I&O/Wt Last Vital Signs Temp 97.4 F L 07/04/23 11:15 Pulse 64 07/04/23 11:15 Resp 14 07/04/23 11:15 BP 163/85 07/04/23 11:15 Pulse Ox 97 07/04/23 11:15 O2 Del Method Room Air 07/04/23 11:15 07/03/23 07/04/23 07/04/23 22:59 06:59 14:59 Intake Total 240 / 240 240 / 240 Output Total 150 / 150 500 / 500 Balance 90 / 90 -260 / -260 Weight last 48 hrs Weight 105.829 kg Weight 104.496 kg Weight 102.058 kg Data 07/04/23 05:26 07/04/23 05:26 Coding Level of Care Code Acute Code for Chg Fwd
--- NOTE | 2023-07-04 14:40 | PM.DCS ---
Discharge Providers Date of Admission: 07/04/23 01:47 Date of Discharge: July 04, 2023 Attending Provider at Admission: Long Pinon MD Attending Provider at Discharge: Viviane Boo MD Primary Care Provider: Nehemiah Kaur MD Diagnoses at Discharge Discharge Diagnosis (1) Unstable angina: Status: Resolved Reason for Visit Reason for Visit: chest pain headache Hospital Course Hospital Course Patient was admitted for chest pain and given a preliminary diagnosis of unstable angina. Case was discussed with cardiology and a stress test was suggested. Patient does have history of stent in LAD. Troponins were flat. Patient had a stress test done which was abnormal and was discussed with Dr. Blankenship. Patient did not meet criteria for angiogram and his previous EKGs and the current EKG along with negative troponins. Dr. blankenship advised to discharge home and to follow-up as an outpatient. Patient given follow-up appointment with cardiology at discharge. Physical Exam Narrative: Awake and alert Chest pain-free Euvolemic Pleasant and cooperative GCS 15 Currently doing well on room air No active chest pain Discharge Data Studies Completed and Pending Completed Studies During Hospitalization Category Date Time Status XR chest 1V portable [id number] Stat Exams 07/03/23 22:39 Completed NM chas perf SPECT r/s* [id number] Routine Nuc Med 07/04/23 07:15 Completed CV. echo complete* [id number] Routine Ultrasound 07/04/23 02:41 Completed Pending at discharge Category Date Time Status Sestamibi Stress Test Request Routine Exams 07/05/23 06:00 Ordered Radiology Impressions Chest X-Ray 07/03/23 22:39 IMPRESSION: Cardiomegaly, negative for infiltrate. Laboratory Results WBC 5.17 10^3/uL (3.29-11.43) 07/04/23 05:26 RBC 4.09 10^6/uL (3.85-5.65) 07/04/23 05:26 Hgb 12.30 g/dL (11.27-16.99) 07/04/23 05:26 Hct 38.5 % (37-53) 07/04/23 05:26 MCV 94.1 fl (82-101) 07/04/23 05:26 MCH 30.1 pg (27-33) 07/04/23 05:26 MCHC 31.9 g/dL (30-55) 07/04/23 05:26 RDW 14.0 % (12.1-15.1) 07/04/23 05:26 Plt Count 110 10^3/cmm (157-399) L 07/04/23 05:26 MPV 10.4 fL (7.4-10.4) 07/04/23 05:26 Neut % (Auto) 68.9 % 07/04/23 05:26 Lymph % (Auto) 21.5 % 07/04/23 05:26 Barnwell % (Auto) 7.4 % 07/04/23 05:26 Eos % (Auto) 1.2 % 07/04/23 05:26 Baso % (Auto) 0.6 % 07/04/23 05:26 Neut # (Auto) 3.57 10^3/uL (1.8-7.7) 07/04/23 05:26 Lymph # (Auto) 1.1 10^3/uL (0.8-4.8) 07/04/23 05:26 Barnwell # (Auto) 0.4 10^3/uL (0.2-0.9) 07/04/23 05:26 Eos # (Auto) 0.1 10^3/uL (0.0-0.8) 07/04/23 05:26 Baso # (Auto) 0.0 10^3/uL (0.0-0.1) 07/04/23 05:26 Nucleated RBC % (auto) 0 % 07/04/23 05:26 Nucleated RBCs # 0.0 /100WBC 07/04/23 05:26 PT 14.20 SECONDS (12.1-14.9) 07/03/23 22:54 INR 1.07 (0.8-1.2) 07/03/23 22:54 APTT 25.7 SECONDS (23.9-36.7) 07/03/23 22:54 D-Dimer 0.70 ug/mLFEU (0-0.59) H 07/03/23 22:54 Sodium 141 mmol/L (136-145) 07/04/23 05:26 Potassium 3.8 mmol/L (3.5-5.1) 07/04/23 05:26 Chloride 106 mmol/L (98-107) 07/04/23 05:26 Carbon Dioxide 26 mmol/L (22-29) 07/04/23 05:26 Anion Gap 12.8 (5-19) 07/04/23 05:26 BUN 23 mg/dL (8-23) 07/04/23 05:26 Creatinine 0.8 mg/dL (0.7-1.2) 07/04/23 05:26 GFR Calculation Not Reportable 07/04/23 05:26 Glucose 135 mg/dL (65-115) H 07/04/23 05:26 POC Glucose 142 mg/dL (70-110) H 07/04/23 11:17 Estimat Average Glucose 111 07/04/23 05:26 Hemoglobin A1c 5.5 % (4.0-6.0) 07/04/23 05:26 Calculated Osmolality 298 mOsm/kg (285-295) H 07/04/23 05:26 Calcium 9.5 mg/dL (8.5-10.5) 07/04/23 05:26 Phosphorus 3.5 mg/dL (2.5-4.5) 07/04/23 05:26 Magnesium 1.8 mg/dL (1.7-2.3) 07/04/23 05:26 Total Bilirubin 0.8 mg/dL (0.15-1.2) 07/03/23 22:54 AST 12 U/L (0-40) 07/03/23 22:54 ALT 9 U/L (0-41) 07/03/23 22:54 Alkaline Phosphatase 72 U/L (40-130) 07/03/23 22:54 Troponin T Baseline 13 ng/L (0-15) 07/03/23 22:54 Troponin T 120 Minute 13.82 ng/L (0-15) 07/04/23 01:10 Delta Troponin T 0.82 ABS# (0-10) 07/04/23 01:10 Troponin T Hi Sens 6Hr 13.83 ng/L (0-15) 07/04/23 05:26 Troponin T Hi Sens 6Hr Delta 0.83 ng/L (0-12) 07/04/23 05:26 C-Reactive Protein 3.0 mg/L (0.0-4.9) 07/04/23 05:26 NT-Pro-B Natriuret Pep 636 pg/mL (0-450) H 07/03/23 22:54 Total Protein 6.4 g/dL (6.6-8.7) L 07/03/23 22:54 Albumin 4.4 g/dL (3.5-5.2) 07/03/23 22:54 Globulin 2.0 g/dL (1.3-4.6) 07/03/23 22:54 Vitamin B12 284 pg/mL (232-1245) 07/04/23 05:26 Vitals Last Vital Signs Temp 97.4 F L 07/04/23 11:15 Pulse 64 07/04/23 11:15 Resp 14 07/04/23 11:15 BP 163/85 07/04/23 11:15 Pulse Ox 97 07/04/23 11:15 O2 Del Method Room Air 07/04/23 11:15 Discharge Plan Discharge Patient Disposition: Home Condition: Stable Prescriptions: New clopidogrel 75 mg Tablet 75 mg PO DAILY Qty: 30 0RF Continued glipizide 5 mg tablet 5 mg PO BID multivitamin Tablet 1 tab PO DAILY (DME) hinged elbow brace See Rx Instructions .Route .MEDSUPPLY Qty: 1 0RF Rx Instructions: As directed tramadol 50 mg tablet 50 mg PO QAM amiodarone 200 mg tablet 200 mg PO BEDTIME Qty: 90 3RF rosuvastatin 20 mg tablet 20 mg PO BEDTIME cinnamon bark [Cinnamon] 500 mg Capsule 500 mg PO DAILY PRN (Reason: high blood sugar) lisinopril 20 mg tablet 20 mg PO BEDTIME tamsulosin 0.4 mg capsule 0.4 mg PO BEDTIME metformin 500 mg tablet extended release 24 hr 500 mg PO QAM aspirin 81 mg Tablet,Delayed Release (Dr/Ec) 81 mg PO BEDTIME Discharge Orders: Discharge Order (Routine); Ordered 07/04/23 Ordered By: Viviane Boo Referrals: Josesito Blankenship MD [Physician] - 07/11/23 11:00 am Nehemiah Kaur MD [Primary Care Provider] - 07/09/23 1:00 pm Discharge Diet: Cardiac Discharge Activity: Resume usual activity Patient Instructions: Clopidogrel (By mouth) (Plavix), Chest Pain (DC), Chest Pain Stoplight, Opioid Safety Activity Restrictions/Additional Instructions: please return to er if you have chest pain again. Discharge Attestations Time Spent in Discharge Care*: greater than 30 min Quality Metrics Clinical Quality Measures [ No reported AMI, CVA or VTE this stay] Coding Level of Care Code Acute Code for Chg Fwd Diagnoses Unstable angina I20.0
--- NOTE | 2023-08-08 08:44 | ED_ITS ---
HPI - Chest Pain 2 General: Chief Complaint: Chest Pain Stated Complaint: chest pain headache Time Seen by Provider: 07/03/23 22:32 History of Present Illness: 77-year-old male presents emergency depa rtment with complaints of having chest pain on exertion started having the symptoms intermittently 2 to 3 days ago. He states the day he was in his garage and started experiencing significant substernal chest pains. He states the symptoms improved slightly with rest but recurred after eating lunch. He states the pain radiated to his left shoulder and arm and is described as a pressure type sensation that is a 4 out of 10. Patient states he did have a coronary artery stent placed in April 2022 by cardiology at this facility. He does state associated nausea at the time of his chest pain and does have a history of hypertension, hyperlipidemia, obstructive sleep apnea and type 2 diabetes. Associated symptoms: Reports nausea Review of Systems 2 General: Reports: 10 or more systems reviewed and unremarkable except in HPI and below Card: Reports: chest pain GI: Reports: nausea PFSH ED 2 PFSH: Medical History VERONICA on CPAP Spinocerebellar degeneration NSVT (nonsustained ventricular tachycardia) Gait instability Migraine Diabetic neuropathy Cerebellar ataxia Lumbar spondylosis Lumbosacral disc disease Lumbar disc disease with radiculopathy Intervertebral disc disorder with radiculopathy of lumbosacral region Arachnoid cyst Ischemic cardiomyopathy DDD (degenerative disc disease), lumbar Diabetes mellitus Hyperlipidemia Hypertension Obesity ASHD (arteriosclerotic heart disease) Tobacco abuse History of colon cancer Surgical History History of sinus surgery History of back surgery Left L4-L5, L5-S1 hemilaminotomy/discectomy/foraminotomy, 09/01/2019, [facility] H/O coronary angioplasty History of hernia repair History of resection of small bowel History of cholecystectomy Family History Mother Cancer Father CAD (coronary artery disease) Sister Hypertension Social History Smoking and tobacco/nicotine status: former use of tobacco/nicotine Alcohol intake: never Substance/Drug Use: never Lives independently: Yes Household members: spouse Marital status: Current occupational status: retired Current occupation: retired Physical Exam 2 Narrative: EXAM NARRATIVE: Constitutional: the patient appears well nourished and of normal development. Vital signs as documented. No acute distress at present. Alert and oriented-to person, place, time and situation. Head, eyes, ears, nose, mouth, throat: Normocephalic, atraumatic. Pupils-equal, round, reactive to light. No scleral icterus. Normal-appearing external ears. Normal appearing nasal turbinates, no drainage. No obvious oral lesions, posterior oropharynx without erythema or exudates. Neck: Supple, trachea is midline, no lymphadenopathy, no jugular venous distension, thyromegaly, or carotid bruits. Carotid upstrokes are brisk bilaterally. Lungs: clear to auscultation to all lung lind[place]. Symmetrical rise and fall of chest, no obvious signs of increased work of breathing at present. Cardiac: Regular rate and rhythm, positive S1, S2. No murmurs, rubs or gallops that I can appreciate Abdomen: Soft, non-tender to palpation, normal active bowel sounds to all quadrants. No palpable masses, no organomegaly and abdominal bruits. Extremities: 2+ pulses in the upper extremities that are equal bilaterally, 2+ pulses in the lower extremities that are equal bilaterally. Non-edematous. Moves all extremities well, sensation to all extremities are noted. Skin: Warm, dry, intact. Course 2 Vital Signs: Vital signs: Vital Signs Temperature 98.9 F 07/04/23 16:39 Pulse Rate 83 07/04/23 16:39 Respiratory Rate 22 H 07/04/23 16:39 Blood Pressure 123/75 07/04/23 16:39 Pulse Oximetry 95 07/04/23 16:39 Oxygen Delivery Me thod Room Air 07/04/23 16:00 MDM - Chest Pain Medical Decision Making Physical exam completed and documented, I will obtain serial cardiac enzymes, serial twelve-lead EKGs, chest x-ray, CBC, CMP, urinalysis, B-type natriuretic peptide, PT/PTT/INR, and a chest x-ray. I provide cardiac dose aspirin. Pending the review of the twelve-lead EKG I will also consider providing loading dose of heparin and possible heparin drip as well as evaluate the need for nitroglycerin drip, and reevaluate accordingly. I will review any pervious and pertinent medical records for assist in obtaining beneficial medical information to improved the care and treatment of the patient. I will reevaluate in consider hospitalist consultation and cardiology consultation for admission and additional evaluation. Medical Records I reviewed the patient's medical records. Lab Data I reviewed the patient's lab results. 07/04/23 05:26 07/04/23 05:26 Radiology Impressions Chest X-Ray 07/03/23 22:39 IMPRESSION: Cardiomegaly, negative for infiltrate. Laboratory Results WBC 5.99 10^3/uL (3.29-11.43) 07/03/23 22:54 RBC 4.56 10^6/uL (3.85-5.65) 07/03/23 22:54 Hgb 13.70 g/dL (11.27-16.99) 07/03/23 22:54 Hct 42.1 % (37-53) 07/03/23 22:54 MCV 92.3 fl (82-101) 07/03/23 22:54 MCH 30.0 pg (27-33) 07/03/23 22:54 MCHC 32.5 g/dL (30-55) 07/03/23 22:54 RDW 13.9 % (12.1-15.1) 07/03/23 22:54 Plt Count 128 10^3/cmm (157-399) L 07/03/23 22:54 MPV 10.0 fL (7.4-10.4) 07/03/23 22:54 Neut % (Auto) 73.3 % 07/03/23 22:54 Lymph % (Auto) 17.4 % 07/03/23 22:54 [place] % (Auto) 7.3 % 07/03/23 22:54 Eos % (Auto) 1.2 % 07/03/23 22:54 Baso % (Auto) 0.5 % 07/03/23 22:54 Neut # (Auto) 4.39 10^3/uL (1.8-7.7) 07/03/23 22:54 Lymph # (Auto) 1.0 10^3/uL (0.8-4.8) 07/03/23 22:54 [place] # (Auto) 0.4 10^3/uL (0.2-0.9) 07/03/23 22:54 Eos # (Auto) 0.1 10^3/uL (0.0-0.8) 07/03/23 22:54 Baso # (Auto) 0.0 10^3/uL (0.0-0.1) 07/03/23 22:54 Nucleated RBC % (auto) 0 % 07/03/23 22:54 Nucleated RBCs # 0.0 /100WBC 07/03/23 22:54 PT 14.20 SECONDS (12.1-14.9) 07/03/23 22:54 INR 1.07 (0.8-1.2) 07/03/23 22:54 APTT 25.7 SECONDS (23.9-36.7) 07/03/23 22:54 D-Dimer 0.70 ug/mLFEU (0-0.59) H 07/03/23 22:54 Sodium 144 mmol/L (136-145) 07/03/23 22:54 Potassium 3.8 mmol/L (3.5-5.1) 07/03/23 22:54 Chloride 106 mmol/L (98-107) 07/03/23 22:54 Carbon Dioxide 26 mmol/L (22-29) 07/03/23 22:54 Anion Gap 15.8 (5-19) 07/03/23 22:54 BUN 22 mg/dL (8-23) 07/03/23 22:54 Creatinine 0.9 mg/dL (0.7-1.2) 07/03/23 22:54 GFR Calculation Not Reportable 07/03/23 22:54 Glucose 89 mg/dL (65-115) 07/03/23 22:54 Calculated Osmolality 301 mOsm/kg (285-295) H 07/03/23 22:54 Calcium 9.7 mg/dL (8.5-10.5) 07/03/23 22:54 Total Bilirubin 0.8 mg/dL (0.15-1.2) 07/03/23 22:54 AST 12 U/L (0-40) 07/03/23 22:54 ALT 9 U/L (0-41) 07/03/23 22:54 Alkaline Phosphatase 72 U/L (40-130) 07/03/23 22:54 Troponin T Baseline 13 ng/L (0-15) 07/03/23 22:54 Troponin T 120 Minute 13.82 ng/L (0-15) 07/04/23 01:10 Delta Troponin T 0.82 ABS# (0-10) 07/04/23 01:10 NT-Pro-B Natriuret Pep 636 pg/mL (0-450) H 07/03/23 22:54 Total Protein 6.4 g/dL (6.6-8.7) L 07/03/23 22:54 Albumin 4.4 g/dL (3.5-5.2) 07/03/23 22:54 Globulin 2.0 g/dL (1.3-4.6) 07/03/23 22:54 All radiology interpretation(s) finalized by discharge Discharge Plan Discharge Patient Disposition: Admitted As Inpatient Admit Provider: Long Pinon Clinical Impression: Angina pectoris, unstable Condition: Stable Discharge Diet: Cardiac Discharge Activity: Resume usual activity Coding Level of Care Code ED Mica Plate Layer for Aiyana Rush
== END 2023-07-04 16:54 | disposition home or self-care (01) ==
LOC: ER 07-04 01:07 → CSU 07-04 01:59
PROVIDERS: Admitting Provider Internal Medicine; Emergency Provider Internal Medicine; PCP Family Medicine; Visit Provider Internal Medicine
DX: I25.110 Atherosclerotic heart disease of native coronary artery with unstable angina pectoris (principal); I45.10 Unspecified right bundle-branch block; Z95.5 Presence of coronary angioplasty implant and graft; I08.2 Rheumatic disorders of both aortic and tricuspid valves; Z79.02 Long term (current) use of antithrombotics/antiplatelets; I10 Essential (primary) hypertension; E78.5 Hyperlipidemia, unspecified; E11.40 Type 2 diabetes mellitus with diabetic neuropathy, unspecified; G47.33 Obstructive sleep apnea (adult) (pediatric); Z87.891 Personal history of nicotine dependence; I51.7 Cardiomegaly
CPT/HCPCS: 36415; 36416; 71045; 78452; 80048; 80053; 82607; 82962; 83036; 83735; 83880; 84100; 84484; 85025; 85378; 85610; 85730; 86140; 93005; 93306; 96365; 96366; 96372; 96375; 99285; A9500; G0378; J1644; J1650; J2405; J2785

== ENCOUNTER → 2023-07-11 10:49 | Outpatient (BNVA) | payer MEDICARE, SELFPAY | PROVIDERS: PCP Family Medicine; Visit Provider Internal Medicine Cardiovascular Disease | DX: I25.10 Atherosclerotic heart disease of native coronary artery without angina pectoris (principal); Z98.61 Coronary angioplasty status; I10 Essential (primary) hypertension; E78.5 Hyperlipidemia, unspecified; I47.29 Other ventricular tachycardia; E66.9 Obesity, unspecified; Z68.31 Body mass index [BMI] 31.0-31.9, adult; G11.9 Hereditary ataxia, unspecified; Z87.891 Personal history of nicotine dependence; E11.40 Type 2 diabetes mellitus with diabetic neuropathy, unspecified; Z79.84 Long term (current) use of oral hypoglycemic drugs | CPT/HCPCS: 99214 ==

== ENCOUNTER → 2023-07-19 08:36 | Outpatient (BNVA) | payer MEDICARE, SELFPAY | PROVIDERS: PCP Family Medicine; Visit Provider Psychiatry & Neurology Neurology | DX: G11.8 Other hereditary ataxias (principal); M54.2 Cervicalgia; R29.90 Unspecified symptoms and signs involving the nervous system | CPT/HCPCS: 99203 ==

== ENCOUNTER 2023-07-25 12:50 | Outpatient (CLI) | payer MEDICARE, SELFPAY ==
--- NOTE | 2023-07-25 13:30 | USCV_ITS ---
Arnold Ceron Age: 77 Gender: M : 1945 Exam Date: 07/25/2023 13:35 Ordering Phys: Sandeep Singleton MD Technologist: Juan Ramon Collier Exam Location: [facility] [place] Indication: cca disese poor mobilty Risk Factors: Previous Vascular Surgery: Right Brachial BP: / Left Brachial BP: / Right Left Velocity (cm/s) Spectral Plaque Velocity (cm/s) Spectral Plaque Syst/Diast Broadening Syst/Diast Broadening 63.33/ 16.73 Prox CCA 70.60 / 15.80 76.50/ 16.40 Mid CCA 65.10 / 13.90 Hetro 73.15/ 18.35 Hetro Distal CCA 67.00 / 15.00 Mejia 64.10/ 24.60 Hetro Prox ICA 73.30 / 14.50 Mejia 67.00/ 17.70 Mid ICA 73.30 / 19.90 Hetro 64.10/ 11.80 Distal ICA 69.70 / 17.70 77.85 ECA 79.85 0.87 ICA/CCA 1.04 Antegrade Vertebral Antegrade 46.40/ 15.30 cm/s 66.90/ 17.70 cm/s Tri Subclavian Tri 35.00 81.80 CONCLUSIONS Right ICA stenosis <50%. Moderate atheromatous plaque right carotid bulb/ICA. Left ICA stenosis <50%. Moderate atheromatous plaque left carotid bulb/ICA. Normal antegrade Doppler flow noted in the right vertebral artery. Normal antegrade Doppler flow noted in the left vertebral artery. Josias Durbin MD (Electronically Signed) Final Date: 25 July 2023 14:29 S
== END 2023-07-25 12:51 | disposition home or self-care (01) ==
LOC: RAD 12:50
PROVIDERS: PCP Family Medicine; Visit Provider Psychiatry & Neurology Neurology
DX: R26.89 Other abnormalities of gait and mobility (principal); I65.23 Occlusion and stenosis of bilateral carotid arteries
CPT/HCPCS: 93880

== ENCOUNTER → 2023-08-08 15:38 | Outpatient (BNVA) | payer MEDICARE, SELFPAY | PROVIDERS: PCP Family Medicine; Visit Provider Nurse Practitioner | DX: M17.0 Bilateral primary osteoarthritis of knee (principal); Z71.89 Other specified counseling | CPT/HCPCS: 20610; J1100; J2795; J3301 ==

== ENCOUNTER 2023-08-22 14:26 | Outpatient (CLI) | payer MEDICARE, SELFPAY ==
--- NOTE | 2023-08-22 15:15 | MR_ITS ---
WS: [id number] MRI BRAIN WITHOUT CONTRAST HISTORY: G11.9 - Hereditary ataxia, unspecified COMPARISON: 02/13/2020 TECHNIQUE: Diffusion imaging, multiplanar T1, T2 and FLAIR imaging obtained. No evidence for acute infarct or hemorrhage. Adan-white matter differentiation is normal. No remote or acute infarcts are volume loss. Moderate volume loss and mild small vessel ischemic dise ase. Mild progression of volume loss since the prior study. No interval development of an infarct. Mi ld bilateral temporal lobe atrophy. Ventricles and extra-axial spaces are prominent on the basis of atrophy. 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 Dural venous sinuses and [place] demonstrate no abnormality on this unenhanced studies. Paranasal sinuses: Clear. Mastoid air cells: Normal. Calvarium and scalp: Intact. IMPRESSION: 1. No acute infarct. 2. Mild progression of volume loss since 02/13/2020. Mild small vessel ischemic disease. 3. Long-term stability of a retrocerebellar arachnoid cyst versus jr cisterna magna.
--- NOTE | 2023-08-22 15:26 | MR_ITS ---
WS: [id number] MRI CERVICAL SPINE NONCONTRAST HISTORY: OTHER HEREDITARY ATAXIAS COMPARISON: 01/12/2017 Technique: Multiplanar, multisequence noncontrast imaging of the cervical spine. Straightening and reversal of the normal cervical lordosis. Reversal of the lordosis is slightly prog ressed since 01/12/2017. C3 anterolisthesis by 2.7 mm. C4 anterolisthesis by 2.7 mm. Disc spaces are a ll narrowed. No acute fracture. No marrow edema. Normal cervical cord signal. No atrophy. Retrocerebellar arachnoid cyst is reidentified. Craniocervical junction, C1 and C2 relationship, odontoid process and soft tissues are normal. C2-C3: Normal. C3-C4: Diffuse osteophytic ridging with a central disc protrusion and facet arthritis. Mild central w ith moderate bilateral foraminal stenosis, RIGHT greater than LEFT. C4-C5: Diffuse annular disc bulging with a broad-based disc protrusion. Osteophytic ridging and facet arthritis. Moderate central and bilateral foraminal stenosis. C5-C6: Diffuse osteophytic ridging and annular disc bulging. Effacement of CSF. Moderate central and bilateral foraminal stenosis. C6-C7: Diffuse annular disc bulging and mild osteophytic ridging. Mild central and RIGHT foraminal st enosis. C7-T1: Mild annular disc bulging with disc osteophyte ridging. Mild central and bilateral foraminal s tenosis, LEFT greater than RIGHT. Paraspinal soft tissue are normal. IMPRESSION: 1. Progression of mild reversal of the cervical lordosis since 2017. Multilevel central and foramina l stenoses due to combination of disc, osteophyte and facet arthritis. 2. C5-6: Moderate central and bilateral foraminal stenosis due to disc, osteophytes and facet arthri tis. 3. C4-5: Moderate central and bilateral foraminal stenosis. 4. C3-4: Mild central with moderate bilateral foraminal stenosis, RIGHT greater than LEFT. 5. C6-7: Mild central and RIGHT foraminal stenosis. 6. C7-T1: Mild central and bilateral foraminal stenosis.
== END 2023-08-22 14:27 | disposition home or self-care (01) ==
PROVIDERS: PCP Family Medicine; Visit Provider Psychiatry & Neurology Neurology
DX: G11.8 Other hereditary ataxias (principal); I67.89 Other cerebrovascular disease; G93.0 Cerebral cysts; M48.03 Spinal stenosis, cervicothoracic region; M47.812 Spondylosis without myelopathy or radiculopathy, cervical region; M25.78 Osteophyte, vertebrae; M50.33 Other cervical disc degeneration, cervicothoracic region
CPT/HCPCS: 70551; 72141

== ENCOUNTER → 2023-10-15 12:46 | Outpatient (BNVA) | payer MEDICARE, SELFPAY | PROVIDERS: PCP Family Medicine; Visit Provider Psychiatry & Neurology Neurology | DX: G11.8 Other hereditary ataxias (principal); M54.2 Cervicalgia | CPT/HCPCS: 99212 ==

== ENCOUNTER → 2023-11-09 09:57 | Outpatient (BNVA) | payer MEDICARE, SELFPAY | PROVIDERS: PCP Family Medicine; Visit Provider Specialist | DX: M17.0 Bilateral primary osteoarthritis of knee (principal) | CPT/HCPCS: 20610; J1100; J2795; J3301 ==

== ENCOUNTER → 2024-01-21 12:23 | Outpatient (BNVA) | payer MEDICARE, SELFPAY | PROVIDERS: PCP Family Medicine; Visit Provider Internal Medicine Cardiovascular Disease | DX: I25.10 Atherosclerotic heart disease of native coronary artery without angina pectoris (principal); Z98.61 Coronary angioplasty status; I10 Essential (primary) hypertension; E78.5 Hyperlipidemia, unspecified; I47.29 Other ventricular tachycardia; E11.9 Type 2 diabetes mellitus without complications; G11.9 Hereditary ataxia, unspecified; G60.8 Other hereditary and idiopathic neuropathies | CPT/HCPCS: 99213 ==

== ENCOUNTER → 2024-02-15 09:28 | Outpatient (BNVA) | payer MEDICARE, SELFPAY | PROVIDERS: PCP Family Medicine; Visit Provider Specialist | DX: M17.0 Bilateral primary osteoarthritis of knee; Z71.89 Other specified counseling | CPT/HCPCS: 20610; J1100; J2795; J3301 ==

== ENCOUNTER 2024-03-25 09:42 | Emergency (ER) | payer MEDICARE, OTHER, SELFPAY ==
[2024-03-25 09:49] VITALS: BP 132/70; PULSE 42; RESP 14; TEMP 36.8; O2SAT 95; BMI 31.4
--- NOTE | 2024-03-25 09:58 | CT_ITS ---
WS: [id number] CT ABDOMEN PELVIS TECHNIQUE: Contrast-enhanced CT of the abdomen and pelvis with coronal and sagittal reformatted image s. CLINICAL INFORMATION: abdominal pain, constipation; recent fall/ecchymosis COMPARISON: 2016 DLP: 1103.[address] scans at [facility] use at least one of these dose optimization techniques: automated e xposure control; mA and/or kV adjustment per patient size (includes targeted exams where dose is matc hed to clinical indication); or iterative reconstruction. FINDINGS: Bibasilar atelectasis. Thoracolumbar curve. Prior cholecystectomy. Diffuse fatty infiltration of the liver. Portal vein and splenic vein are patent. Somewhat shrunken cirrhotic configuration to the live r. This is similar to previous. Fatty atrophy of the pancreas. Normal spleen. Normal GE junction. Lisette iac and SMA are patent. Aortic calcification. Postoperative changes RIGHT hip. Prostate calcification . Fat-containing LEFT inguinal hernia. Evidence of prior ventral abdominal wall hernia repair. No rec urrent hernia. Adrenal glands are normal. Normal renal parenchymal enhancement. No hydronephrosis. Ti ny LEFT renal cortical cyst. Evidence of prior postoperative changes partial sigmoid colon resection. Sigmoid diverticulosis. No e vidence of acute diverticulitis. Moderate spondylitic changes lumbar spine. Disc space narrowing wors e at L4-L5 and L5-S1. Chronic rib fractures with callus formation. CT/CT abdomen pelvis w con* [id number] IMPRESSION: 1. Slight bibasilar atelectasis. 2. Prior cholecystectomy. 3. No hydronephrosis in either kidney. 4. Evidence of prior ventral abdominal wall hernia repair. No recurrent hernia . 5. No evidence of small or large bowel obstruction. 6. Prior partial sigmoid colon resection. 7. Fat-containing LEFT inguinal hernia. 8. No other acute findings.
--- NOTE | 2024-03-25 09:58 | ED_ITS ---
HPI - Abdominal Pain 2 General: Chief Complaint: Abdominal Pain Stated Complaint: constipation Time Seen by Provider: 03/25/24 09:45 Source: patient Mode of arrival: wheelchair Limitations: no limitations History of Present Illness: Patient is a nice 78-year-old male presents to ED today along with his for evaluation of abdominal pain and constipation. Patient states he has not had a bowel movement approximately 4 days which is abnormal for him. He is complaining of diffuse abdominal pain. He reports a previous known hernia and states I think that may be part of my problem . He is reportedly still passing flatulence. He has not had any vomiting. He has been able to continue to eat and drink somewhat normally although states he has not had much of an appetite. He is not running fevers. Denies urinary symptoms. He has had recent falls with bruising on the left side of his abdomen. MD elicited complaint: abdominal pain Onset (ago): day(s) Pain Consistency: constant Location: Diffuse Severity: moderate Pain scale (0-10): 7 Radiation: none Migration to: no migration Exacerbating factors: nothing Relieving factors: nothing Associated Symptoms: Reports constipation; Denies chills, dysuria, fever(s), hematochezia, hematuria, hematemesis, melena, nausea and vomiting Related Data Home Medications Medication Instructions Recorded Confirmed rosuvastatin 20 mg tablet 20 mg PO BEDTIME 08/29/19 03/25/24 glipizide 5 mg tablet 5 mg PO BID 08/17/20 03/25/24 multivitamin 1 tab PO DAILY 10/05/21 03/25/24 cinnamon bark 500 mg capsule 500 mg PO DAILY PRN high blood 05/08/22 03/25/24 (Cinnamon) sugar tamsulosin 0.4 mg capsule 0.4 mg PO BEDTIME 07/20/22 03/25/24 tramadol 50 mg tablet 50 mg PO QAM 12/20/22 03/25/24 aspirin 81 mg tablet,delayed 81 mg PO BEDTIME 07/04/23 03/25/24 release gabapentin 300 mg capsule 300 mg PO TID 03/25/24 03/25/24 lisinopril 10 mg tablet 10 mg PO DAILY 03/25/24 03/25/24 Previous Rx's Medication Instructions Recorded clopidogrel 75 mg tablet 75 mg PO DAILY #30 tabs 07/04/23 amiodarone 200 mg tablet 200 mg PO BEDTIME #90 tabs 02/12/24 Allergies Allergy/AdvReac Type Severity Reaction Status Date / Time No Known Allergies Allergy Verified 01/21/24 12:30 Review of Systems 2 Const: Denies: fever(s), chills, body aches, fatigue or malaise Card: Denies: chest pain Resp: Denies: dyspnea GI: Reports: abdominal pain and constipation; Denies: nausea, vomiting, hematemesis, rectal pain, hematochezia or melena : Denies: flank pain, dysuria or hematuria Musc: Denies: neck pain, back pain, extremity pain or joint pain Skin/Breast: Denies: rash Neuro: Denies: headache(s), numbness in extremities, weakness in extremities or sensory changes PFSH ED 2 PFSH: Medical History VERONICA on CPAP Spinocerebellar degeneration NSVT (nonsustained ventricular tachycardia) Gait instability Migraine Diabetic neuropathy Cerebellar ataxia Lumbar spondylosis Lumbosacral disc disease Lumbar disc disease with radiculopathy Intervertebral disc disorder with radiculopathy of lumbosacral region Arachnoid cyst Ischemic cardiomyopathy DDD (degenerative disc disease), lumbar Diabetes mellitus Hyperlipidemia Hypertension Obesity ASHD (arteriosclerotic heart disease) Tobacco abuse History of colon cancer Surgical History History of sinus surgery History of back surgery Left L4-L5, L5-S1 hemilaminotomy/discectomy/foraminotomy, 09/01/2019, [facility] H/O coronary angioplasty History of hernia repair History of resection of small bowel History of cholecystectomy Family History Mother Cancer Father CAD (coronary artery disease) Sister Hypertension Social History Smoking and tobacco/nicotine status: never used tobacco/nicotine Alcohol intake: never Substance/Drug Use: never Lives independently: Yes Household members: spouse Marital status: Current occupational status: retired Current occupation: retired Physical Exam 2 Const: COMMON NORMALS: no acute distress, average body habitus, no limitations, healthy appearing, alert and well nourished Resp: COMMON NORMALS: normal respiratory effort and clear to auscultation bilaterally AUSCULTATION: clear to auscultation bilaterally Cardio: COMMON NORMALS: regular rhythm RATE: bradycardic RHYTHM: regular rhythm GI: COMMON NORMALS: Soft to palpation INSPECTION: Yes abdominal wall ecchymosis (scattered ecchymosis L abdomen from fall a few days ago) and Yes scar AUSCULTATION: Yes normoactive bowel sounds PALPATION: Yes Soft to palpation, Yes Tenderness to palpation present (GI) (diffusely), No Guarding due to palpation present (GI) and No Rigid due to palpation RECTAL EXAM: Yes other (firm stool palpated) : COMMON NORMALS: Yes no CVA tenderness BLADDER/KIDNEY EXAM: Yes no CVA tenderness Back/Pelvis: COMMON NORMALS: no CVA tenderness and thoracic and lumbar spine normal to inspection Extremity: GENERAL: Yes normal exam except as noted Neuro: COMMON NORMALS: moves all extremities, no focal motor deficits and no sensory deficits noted SENSORIUM/ORIENTATION: Yes alert Course 2 Vital Signs: Vital signs: Vital Signs Temperature 98.2 F 03/25/24 09:49 Pulse Rate 58 L 03/25/24 11:00 Respiratory Rate 13 03/25/24 11:00 Blood Pressure 153/88 03/25/24 11:00 Pulse Oximetry 96 03/25/24 11:00 Oxygen Delivery Me thod Room Air 03/25/24 10:52 MDM - Abdominal Pain Medical Decision Making Patient arrives in no acute distress with stable vital signs. Blood work overall is nonactionable. CT scan essentially unremarkable. Mineral oral enema attempted here unsuccessfully. He did have a large stool ball with MARCIE. Recommend he continue [id number] suppositories/enemas daily to help remove this in addition to oral stool softeners/laxatives. Return to ED precautions given. Lab Data 03/25/24 10:04 03/25/24 10:04 Labs/Radiology: Radiology Impressions Abdomen/Pelvis CT 03/25/24 09:58 IMPRESSION: 1. Slight bibasilar atelectasis. 2. Prior cholecystectomy. 3. No hydronephrosis in either kidney. 4. Evidence of prior ventral abdominal wall hernia repair. No recurrent hernia. 5. No evidence of small or large bowel obstruction. 6. Prior partial sigmoid colon resection. 7. Fat-containing LEFT inguinal hernia. 8. No other acute findings. Laboratory Results WBC 6.00 10^3/uL (3.29-11.43) 03/25/24 10:04 RBC 4.39 10^6/uL (3.85-5.65) 03/25/24 10:04 Hgb 13.10 g/dL (11.27-16.99) 03/25/24 10:04 Hct 41.1 % (37-53) 03/25/24 10:04 MCV 93.6 fl (82-101) 03/25/24 10:04 MCH 29.8 pg (27-33) 03/25/24 10:04 MCHC 31.9 g/dL (30-55) 03/25/24 10:04 RDW 13.7 % (12.1-15.1) 03/25/24 10:04 Plt Count 112 10^3/cmm (157-399) L 03/25/24 10:04 MPV 9.7 fL (7.4-10.4) 03/25/24 10:04 Neut % (Auto) 83.7 % 03/25/24 10:04 Lymph % (Auto) 8.8 % 03/25/24 10:04 [place] % (Auto) 6.2 % 03/25/24 10:04 Eos % (Auto) 0.5 % 03/25/24 10:04 Baso % (Auto) 0.3 % 03/25/24 10:04 Neut # (Auto) 5.02 10^3/uL (1.8-7.7) 03/25/24 10:04 Lymph # (Auto) 0.5 10^3/uL (0.8-4.8) L 03/25/24 10:04 [place] # (Auto) 0.4 10^3/uL (0.2-0.9) 03/25/24 10:04 Eos # (Auto) 0.0 10^3/uL (0.0-0.8) 03/25/24 10:04 Baso # (Auto) 0.0 10^3/uL (0.0-0.1) 03/25/24 10:04 Nucleated RBC % (auto) 0 % 03/25/24 10:04 Nucleated RBCs # 0.0 /100WBC 03/25/24 10:04 Sodium 137 mmol/L (136-145) 03/25/24 10:04 Potassium 3.9 mmol/L (3.5-5.1) 03/25/24 10:04 Chloride 103 mmol/L (98-107) 03/25/24 10:04 Carbon Dioxide 24 mmol/L (22-29) 03/25/24 10:04 Anion Gap 13.9 (5-19) 03/25/24 10:04 BUN 11 mg/dL (8-23) 03/25/24 10:04 Creatinine 0.8 mg/dL (0.7-1.2) 03/25/24 10:04 GFR Calculation Not Reportable 03/25/24 10:04 Glucose 133 mg/dL (65-115) H 03/25/24 10:04 Calculated Osmolality 285 mOsm/kg (285-295) 03/25/24 10:04 Calcium 8.7 mg/dL (8.5-10.5) 03/25/24 10:04 Total Bilirubin 1.4 mg/dL (0.15-1.2) H 03/25/24 10:04 AST 13 U/L (0-40) 03/25/24 10:04 ALT 13 U/L (0-41) 03/25/24 10:04 Alkaline Phosphatase 62 U/L (40-130) 03/25/24 10:04 Total Protein 6.3 g/dL (6.6-8.7) L 03/25/24 10:04 Albumin 4.1 g/dL (3.5-5.2) 03/25/24 10:04 Globulin 2.2 g/dL (1.3-4.6) 03/25/24 10:04 Lipase 25 U/L (13-60) 03/25/24 10:04 Urine Color Yellow (Yellow) 03/25/24 10:35 Urine Appearance Clear (CLEAR) 03/25/24 10:35 Urine pH 5.5 (5-7) 03/25/24 10:35 Ur Specific [place] 1.018 (1.005-1.030) 03/25/24 10:35 Urine Protein Negative (Negative) 03/25/24 10:35 Urine Glucose (UA) Negative (Normal) 03/25/24 10:35 Urine Ketones Negative (Negative) 03/25/24 10:35 Urine Blood Negative (Negative) 03/25/24 10:35 Urine Nitrate Negative (Negative) 03/25/24 10:35 Urine Bilirubin Negative (Negative) 03/25/24 10:35 Urine Urobilinogen 1.0 mg/dL (Negative) 03/25/24 10:35 Ur Leukocyte Esterase Negative (Negative) 03/25/24 10:35 Urine RBC 0-2 /hpf (0-2) 03/25/24 10:35 Urine WBC 0-5 /hpf (0-5) 03/25/24 10:35 Ur Squamous Epith Cells 0-5 /hpf (0-5) 03/25/24 10:35 Amorphous Sediment Not Reportable 03/25/24 10:35 Urine Bacteria None seen /hpf (NONE) 03/25/24 10:35 Hyaline Casts 0-4 /lpf H 03/25/24 10:35 All radiology interpretation(s) finalized by discharge Discharge Plan Discharge Patient Disposition: Home Clinical Impression: Constipation Qualifiers: Constipation type: other constipation type Qualified Code(s): K59.09 - Other constipation Condition: Stable Prescriptions: No Action glipizide 5 mg tablet 5 mg PO BID multivitamin Tablet 1 tab PO DAILY tramadol 50 mg tablet 50 mg PO QAM amiodarone 200 mg tablet 200 mg PO BEDTIME Qty: 90 3RF rosuvastatin 20 mg tablet 20 mg PO BEDTIME lisinopril 10 mg tablet 10 mg PO DAILY gabapentin 300 mg capsule 300 mg PO TID cinnamon bark [Cinnamon] 500 mg Capsule 500 mg PO DAILY PRN (Reason: high blood sugar) tamsulosin 0.4 mg capsule 0.4 mg PO BEDTIME aspirin 81 mg Tablet,Delayed Release (Dr/Ec) 81 mg PO BEDTIME clopidogrel 75 mg Tablet 75 mg PO DAILY Qty: 30 0RF Discharge Orders: Discharge ED (Routine); Ordered 03/25/24 Ordered By: Clementine Villalba Referrals: Nehemiah Kaur MD [Primary Care Provider] - Patient Instructions: Constipation (DC) Activity Restrictions/Additional Instructions: As we discussed he may attempt an [id number] suppository/enema daily to help alleviate constipation in addition to a cap full of miralax twice daily along with colace twice daily. Drink the mixture given to you at discharge when he gets home. He may follow-up with primary care if symptoms do not begin improving over the next 2 to 3 days. He may return to the emergency department for severe worsening abdominal pain, repetitive episodes of vomiting, fevers, generally feeling worse or unwell, or any other concerns you may have. Coding Level of Care Code ED Commercial [employer] Reviewer for Aiyana Rush
[2024-03-25 10:19] LABS: Basophils % 0.3 %; Eosinophils % 0.5 %; Hematocrit 41.1 % (37-53); Lymphocytes # 0.5 10^3/uL (0.8-4.8); Lymphocytes % 8.8 %; Mean Corpuscular HGB Conc 31.9 g/dL (30-55); Mean Corpuscular Hemoglobin 29.8 pg (27-33); Mean Corpuscular Volume 93.6 fl (82-101); Mean Platelet Volume 9.7 fL (7.4-10.4); Monocytes # 0.4 10^3/uL (0.2-0.9); Monocytes % 6.2 %; Neutrophils # 5.02 10^3/uL (1.8-7.7); Neutrophils % 83.7 %; Nucleated Red Blood Cells % 0 %; Platelet Count 112 10^3/cmm (157-399); Red Blood Count 4.39 10^6/uL (3.85-5.65); Red Cell Distribution Width 13.7 % (12.1-15.1)
[2024-03-25 10:31] LABS: Alanine Aminotransferase 13 U/L (0-41); Albumin Level 4.1 g/dL (3.5-5.2); Alkaline Phosphatase 62 U/L (40-130); Anion Gap 13.9 (5-19); Aspartate Amino Transferase 13 U/L (0-40); Blood Urea Nitrogen 11 mg/dL (8-23); Calcium 8.7 mg/dL (8.5-10.5); Carbon Dioxide 24 mmol/L (22-29); Chloride 103 mmol/L (98-107); Creatinine Clr Calc Pharmacy 89.5867; Globulin 2.2 g/dL (1.3-4.6); Glucose 133 mg/dL (65-115); Lipase 25 U/L (13-60); Osmolality Calculated 285 mOsm/kg (285-295); Potassium 3.9 mmol/L (3.5-5.1); Sodium 137 mmol/L (136-145); Total Bilirubin 1.4 mg/dL (0.15-1.2); Total Protein 6.3 g/dL (6.6-8.7)
[2024-03-25 10:42] LABS: Charge for UA Resulting for Rev
[2024-03-25 10:52] VITALS: PULSE 91; RESP 28; O2SAT 100
[2024-03-25] MEDS: iohexol 350 mg/mL 500 mL Btl (per mL) IV (10:57)
[2024-03-25 11:00] VITALS: BP 153/88; PULSE 58; RESP 13; O2SAT 96
[2024-03-25 11:03] LABS: Bilirubin Urine Negative (Negative); Blood Urine Negative (Negative); Glucose Urine UA Negative (Normal); Ketones Urine Negative (Negative); Leukocyte Esterase Urine Negative (Negative); Nitrate Urine Negative (Negative); Protein Urine Negative (Negative); Specific Gravity, Urine 1.018 (1.005-1.030); Urine Appearance Clear (CLEAR); Urine Color Yellow (Yellow); pH Urine 5.5 (5-7)
[2024-03-25 11:08] LABS: Bacteria Urine None Seen /hpf; Hyaline Casts Urine 0-4 /lpf; RBC Urine 0-2 /hpf (0-2); Squamous Epithelial Cell Urine 0-5 /hpf (0-5); WBC Urine 0-5 /hpf (0-5)
[2024-03-25] MEDS: mineral oil ENEMA 133 mL PR (12:29)
[2024-03-25] MEDS: magnesium hydroxide 30 mL UDC PO (13:22)
[2024-03-25] MEDS: lactulose oral liq 20 gm/30 mL UDC 30 GM PO (13:22)
[2024-03-25] MEDS: mineral oil 30 mL UDC PO (13:22)
[2024-03-25 13:24] VITALS: BP 165/101; PULSE 64; O2SAT 96
== END 2024-03-25 13:25 | disposition home or self-care (01) ==
PROVIDERS: Emergency Provider Physician Assistant; PCP Family Medicine
DX: K59.09 Other constipation (principal); Z79.02 Long term (current) use of antithrombotics/antiplatelets; Z79.82 Long term (current) use of aspirin; Z79.84 Long term (current) use of oral hypoglycemic drugs; E11.40 Type 2 diabetes mellitus with diabetic neuropathy, unspecified; I25.5 Ischemic cardiomyopathy; I10 Essential (primary) hypertension; E78.5 Hyperlipidemia, unspecified; Z85.038 Personal history of other malignant neoplasm of large intestine; Z98.61 Coronary angioplasty status
CPT/HCPCS: 74177; 80053; 81003; 81015; 83690; 85025; 99285; Q9967

== ENCOUNTER 2024-04-06 08:24 | Emergency (ER) | payer MEDICARE, OTHER, SELFPAY ==
[2024-04-06 08:28] VITALS: BP 156/82; PULSE 70; TEMP 36.8; O2SAT 95; BMI 32.8
--- NOTE | 2024-04-06 08:33 | ECG_ITS ---
[facility] Test Date: 2024-04-06 Pat Name: Arnold Ceron Department: Room: Gender: Male Chicken Boner: : 1945 Requested By: Moses De La Fuente Order Number: [id number] Reading MD: MADELINE RUIZ Measurements Intervals [place] Rate: 78 P: 24 DE: 172 QRS: -47 QRSD: 194 T: 11 QT: 448 QTc: 510 Interpretive Statements SINUS RHYTHM WITH OCCASIONAL VENTRICULAR PREMATURE COMPLEXES RIGHT BUNDLE BRANCH BLOCK [120+ ms QRS DURATION, UPRIGHT V1, 40+ ms S IN I/aVL/V4/V5/V6] LEFT ANTERIOR FASCICULAR BLOCK [QRS AXIS <= -45, QR IN I, RS IN II] Compared to ECG 07/04/2023 04:54:59 Ventricular premature complex(es) now present Left anterior fascicular block now present Left-axis deviation no longer present Electronically Signed On 04-06-2024 18:50:13 CDT by MADELINE RUIZ [id number]
--- NOTE | 2024-04-06 08:36 | XRR_ITS ---
PROCEDURE INFORMATION: Exam: XR Abdomen Exam date and time: 04/06/2024 8:49 AM Age: 78 years old Clinical indication: Constipation TECHNIQUE: Imaging protocol: Radiologic exam of the abdomen. Views: Frontal supine view of the abdomen. 1 View. COMPARISON: CT abdomen pelvis w con* [id number] 03/25/2024 10:51 AM FINDINGS: Gastrointestinal tract: No evidence of small bowel obstruction. Moderate gas and stool in the colon. Intraperitoneal space: No free intraperitoneal air is seen. Bones/joints: No acute fracture is seen. Right hip hardware is incompletely visualized. Soft tissues: Prior ventral abdominal hernia repair. XR/XR KUB [id number] IMPRESSION: Moderate gas and stool in the colon.
--- NOTE | 2024-04-06 08:36 | XRR_ITS ---
PROCEDURE INFORMATION: Exam: XR Chest Exam date and time: 04/06/2024 8:47 AM Age: 78 years old Clinical indication: Pain; Chest pressure; Additional info: Cp TECHNIQUE: Imaging protocol: Radiologic exam of the chest. Views: 1 view. COMPARISON: CR XR chest 1V portable [id number] 07/03/2023 10:43 PM FINDINGS: Lungs: Probable atelectasis at the left base. No pulmonary consolidation. Calcified granulomata at the right base. Pleural spaces: No pleural effusion. No pneumothorax. Heart/Mediastinum: There is apparent worsened widening of the superior mediastinum (12.1 cm) which may be related to patient rotation. No gross evidence of pneumomediastinum. Bones/joints: No gross fracture. XR/XR chest 1V portable [id number] IMPRESSION: 1. There is apparent worsened widening of the superior mediastinum (12.1 cm) which may be related to patient rotation. 2. Probable atelectasis at the left base. 3. Recommend CTA chest with contrast to further assess.
--- NOTE | 2024-04-06 08:45 | ED_ITS ---
HPI - Abdominal Pain 2 General: Chief Complaint: Abdominal Pain Stated Complaint: constipated, chest pains Time Seen by Provider: 04/06/24 08:29 Source: patient Mode of arrival: ambulatory Limitations: no limitations History of Present Illness: 78-year-old male states that he has been having constipation was seen here last week states he did have a bowel movement on the fifth but is continue to feel like he is constipated states has been having some upper abdominal pain with cramping that radiates into his chest he denies any fever denies any vomiting denies any shortness of breath. Patient denies any worse improved factors. Associated Symptoms: Reports constipation; Denies chills, dysuria, fever(s), nausea and vomiting Related Data Home Medications Medication Instructions Recorded Confirmed rosuvastatin 20 mg tablet 20 mg PO BEDTIME 08/29/19 03/25/24 glipizide 5 mg tablet 5 mg PO BID 08/17/20 03/25/24 multivitamin 1 tab PO DAILY 10/05/21 03/25/24 cinnamon bark 500 mg capsule 500 mg PO DAILY PRN high blood 05/08/22 03/25/24 (Cinnamon) sugar tamsulosin 0.4 mg capsule 0.4 mg PO BEDTIME 07/20/22 03/25/24 tramadol 50 mg tablet 50 mg PO QAM 12/20/22 03/25/24 aspirin 81 mg tablet,delayed 81 mg PO BEDTIME 07/04/23 03/25/24 release gabapentin 300 mg capsule 300 mg PO TID 03/25/24 03/25/24 lisinopril 10 mg tablet 10 mg PO DAILY 03/25/24 03/25/24 Previous Rx's Medication Instructions Recorded clopidogrel 75 mg tablet 75 mg PO DAILY #30 tabs 07/04/23 amiodarone 200 mg tablet 200 mg PO BEDTIME #90 tabs 02/12/24 Allergies Allergy/AdvReac Type Severity Reaction Status Date / Time No Known Allergies Allergy Verified 04/06/24 08:39 Review of Systems 2 Const: Denies: fever(s), chills, body aches or change in appetite ENMT: Denies: throat pain or dental pain Card: Reports: chest pain Resp: Denies: dyspnea GI: Reports: abdominal pain and constipation; Denies: nausea or vomiting : Denies: dysuria Musc: Denies: neck pain or back pain Skin/Breast: Denies: rash Neuro: Denies: headache(s) PFSH ED 2 PFSH: Medical History VERONICA on CPAP Spinocerebellar degeneration NSVT (nonsustained ventricular tachycardia) Gait instability Migraine Diabetic neuropathy Cerebellar ataxia Lumbar spondylosis Lumbosacral disc disease Lumbar disc disease with radiculopathy Intervertebral disc disorder with radiculopathy of lumbosacral region Arachnoid cyst Ischemic cardiomyopathy DDD (degenerative disc disease), lumbar Diabetes mellitus Hyperlipidemia Hypertension Obesity ASHD (arteriosclerotic heart disease) Tobacco abuse History of colon cancer Surgical History History of sinus surgery History of back surgery Left L4-L5, L5-S1 hemilaminotomy/discectomy/foraminotomy, 09/01/2019, [facility] H/O coronary angioplasty History of hernia repair History of resection of small bowel History of cholecystectomy Family History Mother Cancer Father CAD (coronary artery disease) Sister Hypertension Social History Smoking and tobacco/nicotine status: never used tobacco/nicotine Alcohol intake: never Substance/Drug Use: never Lives independently: Yes Household members: spouse Marital status: Current occupational status: retired Current occupation: retired Physical Exam 2 Const: COMMON NORMALS: no acute distress, patient oriented x3 and healthy appearing HENMT: COMMON NORMALS: normocephalic and atraumatic HEAD & SCALP: n ormocephalic and atraumatic Eye: COMMON NORMALS: Equal, round and reactive pupils present and EOMs intact bilaterally PUPIL: Yes Equal, round and reactive pupils present Neck/C-Spine: COMMON NORMALS: full ROM and supple Chest: COMMONS NORMALS: normal inspection of the chest and normal palpation of entire chest wall Resp: COMMON NORMALS: normal respiratory effort, No retractions, No use of accessory muscles and clear to auscultation bilaterally AUSCULTATION: clear to auscultation bilaterally Cardio: COMMON NORMALS: regular rate, regular rhythm and No murmurs present (Cardio) RATE: regular rate RHYTHM: regular rhythm GI: COMMON NORMALS: Normal to inspection, nondistended, normoactive bowel sounds present, Soft to palpation, non-tender and no masses PALPATION: Yes Soft to palpation Extremity: COMMON NORMALS: normal to inspection and full ROM Neuro: COMMON NORMALS: patient oriented x3, moves all extremities and no focal motor deficits Psych: COMMON NORMALS: mental status grossly normal, Normal thought process present and cooperative THOUGHT PROCESS: Normal thought process present Skin: COMMON NORMALS: no rashes or lesions noted and no wounds GENERAL SKIN EXAM: no rashes or lesions noted Course 2 Vital Signs: Vital signs: Vital Signs Temperature 98.3 F 04/06/24 08:28 Pulse Rate 74 04/06/24 11:55 Respiratory Rate 17 04/06/24 11:00 Blood Pressure 132/89 04/06/24 11:55 Pulse Oximetry 95 04/06/24 11:55 Oxygen Delivery Me thod Room Air 04/06/24 08:28 MDM - Abdominal Pain Medical Decision Making Patient presented here with abdominal pain constipation also some atypical chest pain is feeling more upper epigastric gastric pain his troponins here are negative CTA did show an aneurysm no signs of rupture spoke to CT surgery at [facility] Dr. Ramirez will get patient follow-up he feels much improved here after large bowel movement he is follow-up with PCP as well and return if worsening he understands agrees to plan Medical Records I reviewed the patient's medical records. Lab Data I reviewed the patient's lab results. 04/06/24 08:39 04/06/24 08:39 Labs/Radiology: Radiology Impressions Chest X-Ray 04/06/24 08:36 IMPRESSION: 1. There is apparent worsened widening of the superior mediastinum (12.1 cm) which may be related to patient rotation. 2. Probable atelectasis at the left base. 3. Recommend CTA chest with contrast to further assess. ADDENDUM: 04/06/2413 Findings discussed with EDIS PAYNE at 04/06/2024 9:10 AM CDT. KUB X-Ray 04/06/24 08:36 IMPRESSION: Moderate gas and stool in the colon. Chest CTA 04/06/24 09:11 IMPRESSION: 1. There is aneurysmal dilatation of the ascending thoracic aorta measuring 4.1 x 4.1 cm. There is no gross evidence of rupture. 2. Borderline cardiomegaly with coronary artery disease. 3. Questionable developing pneumonia in the right lower lobe; correlate clinically. 4. No pulmonary embolus is identified. 5. Mild bilateral hilar lymphadenopathy. 6. Splenomegaly. Laboratory Results WBC 6.01 10^3/uL (3.29-11.43) 04/06/24 08:39 RBC 4.86 10^6/uL (3.85-5.65) 04/06/24 08:39 Hgb 14.80 g/dL (11.27-16.99) 04/06/24 08:39 Hct 45.0 % (37-53) 04/06/24 08:39 MCV 92.6 fl (82-101) 04/06/24 08:39 MCH 30.5 pg (27-33) 04/06/24 08:39 MCHC 32.9 g/dL (30-55) 04/06/24 08:39 RDW 13.6 % (12.1-15.1) 04/06/24 08:39 Plt Count 114 10^3/cmm (157-399) L 04/06/24 08:39 MPV 9.8 fL (7.4-10.4) 04/06/24 08:39 Neut % (Auto) 81.9 % 04/06/24 08:39 Lymph % (Auto) 11.1 % 04/06/24 08:39 [place] % (Auto) 6.0 % 04/06/24 08:39 Eos % (Auto) 0.5 % 04/06/24 08:39 Baso % (Auto) 0.2 % 04/06/24 08:39 Neut # (Auto) 4.92 10^3/uL (1.8-7.7) 04/06/24 08:39 Lymph # (Auto) 0.7 10^3/uL (0.8-4.8) L 04/06/24 08:39 [place] # (Auto) 0.4 10^3/uL (0.2-0.9) 04/06/24 08:39 Eos # (Auto) 0.0 10^3/uL (0.0-0.8) 04/06/24 08:39 Baso # (Auto) 0.0 10^3/uL (0.0-0.1) 04/06/24 08:39 Nucleated RBC % (auto) 0 % 04/06/24 08:39 Nucleated RBCs # 0.0 /100WBC 04/06/24 08:39 Sodium 141 mmol/L (136-145) 04/06/24 08:39 Potassium 3.8 mmol/L (3.5-5.1) 04/06/24 08:39 Chloride 103 mmol/L (98-107) 04/06/24 08:39 Carbon Dioxide 25 mmol/L (22-29) 04/06/24 08:39 Anion Gap 16.8 (5-19) 04/06/24 08:39 BUN 11 mg/dL (8-23) 04/06/24 08:39 Creatinine 0.8 mg/dL (0.7-1.2) 04/06/24 08:39 GFR Calculation Not Reportable 04/06/24 08:39 Glucose 139 mg/dL (65-115) H 04/06/24 08:39 Calculated Osmolality 294 mOsm/kg (285-295) 04/06/24 08:39 Calcium 9.3 mg/dL (8.5-10.5) 04/06/24 08:39 Total Bilirubin 1.5 mg/dL (0.15-1.2) H 04/06/24 08:39 AST 12 U/L (0-40) 04/06/24 08:39 ALT 12 U/L (0-41) 04/06/24 08:39 Alkaline Phosphatase 66 U/L (40-130) 04/06/24 08:39 Troponin T Baseline 19 ng/L (0-15) H 04/06/24 08:39 Troponin T 120 Minute 18.23 ng/L (0-15) H 04/06/24 10:38 Delta Troponin T -0.77 ABS# (0-10) L 04/06/24 10:38 NT-Pro-B Natriuret Pep 1243 pg/mL (0-450) H 04/06/24 08:39 Total Protein 6.7 g/dL (6.6-8.7) 04/06/24 08:39 Albumin 4.7 g/dL (3.5-5.2) 04/06/24 08:39 Globulin 2.0 g/dL (1.3-4.6) 04/06/24 08:39 Lipase 26 U/L (13-60) 04/06/24 08:39 All radiology interpretation(s) finalized by discharge EKG Data EKG 1: I personally reviewed and interpreted this EKG as follows: EKG interpretation date: 04/06/24 EKG interpretation time: 08:33 Interpretation: nsr hr 78 no s elevation qrs 194 qtc 481 Discharge Plan Discharge Patient Disposition: Home Clinical Impression: Constipation, Abdominal pain, Chest pain, Aneurysm of thoracic aorta Condition: Stable Prescriptions: No Action glipizide 5 mg tablet 5 mg PO BID multivitamin Tablet 1 tab PO DAILY tramadol 50 mg tablet 50 mg PO QAM amiodarone 200 mg tablet 200 mg PO BEDTIME Qty: 90 3RF rosuvastatin 20 mg tablet 20 mg PO BEDTIME lisinopril 10 mg tablet 10 mg PO DAILY gabapentin 300 mg capsule 300 mg PO TID cinnamon bark [Cinnamon] 500 mg Capsule 500 mg PO DAILY PRN (Reason: high blood sugar) tamsulosin 0.4 mg capsule 0.4 mg PO BEDTIME aspirin 81 mg Tablet,Delayed Release (Dr/Ec) 81 mg PO BEDTIME clopidogrel 75 mg Tablet 75 mg PO DAILY Qty: 30 0RF Discharge Orders: Discharge ED (Routine); Ordered 04/06/24 Ordered By: Edis Payne Referrals: baldomero ramirez [Other] Nehemiah Kaur MD [Primary Care Provider] - 4-7 days Discharge Diet: Advance as tolerated Discharge Activity: Resume usual activity Patient Instructions: Chest Pain (ED), Abdominal Pain (ED) Coding Level of Care Code ED Silver Designer for Aiyana Rush
[2024-04-06 08:47] LABS: Basophils % 0.2 %; Eosinophils % 0.5 %; Lymphocytes # 0.7 10^3/uL (0.8-4.8); Lymphocytes % 11.1 %; Mean Corpuscular HGB Conc 32.9 g/dL (30-55); Mean Corpuscular Hemoglobin 30.5 pg (27-33); Mean Corpuscular Volume 92.6 fl (82-101); Mean Platelet Volume 9.8 fL (7.4-10.4); Monocytes # 0.4 10^3/uL (0.2-0.9); Neutrophils # 4.92 10^3/uL (1.8-7.7); Neutrophils % 81.9 %; Nucleated Red Blood Cells % 0 %; Platelet Count 114 10^3/cmm (157-399); Red Blood Count 4.86 10^6/uL (3.85-5.65); Red Cell Distribution Width 13.6 % (12.1-15.1); White Blood Count 6.01 10^3/uL (3.29-11.43)
[2024-04-06] MEDS: aspirin 81 mg Chew Tablet 324 MG PO (08:58)
[2024-04-06 09:00] VITALS: BP 156/90; PULSE 69; RESP 18; O2SAT 98
[2024-04-06 09:07] LABS: Troponin(5th) Baseline 19 ng/L (0-15)
--- NOTE | 2024-04-06 09:11 | CTR_ITS ---
PROCEDURE INFORMATION: Exam: CTA Chest With Contrast Exam date and time: 04/06/2024 9:39 AM Age: 78 years old Clinical indication: Chest pain/pressure. TECHNIQUE: Imaging protocol: Computed tomographic angiography of the chest with contrast. Exam focused on the arteries. 3D rendering (Not supervised by radiologist): MIP and/or 3D reconstructed images were created by the technologist. Radiation optimization: All CT scans at this facility use at least one of these dose optimization techniques: automated exposure control; mA and/or kV adjustment per patient size (includes targeted exams where dose is matched to clinical indication); or iterative reconstruction. Contrast material: OMNIPAQUE 350; Contrast volume: 74 ml; Contrast route: INTRAVENOUS (IV); COMPARISON: CT angio chest PE protcl [id number] 05/03/2022 5:21 PM RADIATION DOSE METRICS: Total DLP (mGy-cm): 401.56 FINDINGS: Pulmonary arteries: No pulmonary embolus is seen. Aorta: There is aneurysmal dilatation of the ascending thoracic aorta measuring 4.1 x 4.1 cm. There is no gross evidence of rupture. Lungs: Dependent and subsegmental atelectasis is seen, bilaterally. Slightly more confluent opacity in the right lower lobe that could reflect developing pneumonia. Calcified granulomata are seen in the right lung. No pulmonary mass. Pleural spaces: No pleural effusion. No pneumothorax. Heart: Borderline cardiomegaly. No pericardial effusion. Coronary arteries: Coronary arterial calcifications are seen. Lymph nodes: A right hilar lymph node measures 1.6 x 1.6 cm. A left hilar lymph node measures 1.2 x 1.1 cm. Diaphragm: No hiatal hernia. Spleen: The spleen is enlarged measuring 13.6 cm. Intestine: Occasional colonic diverticula without evidence of acute diverticulitis. Bones/joints: No acute fracture is seen. Soft tissues: No significant subcutaneous soft tissue swelling. CT/CT angio chest PE protcl [id number] IMPRESSION: 1. There is aneurysmal dilatation of the ascending thoracic aorta measuring 4.1 x 4.1 cm. There is no gross evidence of rupture. 2. Borderline cardiomegaly with coronary artery disease. 3. Questionable developing pneumonia in the right lower lobe; correlate clinically. 4. No pulmonary embolus is identified. 5. Mild bilateral hilar lymphadenopathy. 6. Splenomegaly.
[2024-04-06 09:17] LABS: Alanine Aminotransferase 12 U/L (0-41); Albumin Level 4.7 g/dL (3.5-5.2); Alkaline Phosphatase 66 U/L (40-130); Anion Gap 16.8 (5-19); Aspartate Amino Transferase 12 U/L (0-40); Blood Urea Nitrogen 11 mg/dL (8-23); Calcium 9.3 mg/dL (8.5-10.5); Carbon Dioxide 25 mmol/L (22-29); Chloride 103 mmol/L (98-107); Creatinine Clr Calc Pharmacy 91.4767; Glucose 139 mg/dL (65-115); Lipase 26 U/L (13-60); NT Pro B Type Natriuretic Pept 1243 pg/mL (0-450); Osmolality Calculated 294 mOsm/kg (285-295); Potassium 3.8 mmol/L (3.5-5.1); Sodium 141 mmol/L (136-145); Total Bilirubin 1.5 mg/dL (0.15-1.2); Total Protein 6.7 g/dL (6.6-8.7)
[2024-04-06 09:30] VITALS: BP 146/77; BP 156/80; PULSE 56; PULSE 58; RESP 17; RESP 19; O2SAT 95; O2SAT 97
[2024-04-06] MEDS: lactulose oral liq 20 gm/30 mL UDC 30 GM PO (09:34)
[2024-04-06] MEDS: iohexol 350 mg/mL 500 mL Btl (per mL) IV (09:43)
[2024-04-06 11:00] VITALS: BP 152/87; PULSE 86; RESP 17; O2SAT 97
[2024-04-06 11:03] LABS: Troponin 5 2HR 18.23 ng/L (0-15); Troponin 5 2HR Delta -0.77 ABS# (0-10)
[2024-04-06 11:55] VITALS: BP 132/89; PULSE 74; O2SAT 95
== END 2024-04-06 11:57 | disposition home or self-care (01) ==
PROVIDERS: Emergency Provider Emergency Medicine; PCP Family Medicine
DX: K59.00 Constipation, unspecified (principal); R07.9 Chest pain, unspecified; I71.21 Aneurysm of the ascending aorta, without rupture; Z79.84 Long term (current) use of oral hypoglycemic drugs; Z79.02 Long term (current) use of antithrombotics/antiplatelets; Z79.82 Long term (current) use of aspirin; R10.13 Epigastric pain; Z98.61 Coronary angioplasty status; E11.40 Type 2 diabetes mellitus with diabetic neuropathy, unspecified; E78.5 Hyperlipidemia, unspecified; I10 Essential (primary) hypertension; Z85.038 Personal history of other malignant neoplasm of large intestine
CPT/HCPCS: 71045; 71275; 74018; 80053; 83690; 83880; 84484; 85025; 93005; 99285

== ENCOUNTER → 2024-04-08 14:51 | Outpatient (BNVA) | payer MEDICARE, OTHER, SELFPAY | PROVIDERS: PCP Family Medicine; Visit Provider Psychiatry & Neurology Neurology | DX: G11.8 Other hereditary ataxias (principal); M54.2 Cervicalgia; R29.90 Unspecified symptoms and signs involving the nervous system | CPT/HCPCS: 36415; 82607; 99212 ==

== ENCOUNTER 2024-04-18 18:08 | Inpatient (IN) | payer MEDICARE, OTHER, SELFPAY ==
[2024-04-18] VITALS (7 sets, daily range): BP systolic 108–155; BP diastolic 66–79; PULSE 60–73; RESP 16–18; TEMP 36.7; O2SAT 94–98; BMI 32.8
--- NOTE | 2024-04-18 19:19 | XRR_ITS ---
PROCEDURE INFORMATION: Exam: XR Right Hip Exam date and time: 04/18/2024 7:28 PM Age: 78 years old Clinical indication: Injury or trauma; Blunt trauma (contusions or hematomas); Right; Prior surgery; Surgery date: 6+ months; Surgery type: Orif derrell; Patient HX: C/O RT hip pain after falling out of wheelchair. ; Additional info: Fall from wheelchair with prior total hip, pain in groin TECHNIQUE: Imaging protocol: Radiologic exam of the right hip. Views: 1 view hip with pelvis when performed. COMPARISON: CT abdomen pelvis w con* [id number] 03/25/2024 10:51 AM FINDINGS: Bones/joints: Acute fractures of the right hemipelvis. Chronic proximal femoral fracture status post ORIF with intramedullary derrell in place. Soft tissues: No gross soft tissue abnormality. XR/XR hip RT 2-3V wo/w pel* [id number] IMPRESSION: 1. Acute fractures of the right hemipelvis. Correlation with CT is recommended.
--- NOTE | 2024-04-18 19:24 | ED_ITS ---
HPI - Fall 2 General: Chief Complaint: Fall Stated Complaint: fall Time Seen by Provider: 04/18/24 19:00 History of Present Illness: 78-year-old male presents the emergency department chief complaint of a fall between his wheelchair and the 4 patient try to catch himself he presents to the ER with right-sided hip pain. Patient did not strike his head he had no loss of consciousness. Patient reports significant pain with weightbearing of the right hip he also complains of right groin pain patient reports that he has had a prior total hip in the past and numbness tingling distally noted to the injury he presents with family present for further assessment and management. Associated symptoms-after fall: Denies abdominal pain, chest pain or headache(s) Related Data Home Medications Medication Instructions Recorded Confirmed rosuvastatin 20 mg tablet 20 mg PO BEDTIME 08/29/19 04/08/24 glipizide 5 mg tablet 5 mg PO BID 08/17/20 04/08/24 multivitamin 1 tab PO DAILY 10/05/21 04/08/24 cinnamon bark 500 mg capsule 500 mg PO DAILY PRN high blood 05/08/22 04/08/24 (Cinnamon) sugar tamsulosin 0.4 mg capsule 0.4 mg PO BEDTIME 07/20/22 04/08/24 tramadol 50 mg tablet 50 mg PO QAM 12/20/22 04/08/24 aspirin 81 mg tablet,delayed 81 mg PO BEDTIME 07/04/23 04/08/24 release gabapentin 300 mg capsule 300 mg PO TID 03/25/24 04/08/24 lisinopril 10 mg tablet 10 mg PO DAILY 03/25/24 04/08/24 blood sugar diagnostic (OneTouch #10 ea 04/08/24 04/08/24 Ultra Test strips) lancets 33 gauge (OneTouch Delica #100 ea 04/08/24 04/08/24 Plus Lancet) Previous Rx's Medication Instructions Recorded clopidogrel 75 mg tablet 75 mg PO DAILY #30 tabs 07/04/23 amiodarone 200 mg tablet 200 mg PO BEDTIME #90 tabs 02/12/24 Allergies Allergy/AdvReac Type Severity Reaction Status Date / Time No Known Allergies Allergy Verified 04/18/24 18:14 Review of Systems 2 General: Reports: 10 or more systems reviewed and unremarkable except in HPI and below Const: Denies: fever(s), chills, fatigue or malaise Eyes: Denies: change in vision or blurry vision Card: Denies: chest pain or palpitations Resp: Denies: dyspnea or productive cough GI: Denies: abdominal pain, nausea or vomiting : Denies: flank pain Musc: Reports: extremity pain, joint pain, joint stiffness and limited range of motion; Denies: extremity swelling Skin/Breast: Denies: rash or pruritus Neuro: Denies: headache(s) Psych: Denies: anxiety or depression Bal/Lymph: Denies: easy bleeding All/Imm: Denies: urticaria, throat swelling or facial swelling PFSH ED 2 PFSH: Medical History VERONICA on CPAP Spinocerebellar degeneration NSVT (nonsustained ventricular tachycardia) Gait instability Migraine Diabetic neuropathy Cerebellar ataxia Lumbar spondylosis Lumbosacral disc disease Lumbar disc disease with radiculopathy Intervertebral disc disorder with radiculopathy of lumbosacral region Arachnoid cyst Ischemic cardiomyopathy DDD (degenerative disc disease), lumbar Diabetes mellitus Hyperlipidemia Hypertension Obesity ASHD (arteriosclerotic heart disease) Tobacco abuse History of colon cancer Surgical History History of sinus surgery History of back surgery Left L4-L5, L5-S1 hemilaminotomy/discectomy/foraminotomy, 09/01/2019, [facility] H/O coronary angioplasty History of hernia repair History of resection of small bowel History of cholecystectomy Family History Mother Cancer Father CAD (coronary artery disease) Sister Hypertension Social History Smoking and tobacco/nicotine status: never used tobacco/nicotine Alcohol intake: never Substance/Drug Use: never Lives independently: Yes Household members: spouse Marital status: Current occupational status: retired Current occupation: retired Physical Exam 2 Const: COMMON NORMALS: patient oriented x3 and healthy appearing; apparent distress (Moderate pain appreciated the right inguinal region reduced range of motion) HENMT: COMMON NORMALS: normocephalic and atraumatic HEAD & SCALP: n ormocephalic and atraumatic Eye: COMMON NORMALS: Equal, round and reactive pupils present and EOMs intact bilaterally PUPIL: Yes Equal, round and reactive pupils present Neck/C-Spine: COMMON NORMALS: full ROM, supple and no JVD Lymph: LYMPHATIC: no lymphadenopathy noted Chest: COMMONS NORMALS: normal inspection of the chest and normal palpation of entire chest wall Resp: COMMON NORMALS: normal respiratory effort, No retractions and clear to auscultation bilaterally EFFORT & INSPECTION: Yes able to speak in complete sentences and Yes symmetric chest movement AUSCULTATION: clear to auscultation bilaterally Cardio: COMMON NORMALS: no JVD, regular rate and regular rhythm RATE: r egular rate RHYTHM: regular rhythm GI: COMMON NORMALS: Normal to inspection, nondistended, normoactive bowel sounds present, Soft to palpation and non-tender INSPECTION: Yes normal to inspection PALPATION: Yes Soft to palpation : COMMON NORMALS: Yes no CVA tenderness BLADDER/KIDNEY EXAM: Yes no CVA tenderness Back/Pelvis: COMMON NORMALS: no CVA tenderness Extremity: COMMON NORMALS: normal to inspection and full ROM Neuro: COMMON NORMALS: patient oriented x3, CN's II-XII intact bilaterally, moves all extremities and no focal motor deficits Psych: COMMON NORMALS: mental status grossly normal, Normal thought process present, cooperative and normal affect THOUGHT PROCESS: Normal thought process present Skin: COMMON NORMALS: no rashes or lesions noted GENERAL SKIN EXAM: no rashes or lesions noted Course 2 Vital Signs: Vital signs: Vital Signs Temperature 98.1 F 04/18/24 18:09 Pulse Rate 60 04/18/24 23:10 Respiratory Rate 16 04/18/24 21:43 Blood Pressure 108/76 04/18/24 23:10 Pulse Oximetry 98 04/18/24 23:10 Oxygen Delivery Me thod Room Air 04/18/24 20:34 MDM - Fall Medical Decision Making Due to patient's symptoms and condition x-ray imaging of the right hip will be obtained patient will be provided hydrocodone proceeding this for his pain control will continue to follow. Patient was found to have a superior and inferior pubic rami fracture on the right no acetabular fracture noted but a insufficient see sacral fracture was also appreciated discussed patient's case with Dr. Negro continuity person of orthopedic physician that suggest admission to the hospital service for pain control in which additional consultation will be occurred in the morning patient family were updated currently waiting on Dr. Castañeda on-call hospitalist to accept and return my call. Lab Data 04/18/24 21:54 04/18/24 21:54 Radiology Impressions Hip/Pelvis X-Ray 04/18/24 19:19 IMPRESSION: 1. Acute fractures of the right hemipelvis. Correlation with CT is recommended. Pelvis CT 04/18/24 20:58 IMPRESSION: 1. Acute fractures of the right hemipelvis including mildly displaced inferior pubic ramus fracture and minimally displaced pubic body/superior pubic ramus fractures on the right. 2. Suspected acute nondisplaced sacral insufficiency fracture on the right. There may be chronic nondisplaced bilateral sacral insufficiency fractures as well. 3. Extraperitoneal hemorrhage with a small 3 cm hematoma along the right pelvic sidewall. Laboratory Results WBC 8.32 10^3/uL (3.29-11.43) 04/18/24 21:54 RBC 3.80 10^6/uL (3.85-5.65) L 04/18/24 21:54 Hgb 11.70 g/dL (11.27-16.99) 04/18/24 21:54 Hct 35.8 % (37-53) L 04/18/24 21:54 MCV 94.2 fl (82-101) 04/18/24 21:54 MCH 30.8 pg (27-33) 04/18/24 21:54 MCHC 32.7 g/dL (30-55) 04/18/24 21:54 RDW 13.7 % (12.1-15.1) 04/18/24 21:54 Plt Count 122 10^3/cmm (157-399) L 04/18/24 21:54 MPV 10.0 fL (7.4-10.4) 04/18/24 21:54 Neut % (Auto) 82.9 % 04/18/24 21:54 Lymph % (Auto) 9.0 % 04/18/24 21:54 Johnson % (Auto) 5.9 % 04/18/24 21:54 Eos % (Auto) 1.3 % 04/18/24 21:54 Baso % (Auto) 0.2 % 04/18/24 21:54 Neut # (Auto) 6.89 10^3/uL (1.8-7.7) 04/18/24 21:54 Lymph # (Auto) 0.8 10^3/uL (0.8-4.8) 04/18/24 21:54 Johnson # (Auto) 0.5 10^3/uL (0.2-0.9) 04/18/24 21:54 Eos # (Auto) 0.1 10^3/uL (0.0-0.8) 04/18/24 21:54 Baso # (Auto) 0.0 10^3/uL (0.0-0.1) 04/18/24 21:54 Nucleated RBC % (auto) 0 % 04/18/24 21:54 Nucleated RBCs # 0.0 /100WBC 04/18/24 21:54 PT 14.70 SECONDS (12.1-14.9) 04/18/24 21:54 INR 1.12 (0.8-1.2) 04/18/24 21:54 Sodium 141 mmol/L (136-145) 04/18/24 21:54 Potassium 3.5 mmol/L (3.5-5.1) 04/18/24 21:54 Chloride 108 mmol/L (98-107) H 04/18/24 21:54 Carbon Dioxide 24 mmol/L (22-29) 04/18/24 21:54 Anion Gap 12.5 (5-19) 04/18/24 21:54 BUN 20 mg/dL (8-23) 04/18/24 21:54 Creatinine 0.7 mg/dL (0.7-1.2) 04/18/24 21:54 GFR Calculation Not Reportable 04/18/24 21:54 Glucose 126 mg/dL (65-115) H 04/18/24 21:54 Calculated Osmolality 296 mOsm/kg (285-295) H 04/18/24 21:54 Calcium 7.7 mg/dL (8.5-10.5) L 04/18/24 21:54 Total Bilirubin 0.6 mg/dL (0.15-1.2) 04/18/24 21:54 AST 12 U/L (0-40) 04/18/24 21:54 ALT 12 U/L (0-41) 04/18/24 21:54 Alkaline Phosphatase 43 U/L (40-130) 04/18/24 21:54 Total Protein 5.3 g/dL (6.6-8.7) L 04/18/24 21:54 Albumin 3.4 g/dL (3.5-5.2) L 04/18/24 21:54 Globulin 1.9 g/dL (1.3-4.6) 04/18/24 21:54 Urine Color Dark yellow (Yellow) A 04/18/24 22:08 Urine Appearance Clear (CLEAR) 04/18/24 22:08 Urine pH 5.5 (5-7) 04/18/24 22:08 Ur Specific Pitts 1.040 (1.005-1.030) H 04/18/24 22:08 Urine Protein 1+ (Negative) A 04/18/24 22:08 Urine Glucose (UA) Negative (Normal) 04/18/24 22:08 Urine Ketones Trace (Negative) 04/18/24 22:08 Urine Blood Negative (Negative) 04/18/24 22:08 Urine Nitrate Negative (Negative) 04/18/24 22:08 Urine Bilirubin Negative (Negative) 04/18/24 22:08 Urine Urobilinogen 1.0 mg/dL (Negative) 04/18/24 22:08 Ur Leukocyte Esterase Negative (Negative) 04/18/24 22:08 Urine RBC 0-2 /hpf (0-2) 04/18/24 22:08 Urine WBC 0-5 /hpf (0-5) 04/18/24 22:08 Ur Squamous Epith Cells 0-5 /hpf (0-5) 04/18/24 22:08 Amorphous Sediment Not Reportable 04/18/24 22:08 Urine Bacteria None seen /hpf (NONE) 04/18/24 22:08 Hyaline Casts 0.40 /lpf 04/18/24 22:08 Blood Type B Positive 04/18/24 21:54 Rho(D) Type Rh positive 04/18/24 21:54 XR interpretation done by ED provider, pending radiology final review Discharge Plan Discharge Patient Disposition: Admitted As Inpatient Clinical Impression: Fall from standing, Closed fracture of superior pubic ramus, Closed fracture of inferior pubic ramus, Bilateral sacral insufficiency fracture Condition: Stable Prescriptions: No Action glipizide 5 mg tablet 5 mg PO BID multivitamin Tablet 1 tab PO DAILY (DME) lancets [OneTouch Delica Plus Lancet] 33 gauge misc See Rx Instructions .ROUTE .MEDSUPPLY Qty: 100 Rx Instructions: As directed (DME) OneTouch Ultra Test Strip See Rx Instructions .ROUTE .MEDSUPPLY Qty: 10 Rx Instructions: As directed tramadol 50 mg tablet 50 mg PO QAM amiodarone 200 mg tablet 200 mg PO BEDTIME Qty: 90 3RF rosuvastatin 20 mg tablet 20 mg PO BEDTIME lisinopril 10 mg tablet 10 mg PO DAILY gabapentin 300 mg capsule 300 mg PO TID cinnamon bark [Cinnamon] 500 mg Capsule 500 mg PO DAILY PRN (Reason: high blood sugar) tamsulosin 0.4 mg capsule 0.4 mg PO BEDTIME aspirin 81 mg Tablet,Delayed Release (Dr/Ec) 81 mg PO BEDTIME clopidogrel 75 mg Tablet 75 mg PO DAILY Qty: 30 0RF Referrals: Nehemiah Kaur MD [Primary Care Provider] - Coding Level of Care Code ED [employer] for Aiyana Rush
[2024-04-18] MEDS: HYDROcodone-acetaminophen 5-325 mg Tablet 1 TAB PO (19:35)
--- NOTE | 2024-04-18 20:58 | CTR_ITS ---
PROCEDURE INFORMATION: Exam: CT Pelvis Without Contrast, Skeleton Exam date and time: 04/18/2024 9:39 PM Age: 78 years old Clinical indication: Injury or trauma; Fall; Blunt trauma (contusions or hematomas); Right; Prior surgery; Surgery date: 6+ months; Surgery type: RT hip. Colon. Hernia repair; Patient HX: Patient fell out of wheelchair at home. C/O RT hip pain. Pelvic fracture noted on XR. History of colon cancer. ; Additional info: Pelvic fractures identified on xray, S/P fall with right hip TECHNIQUE: Imaging protocol: Computed tomography of the pelvis without contrast. Exam focused on the skeleton. Radiation optimization: All CT scans at this facility use at least one of these dose optimization techniques: automated exposure control; mA and/or kV adjustment per patient size (includes targeted exams where dose is matched to clinical indication); or iterative reconstruction. COMPARISON: CT abdomen pelvis w con* [id number] 03/25/2024 10:51 AM RADIATION DOSE METRICS: Total DLP (mGy-cm): 818.41 FINDINGS: Bones/joints: Acute mildly displaced fracture of the right inferior pubic ramus with 4 mm maximal cortical step-off. Acute minimally displaced fractures of the right pubic body extending into the superior pubic ramus medially. No evidence of involvement of the right acetabulum. Chronic fracture of the proximal right femur status post ORIF with intramedullary derrell noted. Left hemipelvis and left hip are intact. Nondisplaced sacral insufficiency fracture on the right. There may be chronic bilateral sacral insufficiency fractures, evaluation of which with outpatient MRI may be helpful if clinically warranted. Partially visualized posterior decompression of the lumbar spine. There are moderate-severe degenerative changes of the lower lumbar spine. Soft tissues: Extraperitoneal hemorrhage within the pelvis extending into the space of Retzius. There is an approximately 3 cm hematoma along the right pelvic sidewall. CT/CT pelvis wo con [id number] IMPRESSION: 1. Acute fractures of the right hemipelvis including mildly displaced inferior pubic ramus fracture and minimally displaced pubic body/superior pubic ramus fractures on the right. 2. Suspected acute nondisplaced sacral insufficiency fracture on the right. There may be chronic nondisplaced bilateral sacral insufficiency fractures as well. 3. Extraperitoneal hemorrhage with a small 3 cm hematoma along the right pelvic sidewall.
[2024-04-18] MEDS: fentaNYL 50 mcg/mL INJ 2mL 25 MCG IVP (21:31)
[2024-04-18] MEDS: ondansetron 2 mg/ML SDV 2 mL 4 MG IVP (21:32)
[2024-04-18] MEDS: sodium chloride 0.9% 500 ML 999 ML IV (21:34)
[2024-04-18 22:05] LABS: Basophils % 0.2 %; Eosinophils # 0.1 10^3/uL (0.0-0.8); Eosinophils % 1.3 %; Hematocrit 35.8 % (37-53); Lymphocytes # 0.8 10^3/uL (0.8-4.8); Mean Corpuscular HGB Conc 32.7 g/dL (30-55); Mean Corpuscular Hemoglobin 30.8 pg (27-33); Mean Corpuscular Volume 94.2 fl (82-101); Monocytes # 0.5 10^3/uL (0.2-0.9); Monocytes % 5.9 %; Neutrophils # 6.89 10^3/uL (1.8-7.7); Neutrophils % 82.9 %; Nucleated Red Blood Cells % 0 %; Platelet Count 122 10^3/cmm (157-399); Red Cell Distribution Width 13.7 % (12.1-15.1); White Blood Count 8.32 10^3/uL (3.29-11.43)
[2024-04-18 22:22] LABS: INR 1.12 (0.8-1.2)
[2024-04-18 22:25] LABS: Bilirubin Urine Negative (Negative); Blood Urine Negative (Negative); Glucose Urine UA Negative (Normal); Ketones Urine Trace (Negative); Leukocyte Esterase Urine Negative (Negative); Nitrate Urine Negative (Negative); Protein Urine 1+ (Negative); Urine Appearance Clear (CLEAR); Urine Color Dark Yellow (Yellow); pH Urine 5.5 (5-7)
[2024-04-18 22:30] LABS: Add Urine Microscopic? YES; Bacteria Urine None Seen /hpf; RBC Urine 0-2 /hpf (0-2); Squamous Epithelial Cell Urine 0-5 /hpf (0-5); WBC Urine 0-5 /hpf (0-5)
[2024-04-18 22:31] LABS: Alanine Aminotransferase 12 U/L (0-41); Albumin Level 3.4 g/dL (3.5-5.2); Alkaline Phosphatase 43 U/L (40-130); Anion Gap 12.5 (5-19); Aspartate Amino Transferase 12 U/L (0-40); Blood Urea Nitrogen 20 mg/dL (8-23); Calcium 7.7 mg/dL (8.5-10.5); Carbon Dioxide 24 mmol/L (22-29); Chloride 108 mmol/L (98-107); Creatinine Clr Calc Pharmacy 91.4767; Globulin 1.9 g/dL (1.3-4.6); Glucose 126 mg/dL (65-115); Osmolality Calculated 296 mOsm/kg (285-295); Potassium 3.5 mmol/L (3.5-5.1); Sodium 141 mmol/L (136-145); Total Bilirubin 0.6 mg/dL (0.15-1.2); Total Protein 5.3 g/dL (6.6-8.7)
[2024-04-19] VITALS (13 sets, daily range): BP systolic 103–154; BP diastolic 49–80; PULSE 59–76; RESP 16–21; TEMP 36.4–37; O2SAT 90–96; BMI 32.8
--- NOTE | 2024-04-19 00:07 | USR_ITS ---
PROCEDURE INFORMATION: Exam: US Duplex Lower Extremity Veins, Bilateral Exam date and time: 04/19/2024 6:44 AM Age: 78 years old Clinical indication: Swelling (edema) of limb; Lower extremity, bilateral TECHNIQUE: Imaging protocol: Real-time duplex ultrasound of the bilateral extremities with 2-D bird scale, color Doppler flow and spectral waveform analysis including responses to compression and other maneuvers (when performed) with image documentation. Complete exam focused on the lower extremity veins. COMPARISON: MR knee LT wo con* [id number] 01/20/2021 11:51 AM FINDINGS: Right deep veins: Unremarkable. The common femoral, femoral, proximal profunda femoral and popliteal veins are patent without thrombus. Normal Doppler waveforms. Normal compressibility and/or augmentation response. Left deep veins: Unremarkable. The common femoral, femoral, proximal profunda femoral and popliteal veins are patent without thrombus. Normal Doppler waveforms. Normal compressibility and/or augmentation response. Superficial veins: Greater saphenous veins at the saphenofemoral junctions are patent bilaterally without thrombus. However, the right great saphenous vein below the knee is abnormal with thrombosis and incompressibility. Soft tissues: Right lower extremity subcutaneous soft tissue edema below the [place]. US/[place] [id number] IMPRESSION: 1. Positive for superficial thrombophlebitis in the distal right lower extremity. There is thrombosis of the distal right great saphenous below the knee. 2. Negative for lower extremity deep vein thrombosis.
--- NOTE | 2024-04-19 00:09 | P.HP_ITS ---
Providers/Chief Complaint 2 Admitting Physician: Gume Castañeda MD Primary Care Provider: Nehemiah Kaur MD Chief Complaint: fall History of Present Illness Arnold Ceron is a 78 year old male with a past medical history of CAD on aspirin, Plavix, history of cardiac stenting, history of type 2 diabetes mellitus, history of spinocerebellar ataxia, hypertension, hyperlipidemia, history of bowel resection, history of cholecystectomy, who presents [facility] for a fall. Patient tells me that this evening, he was getting up from his wheelchair, denies feeling lightheaded, no preceding chest pain or palpitations or shortness of breath, he could not catch himself and he fell, on the right side no loss of consciousness, his current complaint is pain in his right groin, he tells me that he has spinocerebellar ataxia and he has frequent falls, no headache, no blurry vision, no nausea, no vomiting he is on aspirin and Plavix Review of Systems 2 Const: Denies: fever(s) Card: Denies: chest pain Resp: Denies: dyspnea Medications/Allergies Home Medications Medication Instructions Recorded Confirmed Last Taken Type rosuvastatin 20 mg tablet 20 mg PO BEDTIME 08/29/19 04/08/24 03/24/24 History glipizide 5 mg tablet 5 mg PO BID 08/17/20 04/08/24 03/25/24 History multivitamin 1 tab PO DAILY 10/05/21 04/08/24 03/24/24 History cinnamon bark 500 mg capsule 500 mg PO DAILY PRN high blood 05/08/22 04/08/24 01/17/23 History (Cinnamon) sugar tamsulosin 0.4 mg capsule 0.4 mg PO BEDTIME 07/20/22 04/08/24 03/24/24 History tramadol 50 mg tablet 50 mg PO QAM 12/20/22 04/08/24 03/25/24 History aspirin 81 mg tablet,delayed 81 mg PO BEDTIME 07/04/23 04/08/24 03/24/24 History release clopidogrel 75 mg tablet 75 mg PO DAILY #30 tabs 07/04/23 04/08/24 03/25/24 Rx amiodarone 200 mg tablet 200 mg PO BEDTIME #90 tabs 02/12/24 04/08/24 03/24/24 Rx gabapentin 300 mg capsule 300 mg PO TID 03/25/24 04/08/24 03/25/24 History lisinopril 10 mg tablet 10 mg PO DAILY 03/25/24 04/08/24 03/24/24 History blood sugar diagnostic (OneTouch #10 ea 04/08/24 04/08/24 Unknown History Ultra Test strips) lancets 33 gauge (OneTouch Delica #100 ea 04/08/24 04/08/24 Unknown History Plus Lancet) Allergies Allergy/AdvReac Type Severity Reaction Status Date / Time No Known Allergies Allergy Verified 04/18/24 18:14 PFSH Acute 2 PFSH: Medical History VERONICA on CPAP Spinocerebellar degeneration NSVT (nonsustained ventricular tachycardia) Gait instability Migraine Diabetic neuropathy Cerebellar ataxia Lumbar spondylosis Lumbosacral disc disease Lumbar disc disease with radiculopathy Intervertebral disc disorder with radiculopathy of lumbosacral region Arachnoid cyst Ischemic cardiomyopathy DDD (degenerative disc disease), lumbar Diabetes mellitus Hyperlipidemia Hypertension Obesity ASHD (arteriosclerotic heart disease) Tobacco abuse History of colon cancer Surgical History History of sinus surgery History of back surgery Left L4-L5, L5-S1 hemilaminotomy/discectomy/foraminotomy, 09/01/2019, [facility] H/O coronary angioplasty History of hernia repair History of resection of small bowel History of cholecystectomy Family History Mother Cancer Father CAD (coronary artery disease) Sister Hypertension Social History Smoking and tobacco/nicotine status: never used tobacco/nicotine Alcohol intake: never Substance/Drug Use: never Lives independently: Yes Household members: spouse Marital status: Current occupational status: retired Current occupation: retired Vitals/I&O/Wt Last Vital Signs Temp 98.1 F 04/18/24 18:09 Pulse 60 04/18/24 23:10 Resp 16 04/18/24 21:43 BP 108/76 04/18/24 23:10 Pulse Ox 98 04/18/24 23:10 O2 Del Method Room Air 04/18/24 20:34 04/18/24 04/18/24 04/19/24 14:59 22:59 06:59 Intake Total 500 / 500 Balance 500 / 500 Weight last 48 hrs Weight 106.594 kg Physical Exam 2 Const: COMMON NORMALS: no acute distress and patient oriented x3 HENMT: COMMON NORMALS: normocephalic HEAD & SCALP: normocephalic Eye: COMMON NORMALS: Equal, round and reactive pupils present and EOMs intact bilaterally Resp: COMMON NORMALS: normal respiratory effort, No retractions, No use of accessory muscles and clear to auscultation bilaterally AUSCULTATION: clear to auscultation bilaterally Cardio: COMMON NORMALS: regular rate, regular rhythm, S1 normal heart sound present and S2 normal heart sound present RATE: regular rate RHYTHM: r egular rhythm HEART SOUNDS: S1 normal heart sound present and S2 normal heart sound present GI: COMMON NORMALS: Normal to inspection, nondistended, normoactive bowel sounds present, Soft to palpation and non-tender Extremity: NARRATIVE EXTREMITY EXAM: 1+ pitting edema Neuro: COMMON NORMALS: patient oriented x3, CN's II-XII intact bilaterally and moves all extremities Psych: COMMON NORMALS: mental status grossly normal Data 04/18/24 21:54 04/18/24 21:54 A&P Assessment and plan (1) Closed fracture of superior pubic ramus: Qualifiers: Encounter type: initial encounter Laterality: right Qualified Code(s): S32.511A - Fracture of superior rim of right pubis, initial encounter for closed fracture (2) Closed fracture of inferior pubic ramus: Qualifiers: Encounter type: initial encounter Laterality: right Qualified Code(s): S32.591A - Other specified fracture of right pubis, initial encounter for closed fracture (3) Spinocerebellar ataxia: (4) Hypertension: (5) ASHD (arteriosclerotic heart disease): (6) Diabetes mellitus: (7) Bilateral sacral insufficiency fracture: Qualifiers: Encounter type: initial encounter Qualified Code(s): M84.48XA - Pathological fracture, other site, initial encounter for fracture (8) Hematoma of extraperitoneal space: Plan Fall -Superior, inferior pubic rami fracture with bilateral sacral insufficiency Bones/joints: Acute mildly displaced fracture of the right inferior pubic ramus with 4 mm maximal cortical step-off. Acute minimally displaced fractures of the right pubic body extending into the superior pubic ramus medially. No evidence of involvement of the right acetabulum. Chronic fracture of the proximal right femur status post ORIF with intramedullary derrell noted. Left hemipelvis and left hip are intact. Nondisplaced sacral insufficiency fracture on the right. There may be chronic bilateral sacral insufficiency fractures, evaluation of which with outpatient MRI may be helpful if clinically warranted. Partially visualized posterior decompression of the lumbar spine. There are moderate-severe degenerative changes of the lower lumbar spine. Soft tissues: Extraperitoneal hemorrhage within the pelvis extending into the space of Retzius. There is an approximately 3 cm hematoma along the right pelvic sidewall. -Plan ? Orthopedic service has been consulted ? IV fluids ? Dilaudid for pain control ? PT OT ? SCDs for DVT prophylaxis, Lovenox relatively contraindicated given results as below ? Full code : Extraperitoneal hemorrhage within the pelvis extending into the space of Retzius. There is an approximately 3 cm hematoma along the right pelvic sidewall. -Likely related to fall -Hold aspirin, Plavix Type 2 diabetes mellitus, low-dose sliding scale History of cerebellar ataxia A CT head Bilateral extremity edema, venous ultrasound Attestations 2 Medical Necessity Statement*: Patient requires hospitalization, inpatient, greater than 2 midnights for fall, sacral insufficiency fracture, inferior superior pubic rami fracture, extraperitoneal hemorrhage Coding Level of Care Code Acute Code for Chg Fwd Diagnoses Closed fracture of superior pubic ramus S32.511A Encounter type: initial encounter Laterality: right Closed fracture of inferior pubic ramus S32.591A Encounter type: initial encounter Laterality: right Spinocerebellar ataxia G11.8 Hypertension I10 ASHD (arteriosclerotic heart disease) I25.10 Diabetes mellitus E11.9 Bilateral sacral insufficiency fracture M84.48XA Encounter type: initial encounter Hematoma of extraperitoneal space K68.3
--- NOTE | 2024-04-19 01:08 | CTR_ITS ---
PROCEDURE INFORMATION: Exam: CT Head Without Contrast Exam date and time: 04/19/2024 1:56 AM Age: 78 years old Clinical indication: Injury or trauma; Blunt trauma (contusions or hematomas); Patient HX: Patient sustained a fall out of wheelchair yesterday. PT denies hitting head or any complaints to head. Anticoagulated. TECHNIQUE: Imaging protocol: Computed tomography of the head without contrast. Radiation optimization: All CT scans at this facility use at least one of these dose optimization techniques: automated exposure control; mA and/or kV adjustment per patient size (includes targeted exams where dose is matched to clinical indication); or iterative reconstruction. COMPARISON: MR head wo con* [id number] 08/22/2023 2:56 PM RADIATION DOSE METRICS: Total DLP (mGy-cm): 1087.48 FINDINGS: Brain: Posterior falcine lipoma. Unremarkable posterior midline arachnoid cyst. Pineal gland calcifications. Intracranial calcified atherosclerotic disease. Cerebral ventricles: Ex vacuo dilation of the ventricles and cerebral spinal fluid spaces. Choroid plexus calcifications. Paranasal sinuses: Visualized sinuses are unremarkable. No fluid levels. Mastoid air cells: Visualized mastoid air cells are well aerated. Bones: No acute findings. Soft tissues: Unremarkable. Other findings: Age-related atrophy. CT/CT head wo con* [id number] IMPRESSION: 1. No acute intracranial findings. 2. Age-related changes as highlighted above.
[2024-04-19] MEDS: sodium chloride 0.9% 1,000 ML 75 ML IV ×2 (01:38→15:11)
[2024-04-19] MEDS: pantoprazole 40 mg SDV IVP (01:38)
[2024-04-19 01:47] LABS: Basophils % 0.3 %; Eosinophils # 0.1 10^3/uL (0.0-0.8); Eosinophils % 1.9 %; Hematocrit 36.3 % (37-53); Lymphocytes # 0.8 10^3/uL (0.8-4.8); Lymphocytes % 10.4 %; Mean Corpuscular Hemoglobin 30.1 pg (27-33); Mean Platelet Volume 9.6 fL (7.4-10.4); Monocytes # 0.5 10^3/uL (0.2-0.9); Monocytes % 6.4 %; Neutrophils # 5.79 10^3/uL (1.8-7.7); Neutrophils % 80.4 %; Nucleated Red Blood Cells % 0 %; Platelet Count 100 10^3/cmm (157-399); Red Blood Count 3.86 10^6/uL (3.85-5.65); Red Cell Distribution Width 13.9 % (12.1-15.1)
--- NOTE | 2024-04-19 02:07 | ECG_ITS ---
[facility] Test Date: 2024-04-19 Pat Name: Arnold Ceron Department: Room: 251 Gender: Male [employer]: : 1945 Requested By: Gume Castañeda Order Number: [id number] Dale MD: Jimi Cohen M.D. Measurements Intervals [place] Rate: 58 P: 2 WA: 139 QRS: -38 QRSD: 190 T: -18 QT: 481 QTc: 476 Interpretive Statements SINUS BRADYCARDIA LEFT AXIS DEVIATION [QRS AXIS < -30] RIGHT BUNDLE BRANCH BLOCK [120+ ms QRS DURATION, UPRIGHT V1, 40+ ms S IN I/aVL/V4/V5/V6] Compared to ECG 04/06/2024 08:33:59 Left-axis deviation now present Sinus rhythm no longer present Ventricular premature complex(es) no longer present Left anterior fascicular block no longer present Electronically Signed On 04-19-2024 20:08:38 CDT by Jimi Cohen M.D. [id number]
[2024-04-19 02:09] LABS: Lactic Sepsis W/Reflex 0.8 mmol/L (0.5-2.2)
[2024-04-19 02:10] LABS: Estmated Average Glucose 128; Hemoglobin A1C 6.1 % (4.0-6.0)
[2024-04-19 02:12] LABS: Troponin(5th) Baseline 17 ng/L (0-15)
[2024-04-19 02:20] LABS: Anion Gap 11.7 (5-19); Blood Urea Nitrogen 20 mg/dL (8-23); Calcium 8.4 mg/dL (8.5-10.5); Carbon Dioxide 27 mmol/L (22-29); Chloride 106 mmol/L (98-107); Chol HDL Ratio 1.98 mg/dL (1.0-5.00); Cholesterol 111 mg/dL (0-200); Creatinine Clr Calc Pharmacy 91.4767; Glucose 118 mg/dL (65-115); HDL Cholesterol 56 mg/dL (60-100); LDL Cholesterol Calculated 46 mg/dL (50-129); LDL HDL Ratio 0.82 RATIO (0.00-3.22); NT Pro B Type Natriuretic Pept 671 pg/mL (0-450); Osmolality Calculated 296 mOsm/kg (285-295); Potassium 3.7 mmol/L (3.5-5.1); Sodium 141 mmol/L (136-145); Triglycerides 46 mg/dL (0-150)
[2024-04-19 05:42] LABS: Troponin 5 2HR 17.06 ng/L (0-15); Troponin 5 2HR Delta 0.06 ABS# (0-10)
--- NOTE | 2024-04-19 05:54 | ECG_ITS ---
[facility] Test Date: 2024-04-19 Pat Name: Arnold Ceron Department: Room: 251 Gender: Male [employer]: : 1945 Requested By: Gume Castañeda Order Number: [id number] Dale MD: Jimi Cohen M.D. Measurements Intervals [place] Rate: 66 P: 9 MA: 148 QRS: -39 QRSD: 190 T: 11 QT: 454 QTc: 477 Interpretive Statements SINUS RHYTHM LEFT AXIS DEVIATION [QRS AXIS < -30] RIGHT BUNDLE BRANCH BLOCK [120+ ms QRS DURATION, UPRIGHT V1, 40+ ms S IN I/aVL/V4/V5/V6] Compared to ECG 04/19/2024 02:48:57 Sinus bradycardia no longer present Electronically Signed On 04-19-2024 20:07:38 CDT by Jimi Cohen M.D. [id number]
[2024-04-19 06:37] LABS: Glucose Point of Care 123 mg/dL (70-110)
[2024-04-19 07:57] LABS: Hematocrit 38.4 % (37-53)
--- NOTE | 2024-04-19 08:18 | PM.CONSULT ---
Providers/Reason For Consult Consulting Physician/Specialty*: Padilla Negro DO/orthopedic surgery Reason for Consult*: Right superior and inferior pubic rami, right sacral insufficiency fracture Requesting Physician: Dr. Alegre Attending Physician: Isidoro Alegre MD Primary Care Provider: Nehemiah Kaur MD History of Present Illness History of Present Illness Arnold Ceron is a 78 year old male presented to the emergency department overnight after sustaining a ground-level fall while transferring from his wheelchair to his couch. Landed on his right side. Has any history of right hip hip ORIF of the right intertrochanteric femur fracture with Dr. Arroyo on 01/19/2023. He was x-rayed CT scan and no evidence of hardware failure of the right hip however patient does have a right superior and inferior pubic rami fracture as well as insufficiency sacral alar fracture. Orthopedics was consulted for evaluation and recommendations. Patient is coherent alert and able to follow commands and answer questions for my evaluation today. He is complaining of right hip/pelvic pain. Denies any pain elsewhere denies any loss of consciousness with this fall or hitting of his head. Review of Systems General: Reports: 10 or more systems reviewed and unremarkable except in HPI and below Medications/Allergies Home Medications Medication Instructions Recorded Confirmed Last Taken Type rosuvastatin 20 mg tablet 20 mg PO BEDTIME 08/29/19 04/19/24 03/24/24 History glipizide 5 mg tablet 5 mg PO BID 08/17/20 04/19/24 03/25/24 History multivitamin 1 tab PO DAILY 10/05/21 04/19/24 03/24/24 History cinnamon bark 500 mg capsule 500 mg PO DAILY PRN high blood 05/08/22 04/19/24 01/17/23 History (Cinnamon) sugar tamsulosin 0.4 mg capsule 0.4 mg PO BEDTIME 07/20/22 04/19/24 03/24/24 History tramadol 50 mg tablet 50 mg PO QAM 12/20/22 04/19/24 03/25/24 History aspirin 81 mg tablet,delayed 81 mg PO BEDTIME 07/04/23 04/19/24 03/24/24 History release clopidogrel 75 mg tablet 75 mg PO DAILY #30 tabs 07/04/23 04/19/24 03/25/24 Rx amiodarone 200 mg tablet 200 mg PO BEDTIME #90 tabs 02/12/24 04/19/24 03/24/24 Rx gabapentin 300 mg capsule 300 mg PO TID 03/25/24 04/19/24 03/25/24 History lisinopril 10 mg tablet 10 mg PO DAILY 03/25/24 04/19/24 03/24/24 History blood sugar diagnostic (OneTouch #10 ea 04/08/24 04/19/24 Unknown History Ultra Test strips) lancets 33 gauge (OneTouch Delica #100 ea 04/08/24 04/19/24 Unknown History Plus Lancet) Allergies Allergy/AdvReac Type Severity Reaction Status Date / Time No Known Allergies Allergy Verified 04/18/24 18:14 Current Medications Generic Name Dose Route Start Last Admin Trade Name Freq PRN Reason Stop Dose Admin Sodium Chloride 1,000 mls @ 75 mls/hr 04/19/24 01:08 04/19/24 01:38 Sodium Chloride 0.9% IV 75 mls/hr .[id number] MARY Administration Insulin Human Lispro 0 unit 04/19/24 08:00 04/19/24 07:31 Insulin Lispro 100 Unit/1 Ml SUBCUT Not Given TIDWM MARY Protocol Pantoprazole Sodium 40 mg 04/19/24 01:08 04/19/24 01:38 Pantoprazole 40 Mg Sdv IVP 40 mg Q24H MARY Administration PFSH Acute PFSH: Medical History VERONICA on CPAP Spinocerebellar degeneration NSVT (nonsustained ventricular tachycardia) Gait instability Migraine Diabetic neuropathy Cerebellar ataxia Lumbar spondylosis Lumbosacral disc disease Lumbar disc disease with radiculopathy Intervertebral disc disorder with radiculopathy of lumbosacral region Arachnoid cyst Ischemic cardiomyopathy DDD (degenerative disc disease), lumbar Diabetes mellitus Hyperlipidemia Hypertension Obesity ASHD (arteriosclerotic heart disease) Tobacco abuse History of colon cancer Surgical History History of sinus surgery History of back surgery Left L4-L5, L5-S1 hemilaminotomy/discectomy/foraminotomy, 09/01/2019, [facility] H/O coronary angioplasty History of hernia repair History of resection of small bowel History of cholecystectomy Family History Mother Cancer Father CAD (coronary artery disease) Sister Hypertension Social History Smoking and tobacco/nicotine status: never used tobacco/nicotine Alcohol intake: never Substance/Drug Use: never Lives independently: Yes Household members: spouse Marital status: Current occupational status: retired Current occupation: retired Vitals/I&O/Wt Last Vital Signs Temp 97.8 F 04/19/24 07:35 Pulse 73 04/19/24 07:35 Resp 21 H 04/19/24 07:35 BP 153/79 04/19/24 07:35 Pulse Ox 90 04/19/24 07:35 O2 Del Method Room Air 04/19/24 07:35 04/18/24 04/19/24 04/19/24 22:59 06:59 14:59 Intake Total 500 / 500 Output Total 200 / 200 Balance 300 / 300 Weight last 48 hrs Weight 250 lb Weight 235 lb Weight 235 lb Physical Exam Narrative: Orthopedic examination: Examination of patient demonstrates tenderness palpation over the pubic rami on the right side patient does have mild tenderness to palpation over the posterior aspect of the right side of the sacrum. No significant lumbar tenderness to palpation minimal pain with pelvic compression on the right side but no evidence of pelvic instability appreciated he is able to tolerate logroll examination of the left lower extremity as well as to the right lower extremity but has some mild discomfort at his right pubic bone with logroll examination he is able to wiggle the toes plantarflex and dorsiflex ankle distally to the bilateral lower extremities with right lower extremities are warm well-perfused. No tenderness along the right femur or knee. No palpable joint effusion to the right knee. Patient's bilateral upper extremities have no tenderness to palpation and can actively move these joints with no pain or discomfort. Data 04/19/24 07:38 04/19/24 01:39 Xray Ortho: My impression: X-rays multiple views AP pelvis, inlet and outlet demonstrate a stable right pelvic fracture of a superior and inferior pubic rami fracture no appreciable sacral fracture on x-ray imaging. Radiologist's impression: Ordering Provider/Ordering MD: Hockman,Tulio DO Date of Service: 04/18/24 Procedure(s): XR hip RT 2-3V wo/w pel* [id number] Accession Number(s): [id number] Report Number: [id number] PROCEDURE INFORMATION: Exam: XR Right Hip Exam date and time: 04/18/2024 7:28 PM Age: 78 years old Clinical indication: Injury or trauma; Blunt trauma (contusions or hematomas); Right; Prior surgery; Surgery date: 6+ months; Surgery type: Orif derrell; Patient HX: C/O RT hip pain after falling out of wheelchair. ; Additional info: Fall from wheelchair with prior total hip, pain in groin TECHNIQUE: Imaging protocol: Radiologic exam of the right hip. Views: 1 view hip with pelvis when performed. COMPARISON: CT abdomen pelvis w con* [id number] 03/25/2024 10:51 AM FINDINGS: Bones/joints: Acute fractures of the right hemipelvis. Chronic proximal femoral fracture status post ORIF with intramedullary derrell in place. Soft tissues: No gross soft tissue abnormality. XR/XR hip RT 2-3V wo/w pel* [id number] IMPRESSION: 1. Acute fractures of the right hemipelvis. Correlation with CT is recommended. Other CT: My impression: CFT of the pelvis reviewed in person interpreted by myself demonstrating patient does have superior and inferior pubic rami fractures of the right hip hardware appears to be stable there does appear to be a small nondisplaced sacral ala fracture on the right side no appreciable sacral insufficiency fracture on the left side. Radiologist's impression: Ordering Provider/Ordering MD: Tulio Perez DO Date of Service: 04/18/24 Procedure(s): CT pelvis wo con [id number] Accession Number(s): [id number] Report Number: [id number] PROCEDURE INFORMATION: Exam: CT Pelvis Without Contrast, Skeleton Exam date and time: 04/18/2024 9:39 PM Age: 78 years old Clinical indication: Injury or trauma; Fall; Blunt trauma (contusions or hematomas); Right; Prior surgery; Surgery date: 6+ months; Surgery type: RT hip. Colon. Hernia repair; Patient HX: Patient fell out of wheelchair at home. C/O RT hip pain. Pelvic fracture noted on XR. History of colon cancer. ; Additional info: Pelvic fractures identified on xray, S/P fall with right hip TECHNIQUE: Imaging protocol: Computed tomography of the pelvis without contrast. Exam focused on the skeleton. Radiation optimization: All CT scans at this facility use at least one of these dose optimization techniques: automated exposure control; mA and/or kV adjustment per patient size (includes targeted exams where dose is matched to clinical indication); or iterative reconstruction. COMPARISON: CT abdomen pelvis w con* [id number] 03/25/2024 10:51 AM RADIATION DOSE METRICS: Total DLP (mGy-cm): 818.41 FINDINGS: Bones/joints: Acute mildly displaced fracture of the right inferior pubic ramus with 4 mm maximal cortical step-off. Acute minimally displaced fractures of the right pubic body extending into the superior pubic ramus medially. No evidence of involvement of the right acetabulum. Chronic fracture of the proximal right femur status post ORIF with intramedullary derrell noted. Left hemipelvis and left hip are intact. Nondisplaced sacral insufficiency fracture on the right. There may be chronic bilateral sacral insufficiency fractures, evaluation of which with outpatient MRI may be helpful if clinically warranted. Partially visualized posterior decompression of the lumbar spine. There are moderate-severe degenerative changes of the lower lumbar spine. Soft tissues: Extraperitoneal hemorrhage within the pelvis extending into the space of Retzius. There is an approximately 3 cm hematoma along the right pelvic sidewall. CT/CT pelvis wo con [id number] IMPRESSION: 1. Acute fractures of the right hemipelvis including mildly displaced inferior pubic ramus fracture and minimally displaced pubic body/superior pubic ramus fractures on the right. 2. Suspected acute nondisplaced sacral insufficiency fracture on the right. There may be chronic nondisplaced bilateral sacral insufficiency fractures as well. 3. Extraperitoneal hemorrhage with a small 3 cm hematoma along the right pelvic sidewall. A&P Assessment and plan (1) Closed fracture of superior pubic ramus: Qualifiers: Encounter type: initial encounter Laterality: right Qualified Code(s): S32.511A - Fracture of superior rim of right pubis, initial encounter for closed fracture (2) Closed fracture of inferior pubic ramus: Qualifiers: Encounter type: initial encounter Laterality: right Qualified Code(s): S32.591A - Other specified fracture of right pubis, initial encounter for closed fracture (3) Sacral insufficiency fracture: Plan Patient may have diet Imaging reviewed?obtained AP pelvis inlet and outlet views preambulation Recommend post ambulation x-rays of pelvis, AP inlet and outlet views PT/OT Weightbearing as tolerated to the right lower extremity Utilize walker as needed Pain control Vitamin D/calcium supplementation DVT prophylaxis per primary Plan for nonoperative treatment at this time. Will obtain post ambulation x-rays and will follow-up with patient tomorrow to review these. Results fracture appears to remain stable continue with weightbearing as tolerated right lower extremity and continue with nonoperative treatment. Patient family understand agree with current plan. Questions answered. MDM: Patient is a pleasant 78-year-old gentleman who sustained a ground-level fall landing on his right hip. He has a right superior and inferior pubic rami fracture as well as a sacral insufficiency appearing fracture on the right side. His hardware on the right hip does appear to be stable. Given this appears to be a stable pelvic fracture. Will obtain pre and post ambulation x-rays to verify stability fracture pattern at this point in time detailed out the treatment plan with patient as well as family. This point time would recommend nonoperative treatment we will follow-up on his post ambulation x-rays tomorrow. Work with physical therapy today. Patient family understand agree with current plan. All questions answered. Coding Level of Care Code Acute Code for Chg Fwd Diagnoses Closed fracture of superior pubic ramus S32.511A Encounter type: initial encounter Laterality: right Closed fracture of inferior pubic ramus S32.591A Encounter type: initial encounter Laterality: right Sacral insufficiency fracture M84.48XA Time Spent (min) 50
--- NOTE | 2024-04-19 08:25 | XRR_ITS ---
PROCEDURE INFORMATION: Exam: XR Pelvis Exam date and time: 04/19/2024 12:02 PM Age: 78 years old Clinical indication: Injury or trauma; Other: RT pelvic FX post fall; Prior surgery; Surgery date: 6+ months; Surgery type: RT tfn; Patient HX: RT pelvic rami FX; Ap, inlet, outlet per phys. Cp TECHNIQUE: Imaging protocol: Radiologic exam of the pelvis. Views: 1 or 2 view. COMPARISON: CT pelvis [facility] [id number] 04/18/2024 9:39 PM FINDINGS: Bones/joints: Status post ORIF proximal right femur. There are degenerative changes across the hip joints, pubic symphysis, sacroiliac joints, visualized lower lumbar spine. There is mild contour abnormality of the right superior and inferior pubic rami consistent with fractures without significant displacement, similar to the prior CT scan. Soft tissues: There are benign-appearing soft tissue calcifications. XR/XR pelvis min 3V [id number] IMPRESSION: There are nondisplaced fracture through the right superior and inferior pubic rami, similar to the prior CT scan.
[2024-04-19] MEDS: acetaminophen 325 mg Tablet 650 MG PO (08:31)
[2024-04-19] MEDS: gabapentin 300 mg Capsule PO ×3 (08:31→22:45)
[2024-04-19] MEDS: lisinopril 10 mg Tablet PO (08:31)
--- NOTE | 2024-04-19 09:12 | W.PM.EVENTAC ---
Event Note Event Note: History and physical reviewed. Patient reports he is having some pelvic pain, nurses getting him some pain medication. I was called with his preliminary venous duplex report showing DVT. I discussed with patient, and heparin is going to be started after risks and benefits discussed. I discussed the possibility of bleeding secondary to his pelvic fracture. I also discussed the case with orthopedics. Continue to follow closely. Told patient he will likely require nursing facility care for rehabilitation.
[2024-04-19] MEDS: enoxaparin 30 mg/0.3 mL Syringe SUBCUT (10:07)
[2024-04-19 10:48] LABS: Glucose Point of Care 164 mg/dL (70-110)
[2024-04-19] MEDS: insulin lispro 100 unit/1 mL SUBCUT ×2 (11:41→17:10)
[2024-04-19] MEDS: oxyCODONE 5 mg IR Tab/Cap PO ×2 (11:52→18:45)
--- NOTE | 2024-04-19 12:45 | XRR_ITS ---
PROCEDURE INFORMATION: Exam: XR Pelvis Exam date and time: 04/19/2024 1:27 PM Age: 78 years old Clinical indication: Pelvic pain; Prior surgery; Surgery date: 6+ months; Surgery type: RT tfn; Patient HX: RT pelvic rami FX; Ap, eval for FX stability post PT per Dr. Negro TECHNIQUE: Imaging protocol: Radiologic exam of the pelvis. Views: 1 or 2 view. COMPARISON: CR (PELVIS, ) 04/19/2024 12:02 PM FINDINGS: Bones/joints: Nondisplaced fracture through the right superior and inferior pubic rami similar to the prior CT scan. Status post ORIF right femur. There are degenerative changes in the visualized lower lumbar spine. Degenerative changes extend across the sacroiliac joints, hip joints, and pubic symphysis. Soft tissues: There are benign-appearing soft tissue calcifications. XR/XR pelvis min 3V [id number] IMPRESSION: Nondisplaced fracture through the right superior and inferior pubic rami similar to the prior CT scan.
[2024-04-19 14:03] LABS: Hematocrit 36.3 % (37-53)
[2024-04-19 16:55] LABS: Glucose Point of Care 149 mg/dL (70-110)
[2024-04-19] MEDS: ondansetron 2 mg/ML SDV 2 mL 4 MG IVP (19:52)
[2024-04-19 20:20] LABS: Glucose Point of Care 121 mg/dL (70-110)
[2024-04-19] MEDS: metoclopramide 5 mg/mL SDV 2 mL IVP (21:58)
--- NOTE | 2024-04-19 22:00 | XRR_ITS ---
PROCEDURE INFORMATION: Exam: XR Abdomen Exam date and time: 04/19/2024 10:23 PM Age: 78 years old Clinical indication: Nausea and vomiting; Abdominal pain; Generalized; Prior surgery; Surgery date: 6+ months; Surgery type: Colon. Hernia repair. Rthip. Patient HX: C/O diffuse abd pain with n/v. TECHNIQUE: Imaging protocol: Radiologic exam of the abdomen. Views: Frontal supine view of the abdomen. 1 View. COMPARISON: CR (ABDOMEN, ) 04/06/2024 8:49 AM FINDINGS: Tubes, catheters and devices: Multiple surgical coils overlie the left abdomen. Gastrointestinal tract: Colonic constipation is present. Organs: Clips are present in the right upper quadrant consistent with prior cholecystectomy. Bones/joints: There are degenerative changes in the visualized spine. [id number] lumbar levoscoliosis. ORIF proximal right femur. Nondisplaced fractures of the right superior and inferior pubic rami appear stable when compared to the prior study. There are degenerative changes across the pubic symphysis and sacroiliac joints. XR/XR KUB portable [id number] IMPRESSION: 1. Nondisplaced fracture through the right superior and inferior pubic rami are similar to the prior study. 2. Colonic constipation is present.
[2024-04-19] MEDS: amiodarone 200 mg Tablet PO (22:44)
[2024-04-19] MEDS: atorvastatin 40 mg Tablet 80 MG PO (22:44)
[2024-04-19] MEDS: tamsulosin 0.4 mg Capsule PO (22:45)
[2024-04-20] VITALS (10 sets, daily range): BP systolic 119–139; BP diastolic 68–81; PULSE 62–80; RESP 17–23; TEMP 36.7–37.3; O2SAT 91–92
[2024-04-20] MEDS: pantoprazole 40 mg SDV IVP (01:35)
[2024-04-20 03:08] LABS: Basophils % 0.3 %; Eosinophils % 0.1 %; Hematocrit 37.3 % (37-53); Lymphocytes # 0.5 10^3/uL (0.8-4.8); Lymphocytes % 6.6 %; Mean Corpuscular HGB Conc 31.4 g/dL (30-55); Mean Corpuscular Hemoglobin 29.8 pg (27-33); Mean Corpuscular Volume 95.2 fl (82-101); Mean Platelet Volume 9.8 fL (7.4-10.4); Monocytes # 0.4 10^3/uL (0.2-0.9); Monocytes % 4.8 %; Neutrophils # 6.92 10^3/uL (1.8-7.7); Neutrophils % 87.6 %; Nucleated Red Blood Cells % 0 %; Platelet Count 118 10^3/cmm (157-399); Red Blood Count 3.92 10^6/uL (3.85-5.65); Red Cell Distribution Width 13.8 % (12.1-15.1)
[2024-04-20 03:28] LABS: Anion Gap 13.9 (5-19); Blood Urea Nitrogen 13 mg/dL (8-23); Calcium 8.6 mg/dL (8.5-10.5); Carbon Dioxide 25 mmol/L (22-29); Chloride 103 mmol/L (98-107); Creatinine Clr Calc Pharmacy 94.3117; Glucose 152 mg/dL (65-115); Osmolality Calculated 289 mOsm/kg (285-295); Potassium 3.9 mmol/L (3.5-5.1); Sodium 138 mmol/L (136-145)
[2024-04-20] MEDS: sodium chloride 0.9% 1,000 ML 75 ML IV (04:33)
[2024-04-20] MEDS: polyethylene glycol 3350 Pkt 17 gm PO (06:13)
[2024-04-20 06:21] LABS: Glucose Point of Care 144 mg/dL (70-110)
[2024-04-20] MEDS: insulin lispro 100 unit/1 mL SUBCUT ×3 (08:14→17:14)
[2024-04-20] MEDS: lisinopril 10 mg Tablet PO (08:15)
[2024-04-20] MEDS: enoxaparin 30 mg/0.3 mL Syringe SUBCUT (08:15)
[2024-04-20] MEDS: gabapentin 300 mg Capsule PO ×3 (08:15→21:00)
[2024-04-20] MEDS: clopidogrel 75 mg Tablet PO (08:15)
--- NOTE | 2024-04-20 08:50 | P.PN_ITS ---
Subjective 2 Subjective: Patient seen and examined this morning we reviewed his post ambulation x-rays these remain unchanged at this point time he has a stable pelvic fractures and we can treat these nonoperatively continue with weightbearing as tolerated to the right lower extremity will work with PT/OT no further intervention from an orthopedic standpoint. Will follow-up outpatient with orthopedics. All questions answered. Vitals/I&O/Wt Last Vital Signs Temp 98.6 F 04/20/24 04:00 Pulse 72 04/20/24 05:31 Resp 19 H 04/20/24 04:00 BP 127/81 04/20/24 04:00 Pulse Ox 91 04/20/24 04:00 O2 Del Method Room Air 04/20/24 04:00 04/19/24 04/20/24 04/20/24 22:59 06:59 14:59 Intake Total 360 / 1840 1360 / 3200 228.75 / 228.75 Output Total 675 / 850 400 / 1250 Balance -315 / 990 960 / 1950 228.75 / 228.75 Weight last 48 hrs Weight 246 lb Weight 250 lb Weight 235 lb Weight 235 lb Physical Exam 2 Narrative: Orthopedic examination: Examination of patient demonstrates tenderness palpation over the pubic rami on the right side patient does have mild tenderness to palpation over the posterior aspect of the right side of the sacrum. No significant lumbar tenderness to palpation minimal pain with pelvic compression on the right side but no evidence of pelvic instability appreciated, he is able to tolerate logroll examination of the left lower extremity as well as to the right lower extremity, he is able to wiggle the toes plantarflex and dorsiflex ankle distally to the bilateral lower extremities with right lower extremities are warm well-perfused. No tenderness along the right femur or knee. No palpable joint effusion to the right knee. Data 04/20/24 02:47 04/20/24 02:47 Xray Ortho: My impression: X-rays of the pelvis after post ambulation with PT/OT patient's found to have continued stable right superior and inferior pubic rami fractures. Radiologist's impression: Ordering Provider/Ordering MD: Padilla Negro Date of Service: 04/19/24 Procedure(s): XR pelvis min 3V 12740 Accession Number(s): [id number] Report Number: [id number] PROCEDURE INFORMATION: Exam: XR Pelvis Exam date and time: 04/19/2024 1:27 PM Age: 78 years old Clinical indication: Pelvic pain; Prior surgery; Surgery date: 6+ months; Surgery type: RT tfn; Patient HX: RT pelvic rami FX; Ap, eval for FX stability post PT per Dr. Negro TECHNIQUE: Imaging protocol: Radiologic exam of the pelvis. Views: 1 or 2 view. COMPARISON: CR (PELVIS, ) 04/19/2024 12:02 PM FINDINGS: Bones/joints: Nondisplaced fracture through the right superior and inferior pubic rami similar to the prior CT scan. Status post ORIF right femur. There are degenerative changes in the visualized lower lumbar spine. Degenerative changes extend across the sacroiliac joints, hip joints, and pubic symphysis. Soft tissues: There are benign-appearing soft tissue calcifications. XR/XR pelvis min 3V 28303 IMPRESSION: Nondisplaced fracture through the right superior and inferior pubic rami similar to the prior CT scan. A&P Assessment and plan (1) Closed fracture of superior pubic ramus: Qualifiers: Encounter type: initial encounter Laterality: right Qualified Code(s): S32.511A - Fracture of superior rim of right pubis, initial encounter for closed fracture (2) Closed fracture of inferior pubic ramus: Qualifiers: Encounter type: initial encounter Laterality: right Qualified Code(s): S32.591A - Other specified fracture of right pubis, initial encounter for closed fracture (3) Sacral insufficiency fracture: Plan Patient may have diet Imaging reviewed?obtained AP pelvis inlet and outlet views preambulation post ambulation x-rays of pelvis, AP inlet and outlet views-are stable no interval displacement PT/OT Weightbearing as tolerated to the right lower extremity Utilize walker as needed Pain control Vitamin D/calcium supplementation DVT prophylaxis per primary Plan for nonoperative treatment at this time. No orthopedic surgical intervention required at this time. Orthopedic surgery team will sign off patient at this time follow peripherally. If there is any question pertaining patient's care for further contact orthopedics on-call. Orthopedic discharge instructions as well as follow-up in 2 weeks still be placed in patient's chart would recommend pain medication as well as DVT prophylaxis per the primary team. Patient understands and agrees with current plan. All questions answered. Attestations 2 Medical Necessity Statement*: Right superior and inferior pubic rami fracture as well as right sacral insufficiency fracture Coding Level of Care Code Acute Code for Chg Fwd Diagnoses Closed fracture of superior pubic ramus S32.511A Encounter type: initial encounter Laterality: right Closed fracture of inferior pubic ramus S32.591A Encounter type: initial encounter Laterality: right Sacral insufficiency fracture M84.48XA Time Spent (min) 20
[2024-04-20] MEDS: glycerin adult supp 1 EACH PR (09:32)
--- NOTE | 2024-04-20 09:50 | P.PN_ITS ---
Subjective 2 Subjective: Patient reports some constipation and nausea. He would like a suppository for this. Pelvis still hurts, but tolerable on current pain medication Medications: Reviewed: Yes Vitals/I&O/Wt Last Vital Signs Temp 98.0 F 04/20/24 08:00 Pulse 69 04/20/24 08:00 Resp 17 04/20/24 08:00 BP 123/72 04/20/24 08:00 Pulse Ox 91 04/20/24 08:00 O2 Del Method Room Air 04/20/24 08:00 04/19/24 04/20/24 04/20/24 22:59 06:59 14:59 Intake Total 360 / 1840 1360 / 3200 588.75 / 588.75 Output Total 675 / 850 400 / 1250 200 / 200 Balance -315 / 990 960 / 1950 388.75 / 388.75 Weight last 48 hrs Weight 111.584 kg Weight 113.398 kg Weight 106.594 kg Weight 106.594 kg Physical Exam 2 Narrative: General Exam no distress Neck is supple Cardiovascular regular in rhythm with a 2/6 systolic murmur Lungs clear Abdomen is soft, bowel sounds are noted Extremities no cyanosis clubbing or edema Data 04/20/24 02:47 04/20/24 02:47 A&P Assessment and plan (1) Closed fracture of superior pubic ramus: Qualifiers: Encounter type: initial encounter Laterality: right Qualified Code(s): S32.511A - Fracture of superior rim of right pubis, initial encounter for closed fracture (2) Closed fracture of inferior pubic ramus: Qualifiers: Encounter type: initial encounter Laterality: right Qualified Code(s): S32.591A - Other specified fracture of right pubis, initial encounter for closed fracture (3) Spinocerebellar ataxia: (4) Hypertension: (5) ASHD (arteriosclerotic heart disease): (6) Diabetes mellitus: (7) Bilateral sacral insufficiency fracture: Qualifiers: Encounter type: initial encounter Qualified Code(s): M84.48XA - Pathological fracture, other site, initial encounter for fracture (8) Hematoma of extraperitoneal space: Plan Fall. Status post pelvic fracture. Appreciate orthopedic consultation. See report, multiple abnormalities but none warrant surgical intervention. Continue physical therapy, pain control. Consider DVT prophylaxis with aspirin upon discharge. Surgery recommends 3 25 mg twice daily. Small amount of bleeding was noted around the fracture site. Hemoglobin is stable. Oxycodone, Dilaudid for pain control Constipation. Glycerin suppository. Add senna. Diabetes mellitus. Sliding scale insulin History of cerebellar ataxia. Fall precautions. History of A-fib. Continue amiodarone. Superficial thrombosis on venous duplex. Symptomatic treatment if symptoms should occur. Currently asymptomatic Full code Lovenox for DVT prophylaxis Attestations 2 Medical Necessity Statement*: Requires continued hospitalization for physical therapy, pain control secondary to pelvic fracture with difficulty to ambulate, significant fall risk, and likely need for group home facility placement. 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
[2024-04-20] MEDS: sennosides-docusate Tablet 2 TAB PO ×2 (10:30→17:14)
[2024-04-20 11:39] LABS: Glucose Point of Care 147 mg/dL (70-110)
[2024-04-20] MEDS: oxyCODONE 5 mg IR Tab/Cap PO (14:21)
[2024-04-20] MEDS: lactulose oral liq 20 gm/30 mL UDC 30 GM PO (16:11)
[2024-04-20 16:30] LABS: Glucose Point of Care 149 mg/dL (70-110)
[2024-04-20] MEDS: ondansetron 2 mg/ML SDV 2 mL 4 MG IVP (18:10)
[2024-04-20] MEDS: tamsulosin 0.4 mg Capsule PO (20:59)
[2024-04-20] MEDS: atorvastatin 40 mg Tablet 80 MG PO (20:59)
[2024-04-20] MEDS: amiodarone 200 mg Tablet PO (20:59)
[2024-04-20 21:19] LABS: Glucose Point of Care 156 mg/dL (70-110)
[2024-04-20 21:42] LABS: Magnesium 1.5 mg/dL (1.7-2.3)
[2024-04-21] VITALS (12 sets, daily range): BP systolic 99–130; BP diastolic 66–78; PULSE 73–86; RESP 16–26; TEMP 36.9–37.7; O2SAT 87–93
[2024-04-21] MEDS: pantoprazole 40 mg SDV IVP (01:51)
[2024-04-21] MEDS: Fleet Enema 133 mL Enema PR (02:57)
[2024-04-21 03:16] LABS: Basophils % 0.2 %; Eosinophils % 0.1 %; Hematocrit 37.5 % (37-53); Lymphocytes # 0.3 10^3/uL (0.8-4.8); Lymphocytes % 3.1 %; Mean Corpuscular HGB Conc 32.5 g/dL (30-55); Mean Corpuscular Hemoglobin 30.4 pg (27-33); Mean Corpuscular Volume 93.5 fl (82-101); Mean Platelet Volume 10.5 fL (7.4-10.4); Monocytes # 0.5 10^3/uL (0.2-0.9); Neutrophils # 8.52 10^3/uL (1.8-7.7); Neutrophils % 91.1 %; Nucleated Red Blood Cells % 0 %; Platelet Count 106 10^3/cmm (157-399); Red Blood Count 4.01 10^6/uL (3.85-5.65); Red Cell Distribution Width 13.5 % (12.1-15.1); White Blood Count 9.36 10^3/uL (3.29-11.43)
[2024-04-21 03:33] LABS: Anion Gap 16.5 (5-19); Blood Urea Nitrogen 15 mg/dL (8-23); Calcium 8.3 mg/dL (8.5-10.5); Carbon Dioxide 23 mmol/L (22-29); Chloride 101 mmol/L (98-107); Creatinine Clr Calc Pharmacy 93.5558; Glucose 157 mg/dL (65-115); Osmolality Calculated 288 mOsm/kg (285-295); Potassium 3.5 mmol/L (3.5-5.1); Sodium 137 mmol/L (136-145)
--- NOTE | 2024-04-21 05:15 | XRR_ITS ---
PROCEDURE INFORMATION: Exam: XR Chest Exam date and time: 04/21/2024 5:25 AM Age: 78 years old Clinical indication: Other: Possible aspiration TECHNIQUE: Imaging protocol: Radiologic exam of the chest. Views: 1 view. COMPARISON: CT angio chest PE protcl [id number] 04/06/2024 9:39 AM FINDINGS: Lungs: There is airspace disease in the retrocardiac region of the left lung base suspicious for pneumonia. Lungs are otherwise clear. Pleural spaces: Unremarkable. No pleural effusion. No pneumothorax. Heart/Mediastinum: The heart is enlarged. Bones/joints: Unremarkable. XR/XR chest 1V portable [id number] IMPRESSION: 1. Cardiomegaly. 2. Findings suspicious for pneumonia in the retrocardiac left lung base.
[2024-04-21] MEDS: magnesium sulfate premix 2 GM/50 ML PIGGYBACK IV (05:35)
[2024-04-21 06:38] LABS: Glucose Point of Care 179 mg/dL (70-110)
[2024-04-21] MEDS: insulin lispro 100 unit/1 mL SUBCUT ×3 (07:43→17:15)
[2024-04-21] MEDS: gabapentin 300 mg Capsule PO ×3 (07:44→21:06)
[2024-04-21] MEDS: sennosides-docusate Tablet 2 TAB PO ×2 (07:44→17:01)
[2024-04-21] MEDS: clopidogrel 75 mg Tablet PO (07:44)
[2024-04-21] MEDS: lisinopril 10 mg Tablet PO (07:45)
[2024-04-21] MEDS: FUROsemide 10 mg/mL SDV 4mL 40 MG IVP (08:33)
[2024-04-21] MEDS: enoxaparin 30 mg/0.3 mL Syringe SUBCUT (08:33)
--- NOTE | 2024-04-21 10:16 | PC.CHAP ---
Pastoral Care Encounter/Spiritual Assessment Type of Contact [] Declined cell inspector visit [] Patient/Family/Request visit [] Outpatient visit [] Follow-up visit [] Physician referral [] Code/Alert [x] Routine visit [] Staff referral [] Actively dying [] Patient sleeping [] Family support [] [] Out of room [] Palliative care [] [] Receiving care in room [] Pre-surgical visit [] Trauma [] Long length of stay [] ICU visit [] Other: Relational/Emotional Strength [x] Patient feels connected with others/family/visitors/staff [] Distress [] Loneliness/isolation [] Abandonment Spirituality of Patient [x] Person of Josefina [] Attends [employer] of their [place] [x] Believes in Prayer [] Reads Bible or Nondenominational materials [] There are Spiritual issues to be addressed Deployment Engineer Interventions [x] Prayer [x] Active listening [] Non-anxious presence [x] Spiritual/emotional support [] Crisis/trauma care [] Spiritual counseling [] Bereavement support [] Provided bereavement packet [] Provided Bible/devotional materials [] Provided toy/stuffed animal, coloring book to patient or family member [] Provided Communion [] Anointing/Lott [] Salvation [x] Completed spiritual assessment [] Other: Impact on Illness or Injury [] Angry [] Fearful [] Anxious [] Often cries [] Exhaustion [] Unable to work [] Unable to attend orthodox [] Unable to walk/stand [] Unable to read [] Unable to drive [] Unable to eat/drink [] Unable to sleep [] Unable to be with family [] Patient intubated [] Other: Summary Time spent with patient 5 min
--- NOTE | 2024-04-21 10:18 | PC.SOCIAL ---
IMM Update pg 2 of IMM updated and reviewed w/ patient. Copy provided and copy dated, initialed and placed in chart.
--- NOTE | 2024-04-21 10:59 | P.PN_ITS ---
Subjective 2 Subjective: Patient had some continued vomiting yesterday. He did have relief after a bowel movement. He denies any vomiting, or nausea today. During the night, he was noted to have some oxygen requirement. His IV fluids were stopped. A chest x- ray was ordered. He denies any chest discomfort. Medications: Reviewed: Yes Vitals/I&O/Wt Last Vital Signs Temp 98.8 F 04/21/24 07:16 Pulse 84 04/21/24 07:16 Resp 17 04/21/24 07:16 BP 128/72 04/21/24 07:16 Pulse Ox 90 04/21/24 07:16 O2 Del Method Nasal Cannula 04/21/24 07:16 O2 Flow Rate 1 04/21/24 07:16 04/20/24 04/21/24 04/21/24 22:59 06:59 14:59 Intake Total 454 / 1823.50 286 / 286 Output Total 325 / 325 Balance 454 / 1423.50 -39 / -39 Weight last 48 hrs Weight 112.264 kg Weight 111.584 kg Physical Exam 2 Narrative: General Exam no distress Neck is supple Cardiovascular regular in rhythm with a 2/6 systolic murmur Lungs crackles bilaterally, bases, left greater than right Abdomen is soft, bowel sounds are noted Extremities trace edema bilaterally Data 04/21/24 02:15 04/21/24 02:15 A&P Assessment and plan (1) Closed fracture of superior pubic ramus: Qualifiers: Encounter type: initial encounter Laterality: right Qualified Code(s): S32.511A - Fracture of superior rim of right pubis, initial encounter for closed fracture (2) Closed fracture of inferior pubic ramus: Qualifiers: Encounter type: initial encounter Laterality: right Qualified Code(s): S32.591A - Other specified fracture of right pubis, initial encounter for closed fracture (3) Spinocerebellar ataxia: (4) Hypertension: (5) ASHD (arteriosclerotic heart disease): (6) Diabetes mellitus: (7) Bilateral sacral insufficiency fracture: Qualifiers: Encounter type: initial encounter Qualified Code(s): M84.48XA - Pathological fracture, other site, initial encounter for fracture (8) Hematoma of extraperitoneal space: Plan Fall. Status post pelvic fracture. Appreciate orthopedic consultation. See report, multiple abnormalities but none warrant surgical intervention. Continue physical therapy, pain control. Consider DVT prophylaxis with aspirin upon discharge. Surgery recommends 3 25 mg twice daily. Small amount of bleeding was noted around the fracture site. Hemoglobin is stable. Oxycodone, Dilaudid for pain control Hypoxia, with evidence of acute systolic heart failure. Previous echo showed EF around 40%. Fluids have been stopped. IV Lasix 40 mg x 1. Recheck for improvement. Try to wean off oxygen. Follow-up with BMP and CBC in the morning. Chest x-ray read as possible pneumonia. Clinically he has not had a fever, white blood cell count is normal. Certainly there is a possibility of aspiration with vomiting but doubt. Constipation. Continue bowel regimen. He has had some relief of his constipation and now does not have belly pain or nausea Diabetes mellitus. Sliding scale insulin History of cerebellar ataxia. Fall precautions. History of A-fib. Continue amiodarone. Some ectopy noted overnight. Magnesium low. This is being supplemented. Repeat magnesium tomorrow. Superficial thrombosis on venous duplex. Symptomatic treatment if symptoms should occur. Currently asymptomatic Full code Lovenox for DVT prophylaxis Will need nursing facility placement. 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
[2024-04-21 11:46] LABS: Glucose Point of Care 199 mg/dL (70-110)
[2024-04-21] MEDS: oxyCODONE 5 mg IR Tab/Cap PO ×2 (12:33→21:09)
[2024-04-21 16:59] LABS: Glucose Point of Care 183 mg/dL (70-110)
[2024-04-21 20:13] LABS: Glucose Point of Care 231 mg/dL (70-110)
[2024-04-21] MEDS: amiodarone 200 mg Tablet PO (21:06)
[2024-04-21] MEDS: tamsulosin 0.4 mg Capsule PO (21:06)
[2024-04-21] MEDS: atorvastatin 40 mg Tablet 80 MG PO (21:06)
[2024-04-22] VITALS (9 sets, daily range): BP systolic 102–144; BP diastolic 65–80; PULSE 69–101; RESP 16–20; TEMP 36.7–37; O2SAT 88–94
[2024-04-22] MEDS: pantoprazole 40 mg SDV IVP (01:37)
[2024-04-22 04:33] LABS: Basophils % 0.3 %; Eosinophils # 0.1 10^3/uL (0.0-0.8); Eosinophils % 2.2 %; Hematocrit 32.9 % (37-53); Lymphocytes # 0.6 10^3/uL (0.8-4.8); Lymphocytes % 9.7 %; Mean Corpuscular HGB Conc 32.2 g/dL (30-55); Mean Corpuscular Hemoglobin 30.1 pg (27-33); Mean Corpuscular Volume 93.5 fl (82-101); Mean Platelet Volume 10.1 fL (7.4-10.4); Monocytes # 0.5 10^3/uL (0.2-0.9); Monocytes % 8.2 %; Neutrophils # 5.03 10^3/uL (1.8-7.7); Nucleated Red Blood Cells % 0 %; Platelet Count 109 10^3/cmm (157-399); Red Blood Count 3.52 10^6/uL (3.85-5.65); White Blood Count 6.37 10^3/uL (3.29-11.43)
[2024-04-22 04:56] LABS: Anion Gap 12.4 (5-19); Blood Urea Nitrogen 23 mg/dL (8-23); Calcium 8.4 mg/dL (8.5-10.5); Carbon Dioxide 27 mmol/L (22-29); Chloride 99 mmol/L (98-107); Creatinine Clr Calc Pharmacy 83.4126; Glucose 167 mg/dL (65-115); Magnesium 1.9 mg/dL (1.7-2.3); Osmolality Calculated 287 mOsm/kg (285-295); Potassium 3.4 mmol/L (3.5-5.1); Sodium 135 mmol/L (136-145)
[2024-04-22] MEDS: oxyCODONE 5 mg IR Tab/Cap PO (05:54)
[2024-04-22 06:23] LABS: Glucose Point of Care 165 mg/dL (70-110)
[2024-04-22] MEDS: insulin lispro 100 unit/1 mL SUBCUT ×3 (08:02→17:01)
[2024-04-22] MEDS: potassium chloride ER 20 mEq Tablet 40 MEQ PO (08:02)
[2024-04-22] MEDS: clopidogrel 75 mg Tablet PO (08:03)
[2024-04-22] MEDS: sennosides-docusate Tablet 2 TAB PO ×2 (08:03→17:01)
[2024-04-22] MEDS: gabapentin 300 mg Capsule PO ×3 (08:03→20:27)
[2024-04-22] MEDS: enoxaparin 30 mg/0.3 mL Syringe SUBCUT (08:03)
[2024-04-22] MEDS: lisinopril 10 mg Tablet PO (08:03)
[2024-04-22] MEDS: levoFLOXacin 750 mg Tablet PO (08:56)
[2024-04-22] MEDS: FUROsemide 40 mg Tablet PO (08:56)
[2024-04-22 09:42] LABS: SARS Covid-2 Antigen negative (Negative)
--- NOTE | 2024-04-22 10:39 | P.DS_ITS ---
Discharge Providers Date of Admission: 04/19/24 00:00 Date of Discharge: April 22, 2024 Attending Provider at Admission: Gmue Castañeda MD Attending Provider at Discharge: Isidoro Alegre MD Primary Care Provider: Nehemiah Kaur MD Diagnoses at Discharge Discharge Diagnosis (1) Closed fracture of superior pubic ramus: Status: Acute Qualifiers: Encounter type: initial encounter Laterality: right Qualified Code(s): S32.511A - Fracture of superior rim of right pubis, initial encounter for closed fracture (2) Closed fracture of inferior pubic ramus: Status: Acute Qualifiers: Encounter type: initial encounter Laterality: right Qualified Code(s): S32.591A - Other specified fracture of right pubis, initial encounter for closed fracture (3) Spinocerebellar ataxia: Status: Acute (4) Hypertension: Status: Acute (5) ASHD (arteriosclerotic heart disease): Status: Acute (6) Diabetes mellitus: Status: Acute (7) Bilateral sacral insufficiency fracture: Status: Acute Qualifiers: Encounter type: initial encounter Qualified Code(s): M84.48XA - Pathological fracture, other site, initial encounter for fracture (8) Hematoma of extraperitoneal space: Status: Acute Reason for Visit Reason for Visit: fall Hospital Course Hospital Course Patient is an 78-year-old male with history of coronary disease, EF around 45%, spinocerebellar ataxia, hypertension, coronary stenting and others who presented after a fall, sustaining a closed fracture of his pelvis. A small hematoma was also noted, 3 cm along the right pelvic sidewall. CT head was negative. Orthopedics was consulted, pain management occurred, and physical therapy evaluated the patient. During the patient's hospital stay there was concern for pneumonia and acute systolic heart failure secondary to oxygen need. With diuresis oxygen need improved. Secondary to some purulent sputum Levaquin was initiated. He will finish 6 more days of Levaquin. He was placed on Lasix and potassium and should have a BMP and CBC in 3 days to 5 days. Orthopedic instructions for weightbearing. He will finish 2 weeks of Eliquis, and then may be restarted on his aspirin 81 mg daily. He was able to ask questions and agreed with the plan. On discharge she was stable, with an O2 sat of 92% on room air. Oral magnesium was also added to his regimen on discharge secondary to hypomagnesemia noted in the hospital, in addition of Lasix on his discharge meds. Physical Exam Narrative: General Exam no distress Neck is supple Cardiovascular regular rate and rhythm Lungs clear Abdomen soft Extremities no sinus clubbing edema Discharge Data Studies Completed and Pending Completed Studies During Hospitalization Category Date Time Status CT head wo con* [id number] Routine Cat Scan 04/19/24 01:[address] pelvis wo con [id number] Stat Cat Scan 04/18/24 20:58 Completed XR KUB portable [id number] Routine Exams 04/19/24 22:00 Completed XR chest 1V portable [id number] Stat Exams 04/21/24 05:15 Completed XR hip RT 2-3V wo/w pel* [id number] Stat Exams 04/18/24 19:19 Completed XR pelvis min 3V [id number] Routine Exams 04/19/24 08:25 Completed XR pelvis min 3V [id number] Routine Exams 04/19/24 12:45 [place] [id number] Stat Ultrasound 04/19/24 00:07 Completed Radiology Impressions Hip/Pelvis X-Ray 04/18/24 19:19 IMPRESSION: 1. Acute fractures of the right hemipelvis. Correlation with CT is recommended. Pelvis CT 04/18/24 20:58 IMPRESSION: 1. Acute fractures of the right hemipelvis including mildly displaced inferior pubic ramus fracture and minimally displaced pubic body/superior pubic ramus fractures on the right. 2. Suspected acute nondisplaced sacral insufficiency fracture on the right. There may be chronic nondisplaced bilateral sacral insufficiency fractures as well. 3. Extraperitoneal hemorrhage with a small 3 cm hematoma along the right pelvic sidewall. Venous Duplex 04/19/24 00:07 IMPRESSION: 1. Positive for superficial thrombophlebitis in the distal right lower extremity. There is thrombosis of the distal right great saphenous below the knee. 2. Negative for lower extremity deep vein thrombosis. Head CT 04/19/24 01:08 IMPRESSION: 1. No acute intracranial findings. 2. Age-related changes as highlighted above. Pelvis X-Ray 04/19/24 12:45 IMPRESSION: Nondisplaced fracture through the right superior and inferior pubic rami similar to the prior CT scan. KUB X-Ray 04/19/24 22:00 IMPRESSION: 1. Nondisplaced fracture through the right superior and inferior pubic rami are similar to the prior study. 2. Colonic constipation is present. Chest X-Ray 04/21/24 05:15 IMPRESSION: 1. Cardiomegaly. 2. Findings suspicious for pneumonia in the retrocardiac left lung base. Laboratory Results WBC 6.37 10^3/uL (3.29-11.43) 04/22/24 03:50 RBC 3.52 10^6/uL (3.85-5.65) L 04/22/24 03:50 Hgb 10.60 g/dL (11.27-16.99) L 04/22/24 03:50 Hct 32.9 % (37-53) L 04/22/24 03:50 MCV 93.5 fl (82-101) 04/22/24 03:50 MCH 30.1 pg (27-33) 04/22/24 03:50 MCHC 32.2 g/dL (30-55) 04/22/24 03:50 RDW 14.0 % (12.1-15.1) 04/22/24 03:50 Plt Count 109 10^3/cmm (157-399) L 04/22/24 03:50 MPV 10.1 fL (7.4-10.4) 04/22/24 03:50 Neut % (Auto) 79.0 % 04/22/24 03:50 Lymph % (Auto) 9.7 % 04/22/24 03:50 [place] % (Auto) 8.2 % 04/22/24 03:50 Eos % (Auto) 2.2 % 04/22/24 03:50 Baso % (Auto) 0.3 % 04/22/24 03:50 Neut # (Auto) 5.03 10^3/uL (1.8-7.7) 04/22/24 03:50 Lymph # (Auto) 0.6 10^3/uL (0.8-4.8) L 04/22/24 03:50 [place] # (Auto) 0.5 10^3/uL (0.2-0.9) 04/22/24 03:50 Eos # (Auto) 0.1 10^3/uL (0.0-0.8) 04/22/24 03:50 Baso # (Auto) 0.0 10^3/uL (0.0-0.1) 04/22/24 03:50 Nucleated RBC % (auto) 0 % 04/22/24 03:50 Nucleated RBCs # 0.0 /100WBC 04/22/24 03:50 PT 14.70 SECONDS (12.1-14.9) 04/18/24 21:54 INR 1.12 (0.8-1.2) 04/18/24 21:54 Sodium 135 mmol/L (136-145) L 04/22/24 03:50 Potassium 3.4 mmol/L (3.5-5.1) L 04/22/24 03:50 Chloride 99 mmol/L (98-107) 04/22/24 03:50 Carbon Dioxide 27 mmol/L (22-29) 04/22/24 03:50 Anion Gap 12.4 (5-19) 04/22/24 03:50 BUN 23 mg/dL (8-23) 04/22/24 03:50 Creatinine 0.9 mg/dL (0.7-1.2) 04/22/24 03:50 GFR Calculation Not Reportable 04/22/24 03:50 Glucose 167 mg/dL (65-115) H 04/22/24 03:50 POC Glucose 165 mg/dL (70-110) H 04/22/24 06:16 Estimat Average Glucose 128 04/19/24 01:39 Hemoglobin A1c 6.1 % (4.0-6.0) H 04/19/24 01:39 Calculated Osmolality 287 mOsm/kg (285-295) 04/22/24 03:50 Lactic Acid 0.8 mmol/L (0.5-2.2) 04/19/24 01:39 Calcium 8.4 mg/dL (8.5-10.5) L 04/22/24 03:50 Magnesium 1.9 mg/dL (1.7-2.3) 04/22/24 03:50 Total Bilirubin 0.6 mg/dL (0.15-1.2) 04/18/24 21:54 AST 12 U/L (0-40) 04/18/24 21:54 ALT 12 U/L (0-41) 04/18/24 21:54 Alkaline Phosphatase 43 U/L (40-130) 04/18/24 21:54 Troponin T Baseline 17 ng/L (0-15) H 04/19/24 01:39 Troponin T 120 Minute 17.06 ng/L (0-15) H 04/19/24 04:52 Delta Troponin T 0.06 ABS# (0-10) 04/19/24 04:52 Troponin T Hi Sens 6Hr 18.00 ng/L (0-15) H 04/19/24 07:38 Troponin T Hi Sens 6Hr Delta 1.00 ng/L (0-12) 04/19/24 07:38 NT-Pro-B Natriuret Pep 671 pg/mL (0-450) H 04/19/24 01:39 NT-Pro-B Natriuret Pep Cancelled 04/19/24 01:39 Total Protein 5.3 g/dL (6.6-8.7) L 04/18/24 21:54 Albumin 3.4 g/dL (3.5-5.2) L 04/18/24 21:54 Globulin 1.9 g/dL (1.3-4.6) 04/18/24 21:54 Triglycerides 46 mg/dL (0-150) 04/19/24 01:39 Triglycerides Cancelled 04/19/24 01:39 Cholesterol 111 mg/dL (0-200) 04/19/24 01:39 Cholesterol Cancelled 04/19/24 01:39 LDL Cholesterol, Calc 46 mg/dL (50-129) L 04/19/24 01:39 LDL Cholesterol, Calc Cancelled 04/19/24 01:39 HDL Cholesterol 56 mg/dL (60-100) L 04/19/24 01:39 HDL Cholesterol Cancelled 04/19/24 01:39 LDL/HDL Ratio 0.82 RATIO (0.00-3.22) 04/19/24 01:39 LDL/HDL Ratio Cancelled 04/19/24 01:39 Cholesterol/HDL Ratio 1.98 mg/dL (1.0-5.00) 04/19/24 01:39 Cholesterol/HDL Ratio Cancelled 04/19/24 01:39 TSH 1.20 uIU/mL (0.27-4.20) 04/19/24 01:39 TSH Cancelled 04/19/24 01:39 Urine Color Dark yellow (Yellow) A 04/18/24 22:08 Urine Appearance Clear (CLEAR) 04/18/24 22:08 Urine pH 5.5 (5-7) 04/18/24 22:08 Ur Specific [place] 1.040 (1.005-1.030) H 04/18/24 22:08 Urine Protein 1+ (Negative) A 04/18/24 22:08 Urine Glucose (UA) Negative (Normal) 04/18/24 22:08 Urine Ketones Trace (Negative) 04/18/24 22:08 Urine Blood Negative (Negative) 04/18/24 22:08 Urine Nitrate Negative (Negative) 04/18/24 22:08 Urine Bilirubin Negative (Negative) 04/18/24 22:08 Urine Urobilinogen 1.0 mg/dL (Negative) 04/18/24 22:08 Ur Leukocyte Esterase Negative (Negative) 04/18/24 22:08 Urine RBC 0-2 /hpf (0-2) 04/18/24 22:08 Urine WBC 0-5 /hpf (0-5) 04/18/24 22:08 Ur Squamous Epith Cells 0-5 /hpf (0-5) 04/18/24 22:08 Amorphous Sediment Not Reportable 04/18/24 22:08 Urine Bacteria None seen /hpf (NONE) 04/18/24 22:08 Hyaline Casts 0.40 /lpf 04/18/24 22:08 SARS-CoV-2 Ag (Rapid) negative (Negative) 04/22/24 08:50 Blood Type B Positive 04/18/24 21:54 Rho(D) Type Rh positive 04/18/24 21:54 Vitals Last Vital Signs Temp 98.3 F 04/22/24 08:00 Pulse 75 04/22/24 08:00 Resp 16 04/22/24 08:00 BP 144/77 04/22/24 08:00 Pulse Ox 90 04/22/24 08:00 O2 Del Method Room Air 04/22/24 08:00 O2 Flow Rate 2 04/21/24 14:55 Discharge Plan Discharge Patient Disposition: Xfer SNF Condition: Stable Prescriptions: New oxycodone 5 mg Tablet 5 mg PO Q4H PRN (Reason: Moderate Pain) Qty: 20 0RF sennosides-docusate sodium [Stool Softener-Laxative] 8.6-50 mg Tablet 2 tab PO BID Qty: 120 0RF furosemide 40 mg Tablet 40 mg PO DAILY@0800 Qty: 30 0RF levofloxacin 750 mg Tablet 750 mg PO DAILY@0600 Qty: 6 0RF potassium chloride [Klor-Con M20] 20 mEq Tablet,Er Particles/Crystals 20 meq PO DAILY Qty: 30 0RF Eliquis 2.5 mg tablet 2.5 mg PO BID Qty: 14 0RF magnesium oxide [MagOx] 400 mg (241.3 mg magnesium) tablet 400 mg PO DAILY Qty: 30 0RF Continued glipizide 5 mg tablet 5 mg PO BID multivitamin Tablet 1 tab PO DAILY (DME) lancets [OneTouch Delica Plus Lancet] 33 gauge misc See Rx Instructions .ROUTE .MEDSUPPLY Qty: 100 Rx Instructions: As directed (DME) OneTouch Ultra Test Strip See Rx Instructions .ROUTE .MEDSUPPLY Qty: 10 Rx Instructions: As directed tramadol 50 mg tablet 50 mg PO QAM amiodarone 200 mg tablet 200 mg PO BEDTIME Qty: 90 3RF rosuvastatin 20 mg tablet 20 mg PO BEDTIME lisinopril 10 mg tablet 10 mg PO DAILY gabapentin 300 mg capsule 300 mg PO TID cinnamon bark [Cinnamon] 500 mg Capsule 500 mg PO DAILY PRN (Reason: high blood sugar) tamsulosin 0.4 mg capsule 0.4 mg PO BEDTIME clopidogrel 75 mg Tablet 75 mg PO DAILY Qty: 30 0RF Discontinued aspirin 81 mg Tablet,Delayed Release (Dr/Ec) 81 mg PO BEDTIME Discharge Orders: Discharge Order (Routine); Ordered 04/22/24 Ordered By: Isidoro Alegre Referrals: [facility] [place] [Outside] Nehemiah Kaur MD [Primary Care Provider] - 4-7 days Padilla Negro DO [Physician] - 2 weeks Discharge Diet: Advance as tolerated and Cardiac Discharge Activity: Increase activity as tolerated, Limit activity as instructed, Use walker/crutches as instructed and As per PT/OT instructions Patient Instructions: Opioid Safety Activity Restrictions/Additional Instructions: Orthopedic discharge instructions: The patient may weight-bear as tolerated to the right lower extremity Utilize walker for ambulation Take pain medication as prescribed by primary team Recommend DVT prophylaxis per primary team upon discharge Follow-up in the orthopedic office in 2 weeks Ice as needed for pain and swelling Contact orthopedic office for any questions or concerns Patient's Health Concerns: Follow-up primary care provider 3 to 5 days, orthopedics 2 weeks Weightbearing per orthopedic instructions Eliquis 2.5 mg twice daily for 14 days. Following this you can resume the patient's aspirin 81 mg daily after Eliquis is discontinued. 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
--- NOTE | 2024-04-22 11:00 | ECG_ITS ---
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 Measurements Intervals [place] Rate: 76 P: -10 MA: 155 QRS: -39 QRSD: 189 T: 43 QT: 430 QTc: 484 Interpretive Statements SINUS RHYTHM WITH FREQUENT VENTRICULAR PREMATURE COMPLEXES LEFT AXIS DEVIATION [QRS AXIS < -30] RIGHT BUNDLE BRANCH BLOCK [120+ ms QRS DURATION, UPRIGHT V1, 40+ ms S IN I/aVL/V4/V5/V6] Compared to ECG 04/19/2024 05:54:13 Ventricular premature complex(es) now present Electronically Signed On 04-22-2024 16:52:06 CDT by Tristian Clarke M.D. [id number]
[2024-04-22 11:22] LABS: Glucose Point of Care 194 mg/dL (70-110)
--- NOTE | 2024-04-22 11:30 | PC.NURSE ---
At approx 1050, senior writer notified pt was c/o of SOB and chest pain. Nurse performed EKG and sent image to Dr Alegre at 1101. Pt stated he felt as though there was pressure on his chest over his heart, that his heart was beating fast, that he could not take a deep breath due to the pressure. Pt O2 sat was 88% on RA and RR was 20. Dr Alegre was notified of this report;called to assess telemetry and gave orders to check pt blood sugar and place on O2. Conservation Engineer notified Dr Alegre at 1118 that pt blood sugar was 194, and had been put on 1.5L O2 via NC. At 1127, senior writer messaged Dr Alegre that pt O2 sat was 95% on the 1.5L. Dr Alegre assessed the pt at the bedside; will hold discharge orders, continue to monitor and reassess.
--- NOTE | 2024-04-22 11:41 | USCV_ITS ---
Arnold Ceron Age: 78 Gender: M : 1945 Exam Date: 04/22/2024 13:33 Ordering Phys: Isidoro Alegre MD Technologist: Exam Location[place] [facility] [place] Indication: chf BP: 134 / 75 HR: 91 Rhythm: Sinus Technical Quality: Adequate MEASUREMENTS (Male / Female) Normal Values 2D ECHO LVOT Diameter 2.1 cm LV Ejection Fraction MOD 4C 74.0 % LV Ejection Fraction MOD 2C 60.7 % LV Ejection Fraction 2C AL 62.1 % LA Diameter 6.1 cm RA Systolic Volume 4C AL 71.7 ml RA Systolic Volume 4C MOD 71.4 ml IVC Diameter 2.9 cm DOPPLER AV Peak Velocity 157.0 cm/s LVOT Peak Velocity 102.0 cm/s AV Area Cont Eq vti 3.0 cm squared AV Area Cont Eq pk 2.2 cm squared MV Peak Velocity 91.0 cm/s MV Area PHT 6.8 cm squared Mitral E to A Ratio 0.7 TR Peak Velocity 326.0 cm/s TR Peak Gradient 42.5 mmHg TV Peak E Velocity 120.0 cm/s Right Atrial Pressure 3.0 mmHg Pulmonary Artery Systolic Pressu 45.5 mmHg FINDINGS Left Ventricle Normal LV size with an ejection fraction of around 50 to 55%.abnormal septal motion consistent with conduction abnormality. Suboptimal pictures because of the lack of parasternal windows Right Ventricle The right ventricle is normal in size and function. Right Atrium The right atrium is normal in size. Left Atrium Possibly of normal size Mitral Valve No gross abnormalities noted Aortic Valve Mild aortic valve regurgitation. Tricuspid Valve Trace tricuspid valve regurgitation. Estimated pulmonary artery peak systolic pressure 46 mmHg Pulmonic Valve Pulmonic valve not well visualized. Pericardium Normal pericardium without effusion. Aorta Normal ascending aorta dimension. IVC Normal inferior vena cava. CONCLUSIONS Normal LV size with a slightly diminished ejection fraction of around 50 to 55%((visual)). Abnormal septal motion consistent with conduction abnormality. Suboptimal pictures because of the lack of parasternal windows. Mild aortic valve regurgitation. Trace tricuspid valve regurgitation. Mild pulmonary hypertension Estimated pulmonary artery peak systolic pressure 46 mmHg. There is no pericardial effusion. Technically difficult study because of the poor ultrasonic windows-no parasternal windows obtained Compared to the study from 07/04/2023, there is some improvement in ejection fraction Dr Jimi Cohen MD FACC (Electronically Signed) Final Date: 23 April 2024 10:04 S
[2024-04-22 12:49] LABS: Troponin(5th) Baseline 23 ng/L (0-15)
--- NOTE | 2024-04-22 13:40 | ECG_ITS ---
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 Measurements Intervals [place] Rate: 77 P: -12 [place]: 152 QRS: -41 QRSD: 190 T: 5 QT: 417 QTc: 474 Interpretive Statements SINUS RHYTHM LEFT AXIS DEVIATION [QRS AXIS < -30] RIGHT BUNDLE BRANCH BLOCK [120+ ms QRS DURATION, UPRIGHT V1, 40+ ms S IN I/aVL/V4/V5/V6] Compared to ECG 04/22/2024 11:43:04 Ventricular premature complex(es) no longer present Electronically Signed On 04-22-2024 16:55:34 CDT by Tristian Clarke M.D. [id number]
[2024-04-22 14:44] LABS: Troponin 5 2HR 23.13 ng/L (0-15); Troponin 5 2HR Delta 0.13 ABS# (0-10)
--- NOTE | 2024-04-22 17:40 | ECG_ITS ---
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 Measurements Intervals [place] Rate: 84 P: -4 SC: 127 QRS: -42 QRSD: 195 T: 21 QT: 397 QTc: 472 Interpretive Statements SINUS RHYTHM LEFT AXIS DEVIATION [QRS AXIS < -30] RIGHT BUNDLE BRANCH BLOCK [120+ ms QRS DURATION, UPRIGHT V1, 40+ ms S IN I/aVL/V4/V5/V6] Compared to ECG 04/22/2024 14:29:46 No significant changes Electronically Signed On 04-23-2024 08:07:12 CDT by Tristian Clarke M.D. [id number]
[2024-04-22 17:45] LABS: Glucose Point of Care 170 mg/dL (70-110)
[2024-04-22 19:14] LABS: Troponin 5 6HR 20.22 ng/L (0-15)
[2024-04-22 19:15] LABS: Troponin 5 6HR Delta -2.78 ng/L (0-12)
[2024-04-22] MEDS: tamsulosin 0.4 mg Capsule PO (20:27)
[2024-04-22] MEDS: amiodarone 200 mg Tablet PO (20:27)
[2024-04-22] MEDS: atorvastatin 40 mg Tablet 80 MG PO (20:27)
[2024-04-22 21:04] LABS: Glucose Point of Care 179 mg/dL (70-110)
[2024-04-23] VITALS: BP 153/88; PULSE 80; RESP 19; TEMP 36.4; O2SAT 94
[2024-04-23] MEDS: pantoprazole 40 mg SDV IVP (01:15)
[2024-04-23 04:00] VITALS: BP 137/77; PULSE 73; RESP 18; TEMP 36.7; O2SAT 94
[2024-04-23] MEDS: levoFLOXacin 750 mg Tablet PO (05:11)
[2024-04-23 06:30] LABS: Glucose Point of Care 169 mg/dL (70-110)
[2024-04-23 08:00] VITALS: BP 153/74; PULSE 69; RESP 18; TEMP 37; O2SAT 95
[2024-04-23 08:22] LABS: Basophils % 0.3 %; Eosinophils # 0.1 10^3/uL (0.0-0.8); Eosinophils % 1.8 %; Hematocrit 34.7 % (37-53); Lymphocytes # 0.6 10^3/uL (0.8-4.8); Lymphocytes % 9.9 %; Mean Corpuscular HGB Conc 32.6 g/dL (30-55); Mean Corpuscular Hemoglobin 30.2 pg (27-33); Mean Corpuscular Volume 92.8 fl (82-101); Mean Platelet Volume 9.9 fL (7.4-10.4); Monocytes # 0.5 10^3/uL (0.2-0.9); Neutrophils # 4.99 10^3/uL (1.8-7.7); Neutrophils % 79.5 %; Nucleated Red Blood Cells % 0 %; Platelet Count 130 10^3/cmm (157-399); Red Blood Count 3.74 10^6/uL (3.85-5.65); Red Cell Distribution Width 13.7 % (12.1-15.1); White Blood Count 6.27 10^3/uL (3.29-11.43)
[2024-04-23 08:39] LABS: Anion Gap 12.8 (5-19); Blood Urea Nitrogen 17 mg/dL (8-23); Calcium 8.4 mg/dL (8.5-10.5); Carbon Dioxide 28 mmol/L (22-29); Chloride 102 mmol/L (98-107); Creatinine Clr Calc Pharmacy 94.3825; Glucose 163 mg/dL (65-115); Magnesium 1.8 mg/dL (1.7-2.3); Osmolality Calculated 293 mOsm/kg (285-295); Potassium 3.8 mmol/L (3.5-5.1); Sodium 139 mmol/L (136-145)
--- NOTE | 2024-04-23 08:58 | PC.NURSE ---
This nurse attempted to give pt ONE time order of lactulose, however, pt has had a large BM this morning and refused medication.
[2024-04-23] MEDS: clopidogrel 75 mg Tablet PO (08:59)
[2024-04-23] MEDS: FUROsemide 40 mg Tablet PO (08:59)
[2024-04-23] MEDS: insulin lispro 100 unit/1 mL SUBCUT ×2 (08:59→12:30)
[2024-04-23] MEDS: sennosides-docusate Tablet 2 TAB PO (08:59)
[2024-04-23] MEDS: gabapentin 300 mg Capsule PO (08:59)
[2024-04-23] MEDS: lisinopril 10 mg Tablet PO (08:59)
[2024-04-23] MEDS: potassium chloride ER 20 mEq Tablet PO (08:59)
[2024-04-23] MEDS: enoxaparin 30 mg/0.3 mL Syringe SUBCUT (09:00)
--- NOTE | 2024-04-23 10:13 | PC.SOCIAL ---
IMM Update pg 2 of IMM updated and reviewed w/ patient. Copy provided and copy dated, initialed and placed in chart.
--- NOTE | 2024-04-23 10:33 | P.PN_ITS ---
Subjective 2 Subjective: This is a final progress note. Patient was seen earlier today, and denied any chest discomfort. He reported that went away completely yesterday after he passed some gas. Troponins were flat. Echo has been read this morning, EF improved please see discharge summary, this should serve as an addendum/final progress note Medications: Reviewed: Yes Vitals/I&O/Wt Last Vital Signs Temp 98.6 F 04/23/24 08:00 Pulse 69 04/23/24 08:00 Resp 18 04/23/24 08:00 BP 153/74 04/23/24 08:00 Pulse Ox 95 04/23/24 08:00 O2 Del Method Room Air 04/23/24 08:00 O2 Flow Rate 2 04/21/24 14:55 04/22/24 04/23/24 04/23/24 22:59 06:59 14:59 Intake Total 240 / 600 360 / 360 Output Total 820 / 945 500 / 1445 300 / 300 Balance -580 / -345 -500 / -845 60 / 60 Weight last 48 hrs Weight 113.568 kg Weight 111.13 kg Physical Exam 2 Narrative: General Exam no distress Neck supple Cardiovascular regular rate and rhythm Lungs clear Abdomen soft Extremities trace bilateral edema Data 04/23/24 08:05 04/23/24 08:05 A&P Assessment and plan (1) Closed fracture of superior pubic ramus: Qualifiers: Encounter type: initial encounter Laterality: right Qualified Code(s): S32.511A - Fracture of superior rim of right pubis, initial encounter for closed fracture (2) Closed fracture of inferior pubic ramus: Qualifiers: Encounter type: initial encounter Laterality: right Qualified Code(s): S32.591A - Other specified fracture of right pubis, initial encounter for closed fracture (3) Spinocerebellar ataxia: (4) Hypertension: (5) ASHD (arteriosclerotic heart disease): (6) Diabetes mellitus: (7) Bilateral sacral insufficiency fracture: Qualifiers: Encounter type: initial encounter Qualified Code(s): M84.48XA - Pathological fracture, other site, initial encounter for fracture (8) Hematoma of extraperitoneal space: Plan Fall. Status post pelvic fracture. Appreciate orthopedic consultation. See report, multiple abnormalities but none warrant surgical intervention. Continue physical therapy, pain control. Consider DVT prophylaxis with aspirin upon discharge. Surgery recommends 3 25 mg twice daily. Small amount of bleeding was noted around the fracture site. Hemoglobin is stable. Oxycodone, Dilaudid for pain control Hypoxia, with evidence of acute systolic heart failure. Previous echo showed EF around 40%. Fluids have been stopped. IV Lasix 40 mg x 1. Recheck for improvement. Try to wean off oxygen. Follow-up with BMP and CBC in the morning. Chest x-ray read as possible pneumonia. Clinically he has not had a fever, white blood cell count is normal. Certainly there is a possibility of aspiration with vomiting but doubt.. Currently on room air. Troponins were checked and flat. Echo EF is improved from last ultrasound. Constipation. Continue bowel regimen. He has had some relief of his constipation and now does not have belly pain or nausea Diabetes mellitus. Sliding scale insulin History of cerebellar ataxia. Fall precautions. History of A-fib. Continue amiodarone. Some ectopy noted overnight. Magnesium low. This is being supplemented. Repeat magnesium tomorrow. Superficial thrombosis on venous duplex. Symptomatic treatment if symptoms should occur. 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
--- NOTE | 2024-04-23 11:41 | PC.OT ---
OT TREATMENT HELD PER PATIENT REQUEST DUE TO SCHEDULED D/C TODAY
--- NOTE | 2024-04-23 11:49 | PC.NURSE ---
This nurse called report to JUICE Du at [facility] at 1147am. Once covid test results come back, their facility will arrange for machine pecan picker.
[2024-04-23 12:00] VITALS: BP 133/83; PULSE 72; RESP 18; TEMP 36.7; O2SAT 94
[2024-04-23 12:03] LABS: Glucose Point of Care 191 mg/dL (70-110)
[2024-04-23 12:03] LABS: SARS Covid-2 Antigen Negative (Negative)
== END 2024-04-23 12:42 | disposition skilled nursing facility (03) | DRG 535 ==
LOC: ER 23:46 → MEDSURG 04-19 00:06
PROVIDERS: Internal Medicine; Admitting Provider Family Medicine; Emergency Provider Emergency Medicine; PCP Family Medicine; Visit Provider Internal Medicine
DX: S32.511A Fracture of superior rim of right pubis, initial encounter for closed fracture (principal); I50.21 Acute systolic (congestive) heart failure; K68.3 Retroperitoneal hematoma; J18.9 Pneumonia, unspecified organism; S52.591A Other fractures of lower end of right radius, initial encounter for closed fracture; G11.8 Other hereditary ataxias; G11.19 Other early-onset cerebellar ataxia; I82.90 Acute embolism and thrombosis of unspecified vein; I25.10 Atherosclerotic heart disease of native coronary artery without angina pectoris; E78.5 Hyperlipidemia, unspecified; G47.33 Obstructive sleep apnea (adult) (pediatric); E11.40 Type 2 diabetes mellitus with diabetic neuropathy, unspecified; G43.909 Migraine, unspecified, not intractable, without status migrainosus; W18.30XA Fall on same level, unspecified, initial encounter; I11.0 Hypertensive heart disease with heart failure; K59.00 Constipation, unspecified; I48.91 Unspecified atrial fibrillation; Z79.82 Long term (current) use of aspirin; Z79.02 Long term (current) use of antithrombotics/antiplatelets; Z79.899 Other long term (current) drug therapy; Z85.038 Personal history of other malignant neoplasm of large intestine; Z90.49 Acquired absence of other specified parts of digestive tract; R09.02 Hypoxemia
CPT/HCPCS: 36415; 36416; 70450; 71045; 72190; 72192; 73502; 74018; 80048; 80053; 80061; 81001; 82962; 83036; 83605; 83735; 83880; 84443; 84484; 85014; 85018; 85025; 85610; 86900; 87426; 93005; 93306; 93970; 96372; 96374; 96375; 97161; 97165; 97530; 97535; 99285; J1650; J1815; J1940; J2405; J2470; J2765; J3010; J3475; J7030; J7040

== ENCOUNTER → 2024-05-23 10:23 | Outpatient (BNVA) | payer MEDICARE, OTHER, SELFPAY | PROVIDERS: PCP Family Medicine; Visit Provider Specialist | DX: M17.0 Bilateral primary osteoarthritis of knee (principal); Z71.89 Other specified counseling | CPT/HCPCS: 20610; J1100; J2795; J3301 ==

== ENCOUNTER → 2024-07-02 16:31 | Outpatient (BNVA) | payer MEDICARE, OTHER, SELFPAY | PROVIDERS: PCP Family Medicine; Visit Provider Internal Medicine Cardiovascular Disease | DX: I25.10 Atherosclerotic heart disease of native coronary artery without angina pectoris (principal); I10 Essential (primary) hypertension; E78.5 Hyperlipidemia, unspecified; E11.42 Type 2 diabetes mellitus with diabetic polyneuropathy; Z79.84 Long term (current) use of oral hypoglycemic drugs; Z87.891 Personal history of nicotine dependence; I47.20 Ventricular tachycardia, unspecified | CPT/HCPCS: 99213 ==

== ENCOUNTER 2024-07-09 12:47 | Outpatient (RCR) | payer MEDICARE, OTHER, SELFPAY | END 2024-07-29 23:59 | disposition home or self-care (01) | LOC: SOT 12:47 | PROVIDERS: PCP Family Medicine; Visit Provider Family Medicine | DX: G32.81 Cerebellar ataxia in diseases classified elsewhere (principal) | CPT/HCPCS: 97167 ==

== ENCOUNTER → 2024-08-29 10:02 | Outpatient (BNVA) | payer MEDICARE, OTHER, SELFPAY | PROVIDERS: PCP Family Medicine; Visit Provider Specialist | DX: M17.0 Bilateral primary osteoarthritis of knee; Z71.89 Other specified counseling | CPT/HCPCS: 20610; J1100; J2795; J3301 ==

== ENCOUNTER → 2024-10-07 13:47 | Outpatient (BNVA) | payer MEDICARE, OTHER, SELFPAY | PROVIDERS: PCP Family Medicine; Visit Provider Psychiatry & Neurology Neurology | DX: G11.8 Other hereditary ataxias (principal); G11.9 Hereditary ataxia, unspecified; M54.2 Cervicalgia; I63.9 Cerebral infarction, unspecified | CPT/HCPCS: 99212 ==

== ENCOUNTER 2024-10-24 08:25 | Emergency (ER) | payer MEDICARE, OTHER, SELFPAY ==
[2024-10-24 08:32] VITALS: BP 171/82; PULSE 68; RESP 16; TEMP 36.7; O2SAT 96; BMI 34.4
--- NOTE | 2024-10-24 08:32 | XR_ITS ---
WS: [id number] Exam: XR chest 1V portable [id number] Date/Time of Exam: 10/24/2024 8:58 AM Reason For Exam: dyspnea/cough Comparison 04/21/2024. The lungs are fully inflated and clear. Cardiomediastinal silhouette is unremarkable for technique. No pleural effusions. Bony structures are intact. Monitoring leads superimpose the chest. XR/XR chest 1V portable [id number] IMPRESSION: 1. No acute cardiopulmonary finding.
--- NOTE | 2024-10-24 09:07 | CT_ITS ---
WS: [id number] CT CERVICAL TRAUMA TECHNIQUE: Noncontrast CT of the cervical spine with coronal and sagittal reformatted images. CLINICAL INFORMATION: Trauma COMPARISON: None. DLP: 1614.[address] scans at [facility] use at least one of these dose optimization techniques: automated exposure control; mA and/or kV adjustment per patient size (includes targeted exams where dose is matched to clinical indication); or iterative reconstruction. FINDINGS: Cervical curve. Reversal of the normal cervical lordosis. Advanced spondylitic changes. Normal craniocervical junction. Normal C1-C2 articulation. Dens is normal in appearance. Normal occipital condyles. No high-grade spinal canal narrowing. Normal C1 ring. No evidence of acute fracture or dislocation. Normal prevertebral soft tissues. Mastoids air cells are well aerated. Small RIGHT thyroid nodule. CT/CT cervical spin wo con* [id number] IMPRESSION: No evidence of acute fracture or dislocation.
--- NOTE | 2024-10-24 09:07 | CT_ITS ---
WS: [id number] CT HEAD TECHNIQUE: Noncontrast CT of the head obtained from the skullbase to the vertex. CLINICAL INFORMATION: Trauma COMPARISON: CT head 04/19/2024 DLP: 1614.[address] scans at [facility] use at least one of these dose optimization techniques: automated exposure control; mA and/or kV adjustment per patient size (includes targeted exams where dose is matched to clinical indication); or iterative reconstruction. FINDINGS: No evidence of intracranial hemorrhage or mass effect. Ventricular system and basal cisterns are patent. Mild small vessel changes with mild parenchymal volume loss. No extra-axial fluid collections. No evidence of mass or mass effect. Tiny lipoma along the RIGHT tentorium unchanged. Dense vascular price cification. Paranasal sinuses and mastoid air cells are well aerated. .Normal visualized soft tissues. CT/CT head wo con* [id number] IMPRESSION: 1. No acute intracranial findings
--- NOTE | 2024-10-24 09:07 | CT_ITS ---
WS: [id number] CT CHEST, ABDOMEN, AND PELVIS TECHNIQUE: Contrast-enhanced CT of the chest, abdomen, and pelvis with coronal and sagittal reformatted images. CLINICAL INFORMATION: Trauma COMPARISON: None. DLP: 1596.[address] scans at [facility] use at least one of these dose optimization techniques: automated exposure control; mA and/or kV adjustment per patient size (includes targeted exams where dose is matched to clinical indication); or iterative reconstruction. CT CHEST: Aortic calcification. Normal caliber thoracic aorta. Proximal main pulmonary arteries are normal. No mediastinal or hilar lymphadenopathy. No axillary lymphadenopathy. Chronic rib fractures with callus formation. No pneumothorax. Bibasilar atelectasis with slight patchy infiltrates in the lung bases. CT ABDOMEN AND PELVIS: Shrunken configuration to the liver unchanged since 2016. Cholecystectomy clips. Normal spleen. Fatty atrophy of the pancreas. Normal portal vein and splenic vein. Splenic artery calcification. Normal spleen. Normal caliber abdominal aorta. Celiac and SMA are patent. Adrenal glands are normal. No hydronephrosis in either kidney. No free fluid in the abdomen or pelvis. Sigmoid diverticulosis. Prior sigmoid colon resection. Prior ventral abdominal wall hernia repair. No free fluid in the abdomen or pelvis. Calcified prostate. Fat-containing LEFT inguinal hernia. Screw fixation RIGHT hip. Fracture of the RIGHT inferior pubic ramus with callus formation. This is new since 04/18/2024 CT/CT chest abdpel w/*[id number] IMPRESSION: 1. Bibasilar atelectasis with slight patchy infiltrates in the lung bases. 2. No acute rib fractures. Chronic rib fractures bilaterally with callus forma tion. 3. Chronic RIGHT pubic ramus fracture with callus formation although new since 03/25/2024. 4. No free fluid in the abdomen or pelvis. 5. No other acute findings.
--- NOTE | 2024-10-24 09:08 | W.ED.GENADLT ---
HPI - General Adult General: Chief complaint: Shortness of Breath/Dyspnea Stated complaint: cp/sob Time Seen by Provider: 10/24/24 08:29 History of Present Illness: 79-year-old male who presents to the emergency room with complaints of chest pain and shortness of breath. 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 Think several months ago he had a stroke he seen his primary care doctor for that. He is listed as being on clopidogrel and apixaban. Patient fell about a week ago he has bruising on the right zoroastrianism and forehead above the right eye he also has bruising at the lower left ribs. He tells me that these both occurred at the same time he has some slurring of his speech but they patient and the family both say this been going on for a year or more I do not think it is significantly different. He did not get knocked out when he fell he has not had any vomiting. He denies any chest pain. Patient states he falls frequently. He was using a walker had to switch to wheelchair because of the number of falls that he has Associated symptoms: Deny chest pain, dyspnea or rash Related Data Home Medications ?Medication ?Instructions ?Recorded ?Confirmed cinnamon bark 500 mg capsule 500 mg PO DAILY PRN high blood 05/08/22 10/24/24 (Cinnamon) sugar tamsulosin 0.4 mg capsule 0.4 mg PO BEDTIME 07/20/22 10/24/24 tramadol 50 mg tablet 50 mg PO QAM 12/20/22 10/24/24 gabapentin 300 mg capsule 300 mg PO TID 03/25/24 10/24/24 blood sugar diagnostic (WriggleTouch #10 ea 04/08/24 10/24/24 Ultra Test strips) lancets 33 gauge (OneTouch Delica #100 ea 04/08/24 10/24/24 Plus Lancet) gabapentin 100 mg capsule See Rx Instructions .Route .COMPLEX 10/24/24 10/24/24 Previous Rx's ?Medication ?Instructions ?Recorded clopidogrel 75 mg tablet 75 mg PO DAILY #30 tabs 07/04/23 sennosides 8.6 mg-docusate sodium 2 tab PO BID #120 tabs 04/22/24 50 mg tablet (Stool Softener-Laxative) amiodarone 200 mg tablet 200 mg PO BEDTIME #90 tabs 08/11/24 lamotrigine 25 mg tablet 50 mg (2 x 25 mg) PO BID 30 days 10/09/24 #120 tabs levofloxacin 500 mg tablet 500 mg PO DAILY 7 days #7 tabs 10/24/24 tramadol 50 mg tablet 50 mg PO Q8H PRN pain #14 tabs 10/24/24 Allergies Allergy/AdvReac Type Severity Reaction Status Date / Time No Known Allergies Allergy Verified 10/24/24 08:46 Review of Systems Const: Denies: fever(s) or chills Card: Denies: chest pain Resp: Denies: dyspnea GI: Denies: abdominal pain : Denies: dysuria, urinary frequency or urinary urgency Musc: Denies: neck pain or back pain Skin/Breast: Denies: rash PFSH ED PFSH: Medical History VERONICA on CPAP Spinocerebellar degeneration NSVT (nonsustained ventricular tachycardia) Gait instability Migraine Diabetic neuropathy Cerebellar ataxia Lumbar spondylosis Lumbosacral disc disease Lumbar disc disease with radiculopathy Intervertebral disc disorder with radiculopathy of lumbosacral region Arachnoid cyst Ischemic cardiomyopathy DDD (degenerative disc disease), lumbar Diabetes mellitus Hyperlipidemia Hypertension Obesity ASHD (arteriosclerotic heart disease) Tobacco abuse History of colon cancer Surgical History History of sinus surgery History of back surgery Left L4-L5, L5-S1 hemilaminotomy/discectomy/foraminotomy, 09/01/2019, [facility] H/O coronary angioplasty History of hernia repair History of resection of small bowel History of cholecystectomy Family History Mother Cancer Father CAD (coronary artery disease) Sister Hypertension Social History Smoking and tobacco/nicotine status: former use of tobacco/nicotine Alcohol intake: never Substance/Drug Use: never Lives independently: Yes Household members: spouse Marital status: Current occupational status: retired Current occupation: retired Physical Exam Const: COMMON NORMALS: no acute distress GENERAL APPEARANCE: cooperative and comfortable ORIENTATION/CONSCIOUSNESS: Yes awake HENMT: COMMON NORMALS: normocephalic, atraumatic and hearing grossly normal bilaterally HEAD & SCALP: normocephalic and atraumatic Resp: COMMON NORMALS: normal respiratory effort, No retractions, No use of accessory muscles and clear to auscultation bilaterally AUSCULTATION: clear to auscultation bilaterally Cardio: COMMON NORMALS: regular rate, regular rhythm and No murmurs present (Cardio) RATE: regular rate RHYTHM: regular rhythm GI: COMMON NORMALS: Soft to palpation and No hepatosplenomegaly present AUSCULTATION: Yes normoactive bowel sounds PALPATION: Yes Soft to palpation, No Tenderness to palpation present (GI), No Guarding due to palpation present (GI) and Yes No hepatosplenomegaly present Extremity: COMMON NORMALS: normal to inspection, capillary refill normal, no clubbing, cyanosis or edema, no calf tenderness and no pedal edema Skin: COMMON NORMALS: no rashes or lesions noted GENERAL SKIN EXAM: no rashes or lesions noted Course Vital Signs: Vital signs: Vital Signs Temperature 98.1 F 10/24/24 08:32 Pulse Rate 66 10/24/24 12:24 Respiratory Rate 16 10/24/24 08:32 Blood Pressure 149/95 10/24/24 12:24 Pulse Oximetry 97 10/24/24 12:24 Oxygen Delivery Me thod Room Air 10/24/24 11:55 MDM - General Adult Medical Decision Making Patient has soft tissue injury with bruising but no fractures that appear to be new. He does have some infiltrates on the lung that may have an early pneumonia his vital signs are stable this could be treated as an outpatient started on oral antibiotics follow-up with primary care. Medical Records I reviewed the patient's medical records. Lab Data I reviewed the patient's lab results. 10/24/24 09:03 10/24/24 09:03 Radiology Impressions Chest X-Ray 10/24/24 08:32 IMPRESSION: 1. No acute cardiopulmonary finding. Cervical Spine CT 10/24/24 09:07 IMPRESSION: No evidence of acute fracture or dislocation. Chest/Abdomen/Pelvis CT 10/24/24 09:07 IMPRESSION: 1. Bibasilar atelectasis with slight patchy infiltrates in the lung bases. 2. No acute rib fractures. Chronic rib fractures bilaterally with callus formation. 3. Chronic RIGHT pubic ramus fracture with callus formation although new since 03/25/2024. 4. No free fluid in the abdomen or pelvis. 5. No other acute findings. Head CT 10/24/24 09:07 IMPRESSION: 1. No acute intracranial findings Laboratory Results WBC 4.55 10^3/uL (3.29-11.43) 10/24/24 09:03 RBC 4.49 10^6/uL (3.85-5.65) 10/24/24 09:03 Hgb 13.40 g/dL (11.27-16.99) 10/24/24 09:03 Hct 41.2 % (37-53) 10/24/24 09:03 MCV 91.8 fl (82-101) 10/24/24 09:03 MCH 29.8 pg (27-33) 10/24/24 09:03 MCHC 32.5 g/dL (30-55) 10/24/24 09:03 RDW 13.0 % (12.1-15.1) 10/24/24 09:03 Plt Count 111 10^3/cmm (157-399) L 10/24/24 09:03 MPV 10.0 fL (7.4-10.4) 10/24/24 09:03 Neut % (Auto) 78.3 % 10/24/24 09:03 Lymph % (Auto) 13.0 % 10/24/24 09:03 Gaston % (Auto) 7.0 % 10/24/24 09:03 Eos % (Auto) 0.4 % 10/24/24 09:03 Baso % (Auto) 0.9 % 10/24/24 09:03 Neut # (Auto) 3.56 10^3/uL (1.8-7.7) 10/24/24 09:03 Lymph # (Auto) 0.6 10^3/uL (0.8-4.8) L 10/24/24 09:03 Gaston # (Auto) 0.3 10^3/uL (0.2-0.9) 10/24/24 09:03 Eos # (Auto) 0.0 10^3/uL (0.0-0.8) 10/24/24 09:03 Baso # (Auto) 0.0 10^3/uL (0.0-0.1) 10/24/24 09:03 Nucleated RBC % (auto) 0 % 10/24/24 09:03 Nucleated RBCs # 0.0 /100WBC 10/24/24 09:03 Sodium 141 mmol/L (136-145) 10/24/24 09:03 Potassium 3.7 mmol/L (3.5-5.1) 10/24/24 09:03 Chloride 104 mmol/L (98-107) 10/24/24 09:03 Carbon Dioxide 25 mmol/L (22-29) 10/24/24 09:03 Anion Gap 15.7 (5-19) 10/24/24 09:03 BUN 16 mg/dL (8-23) 10/24/24 09:03 Creatinine 0.9 mg/dL (0.7-1.2) 10/24/24 09:03 GFR Calculation Not Reportable 10/24/24 09:03 Glucose 139 mg/dL (65-115) H 10/24/24 09:03 Calculated Osmolality 295 mOsm/kg (285-295) 10/24/24 09:03 Calcium 9.4 mg/dL (8.5-10.5) 10/24/24 09:03 Total Bilirubin 1.1 mg/dL (0.15-1.2) 10/24/24 09:03 AST 13 U/L (0-40) 10/24/24 09:03 ALT 8 U/L (0-41) 10/24/24 09:03 Alkaline Phosphatase 63 U/L (40-130) 10/24/24 09:03 Total Protein 6.4 g/dL (6.6-8.7) L 10/24/24 09:03 Albumin 4.1 g/dL (3.5-5.2) 10/24/24 09:03 Globulin 2.3 g/dL (1.3-4.6) 10/24/24 09:03 Urine Color Yellow (Yellow) 10/24/24 10:05 Urine Appearance Clear (CLEAR) 10/24/24 10:05 Urine pH 5 (5-7) 10/24/24 10:05 Ur Specific Steptoe 1.020 (1.005-1.030) 10/24/24 10:05 Urine Protein Neg (Negative) 10/24/24 10:05 Urine Glucose (UA) Norm (Normal) 10/24/24 10:05 Urine Ketones 2+ (Negative) H 10/24/24 10:05 Urine Blood Neg (Negative) 10/24/24 10:05 Urine Nitrate Negative (Negative) 10/24/24 10:05 Urine Bilirubin Neg (Negative) 10/24/24 10:05 Urine Urobilinogen Neg mg/dL (Negative) 10/24/24 10:05 Ur Leukocyte Esterase Negative (Negative) 10/24/24 10:05 Urine RBC 0-2 /hpf (0-2) 10/24/24 10:05 Urine WBC 0-5 /hpf (0-5) 10/24/24 10:05 Ur Squamous Epith Cells 0-5 /hpf (0-5) 10/24/24 10:05 Amorphous Sediment Not Reportable 10/24/24 10:05 Urine Bacteria None seen /hpf (NONE) 10/24/24 10:05 Hyaline Casts 0.40 /lpf 10/24/24 10:05 Influenza A (PCR) Negative (Negative) 10/24/24 10:28 Influenza Type B (PCR) Negative (Negative) 10/24/24 10:28 RSV (PCR) Negative (Negative) 10/24/24 10:28 SARS-CoV-2 (PCR) Negative (Negative) 10/24/24 10:28 All radiology interpretation(s) finalized by discharge Discharge Plan Discharge Patient Disposition: Home Clinical Impression: Pneumonia, Cerebellar ataxia, Rib pain on left side Condition: Stable Prescriptions: New tramadol 50 mg tablet 50 mg PO Q8H PRN (Reason: pain) Qty: 14 0RF levofloxacin 500 mg tablet 500 mg PO DAILY 7 Days Qty: 7 0RF No Action (DME) lancets [OneTouch Delica Plus Lancet] 33 gauge misc See Rx Instructions .ROUTE .MEDSUPPLY Qty: 100 Rx Instructions: As directed (DME) OneTouch Ultra Test Strip See Rx Instructions .ROUTE .MEDSUPPLY Qty: 10 Rx Instructions: As directed tramadol 50 mg tablet 50 mg PO QAM amiodarone 200 mg tablet 200 mg PO BEDTIME Qty: 90 3RF lamotrigine 25 mg tablet 50 mg PO BID 30 Days Qty: 120 5RF Rx Instructions: 25mg once a day for a week, 25mg twice a day for a week, then 50mg once a week, then 50mg twice a day thereafter gabapentin 300 mg capsule 300 mg PO TID sennosides-docusate sodium [Stool Softener-Laxative] 8.6-50 mg Tablet 2 tab PO BID Qty: 120 0RF gabapentin 100 mg capsule See Rx Instructions .ROUTE .COMPLEX Rx Instructions: Take 1 cap by mouth in the am and 1 cap in the pm for one week. then take 1 capsule with the 300 from then on. cinnamon bark [Cinnamon] 500 mg Capsule 500 mg PO DAILY PRN (Reason: high blood sugar) tamsulosin 0.4 mg capsule 0.4 mg PO BEDTIME clopidogrel 75 mg Tablet 75 mg PO DAILY Qty: 30 0RF Discharge Orders: Discharge ED (Routine); Ordered 10/24/24 Ordered By: Jose Rafael Vilchis Referrals: Nehemiah Kaur MD [Primary Care Provider] - Discharge Diet: Usual diet Discharge Activity: Resume usual activity Patient Instructions: Opioid Safety, Pain Management Activity Restrictions/Additional Instructions: Thank you for choosing [facility] for your healthcare needs today. It is very important that you follow up as instructed or that you return to the Emergency Department should you have concerns or if your condition changes or worsens in any way. You are seen in the emergency room after a fall. Imaging did not show any acute injury or fractures. There is obvious signs of soft tissue injury and bruising from the fall on exam. You will likely be very sore for an extended period of time from this. Chest imaging did show evidence of pneumonia your oxygen sats are good vital signs were stable this is felt to be treatable as an outpatient will start on some antibiotics once daily for a week. Additionally you are given pain medications. Print Language: Belarusian Coding Level of Care Code ED Industrial Safety And Health Manager for Aiyana Rush
[2024-10-24 09:11] LABS: Basophils % 0.9 %; Eosinophils % 0.4 %; Hematocrit 41.2 % (37-53); Lymphocytes # 0.6 10^3/uL (0.8-4.8); Mean Corpuscular HGB Conc 32.5 g/dL (30-55); Mean Corpuscular Hemoglobin 29.8 pg (27-33); Mean Corpuscular Volume 91.8 fl (82-101); Monocytes # 0.3 10^3/uL (0.2-0.9); Neutrophils # 3.56 10^3/uL (1.8-7.7); Neutrophils % 78.3 %; Nucleated Red Blood Cells % 0 %; Platelet Count 111 10^3/cmm (157-399); Red Blood Count 4.49 10^6/uL (3.85-5.65); White Blood Count 4.55 10^3/uL (3.29-11.43)
[2024-10-24 09:26] LABS: Alanine Aminotransferase 8 U/L (0-41); Albumin Level 4.1 g/dL (3.5-5.2); Alkaline Phosphatase 63 U/L (40-130); Anion Gap 15.7 (5-19); Aspartate Amino Transferase 13 U/L (0-40); Blood Urea Nitrogen 16 mg/dL (8-23); Calcium 9.4 mg/dL (8.5-10.5); Carbon Dioxide 25 mmol/L (22-29); Chloride 104 mmol/L (98-107); Globulin 2.3 g/dL (1.3-4.6); Glucose 139 mg/dL (65-115); Osmolality Calculated 295 mOsm/kg (285-295); Potassium 3.7 mmol/L (3.5-5.1); Sodium 141 mmol/L (136-145); Total Bilirubin 1.1 mg/dL (0.15-1.2); Total Protein 6.4 g/dL (6.6-8.7)
[2024-10-24 10:09] LABS: Add Urine Microscopic? NO
[2024-10-24 10:12] LABS: Urine Appearance Clear (CLEAR); Urine Color Yellow (Yellow)
[2024-10-24 10:13] LABS: Bacteria Urine None Seen /hpf; Bilirubin Urine Neg (Negative); Blood Urine Neg (Negative); Glucose Urine UA Norm (Normal); Ketones Urine 2+ (Negative); Leukocyte Esterase Urine Negative (Negative); Nitrate Urine Negative (Negative); Protein Urine Neg (Negative); RBC Urine 0-2 /hpf (0-2); Squamous Epithelial Cell Urine 0-5 /hpf (0-5); Urobilinogen Urine Neg (Negative); WBC Urine 0-5 /hpf (0-5); pH Urine 5 (5-7)
[2024-10-24] MEDS: iohexol 350 mg/mL 500 mL Btl (per mL) IV (10:17)
[2024-10-24 10:30] VITALS: BP 170/86; PULSE 63; O2SAT 97
[2024-10-24 11:13] LABS: Influenza A NEGATIVE (Negative); Influenza B NEGATIVE (Negative); Respiratory Syncytial Virus Ce NEGATIVE (Negative); SARS-CoV-2 PCR NEGATIVE (Negative)
[2024-10-24 11:55] VITALS: BP 149/95; PULSE 68; O2SAT 97
[2024-10-24 12:24] VITALS: BP 149/95; PULSE 66; O2SAT 97
== END 2024-10-24 12:27 | disposition home or self-care (01) ==
PROVIDERS: Emergency Provider Family Medicine; PCP Family Medicine
DX: J18.9 Pneumonia, unspecified organism (principal); G11.9 Hereditary ataxia, unspecified; R07.81 Pleurodynia; Z11.52 Encounter for screening for COVID-19; Z79.02 Long term (current) use of antithrombotics/antiplatelets; Z87.891 Personal history of nicotine dependence; E78.5 Hyperlipidemia, unspecified; Z85.038 Personal history of other malignant neoplasm of large intestine; I10 Essential (primary) hypertension; E11.40 Type 2 diabetes mellitus with diabetic neuropathy, unspecified
CPT/HCPCS: 36415; 70450; 71045; 71260; 72125; 74177; 80053; 85025; 87637; 99285

== ENCOUNTER → 2024-11-28 10:58 | Outpatient (BNVA) | payer MEDICARE, OTHER, SELFPAY | PROVIDERS: PCP Family Medicine; Visit Provider Specialist | DX: M17.0 Bilateral primary osteoarthritis of knee (principal) | CPT/HCPCS: 20610; J1100; J2795; J3301; J9999 ==

== ENCOUNTER → 2025-03-13 09:33 | Outpatient (BNVA) | payer MEDICARE, SELFPAY | PROVIDERS: PCP Family Medicine; Visit Provider Specialist | DX: M17.0 Bilateral primary osteoarthritis of knee (principal) | CPT/HCPCS: 20610; J1100; J2795; J3301; J9999 ==

== ENCOUNTER → 2025-06-12 10:24 | Outpatient (BNVA) | payer MEDICARE, SELFPAY | PROVIDERS: PCP Family Medicine; Visit Provider Specialist | DX: M17.0 Bilateral primary osteoarthritis of knee (principal) | CPT/HCPCS: 20610; J1100; J2795; J3301; J9999 ==

== ENCOUNTER → 2025-07-01 15:18 | Outpatient (BNVA) | payer MEDICARE, SELFPAY | PROVIDERS: PCP Family Medicine; Visit Provider Internal Medicine Cardiovascular Disease | DX: I48.91 Unspecified atrial fibrillation (principal); Z87.891 Personal history of nicotine dependence; I10 Essential (primary) hypertension | CPT/HCPCS: 99214 ==